=== PATIENT | male | born 1950 | race Caucasian/White ===

== ENCOUNTER 2021-01-23 10:48 | Emergency (ER) | payer MEDICARE, MEDICAID, SELFPAY ==
--- NOTE | ~2021-01-23 | XR_ITS ---
EXAMINATION: XR HIP, LEFT CLINICAL INFORMATION: Left hip pain COMPARISON: None TECHNIQUE: Two views of the left hip. FINDINGS: No fracture or dislocation. The hips are appropriately aligned. Severe degenerative change of the left hip with superior joint space narrowing and [id number] appearance. Subchondral sclerosis with prominent osteophytes noted. Mild degenerative change of the right hip with small osteophytes and subchondral sclerosis. The pelvic rim is intact. Normal bowel gas pattern. XR/XR hip LT w PEL1V IMPRESSION: Severe degenerative changes of the left hip. Mild degenerative change of the right hip.
--- NOTE | ~2021-01-23 | US_ITS ---
EXAMINATION: US VENOUS ULTRASOUND WITH DOPPLER LOWER EXTREMITY, LEFT CLINICAL INFORMATION: Left groin pain. COMPARISON: None TECHNIQUE: Ultrasound of the deep veins is performed from the hip to the calf with compression sonography and color and pulse Doppler assessment. Spectral analysis with color-flow imaging is performed. FINDINGS: There is normal venous compression and respiratory variation and augmented flow. The visualized common femoral vein, superficial femoral vein, profunda femoral vein, popliteal vein, and the trifurcation region shows no evidence of deep venous thrombosis. There is no significant popliteal fossa cyst. If the patient's symptoms persist, followup ultrasound in 5 days 7 days might be of value to exclude proximal propagation from a non-visualized calf vein. US/US venous duplex LE LT IMPRESSION: No DVT demonstrated in the left lower extremity.
[2021-01-23 11:07] VITALS: BP 118/67; PULSE 85; RESP 18; TEMP 36.7; O2SAT 96; BMI 30.7
--- NOTE | 2021-01-23 13:17 | ED.EXTPRO ---
HPI - Extremity Problem General Chief complaint: Extremity Problem Stated complaint: hip pain Time Seen by Provider: 01/23/21 11:40 Source: patient Mode of arrival: ambulatory Limitations: no limitations History of Present Illness MD Complaint: extremity pain Onset (ago): week(s) (1-2 weeks) Pain Consistency: constant Location: left and lower extremity (Groin/hip area) Quality: aching Radiation: none Relieving factors: nothing Exacerbating factors: range of motion and palpation Associated symptoms: denies other symptoms Related Data Previous Rx's Medication Instructions Recorded acetaminophen 500 mg tablet 1,000 mg PO QID PRN #14 tab 01/23/21 (Tylenol Extra Strength) cyclobenzaprine 10 mg tablet 10 mg PO Q8H PRN #14 tab 01/23/21 oxycodone 5 mg tablet 5 mg PO Q6H PRN #14 tab 01/23/21 Allergies Allergy/AdvReac Type Severity Reaction Status Date / Time heparin [HEPARIN] Allergy Unknown UNKNOWN Unverified 12/06/19 14:50 heparin Allergy Unknown foot edema Uncoded 12/05/17 00:00 Heparin Sodium Flush Allergy Unknown swelling Uncoded 09/24/16 00:00 Review of Systems Review of Systems: Constitutional : No Weight loss, No Fever, No Chills, No Night Sweats, No Fatigue, No Malaise ENT/Mouth : No Hearing loss, No Ear Pain, No Nasal Congestion, No Sinus Pain, No Hoarseness, No sore throat, No Rhinorrhea, No Swallowing Difficulty Eyes: No Eye Pain, No Swelling, No Redness, No Foreign Body, No Discharge, No Vision Changes Cardiovascular : No Chest Pain, No SOB, No Dyspnea on Exertion, No Orthopnea, No Edema, No Palpitations Respiratory : No Cough, No Sputum, No Wheezing, No Smoke Exposure, No Dyspnea Gastrointestinal : No Nausea, No Vomiting, No Diarrhea, No Constipation, No abdominal Pain, No Hematochezia, No Melena Genitourinary : no irregular bleeding, No Dysuria, No Urinary Frequency, No Hematuria, No Urinary Incontinence, No Urgency, No Flank Pain, No Urinary Flow Changes, No Hesitancy Musculoskeletal : + left hip/groin joint pain, No Myalgias, No Joint Swelling Skin : No Skin Lesions, No rash Neuro : No Weakness, No Numbness, No Paresthesias, No Loss of Consciousness, No Dizziness, No Headache Psych : No Anxiety/Panic, No Depression, No SI/HI/AH/VH, No Social Issues, Heme/Lymph: No Bruising, No Bleeding,No Lymphadenopathy Endocrine : No Polyuria, No Polydipsia, No Temperature Intolerance Yes all other systems are reviewed and are negative [facility] Past Medical History Attestation statement: The following information was validated with the patient. 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 Blood pressure normal. Heart rate normal. Respiration rate normal. Temperature normal. Oxygen saturation normal. Appearance: Alert. Oriented X3. No acute distress. Head: Normal external exam. Normocephalic. Atraumatic. Eyes: PERRLA. EOMI. Conjunctiva and sclera normal. Eyelids normal. ENT: Pharynx normal. Uvula midline. Moist mucous membranes. Neck: Normal inspection. Neck supple. FROM. No adenopathy. Thyroid Normal. No meningeal signs. No neck mass noted. CVS: Normal heart rate and rhythm. Heart sound normal. Pulses normal throughout. No murmurs/rales/gallops. Respiratory: No respiratory distress. Painless inspiration. Breath sounds normal. No wheezes/rales/rhonchi noted. Chest nontender. No accessory muscle usage noted or decreased air movement noted. Abdomen: Soft and nontender. Bowel sounds normal in all 4 quadrants. No distention noted. No organomegaly noted. No visible injury noted. Back: Full range of motion noted. No rashes/lesion/induration/fluctuance or signs of infection noted. Skin: Skin warm and dry. Normal skin color. Normal skin turgor. No rashes/lesions/lacerations noted. Extremities: Patient mild tenderness palpation to the left groin/pelvic/hip area. He has full range of motion of the left hip/left lower extremity. No signs of infection. No lower extremity edema is noted. No calf tenderness is noted. He has a normal steady gait. Otherwise all other Extremities exhibit normal range of motion and nontender. Neuro: Oriented X 3. No motor deficit. No sensory deficit. Reflexes normal. Normal steady gait. No focal neuro deficits noted. Vascular: + radial pulses/+ 2 distal pedal pulses/+2 dorsalis pedis b/l. Normal cap refill. No cyanosis noted to upper extremity nails and lower extremity toes nails. Course Course Course Narrative: 70-year-old female who has a past medical history of multiple clots in the past currently on Eliquis, hypertension, hyperlipidemia and CHF presenting to the ED with complaints of left groin pain atraumatic for the past 1-2 weeks. He denies any other symptoms or complaints related to this. X-ray obtained and revealed arthritis to the left hip. Negative DVT study to the left lower extremity. Therefore patient most likely groin strain/arthritis flare therefore will DC home with symptomatic treatment instructions return if any new or worsening symptoms to follow up with primary care provider. Patient understands agrees with this plan. MDM - Extremity (Nontraumatic) Medical Records Attestation: I reviewed the patient's medical records. Imaging Data Left hip and pelvis x-ray: Attestation: I personally reviewed and interpreted this imaging study as follows: Radiologist's impression: FINDINGS: No fracture or dislocation. The hips are appropriately aligned. Severe degenerative change of the left hip with superior joint space narrowing and [id number] appearance. Subchondral sclerosis with prominent osteophytes noted. Mild degenerative change of the right hip with small osteophytes and subchondral sclerosis. The pelvic rim is intact. Normal bowel gas pattern. XR/XR hip LT w PEL1V IMPRESSION: Severe degenerative changes of the left hip. Mild degenerative change of the right hip. Venous duplex ultrasound left lower extremity: Attestation: I personally reviewed and interpreted this imaging study as follows: Radiologist's impression: FINDINGS: There is normal venous compression and respiratory variation and augmented flow. The visualized common femoral vein, superficial femoral vein, profunda femoral vein, popliteal vein, and the trifurcation region shows no evidence of deep venous thrombosis. ? There is no significant popliteal fossa cyst. If the patient's symptoms persist, followup ultrasound in 5 days 7 days might be of value to exclude proximal propagation from a non-visualized calf vein. US/US venous duplex LE LT IMPRESSION: No DVT demonstrated in the left lower extremity. Discharge Plan Discharge Clinical Impression: Strain of left groin, Arthritis of left hip Patient Disposition: Home, Self-Care Instructions: Osteoarthritis (ED), Groin Strain (ED) Prescriptions: New cyclobenzaprine 10 mg tablet 10 mg PO Q8H PRN (Reason: Muscle spasm) Qty: 14 RF: 0 acetaminophen [Tylenol Extra Strength] 500 mg tablet 1,000 mg PO QID PRN (Reason: fever or pain) Qty: 14 RF: 0 oxycodone 5 mg tablet 5 mg PO Q6H PRN (Reason: pain) Qty: 14 RF: 0 Referrals: Physician,None [Primary Care Provider] - 2 days (your pcp) Interventions: ED Discharge Assessment Last Done: 01/23/21 13:29 Discharge Date/Time: 01/23/21 13:30 Print Language: Sami
== END 2021-01-23 13:30 | disposition home or self-care (01) ==
PROVIDERS: Emergency Provider Emergency Medicine
DX: S39.011A Strain of muscle, fascia and tendon of abdomen, initial encounter (principal); X58.XXXA Exposure to other specified factors, initial encounter; M16.12 Unilateral primary osteoarthritis, left hip; I11.0 Hypertensive heart disease with heart failure; I50.9 Heart failure, unspecified; E78.5 Hyperlipidemia, unspecified; Y93.9 Activity, unspecified; Y92.9 Unspecified place or not applicable; Y99.9 Unspecified external cause status; Z86.718 Personal history of other venous thrombosis and embolism; Z79.01 Long term (current) use of anticoagulants
CPT/HCPCS: 73502; 93971; 99283; 99284

== ENCOUNTER 2021-02-17 15:44 | Emergency (ER) | payer MEDICARE, MEDICAID, SELFPAY ==
[2021-02-17 16:40] VITALS: BP 154/99; PULSE 97; RESP 19; TEMP 36.4; O2SAT 96; BMI 29.9
--- NOTE | 2021-02-17 19:44 | ED_ITS ---
HPI - General Adult General Chief complaint: Extremity Problem Stated complaint: leg pain Time Seen by Provider: 02/17/21 19:32 Source: patient Mode of arrival: ambulatory Limitations: no limitations History of Present Illness HPI narrative: 70-year-old male presents to ED for pain control of left hip arthritis. Patient was seen here earlier this month for arthritis of hip diagnosed by x-ray and was prescribed with oxycodone and Tylenol with muscle relaxer and he said those were affective. Patient states he ran out of those meds and requesting prescription of oxycodone with cyclobenzaprine and steroids. Related Data Previous Rx's Medication Instructions Recorded acetaminophen 500 mg tablet 1,000 mg PO QID PRN #14 tab 01/23/21 (Tylenol Extra Strength) cyclobenzaprine 10 mg tablet 10 mg PO Q8H PRN #14 tab 01/23/21 oxycodone 5 mg tablet 5 mg PO Q6H PRN #14 tab 01/23/21 acetaminophen 325 mg capsule 325 mg PO QID PRN #28 cap 02/17/21 cyclobenzaprine 10 mg tablet 10 mg PO TID PRN #21 tab 02/17/21 oxycodone 5 mg tablet 5 mg PO TID PRN #9 tab 02/17/21 prednisone 20 mg tablet 40 mg PO DAILY 5 Days #10 tab 02/17/21 Allergies Allergy/AdvReac Type Severity Reaction Status Date / Time heparin [HEPARIN] Allergy Unknown UNKNOWN Verified 02/17/21 16:40 heparin Allergy Unknown foot edema Uncoded 12/05/17 00:00 Heparin Sodium Flush Allergy Unknown swelling Uncoded 09/24/16 00:00 Review of Systems Review of Systems: Yes all other systems are reviewed and are negative Constitutional: Constitutional: Reports as per HPI and Reports no additional constitutional complaints Eyes: Eyes: Reports as per HPI and Reports no additional eye complaints ENT: Reports system reviewed and no additional complaints, except as documented and Reports as per HPI Cardiovascular: Cardiovascular: Reports as per HPI and Reports no additional cardiovascular complaints Respiratory: Respiratory: Reports as per HPI and Reports no additional respiratory complaints Gastrointestinal: Gastrointestinal: Reports as per HPI and Reports no ad ditional gastrointestinal complaints Genitourinary: Genitourinary: Reports no additional male genitourinary complaints and Reports as per HPI Musculoskeletal: Musculoskeletal: Reports no additional musculoskeletal complaints, Reports as per HPI and Reports arthralgias (left hip pain) Integumentary/Breasts: Skin/Breast: Reports system reviewed and no additional complaints, except as docu and Reports as per HPI Neurologic: Reports system reviewed and no additional complaints, except as documented and Reports as per HPI Psychiatric: Psychiatric: Reports no additional psychiatric complaints and Reports as per HPI [facility] Past Medical History Medical History (Updated 02/18/21 @ 00:02 by Tavares Waldrop) CHF (congestive heart failure) High cholesterol 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) Hx of senior living use of blood thinners Social History Social History Advance Directives: No Advance Directives Information Provided: Yes Physical Exam Vital Signs: Vital Signs: Last Vital Signs Temp 97.5 F 02/17/21 16:40 Pulse 97 02/17/21 16:40 Resp 19 02/17/21 16:40 BP 154/99 H 02/17/21 16:40 Pulse Ox 96 02/17/21 16:40 Body Mass Index 29.9 Const: General: cooperative, healthy appearing, comfortable, no acute distress, well developed, alert, awake and Physically active Orientatio n/consciousness: patient oriented x3 HENMT: Head: Yes normal to inspection, Yes No palpable skull fracture present, Yes normocephalic, Yes atraumatic and No abrasion Eyes: General: appearance normal, both eyes and all related structures Neck: Neck: Yes normal visual inspection, Yes full ROM, Yes no lymphadenopathy, Yes no meningeal signs, Yes trachea midline, No supple, No anterior neck swelling and No tender Chest: Chest palpation & inspection: normal inspection of the chest and normal palpation of entire chest wall Resp: Effort & Inspection: normal respiratory effort and able to speak in complete sentences Auscultation: clear to auscultation bilaterally Cardio: Jugular venous distension: no JVD Heart sounds: S1 normal heart sound present and S2 normal heart sound present GI: Inspection: Yes normal to inspection and No abdominal wall ecchymosis Palpation (GI): Soft to palpation, not firm, nontender, no guarding and not rigid : General: No CVA tenderness and Yes no CVA tenderness Back/Spine/Pelvis: Back: no CVA tenderness, No CVA tenderness and No back tenderness Skin: General skin exam: no rashes or lesions noted and elasticity normal Neuro: General: patient oriented x3, gait normal, no meningeal signs and CN's II-XI intact bilaterally Cranial nerves: Yes CN's II-XII intact bilaterally Extrem: General: Yes normal to inspection and Yes full ROM Upper/lower leg/hip images: 1. Positive for tenderness on hip on palpation. Negative for crepitus, ecchymosis, erythema, or fluctuating mass. Femoral pulse intact. Patient's motor/neuro/vascular exam of left lower extremity intact. Negative for swelling of legs or redness to indicate cellulitis or DVT. Course Course Course Narrative: No need for repeat imaging. Patient normal ultrasound on last visit to the ED an x-ray at the time showed severe arthritis. Reevaluation(s) Reevaluation #1: Patient discharged with pain meds Time: 19:56 Medical Decision Making MDM Narrative Medical decision making narrative: Hip arthritis Discharge Plan Discharge Clinical Impression: Arthritis of hip Patient Disposition: Home, Self-Care Instructions: Arthritis (ED) Additional Instructions: Return to the ED immediately for worsening pain, swelling of lower extremity, bluish black discoloration of lower extremity, redness, calf pain, fever, chills , coldness, hotness, paralysis of lower extremity, or any other concerning symptoms. Please follow up with PCP. Prescriptions: New oxycodone 5 mg tablet 5 mg PO TID PRN (Reason: pain) Qty: 9 RF: 0 acetaminophen 325 mg capsule 325 mg PO QID PRN (Reason: pain) Qty: 28 RF: 0 prednisone 20 mg tablet 40 mg PO DAILY 5 Days Qty: 10 RF: 0 cyclobenzaprine 10 mg tablet 10 mg PO TID PRN (Reason: pain) Qty: 21 RF: 0 No Action cyclobenzaprine 10 mg tablet 10 mg PO Q8H PRN (Reason: Muscle spasm) Qty: 14 RF: 0 acetaminophen [Tylenol Extra Strength] 500 mg tablet 1,000 mg PO QID PRN (Reason: fever or pain) Qty: 14 RF: 0 oxycodone 5 mg tablet 5 mg PO Q6H PRN (Reason: pain) Qty: 14 RF: 0 Stand Alone Forms: Work/School Release Interventions: ED Discharge Assessment Last Done: 02/17/21 20:34 Discharge Date/Time: 02/17/21 20:35 Print Language: Estonian
== END 2021-02-17 20:35 | disposition home or self-care (01) ==
PROVIDERS: Emergency Provider Emergency Medicine
DX: M16.7 Other unilateral secondary osteoarthritis of hip (principal); M25.552 Pain in left hip; I11.0 Hypertensive heart disease with heart failure; I50.9 Heart failure, unspecified; E78.5 Hyperlipidemia, unspecified; Z79.01 Long term (current) use of anticoagulants
CPT/HCPCS: 99283

== ENCOUNTER 2021-04-02 08:20 | Emergency (ER) | payer MEDICARE, SELFPAY ==
[2021-04-02 08:25] VITALS: BP 165/73; PULSE 74; RESP 16; O2SAT 99; BMI 29.9
--- NOTE | 2021-04-02 09:59 | ED_ITS ---
HPI - Extremity Injury (Lower) General Chief Complaint: Extremity Injury, Lower Stated Complaint: l leg pain Time Seen by Provider: 04/02/21 09:46 History of Present Illness HPI Narrative: Patient complains of increasingly severe left hip pain he has been here twice before an x-ray did show severe degenerative changes in the hip, the pain is mainly with movement of the leg or putting weight on the leg as well as waking him up from sleep with some frequency There is no fever no chills no rib injury no fall, no numbness weakness or tingling Related Data Previous Rx's Medication Instructions Recorded acetaminophen 500 mg tablet 1,000 mg PO QID PRN #14 tab 01/23/21 (Tylenol Extra Strength) cyclobenzaprine 10 mg tablet 10 mg PO Q8H PRN #14 tab 01/23/21 oxycodone 5 mg tablet 5 mg PO Q6H PRN #14 tab 01/23/21 acetaminophen 325 mg capsule 325 mg PO QID PRN #28 cap 02/17/21 cyclobenzaprine 10 mg tablet 10 mg PO TID PRN #21 tab 02/17/21 oxycodone 5 mg tablet 5 mg PO TID PRN #9 tab 02/17/21 prednisone 20 mg tablet 40 mg PO DAILY 5 Days #10 tab 02/17/21 acetaminophen 500 mg tablet 1,000 mg PO QID PRN #30 tab 04/02/21 oxycodone 5 mg tablet 5 mg PO Q6H PRN #14 tab 04/02/21 Allergies Allergy/AdvReac Type Severity Reaction Status Date / Time heparin [HEPARIN] Allergy Unknown UNKNOWN Verified 02/17/21 16:40 heparin Allergy Unknown foot edema Uncoded 12/05/17 00:00 Heparin Sodium Flush Allergy Unknown swelling Uncoded 09/24/16 00:00 Review of Systems Review of Systems: Positive for left hip pain with movement Negatives are no fever no chills no headache no neck pain no radiating pain no chest pain no shortness of breath no abdominal pain no abdominal hernia or swelling no nausea or vomiting no other joint pains no numbness weakness or tingling no back pains Yes all other systems are reviewed and are negative PMFSH Past Medical History Source: nursing notes reviewed Medical History (Updated 04/02/21 @ 10:03 by ÁNGELA Garcia) CHF (congestive heart failure) High cholesterol 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) 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 Social History Social History Advance Directives: No Advance Directives Information Provided: No Physical Exam Vital Signs: Vital Signs: Last Vital Signs Pulse 74 04/02/21 08:25 Resp 16 04/02/21 08:25 BP 165/73 H 04/02/21 08:25 Pulse Ox 99 04/02/21 08:25 BMI result Body Mass Index 29.9 General appearance is no distress Head is normocephalic atraumatic Neck is supple nontender Respiratory no distress Abdomen soft nontender Genital exam normal no hernia mass was palpated no redness no lymphadenopathy Extremities the left hip was tender and had pain with movement, pain was relieved in holding the hip in a position of comfort, he could bear weight but is using a cane Neuro no focal motor sensory deficits Skin no redness no warmth no wounds Course Course Course Narrative: Patient with worsening hip pain likely from osteoarthritis is referred to orthopedics and prescribed analgesics Discharge Plan Discharge Clinical Impression: Osteoarthritis of left hip Patient Disposition: Home, Self-Care Additional Instructions: X-ray showed severe arthritis in her hip and there are injections and surgical treatments for this but you need to see an orthopedist so make an appointment Return any time if worse Also follow with primary care doctor is blood pressure was elevated Prescriptions: New oxycodone 5 mg tablet 5 mg PO Q6H PRN (Reason: pain) Qty: 14 RF: 0 acetaminophen 500 mg tablet 1,000 mg PO QID PRN (Reason: pain) Qty: 30 RF: 0 No Action cyclobenzaprine 10 mg tablet 10 mg PO Q8H PRN (Reason: Muscle spasm) Qty: 14 RF: 0 acetaminophen [Tylenol Extra Strength] 500 mg tablet 1,000 mg PO QID PRN (Reason: fever or pain) Qty: 14 RF: 0 oxycodone 5 mg tablet 5 mg PO Q6H PRN (Reason: pain) Qty: 14 RF: 0 oxycodone 5 mg tablet 5 mg PO TID PRN (Reason: pain) Qty: 9 RF: 0 acetaminophen 325 mg capsule 325 mg PO QID PRN (Reason: pain) Qty: 28 RF: 0 prednisone 20 mg tablet 40 mg PO DAILY 5 Days Qty: 10 RF: 0 cyclobenzaprine 10 mg tablet 10 mg PO TID PRN (Reason: pain) Qty: 21 RF: 0 Referrals: Saul Niño MD [Physician] - 1 week (Severe left hip arthritis) Interventions: ED Discharge Assessment Last Done: 04/02/21 10:19 Discharge Date/Time: 04/02/21 10:21
--- NOTE | 2021-04-02 10:18 | PC.NURSE ---
PT AWAKE, ALERT AND ORIENTED X 3. SKIN WARM AND DRY. RESP UNLABORED. DENIES N/V. C/O LEFT HIP PAIN. PT AMBULATORY INTO [facility] WITH CANE. GAIT STEADY. PT EVALUATED BY ÁNGELA HURT. PLAN IS FOR DC HOME WITH SCRIPTS SENT TO PHARMACY. PT AGREEABLE TO PLAN.
== END 2021-04-02 10:21 | disposition home or self-care (01) ==
PROVIDERS: Emergency Provider Emergency Medicine
DX: M16.12 Unilateral primary osteoarthritis, left hip (principal); M25.552 Pain in left hip; I10 Essential (primary) hypertension; I48.91 Unspecified atrial fibrillation; E78.00 Pure hypercholesterolemia, unspecified
CPT/HCPCS: 99282; 99283

== ENCOUNTER → 2021-04-27 10:41 | Outpatient (BNVA) | payer OTHER, SELFPAY | PROVIDERS: PCP Nurse Practitioner Acute Care; Visit Provider Orthopaedic Surgery | DX: M16.12 Unilateral primary osteoarthritis, left hip (principal) | CPT/HCPCS: 99202 ==

== ENCOUNTER 2021-06-18 09:54 | Outpatient (REF) | payer OTHER, SELFPAY ==
[2021-06-18 10:46] LABS: MANUAL DIFF FLAG NO
[2021-06-18 11:42] LABS: Basophils Percent Auto 0.2 % (0-2); Eosinophils Absolute Auto 0.1 X10*3/uL (0.0-0.4); Eosinophils Percent Auto 2.2 % (0-4); Hematocrit 35.6 % (42.0-52.0); Hemoglobin 11.8 g/dl (14.0-18.0); Imm Gran Abs Auto 0.01 X10*3/uL (0.00-0.03); Imm Gran Pct Auto 0.2 % (0.0-0.4); Lymphocytes Absolute Auto 1.1 X10*3/uL (1.2-4.9); Lymphocytes Percent Auto 19.2 % (20-40); Mean Corpuscular HGB Conc 33.1 g/dl (31.0-36.0); Mean Corpuscular Hemoglobin 31.5 pg (27.0-33.0); Mean Corpuscular Volume 94.9 fL (80.0-98.0); Mean Platelet Volume 10.7 fL (9.4-12.4); Monocytes Absolute Auto 0.5 X10*3/uL (0.1-1.2); Monocytes Percent Auto 9.7 % (2-11); Neutrophils Absolute Auto 3.8 x10*3/uL (2.0-8.3); Neutrophils Percent Auto 68.5 % (45-73); Platelet Count 211 X10*3/uL (160-400); Red Blood Count 3.75 X10*6/uL (4.60-5.80); Red Cell Distribution Width 13.6 % (11.0-16.0); White Blood Count 5.6 X10*3/uL (4.8-10.8)
[2021-06-18 11:43] LABS: Alanine Aminotransferase 21 U/L (0-40); Albumin Level 4.4 g/dL (3.5-5.0); Alkaline Phosphatase 65 U/L (39-117); Anion Gap 17 (12-20); Aspartate Amino Transferase 27 U/L (5-37); Bilirubin Total 0.7 mg/dL (0.0-1.0); Blood Urea Nitrogen 28 mg/dL (9-16); Calcium 9.7 mg/dL (8.4-10.2); Carbon Dioxide 24 mmol/L (22-29); Chloride 98 mmol/L (96-108); Cholesterol 123 mg/dL; Estimated Glomerular Filt Rate 53; Glucose Fasting 88 mg/dL (60-99); HDL Cholesterol 49 mg/dL; LDL Cholesterol Calculated 65 mg/dl; Potassium 4.3 mmol/L (3.3-5.1); Sodium 135 mmol/L (135-145); Total Protein 7.1 g/dL (6.5-8.0); Triglycerides 49 mg/dL
[2021-06-18 12:07] LABS: Folate 14.8 ng/mL (> or = 4.0); Vitamin B12 629 pg/mL (200-900)
[2021-06-18 12:08] LABS: Prostate Specific Antigen Scr 0.96 ng/mL (<0.05-4.0); TSH reflex Free T4 0.71 uIU/mL (0.32-4.0)
[2021-06-18 12:32] LABS: Estimated Average Glucose 114 mg/dL; Hemoglobin A1c % 5.6 %
[2021-06-18 12:43] LABS: Amphetamine Screen Urine Not Detected (Not Detect); Barbiturates, Urine Not Detected (Not Detect); Benzodiazepines Screen Urine Not Detected (Not Detect); Cannabinoid Screen Urine Not Detected (Not Detect); Cocaine Screen Urine Not Detected (Not Detect); Fentanyl, urine Not Detected (Not Detect); Opiate Screen Urine Not Detected (Not Detect); Phencyclidine Screen Urine Not Detected (Not Detect)
[2021-06-23 07:45] LABS: Noroxycodone, Ur 148; Oxymorphone, Ur 255
[2021-06-23 07:46] LABS: Alphahydroxytriazolam, GCMS Ur NEGATIVE; Alprazolam, GCMS Urine NEGATIVE; Codeine, Ur NEGATIVE; Hydrocodone, Ur NEGATIVE; Hydromorphone, Ur NEGATIVE; Lorazepam GCMS Urine NEGATIVE; Morphine, Ur NEGATIVE; Nordiazepam, GCMS Urine NEGATIVE; Norhydrocodone, Ur NEGATIVE; Oxazepam, GCMS Urine NEGATIVE; Oxycodone, Ur 89
[2021-06-23 07:47] LABS: Alphahydroxymidazolam,GCMS Ur NEGATIVE; Aminoclonazepam, GCMS Urine NEGATIVE; Flurazepam Metabolite,GCMS Ur NEGATIVE; Temazepam, GCMS Urine NEGATIVE
[2021-06-23 14:32] LABS: Vitamin D 25-OH, D2 <4 ng/mL; Vitamin D 25-OH, D3 27 ng/mL; Vitamin D 25-OH, Total 27 ng/mL (30-100)
== END 2021-06-18 09:55 | disposition home or self-care (01) ==
LOC: HO.LAB 09:54
PROVIDERS: PCP Nurse Practitioner Acute Care; Visit Provider Nurse Practitioner Acute Care
DX: F11.90 Opioid use, unspecified, uncomplicated (principal); I50.9 Heart failure, unspecified
CPT/HCPCS: 80053; 80061; 80307; 80346; 80364; 80365; 82306; 82607; 82746; 83036; 84153; 84443; 85025

== ENCOUNTER → 2021-06-24 12:50 | Outpatient (BNVA) | payer OTHER, SELFPAY | PROVIDERS: PCP Nurse Practitioner Acute Care; Visit Provider Orthopaedic Surgery | DX: Z13.89 Encounter for screening for other disorder (principal) ==

== ENCOUNTER 2021-07-27 12:22 | Outpatient (REF) | payer OTHER, SELFPAY ==
[2021-07-27 14:09] LABS: INTERNATIONAL NORM RATIO 1.2 (0.9-1.1); Prothrombin Time 13.9 SEC (9.9-13.0)
== END 2021-07-27 12:23 | disposition home or self-care (01) ==
LOC: HO.LAB 12:22
PROVIDERS: PCP Nurse Practitioner Acute Care; Visit Provider Physician Assistant
DX: Z01.818 Encounter for other preprocedural examination (principal); M16.12 Unilateral primary osteoarthritis, left hip
CPT/HCPCS: 36415; 85610; 99212

== ENCOUNTER 2021-07-31 | Outpatient (REF) | payer OTHER, SELFPAY ==
[2021-07-16 12:18] VITALS: BP 117/68; PULSE 79; RESP 20; O2SAT 95; BMI 29.7
--- NOTE | 2021-07-16 12:33 | HO.ANESPROP2 ---
HPI - Anesthesia Eval Consult details Narrative: Cx'd DOS for unimproved LE edema 70yo M for Left Hip Total Replacement Cardiac cleared (Lasix increased from 40 to 60mg BID 07/15/21) PCP cleared Warfarin for chronic afib [facility] Active Problems Active Problems: All Active Problems (Updated 07/16/21 @ 12:29 by Venita Victoria RN) Hypercholesteremia (Acute) Encounter to establish care (Acute) Alcohol use (Acute) Primary osteoarthritis of left hip (Acute) Erectile dysfunction (Acute) Annual physical exam (Acute) Vitamin D deficiency (Acute) Atrial fibrillation (Acute) Gout (Acute) CAD (coronary artery disease) (Acute) S/P CABG x 3 (Acute) Arthritis of left hip (Acute) Hx of [facility] use of blood thinners (Acute) 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) (Acute) High cholesterol (Acute) CHF (congestive heart failure) (Acute) Past Medical History Medical History (Updated 07/20/21 @ 11:03 by RONNY Hutchison-C) Arthritis of left hip Atrial fibrillation CAD (coronary artery disease) CHF (congestive heart failure) COVID-19 vaccine series completed GI bleed Gout H/O thyroglossal duct cyst High cholesterol History of amputation of toe 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) Hx of [facility] use of blood thinners Lower extremity edema Myocardial infarction Family History Family history of problems with anesthesia: No Surgical History Surgical History (Updated 07/15/21 @ 09:45 by Venita Victoria RN) H/O colonoscopy History of esophagogastroduodenoscopy (EGD) History of evacuation of hematoma History of surgery Hx of cardiac catheterization S/P CABG x 3 History of Problems with Anesthesia: No Social History Social History Housing: House Are you a primary healthcare administration internship to a significant other at home: No Do you presently have visiting nurse or other home services: No Patient Tobacco Use Status: Never used Tobacco e-Cigarette/Vaping Use: Never Used Second Hand Smoke Exposure: No service: No Current occupational status: retired Cognitive needs: Yes Hearing needs: No Vision needs: No Narrative Narrative: No recent illness No CP/SOB. +edema bilateral LE. Activity limited d/t OA Meds Allergies Allergy/AdvReac Type Severity Reaction Status Date / Time heparin [HEPARIN] Allergy Intermediate heparin Verified 07/27/21 12:27 induced thrombosis Home Medications Medication Instructions Recorded Confirmed Last Taken Type furosemide 40 mg tablet 60 mg PO BID 07/16/21 07/20/21 Unknown History Exam Exam Date and Time: July 16, 2021 1233 Height,Weight and Vital Signs: Height 5 ft 11 in Weight 96.5 kg Last Vital Signs Pulse 79 07/16/21 12:18 Resp 20 07/16/21 12:18 BP 117/68 07/16/21 12:18 Pulse Ox 95 07/16/21 12:18 Pertinent Lab Results Pertinent Lab Results: Laboratory Tests 06/18/21 06/18/21 10:45 10:45 WBC 5.6 Hgb 11.8 L Hct 35.6 L Plt Count 211 Sodium 135 Potassium 4.3 Chloride 98 Carbon Dioxide 24 BUN 28 H Creatinine 1.35 Narrative Narrative: EKG 06/2021 afib @ 81 ECHO 07/2021 Normal LV size, thickness and systolic function LVEF 73% Normal RV size and systolic function Atria are normal in size No significant valve abnormalities No significant pericardial effusion C/W 12/2019, WMA no longer seen MIBI 05/2021 (per cardiol note) Normal two day pharm stress myocaridal perfusion scan LVEF was normal No ischemic ST-T wave changes during stress or recovery Occasional PVC noted with stress. Baseline showed afib Airway Mallampati Class: I TM Dist: >3cm Neck ROM: Full Loose/Missing/Broken Teeth: No Heart: RRR Lungs: CTAB Assessment and Plan Assessment Anesthesia Assessment: Anesthesia Plan Discussed and PAT Visit Final Anesthetic Review Family History of Problems with Anesthesia: No History of Problems with Anesthesia: No
[2021-07-16 14:19] LABS: MRSA Nasal PCR NEGATIVE (Negative); SA Nasal PCR NEGATIVE (Negative)
[2021-07-23 11:25] LABS: MANUAL DIFF FLAG NO
[2021-07-23 11:27] LABS: Basophils Percent Auto 0.2 % (0-2); Eosinophils Absolute Auto 0.3 X10*3/uL (0.0-0.4); Eosinophils Percent Auto 5.4 % (0-4); Hematocrit 36.8 % (42.0-52.0); Hemoglobin 12.2 g/dl (14.0-18.0); Imm Gran Abs Auto 0.01 X10*3/uL (0.00-0.03); Imm Gran Pct Auto 0.2 % (0.0-0.4); Lymphocytes Absolute Auto 1.9 X10*3/uL (1.2-4.9); Lymphocytes Percent Auto 30.3 % (20-40); Mean Corpuscular HGB Conc 33.2 g/dl (31.0-36.0); Mean Corpuscular Hemoglobin 31.2 pg (27.0-33.0); Mean Corpuscular Volume 94.1 fL (80.0-98.0); Mean Platelet Volume 10.1 fL (9.4-12.4); Monocytes Absolute Auto 0.9 X10*3/uL (0.1-1.2); Neutrophils Absolute Auto 3.1 x10*3/uL (2.0-8.3); Neutrophils Percent Auto 49.9 % (45-73); Platelet Count 202 X10*3/uL (160-400); Red Blood Count 3.91 X10*6/uL (4.60-5.80); Red Cell Distribution Width 13.7 % (11.0-16.0); White Blood Count 6.1 X10*3/uL (4.8-10.8)
[2021-07-23 11:34] LABS: INTERNATIONAL NORM RATIO 1.1 (0.9-1.1); Prothrombin Time 12.7 SEC (9.9-13.0)
[2021-07-23 11:37] LABS: Partial Thromboplastin Time 35.2 SEC (24.1-38.0)
[2021-07-23 11:48] LABS: Alanine Aminotransferase 26 U/L (0-40); Albumin Level 4.4 g/dL (3.5-5.0); Alkaline Phosphatase 71 U/L (39-117); Anion Gap 15 (12-20); Aspartate Amino Transferase 36 U/L (5-37); Bilirubin Total 0.8 mg/dL (0.0-1.0); Blood Urea Nitrogen 28 mg/dL (9-16); Calcium 9.3 mg/dL (8.4-10.2); Carbon Dioxide 27 mmol/L (22-29); Chloride 99 mmol/L (96-108); Creatinine Clr Calc Pharmacy 58.1; Estimated Glomerular Filt Rate 49; Glucose Fasting 96 mg/dL (60-99); Potassium 4.2 mmol/L (3.3-5.1); Sodium 137 mmol/L (135-145); Total Protein 7.4 g/dL (6.5-8.0)
[2021-07-28] MEDS: oxyCODONE HCl ER 10 MG TAB.ER.12H PO (08:10)
[2021-07-28 08:15] VITALS: BP 115/62; PULSE 76; RESP 20; TEMP 36.1; O2SAT 99
[2021-07-28 08:29] LABS: COVID-19 Test Negative (Negative); IDNOW Serial# 16C4AD1C
[2021-07-28] MEDS: Lactated Ringers 1,000 ML 50 ML IVCONT (08:39)
--- NOTE | 2021-07-28 09:04 | PC.NURSE ---
pt cancelled by anesthesia secondary lower leg edema
[2021-07-28 09:29] LABS: INTERNATIONAL NORM RATIO 1.3 (0.9-1.1); Prothrombin Time 14.6 SEC (9.9-13.0)
--- NOTE | 2021-07-28 11:05 | PHA.MEDREC ---
Pharmacy Consult ? Medication Reconciliation Pharmacy has reviewed the medication reconciliation.
== END 2021-07-31 00:01 ==
LOC: HO.PAT
PROVIDERS: Nurse Practitioner; Physician Assistant; Absent Provider Nurse Practitioner Family; PCP Nurse Practitioner Acute Care; Visit Provider Orthopaedic Surgery
DX: Z01.818 Encounter for other preprocedural examination (principal); M16.12 Unilateral primary osteoarthritis, left hip; I10 Essential (primary) hypertension; E78.00 Pure hypercholesterolemia, unspecified; Z20.822 Contact with and (suspected) exposure to COVID-19
CPT/HCPCS: 36415; 80053; 85025; 85610; 85730; 86850; 86900; 86901; 87635; 87640; 87641; J0131; J0690

== ENCOUNTER 2021-08-03 13:33 | Outpatient (REF) | payer OTHER, SELFPAY ==
[2021-08-03 14:48] LABS: INTERNATIONAL NORM RATIO 1.4 (0.9-1.1)
[2021-08-03 15:21] LABS: B Type Natriuretic Peptide 314 pg/mL (<100)
== END 2021-08-03 13:34 | disposition home or self-care (01) ==
LOC: HO.LAB 13:33
PROVIDERS: Absent Provider Nurse Practitioner Family; Visit Provider Nurse Practitioner Acute Care
DX: I48.19 Other persistent atrial fibrillation (principal); I50.9 Heart failure, unspecified
CPT/HCPCS: 36415; 83880; 85610

== ENCOUNTER 2021-08-06 10:23 | Outpatient (REF) | payer OTHER, SELFPAY ==
[2021-08-06 11:45] LABS: INTERNATIONAL NORM RATIO 1.3 (0.9-1.1); Prothrombin Time 14.6 SEC (9.9-13.0)
== END 2021-08-06 10:24 | disposition home or self-care (01) ==
LOC: HO.LAB 10:23
PROVIDERS: Visit Provider Internal Medicine
DX: I48.19 Other persistent atrial fibrillation (principal)
CPT/HCPCS: 36415; 85610

== ENCOUNTER → 2021-08-10 10:34 | Outpatient (BNVA) | payer OTHER, SELFPAY | PROVIDERS: PCP Internal Medicine; Visit Provider Internal Medicine | DX: I48.19 Other persistent atrial fibrillation (principal); Z79.01 Long term (current) use of anticoagulants; Z51.81 Encounter for therapeutic drug level monitoring | CPT/HCPCS: 85610; 99202 ==

== ENCOUNTER → 2021-08-14 13:55 | Outpatient (BNVA) | payer OTHER, SELFPAY | PROVIDERS: PCP Internal Medicine; Visit Provider Internal Medicine | DX: I48.19 Other persistent atrial fibrillation (principal); Z79.01 Long term (current) use of anticoagulants; Z51.81 Encounter for therapeutic drug level monitoring | CPT/HCPCS: 85610; 99211 ==

== ENCOUNTER → 2021-08-18 10:36 | Outpatient (BNVA) | payer OTHER, SELFPAY | PROVIDERS: PCP Nurse Practitioner Family; Visit Provider Internal Medicine | DX: I48.19 Other persistent atrial fibrillation (principal); Z79.01 Long term (current) use of anticoagulants; Z51.81 Encounter for therapeutic drug level monitoring | CPT/HCPCS: 85610; 99211 ==

== ENCOUNTER → 2021-08-21 08:21 | Outpatient (BNVA) | payer OTHER, SELFPAY | PROVIDERS: PCP Nurse Practitioner Family; Visit Provider Internal Medicine | DX: I48.19 Other persistent atrial fibrillation (principal); Z79.01 Long term (current) use of anticoagulants; Z51.81 Encounter for therapeutic drug level monitoring | CPT/HCPCS: 85610; 99211 ==

== ENCOUNTER → 2021-08-24 08:50 | Outpatient (BNVA) | payer OTHER, SELFPAY | PROVIDERS: PCP Nurse Practitioner Family; Visit Provider Internal Medicine | DX: I48.19 Other persistent atrial fibrillation (principal); Z79.01 Long term (current) use of anticoagulants; Z51.81 Encounter for therapeutic drug level monitoring | CPT/HCPCS: 85610; 99211 ==

== ENCOUNTER → 2021-08-27 08:33 | Outpatient (BNVA) | payer OTHER, SELFPAY | PROVIDERS: PCP Nurse Practitioner Family; Visit Provider Internal Medicine | DX: I48.19 Other persistent atrial fibrillation (principal); Z79.01 Long term (current) use of anticoagulants; Z51.81 Encounter for therapeutic drug level monitoring | CPT/HCPCS: 85610; 99211 ==

== ENCOUNTER → 2021-08-31 09:25 | Outpatient (BNVA) | payer OTHER, SELFPAY | PROVIDERS: PCP Nurse Practitioner Family; Visit Provider Internal Medicine | DX: I48.19 Other persistent atrial fibrillation (principal); Z79.01 Long term (current) use of anticoagulants; Z51.81 Encounter for therapeutic drug level monitoring | CPT/HCPCS: 85610; 99211 ==

== ENCOUNTER → 2021-09-04 08:59 | Outpatient (REF) | payer OTHER, SELFPAY ==
--- NOTE | 2021-09-04 12:49 | ECG_ITS ---
Test Reason : PREOP Blood Pressure : / mmHG Vent. Rate : 090 BPM Atrial Rate : 000 BPM P-R Int : 000 ms QRS Dur : 092 ms QT Int : 358 ms P-R-T Axes : 000 050 026 degrees QTc Int : 437 ms Atrial fibrillation Abnormal ECG When compared with ECG of 01-JUL-2016 07:06, Atrial fibrillation has replaced Sinus rhythm Vent. rate has increased BY 33 BPM Nonspecific T wave abnormality has replaced inverted T waves in Inferior leads Referred By: Megha Henriquez Electronically Signed By:Eric Kitchen
[2021-09-04 13:36] LABS: Hematocrit 34.6 % (42.0-52.0); Hemoglobin 11.5 g/dl (14.0-18.0); Mean Corpuscular HGB Conc 33.2 g/dl (31.0-36.0); Mean Corpuscular Volume 93.3 fL (80.0-98.0); Mean Platelet Volume 10.4 fL (9.4-12.4); Platelet Count 218 X10*3/uL (160-400); Red Blood Count 3.71 X10*6/uL (4.60-5.80); Red Cell Distribution Width 14.4 % (11.0-16.0); White Blood Count 6.6 X10*3/uL (4.8-10.8)
[2021-09-04 14:00] LABS: Anion Gap 14 (12-20); Blood Urea Nitrogen 15 mg/dL (9-16); Calcium 9.2 mg/dL (8.4-10.2); Carbon Dioxide 29 mmol/L (22-29); Chloride 97 mmol/L (96-108); Estimated Glomerular Filt Rate > 60; Glucose Random 102 mg/dL (60-115); Potassium 4.6 mmol/L (3.3-5.1); Sodium 135 mmol/L (135-145)
[2021-09-04 14:06] LABS: B Type Natriuretic Peptide 235 pg/mL (<100)
[2021-09-04 14:21] LABS: TSH reflex Free T4 0.57 uIU/mL (0.32-4.0)
== END ==
LOC: HO.CARD 08:59
PROVIDERS: Absent Provider Nurse Practitioner Family; PCP Nurse Practitioner Family; Visit Provider Internal Medicine
DX: Z01.818 Encounter for other preprocedural examination (principal); I48.19 Other persistent atrial fibrillation; Z51.81 Encounter for therapeutic drug level monitoring; Z79.01 Long term (current) use of anticoagulants
CPT/HCPCS: 36415; 80048; 83880; 84443; 85027; 85610; 93005; 99211

== ENCOUNTER → 2021-09-07 08:22 | Outpatient (BNVA) | payer OTHER, SELFPAY | PROVIDERS: PCP Nurse Practitioner Family; Visit Provider Internal Medicine | DX: I48.19 Other persistent atrial fibrillation (principal); Z79.01 Long term (current) use of anticoagulants; Z51.81 Encounter for therapeutic drug level monitoring | CPT/HCPCS: 85610; 99211 ==

== ENCOUNTER → 2021-09-10 08:38 | Outpatient (BNVA) | payer OTHER, SELFPAY | PROVIDERS: PCP Nurse Practitioner Family; Visit Provider Internal Medicine | DX: I48.19 Other persistent atrial fibrillation (principal); Z79.01 Long term (current) use of anticoagulants; Z51.81 Encounter for therapeutic drug level monitoring | CPT/HCPCS: 85610; 99211; 99212 ==

== ENCOUNTER → 2021-10-01 11:11 | Outpatient (BNVA) | payer OTHER, SELFPAY | PROVIDERS: PCP Nurse Practitioner Family; Visit Provider Internal Medicine | DX: I48.19 Other persistent atrial fibrillation (principal); Z51.81 Encounter for therapeutic drug level monitoring; Z79.01 Long term (current) use of anticoagulants | CPT/HCPCS: 85610; 99211 ==

== ENCOUNTER → 2021-10-06 09:57 | Outpatient (BNVA) | payer OTHER, SELFPAY | PROVIDERS: PCP Nurse Practitioner Family; Visit Provider Internal Medicine | DX: I48.19 Other persistent atrial fibrillation (principal); Z51.81 Encounter for therapeutic drug level monitoring; Z79.01 Long term (current) use of anticoagulants | CPT/HCPCS: 85610; 99211 ==

== ENCOUNTER → 2021-10-13 08:48 | Outpatient (BNVA) | payer OTHER, SELFPAY | PROVIDERS: PCP Nurse Practitioner Family; Visit Provider Internal Medicine | DX: I48.19 Other persistent atrial fibrillation (principal); Z79.01 Long term (current) use of anticoagulants; Z51.81 Encounter for therapeutic drug level monitoring | CPT/HCPCS: 85610; 99211 ==

== ENCOUNTER 2021-10-20 | Outpatient (REF) | payer OTHER, SELFPAY ==
--- NOTE | 2021-09-15 09:39 | HO.ANESPROP2 ---
HPI - Anesthesia Eval Consult details Narrative: Surgery cx'd d/t patient social circumstance. 70yo M for Left Hip Total Replacement Cx'd DOS 07/2021 for unimproved LE edema - improved to ~1-2+ at 09/15/21 PAT, pt remains on Lasix 60mg BID, encouraged low salt, elevation, compression sock compliance, limit ETOH. Cardiac cleared (Lasix increased from 40 to 60mg BID 07/15/21) PCP cleared Warfarin for chronic afib [facility] Active Problems Active Problems: All Active Problems (Updated 08/10/21 @ 11:18 by Ofelia Reich RN) Current use of anticoagulant therapy (Acute) Bilateral edema of lower extremity (Acute) Pre-operative clearance (Acute) Hypercholesteremia (Acute) Encounter to establish care (Acute) Alcohol use (Acute) Primary osteoarthritis of left hip (Acute) Erectile dysfunction (Acute) Annual physical exam (Acute) Vitamin D deficiency (Acute) Atrial fibrillation (Acute) Gout (Acute) CAD (coronary artery disease) (Acute) S/P CABG x 3 (Acute) Arthritis of left hip (Acute) Hx of intermediate use of blood thinners (Acute) 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) (Acute) High cholesterol (Acute) CHF (congestive heart failure) (Acute) Past Medical History Medical History COVID-19 vaccine series completed GI bleed H/O thyroglossal duct cyst History of amputation of toe Lower extremity edema Myocardial infarction Family History Family history of problems with anesthesia: No Surgical History Surgical History H/O colonoscopy History of esophagogastroduodenoscopy (EGD) History of evacuation of hematoma History of surgery Hx of cardiac catheterization History of Problems with Anesthesia: No Social History Social History Housing: Apartment Are you a primary healthcare administration internship to a significant other at home: No Do you presently have visiting nurse or other home services: No Alcohol intake: current Alcohol intake frequency: 3 or more drinks per day Patient Tobacco Use Status: Never used Tobacco e-Cigarette/Vaping Use: Never Used Second Hand Smoke Exposure: No service: No Current occupational status: retired Current occupational exposures/hazards: No Cognitive needs: Yes (Cane) Hearing needs: No Vision needs: No Meds Allergies Allergy/AdvReac Type Severity Reaction Status Date / Time heparin [HEPARIN] Allergy Intermediate heparin Verified 09/10/21 08:38 induced thrombosis Home Medications Medication Instructions Recorded Confirmed Last Taken Type ascorbate calcium (vitamin C) 500 500 mg PO DAILY 08/10/21 09/15/21 Unknown History mg tablet cholecalciferol (vitamin D3) 10 10 mcg PO DAILY 09/15/21 09/15/21 Unknown History mcg (400 unit) capsule (Vitamin D3) Exam Exam Date and Time: September 15, 2021 0939 Height,Weight and Vital Signs: Height 5 ft 11 in Weight 98 kg Pulse Resp BP Pulse Ox O2 Del Method 65 20 119/59 L 95 09/15/21 10:04 09/15/21 10:04 09/15/21 10:04 09/15/21 10:04 09/15/21 10:04 Pertinent Lab Results Pertinent Lab Results: Laboratory Tests 09/04/21 09/04/21 13:08 13:08 WBC 6.6 Hgb 11.5 L Hct 34.6 L Plt Count 218 Sodium 135 Potassium 4.6 Chloride 97 Carbon Dioxide 29 BUN 15 Creatinine 1.07 Narrative Narrative: EKG 08/2021 Vent. Rate : 090 BPM ? ? Atrial Rate : 000 BPM ?? P-R Int : 000 ms? QRS Dur : 092 ms ? ? QT Int : 358 ms ? ? ? P-R-T Axes : 000 050 026 degrees ?? QTc Int : 437 ms ? Atrial fibrillation Abnormal ECG When compared with ECG of 01-JUL-2016 07:06, Atrial fibrillation has replaced Sinus rhythm Vent. rate has increased BY? 33 BPM Nonspecific T wave abnormality has replaced inverted T waves in Inferior leads ECHO 07/2021 Nml LV size, thickness, and systolic function LVEF 73% Nml RV cavity size and systolic function Atria are nml in size No signif valve abnormality No signif pericardial effusion C/W 12/2019, WMA no longer present Airway Mallampati Class: I TM Dist: >3cm Neck ROM: Full Loose/Missing/Broken Teeth: No Heart: RRR Lungs: CTAB Assessment and Plan Assessment Anesthesia Assessment: Anesthesia Plan Discussed and PAT Visit Final Anesthetic Review Family History of Problems with Anesthesia: No History of Problems with Anesthesia: No
[2021-09-15 10:04] VITALS: BP 119/59; PULSE 65; RESP 20; O2SAT 95; BMI 30.1
[2021-10-20 11:58] LABS: MANUAL DIFF FLAG NO
[2021-10-20 12:47] LABS: Basophils Percent Auto 0.2 % (0-2); Eosinophils Absolute Auto 0.2 X10*3/uL (0.0-0.4); Eosinophils Percent Auto 3.4 % (0-4); Hematocrit 33.5 % (42.0-52.0); Hemoglobin 10.9 g/dl (14.0-18.0); Imm Gran Abs Auto 0.01 X10*3/uL (0.00-0.03); Imm Gran Pct Auto 0.2 % (0.0-0.4); Lymphocytes Absolute Auto 1.5 X10*3/uL (1.2-4.9); Lymphocytes Percent Auto 25.8 % (20-40); Mean Corpuscular HGB Conc 32.5 g/dl (31.0-36.0); Mean Corpuscular Hemoglobin 30.4 pg (27.0-33.0); Mean Corpuscular Volume 93.3 fL (80.0-98.0); Mean Platelet Volume 10.4 fL (9.4-12.4); Monocytes Absolute Auto 0.7 X10*3/uL (0.1-1.2); Monocytes Percent Auto 11.9 % (2-11); Neutrophils Absolute Auto 3.5 x10*3/uL (2.0-8.3); Neutrophils Percent Auto 58.5 % (45-73); Platelet Count 197 X10*3/uL (160-400); Red Blood Count 3.59 X10*6/uL (4.60-5.80); Red Cell Distribution Width 14.3 % (11.0-16.0)
[2021-10-20 13:13] LABS: Anion Gap 15 (12-20); Blood Urea Nitrogen 14 mg/dL (9-16); Calcium 8.8 mg/dL (8.4-10.2); Carbon Dioxide 25 mmol/L (22-29); Chloride 101 mmol/L (96-108); Creatinine Clr Calc Pharmacy 93.7; Estimated Glomerular Filt Rate > 60; Glucose Random 94 mg/dL (60-115); Sodium 136 mmol/L (135-145)
--- NOTE | 2021-10-26 11:48 | HO.ANESPROP2 ---
HPI - Anesthesia Eval Consult details Narrative: CX'd DOS 10/27/21 for + COVID 70yo M for Left Hip Total Replacement Cx'd DOS 07/2021 for unimproved LE edema - improved to ~1-2+ at 09/15/21 PAT, pt remains on Lasix 60mg BID, encouraged low salt, elevation, compression sock compliance, limit ETOH. Cardiac cleared (Lasix increased from 40 to 60mg BID 07/15/21) PCP cleared Warfarin for chronic afib [facility] Active Problems Active Problems: All Active Problems (Updated 10/25/21 @ 15:55 by Valentina Bhandari MD) Current use of anticoagulant therapy (Acute) Hypercholesteremia (Acute) Alcohol use (Acute) Primary osteoarthritis of left hip (Acute) Erectile dysfunction (Acute) Vitamin D deficiency (Acute) Atrial fibrillation (Acute) Gout (Acute) CAD (coronary artery disease) (Acute) S/P CABG x 3 (Acute) Arthritis of left hip (Acute) Hx of [facility] use of blood thinners (Acute) 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) (Acute) High cholesterol (Acute) CHF (congestive heart failure) (Acute) Past Medical History Medical History Atrial fibrillation Bilateral edema of lower extremity CAD (coronary artery disease) CHF (congestive heart failure) COVID-19 vaccine series completed Encounter to establish care GI bleed Gout H/O thyroglossal duct cyst High cholesterol History of amputation of toe 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) 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 Lower extremity edema Myocardial infarction Pre-operative clearance Family History Family history of problems with anesthesia: No Surgical History Surgical History H/O colonoscopy History of esophagogastroduodenoscopy (EGD) History of evacuation of hematoma History of surgery Hx of cardiac catheterization S/P CABG x 3 History of Problems with Anesthesia: No Social History Social History Housing: Apartment Are you a primary special needs child caregiver to a significant other at home: No Do you presently have visiting nurse or other home services: No Alcohol intake: current Alcohol intake frequency: 3 or more drinks per day Patient Tobacco Use Status: Never used Tobacco e-Cigarette/Vaping Use: Never Used Second Hand Smoke Exposure: No service: No Current occupational status: retired Current occupational exposures/hazards: No Cognitive needs: Yes (Cane) Hearing needs: No Vision needs: No Meds Allergies Allergy/AdvReac Type Severity Reaction Status Date / Time heparin [HEPARIN] Allergy Intermediate heparin Verified 11/02/21 10:22 induced thrombosis Home Medications Medication Instructions Recorded Confirmed Last Taken Type ascorbate calcium (vitamin C) 500 500 mg PO DAILY 08/10/21 11/02/21 Unknown History mg tablet cholecalciferol (vitamin D3) 10 10 mcg PO DAILY 09/15/21 11/02/21 Unknown History mcg (400 unit) capsule (Vitamin D3) Exam Exam Date and Time: October 26, 2021 1148 Height,Weight and Vital Signs: Height 5 ft 11 in Weight 98 kg Last Vital Signs Pulse 65 09/15/21 10:04 Resp 20 09/15/21 10:04 BP 119/59 L 09/15/21 10:04 Pulse Ox 95 09/15/21 10:04 O2 Del Method 09/15/21 10:04 Pertinent Lab Results Pertinent Lab Results: Laboratory Tests 09/15/21 10/20/21 10/20/21 10:47 11:55 11:57 WBC 6.0 RBC 3.59 L Hgb 10.9 L Hct 33.5 L MCV 93.3 MCH 30.4 MCHC 32.5 RDW 14.3 Plt Count 197 MPV 10.4 Immature Gran % (Auto) 0.2 Neut % (Auto) 58.5 Lymph % (Auto) 25.8 Terrell % (Auto) 11.9 H Eos % (Auto) 3.4 Baso % (Auto) 0.2 Lymph # (Auto) 1.5 Terrell # (Auto) 0.7 Eos # (Auto) 0.2 Baso # (Auto) 0.0 Abs Immat Gran (auto) 0.01 Absolute Neuts (auto) 3.5 Absolute Nucleated RBC 0.000 Nucleated RBC % (auto) 0.0 Sodium Potassium Chloride Carbon Dioxide Anion Gap BUN Creatinine Estim Creat Clear Calc Estimated GFR Random Glucose Calcium Blood Type O Positive O Positive Antibody Screen NEGATIVE NEGATIVE 10/20/21 11:57 WBC RBC Hgb Hct MCV MCH MCHC RDW Plt Count MPV Immature Gran % (Auto) Neut % (Auto) Lymph % (Auto) Terrell % (Auto) Eos % (Auto) Baso % (Auto) Lymph # (Auto) Terrell # (Auto) Eos # (Auto) Baso # (Auto) Abs Immat Gran (auto) Absolute Neuts (auto) Absolute Nucleated RBC Nucleated RBC % (auto) Sodium 136 Potassium 5.0 Chloride 101 Carbon Dioxide 25 Anion Gap 15 BUN 14 Creatinine 0.90 Estim Creat Clear Calc 93.7 Estimated GFR > 60 Random Glucose 94 Calcium 8.8 Blood Type Antibody Screen Narrative Narrative: EKG 08/2021 Vent. Rate : 090 BPM ? ? Atrial Rate : 000 BPM ?? P-R Int : 000 ms? QRS Dur : 092 ms ? ? QT Int : 358 ms ? ? ? P-R-T Axes : 000 050 026 degrees ?? QTc Int : 437 ms ? Atrial fibrillation Abnormal ECG When compared with ECG of 01-JUL-2016 07:06, Atrial fibrillation has replaced Sinus rhythm Vent. rate has increased BY? 33 BPM Nonspecific T wave abnormality has replaced inverted T waves in Inferior leads ECHO 07/2021 Nml LV size, thickness, and systolic function LVEF 73% Nml RV cavity size and systolic function Atria are nml in size No signif valve abnormality No signif pericardial effusion C/W 12/2019, WMA no longer present Airway Mallampati Class: I TM Dist: >3cm Neck ROM: Full Loose/Missing/Broken Teeth: No Heart: RRR Lungs: CTAB Assessment and Plan Assessment Anesthesia Assessment: Anesthesia Plan Discussed and PAT Visit (Seen 07/2021 and 08/2021) Final Anesthetic Review Family History of Problems with Anesthesia: No History of Problems with Anesthesia: No
[2021-10-27 06:40] LABS: Hematocrit 33.3 % (42.0-52.0); Hemoglobin 10.9 g/dl (14.0-18.0)
[2021-10-27] MEDS: oxyCODONE HCl ER 10 MG TAB.ER.12H PO (06:50)
[2021-10-27 06:53] LABS: COVID-19 Test Positive (Negative)
[2021-10-27 07:02] LABS: INTERNATIONAL NORM RATIO 1.2 (0.9-1.1); Prothrombin Time 13.9 SEC (10.0-13.1)
== END 2021-10-27 06:05 | disposition home or self-care (01) ==
LOC: HO.PAT
PROVIDERS: Nurse Practitioner; Physician Assistant; PCP Internal Medicine; Visit Provider Orthopaedic Surgery
DX: Z01.818 Encounter for other preprocedural examination (principal); I11.0 Hypertensive heart disease with heart failure; I50.31 Acute diastolic (congestive) heart failure; I34.0 Nonrheumatic mitral (valve) insufficiency; E78.00 Pure hypercholesterolemia, unspecified; I48.21 Permanent atrial fibrillation; E66.3 Overweight; F10.10 Alcohol abuse, uncomplicated; R60.0 Localized edema; Z95.1 Presence of aortocoronary bypass graft; Z87.19 Personal history of other diseases of the digestive system; Z20.822 Contact with and (suspected) exposure to COVID-19
CPT/HCPCS: 36415; 80048; 85014; 85018; 85025; 85610; 86850; 86900; 86901; 87635; J0131; J0690; J2795

== ENCOUNTER → 2021-10-20 11:10 | Outpatient (BNVA) | payer OTHER, SELFPAY | PROVIDERS: PCP Nurse Practitioner Family; Visit Provider Internal Medicine | DX: I48.19 Other persistent atrial fibrillation (principal); Z79.01 Long term (current) use of anticoagulants; Z51.81 Encounter for therapeutic drug level monitoring | CPT/HCPCS: 85610; 99211 ==

== ENCOUNTER → 2021-10-22 12:58 | Outpatient (BNVA) | payer OTHER, SELFPAY | PROVIDERS: PCP Nurse Practitioner Family; Visit Provider Physician Assistant | DX: Z01.818 Encounter for other preprocedural examination (principal); M16.12 Unilateral primary osteoarthritis, left hip | CPT/HCPCS: 99212 ==

== ENCOUNTER → 2021-11-02 10:13 | Outpatient (BNVA) | payer OTHER, SELFPAY | PROVIDERS: PCP Nurse Practitioner Family; Visit Provider Internal Medicine | DX: I48.19 Other persistent atrial fibrillation (principal); Z79.01 Long term (current) use of anticoagulants; Z51.81 Encounter for therapeutic drug level monitoring | CPT/HCPCS: 85610; 99211 ==

== ENCOUNTER 2021-11-12 10:09 | Outpatient (REF) | payer OTHER, SELFPAY ==
[2021-11-12 10:40] LABS: MANUAL DIFF FLAG NO
[2021-11-12 11:31] LABS: Basophils Percent Auto 0.3 % (0-2); Eosinophils Absolute Auto 0.3 X10*3/uL (0.0-0.4); Eosinophils Percent Auto 3.5 % (0-4); Hematocrit 31.5 % (42.0-52.0); Hemoglobin 10.5 g/dl (14.0-18.0); Imm Gran Abs Auto 0.02 X10*3/uL (0.00-0.03); Imm Gran Pct Auto 0.3 % (0.0-0.4); Lymphocytes Absolute Auto 1.5 X10*3/uL (1.2-4.9); Lymphocytes Percent Auto 21.7 % (20-40); Mean Corpuscular HGB Conc 33.3 g/dl (31.0-36.0); Mean Corpuscular Hemoglobin 30.8 pg (27.0-33.0); Mean Corpuscular Volume 92.4 fL (80.0-98.0); Mean Platelet Volume 9.9 fL (9.4-12.4); Monocytes Absolute Auto 0.8 X10*3/uL (0.1-1.2); Neutrophils Absolute Auto 4.5 x10*3/uL (2.0-8.3); Neutrophils Percent Auto 63.2 % (45-73); Platelet Count 198 X10*3/uL (160-400); Red Blood Count 3.41 X10*6/uL (4.60-5.80); Red Cell Distribution Width 15.3 % (11.0-16.0); White Blood Count 7.1 X10*3/uL (4.8-10.8)
[2021-11-12 12:05] LABS: Anion Gap 14 (12-20); Blood Urea Nitrogen 18 mg/dL (9-16); Calcium 8.8 mg/dL (8.4-10.2); Carbon Dioxide 26 mmol/L (22-29); Chloride 100 mmol/L (96-108); Estimated Glomerular Filt Rate > 60; Glucose Random 89 mg/dL (60-115); Potassium 5.3 mmol/L (3.3-5.1); Sodium 135 mmol/L (135-145)
== END 2021-11-12 10:10 | disposition home or self-care (01) ==
LOC: HO.LAB 10:09
PROVIDERS: Visit Provider Physician Assistant
DX: Z01.812 Encounter for preprocedural laboratory examination (principal)
CPT/HCPCS: 36415; 80048; 85025

== ENCOUNTER 2021-11-17 09:05 | Inpatient (IN) | payer OTHER, SELFPAY ==
[2021-11-16 11:31] LABS: Anion Gap 19 (12-20); Carbon Dioxide 23 mmol/L (22-29); Chloride 94 mmol/L (96-108); Potassium 4.4 mmol/L (3.3-5.1); Sodium 132 mmol/L (135-145)
[2021-11-17] VITALS (18 sets, daily range): BP systolic 109–177; BP diastolic 47–99; PULSE 67–95; RESP 16–20; TEMP 36.5–37.5; O2SAT 95–100; BMI 29.2
--- NOTE | ~2021-11-17 | XR_ITS ---
EXAMINATION: XR PELVIS CLINICAL INFORMATION: Post left hip replacement COMPARISON: Previous x-ray January 2021 TECHNIQUE: AP view of the pelvis. FINDINGS: There is a new left hip replacement in satisfactory position. No fracture or dislocation is seen. There are postoperative changes to the soft tissues. There is arthritis at the right hip joint. XR/XR pelvis 1-2V IMPRESSION: Satisfactory appearance of left hip replacement.
[2021-11-17 08:00] LABS: COVID-19 Test Negative (Negative); IDNOW Serial# 16C4AD1C
[2021-11-17] MEDS: Lactated Ringers 1,000 ML 50 ML IVCONT (08:34)
[2021-11-17 08:38] LABS: Hematocrit 30.1 % (42.0-52.0); Hemoglobin 10.2 g/dl (14.0-18.0)
[2021-11-17 08:42] LABS: INTERNATIONAL NORM RATIO 1.1 (0.9-1.1); Prothrombin Time 12.8 SEC (10.0-13.1)
[2021-11-17] MEDS: oxyCODONE HCl ER 10 MG TAB.ER.12H PO ×2 (09:01→21:14)
--- NOTE | 2021-11-17 09:31 | MHC.SHP ---
Pre-Procedural Eval Section A Date of Service: 11/17/21 The patient is an INPATIENT: No Changes since office visit: Yes Patient answered all questions; No Cold of Flu in the past 2 weeks, No New Medical Problems and No Changes in Medication The History & Physical has been completed within 30 days and I have reviewed it.: Yes Section B Chief Complaint: Unilateral primary osteoarthritis, left hip Allergies: Allergies Allergy/AdvReac Type Severity Reaction Status Date / Time heparin [HEPARIN] Allergy Intermediate heparin Verified 11/17/21 08:36 induced thrombosis Plan I have reviewed the history and physical and performed a pertinent physical examination on my patient. No changes have occurred unless specified.
--- NOTE | 2021-11-17 10:36 | P.CONAN_ITS ---
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 (Acute) 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) (Acute) High cholesterol (Acute) CHF (congestive heart failure) (Acute) Past Medical History Medical History Atrial fibrillation Bilateral edema of lower extremity CAD (coronary artery disease) CHF (congestive heart failure) COVID-19 vaccine series completed Encounter to establish care GI bleed Gout H/O thyroglossal duct cyst High cholesterol History of amputation of toe 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) 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 Lower extremity edema Myocardial infarction Pre-operative clearance Family History Family history of problems with anesthesia: No Surgical History Surgical History H/O colonoscopy History of esophagogastroduodenoscopy (EGD) History of evacuation of hematoma History of surgery Hx of cardiac catheterization S/P CABG x 3 History of Problems with Anesthesia: No Social History Social History Housing: Apartment Are you a primary child care center assistant director to a significant other at home: No Do you presently have visiting nurse or other home services: No Alcohol intake: current Alcohol intake frequency: 3 or more drinks per day Patient Tobacco Use Status: Never used Tobacco e-Cigarette/Vaping Use: Never Used Second Hand Smoke Exposure: No Use of substances other than those prescribed or required for medical reasons: Yes Substance Use Frequency: Occasionally Are you DNR?: No Advance Directives: No Advance Directives Information Provided: No (done previously) service: No Current occupational status: retired Current occupational exposures/hazards: No Cognitive needs: Yes (Cane) Hearing needs: No Vision needs: No Meds Allergies Allergy/AdvReac Type Severity Reaction Status Date / Time heparin [HEPARIN] Allergy Intermediate heparin Verified 11/17/21 08:36 induced thrombosis Active Medications: Current Medications Lactated Ringer's (Lr) 1,000 mls @ 50 mls/hr IVCONT .Q20H DANYELLE Last Admin: 11/17/21 08:34 Dose: 50 mls/hr Home Medications Medication Instructions Recorded Confirmed Last Taken Type ascorbate calcium (vitamin C) 500 500 mg PO DAILY 08/10/21 11/02/21 Unknown History mg tablet cholecalciferol (vitamin D3) 10 10 mcg PO DAILY 09/15/21 11/02/21 Unknown Histo ry mcg (400 unit) capsule (Vitamin D3) Exam Exam Date and Time: November 17, 2021 1036 Height,Weight and Vital Signs: Height 5 ft 11 in Weight 210 lb Last Vital Signs Temp 98.1 F 11/17/21 08:06 Pulse 70 11/17/21 08:06 Resp 18 11/17/21 08:06 BP 155/95 H 11/17/21 08:06 Pulse Ox 97 11/17/21 08:06 O2 Del Method 11/17/21 08:06 Pertinent Lab Results Pertinent Lab Results: Laboratory Tests 11/12/21 11/16/21 11/16/21 10:35 10:09 10:10 Hgb Hct PT INR Sodium 132 L Potassium 4.4 Chloride 94 L Carbon Dioxide 23 Anion Gap 19 COVID-19 (MIGUEL) COVID-19 Clin Com Blood Type O Positive O Positive Antibody Screen NEGATIVE NEGATIVE 11/17/21 11/17/21 11/17/21 07:40 08:23 08:23 Hgb 10.2 L Hct 30.1 L PT 12.8 INR 1.1 Sodium Potassium Chloride Carbon Dioxide Anion Gap COVID-19 (MIGUEL) Negative COVID-19 Clin Com See Note Blood Type Antibody Screen Airway Mallampati Class: II TM Dist: >3cm Neck ROM: Full Adult Head Mouth w/Numbe Teeth: 1. Loose Loose/Missing/Broken Teeth: Yes Other: patient requests that the loose tooth be removed if deemed appropriate while he is under GA Assessment and Plan Assessment Anesthesia Assessment: Anesthesia Plan Discussed Final Anesthetic Review Family History of Problems with Anesthesia: No History of Problems with Anesthesia: No NPO: Yes ASA Class: III Final Preanesthetic Review: No Changes in Pt Med Stat, Meds/Allgs Chart Reviewed, Consent Obtained/Reviewed and Anes Risks/Benef Reviewed Patient Risk: Intermediate Procedure Risk: Intermediate Anesthetic Plan Anesthetic Plan: GA Disposition: Standard PACU
--- NOTE | 2021-11-17 11:39 | P.OP_ITS ---
Operative Note Operative Note Date of Service: 11/17/21 Narrative: Date of Service: 11/17/21 Pre-op diagnosis: Left hip OA Post-op diagnosis: same Procedure: Left TAB Implants: [place] Trident2 58/25,40 acetabular screws and lipped liner [place] Accolade 2 #7 132deg [place] Ceramic 36 +2.5 femoral head Surgeon: Saul Niño MD Anesthesia: GETA and local Was an Ice Resurfacing Machine Operators used for this Procedure?: Yes Ice Resurfacing Machine Operators: Aisha Fabian Estimated blood loss (mL): 250 IV fluids (mL): 1,000 Pathology: other Condition: stable Disposition: PACU Procedure in detail: Patient was brought into the operating room and placed in the right lateral decubitus position. All bony prominences were well padded and the limb was prepped and draped in standard sterile fashion. Time-out was called to identify proper site procedure proper surgeon IV antibiotics and 1 g of transaxemic acid were administered. I began by making a curvilinear incision over the posterolateral aspect of the greater trochanter. Dissection was taken down to the tensor fascia which was incised in line with the incision and a Charnley retractor was placed. Cautery was used to maintain hemostasis. A werewolf device was also used. The hip was internally rotated and the external rotators were identified. The vessels were cauterized and a full-thickness capsular/external rotator layer was developed starting just proximal to the piriformis. This layer was tagged and a dull Hohmann retractor was placed underneath the neck in the hip was dislocated. . A neck cut was made 1 cm proximal to the lesser trochanter and the head and neck were removed and measured as a 54 on the back table. The head was defromed and eburnated. The acetabulum was deficient sup[eriorly. I medialized to the inner table with a #48 and then sequentially reamed up to a size 57 and impacted a 58 at approximately 45 degrees of inclination and 25 degrees of version. This was stable but with the deficient superior dome I elected to place 2 acetabular screws. Standard AO technique was used. I then placed a 20 deg post lipped liner and turned my attention to the femur. I identified the piriformis insertion and used this as a starting point for my amos cutter. The medius tendon was protected with a Hibs retractor. I then used a Charnley awl to identify the canal and a curved curette to remove the lateral bone. I irrigated copiously. I then sequentially broached in the patient's natural version to a size #7 and placed my trial implants. Using a trail head I took the hip through range of motion. I was very satisfied with the stability and length. Therefore I removed all instrumentation and copiously irrigated. I placed my final femoral implant and again took the hip through range of motion and was satisfied with the stability and length using a +2.5 36 head. The fineal femoral head was impacted into place and the head relocated. I then irrigated for 3 minutes with iodine and placed 1 g of local tranaxemic acid. I then performed a capsular closure with 2.0 fiberwire, Estelle's fascia with 0 Vicryl, subcuticular with 2-0 Vicryl and the skin with maurice. Patient was placed into a sterile dressing. Radiographs were obtained at the completion of the case and I was satisfied with the component position. Patient was extubated brought to the recovery room in stable condition.
[2021-11-17] MEDS: Lactated Ringers 1,000 ML 100 ML IVCONT (15:00)
[2021-11-17] MEDS: ceFAZolin Sodium/Dextrose,Iso 2 GM/50 ML PIGGYBACK IV (15:28)
[2021-11-17] MEDS: HYDROmorphone HCl 0.5 MG/0.5 ML SYRINGE IVPUSH (17:15)
[2021-11-17] MEDS: HYDROmorphone HCl 0.5 MG/0.5 ML SYRINGE 0.25 MG IVPUSH (19:29)
[2021-11-17] MEDS: Warfarin Sodium 2 MG TABLET PO (19:35)
--- NOTE | 2021-11-17 19:38 | PHA.MEDREC ---
Pharmacy Consult ? Medication Reconciliation Pharmacy has completed the medication reconciliation. Spoke to patient directly who had most prescriptions at bedside. He stated he takes all medications in the morning and only took metoprolol today before his procedure. He noted that he has been off the warfarin for his procedure but was unclear about when his last dose was. I asked about his dosing schedule and he noted that he usually takes two tablets every day except on either tuesday and tuesday or tuesday and tuesday when he takes 2.5 to 3 tablets to keep 'it' within the 2-3 range.
[2021-11-17] MEDS: oxyCODONE HCl Immed Release 5 MG TABLET 10 MG PO (20:42)
[2021-11-17] MEDS: Acetaminophen 325 MG TABLET 650 MG PO (20:42)
[2021-11-17] MEDS: Docusate Sodium 100 MG CAPSULE PO (21:15)
[2021-11-18] VITALS (9 sets, daily range): BP systolic 129–152; BP diastolic 63–92; PULSE 68–100; RESP 17–18; TEMP 36.3–37.2; O2SAT 94–98; BMI 38.4
[2021-11-18] MEDS: HYDROmorphone HCl 0.5 MG/0.5 ML SYRINGE 0.25 MG IVPUSH ×5 (00:24→22:23)
[2021-11-18] MEDS: Lactated Ringers 1,000 ML 100 ML IVCONT ×2 (00:25→09:43)
[2021-11-18 06:24] LABS: MANUAL DIFF FLAG NO
[2021-11-18 06:33] LABS: INTERNATIONAL NORM RATIO 1.1 (0.9-1.1); Prothrombin Time 12.6 SEC (10.0-13.1)
[2021-11-18 06:38] LABS: Basophils Percent Auto 0.1 % (0-2); Eosinophils Absolute Auto 0.1 X10*3/uL (0.0-0.4); Eosinophils Percent Auto 0.7 % (0-4); Hematocrit 29.7 % (42.0-52.0); Hemoglobin 9.9 g/dl (14.0-18.0); Imm Gran Abs Auto 0.03 X10*3/uL (0.00-0.03); Imm Gran Pct Auto 0.3 % (0.0-0.4); Lymphocytes Absolute Auto 0.8 X10*3/uL (1.2-4.9); Lymphocytes Percent Auto 7.7 % (20-40); Mean Corpuscular HGB Conc 33.3 g/dl (31.0-36.0); Mean Corpuscular Hemoglobin 30.9 pg (27.0-33.0); Mean Corpuscular Volume 92.8 fL (80.0-98.0); Mean Platelet Volume 10.6 fL (9.4-12.4); Monocytes Absolute Auto 1.1 X10*3/uL (0.1-1.2); Monocytes Percent Auto 10.6 % (2-11); Neutrophils Absolute Auto 8.3 x10*3/uL (2.0-8.3); Neutrophils Percent Auto 80.6 % (45-73); Platelet Count 182 X10*3/uL (160-400); Red Cell Distribution Width 15.5 % (11.0-16.0); White Blood Count 10.2 X10*3/uL (4.8-10.8)
[2021-11-18 06:41] LABS: Anion Gap 15 (12-20); Blood Urea Nitrogen 19 mg/dL (9-16); Calcium 8.3 mg/dL (8.4-10.2); Carbon Dioxide 25 mmol/L (22-29); Chloride 98 mmol/L (96-108); Estimated Glomerular Filt Rate > 60; Glucose Fasting 80 mg/dL (60-99); Sodium 134 mmol/L (135-145)
--- NOTE | 2021-11-18 06:57 | HO.POSTANES ---
Post Anesthesia Evaluation Post Anesthesia Evaluation Vital Signs: Vital Signs Temp Pulse Resp BP Pulse Ox O2 Del Method 11/18/21 03:36 97.8 F 79 18 152/75 H 96 Room Air 11/18/21 02:39 98.0 F 94 18 130/66 95 Room Air 11/17/21 23:08 98.3 F 90 18 109/61 95 Room Air 11/17/21 19:21 98.6 F 70 18 158/71 H 97 Room Air Anesthesia: General Mental Status: Awake Pain Control: Satisfactory (complained of pain all night) Nausea/Vomiting: None Hydration: Adequate Anesthesia-Related Issues: No Anes. Related Issues
[2021-11-18] MEDS: oxyCODONE HCl Immed Release 5 MG TABLET 10 MG PO ×3 (07:48→19:30)
[2021-11-18] MEDS: Acetaminophen 325 MG TABLET 650 MG PO ×2 (07:50→17:09)
--- NOTE | 2021-11-18 07:51 | PM.PNORT ---
Subjective Subjective Date of Service: 11/18/21 Interval history: POD1 s/p LTHA. Patient is resting in bed with hip flexed. Pain is difficult to manage. No overnight events. No additional complaints. Physical Exam Vital Signs: Vital Signs: Last Vital Signs Temp 98 F 11/18/21 07:00 Pulse 94 11/18/21 07:00 Resp 18 11/18/21 07:00 BP 131/86 11/18/21 07:00 Pulse Ox 98 11/18/21 07:00 O2 Del Method 11/18/21 07:00 O2 Flow Rate 4 11/17/21 12:08 BMI result Body Mass Index 38.4 Const: General: cooperative, healthy appearing and no acute distress Resp: Effort & Inspection: normal respiratory effort and able to speak in complete sentences Cardio: Rate: regular rate Peripheral pulses: Peripheral pulses 2+ throughout GI: Palpation (GI): Soft to palpation Skin: Lesions: no lesions Rashes: no rashes Extrem: Other: Left hip Aquacel is clean, dry, and intact. Hip is flexed. Educted the patient on precautions. Encouraged straightening the left leg into full extension. Sensation intact. NVI. Procedures Date of Service Date of Service: 11/18/21 Progress Note: A&P Assessment and plan (1) S/P total left hip arthroplasty: Status: Acute Plan Continue pain mgmnt Resume Warfarin for dvt ppx begin PT for LTHA- spent time educating the patient on positioning and hip precautions Dispo planning-Pending PT eval, pain mgmnt Time Spent With Patient Time: Total time spent is greater than 50% in coordination of care (as documented) at patient's floor/unit and/or counseling patient: Quality Stroke Does the patient have a stroke diagnosis?: No VTE Prior VTE?: No VTE Risk Level:: Medical - moderate - high VTE Device Contraindication: N/A - Device Ordered VTE Drug Contraindication: N/A - Med Ordered
[2021-11-18] MEDS: Docusate Sodium 100 MG CAPSULE PO ×2 (08:00→19:30)
[2021-11-18] MEDS: allopurinoL 100 MG TABLET PO (08:00)
[2021-11-18] MEDS: oxyCODONE HCl ER 10 MG TAB.ER.12H PO ×2 (09:51→19:31)
--- NOTE | 2021-11-18 11:10 | MHC.CM.PN ---
IMM ADDRESSED, WHITE COPY TO PATIENT/YELLOW TO CHART PATIENT REPORTS HE LIVES ALONE INDEPENDENT AT HOME AND COMMUNITY HAS CANE, WALKER, AND WHEELCHAIR- USES THEM NEEDED DENIES RECEIVING HOME SERVICES [facility]ARD GUIDRY X2 RONEY PCP FROM [address], UNABLE TO REMEMBER NAME [phone] HCP-EDUCATED, DECLINED AT THIS TIME PATIENT WILL ARRANGE TRANSPORT D/C PLAN: HOME SELF-CARE vs HOME WITH NEW VNA vs STR
--- NOTE | 2021-11-18 13:37 | HO.PM.IMCN ---
History of Present Illness Data of Consult Service Date: 11/18/21 Requesting physician: Saul Niño Primary Care Provider: Emerson Hays MD [facility] Reason for consult: Medical management for coronary artery disease/atrial fibrillation 71-year-old gentleman with past medical history significant for coronary artery disease 3 vessel CABG in 2017, history of atrial fibrillation on Coumadin, history of hypertension, hyperlipidemia admitted to Ortho service for an elective left total hip arthroplasty, at present patient sitting in bed requesting for pain medication for left hip pain he denies chest pain, no palpitations, no shortness of breath is he is compliant with his pain medication, denies headache lightheadedness, dizziness, denies nausea, vomiting, or diarrhea, he is tolerating diet. 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 Lower extremity edema Myocardial infarction Pre-operative clearance Pertinent family history: A strong family history of coronary artery disease in father's side father of coronary artery disease age 54,1 brother at age 33 and 1 sister age 43 of premature coronary artery disease, mother had congestive heart failure Surgical History H/O colonoscopy History of esophagogastroduodenoscopy (EGD) History of evacuation of hematoma History of surgery Hx of cardiac catheterization S/P CABG x 3 Social History Household Members: None Housing: Apartment Are you a primary childbirth and infant care teacher to a significant other at home: No Do you presently have visiting nurse or other home services: No Alcohol intake: current Alcohol intake frequency: 3 or more drinks per day Patient Tobacco Use Status: Never used Tobacco e-Cigarette/Vaping Use: Never Used Second Hand Smoke Exposure: No Use of substances other than those prescribed or required for medical reasons: Yes Substance Use Type: Marijuana Substance Use Frequency: Occasionally Currently Displaying Signs/Symptoms of Drug Intoxication Withdrawal: No Have you been hit, kicked, punched, or otherwise hurt by someone within the past year? If so, by whom?: No Do you feel safe in your current relationship?: No Is there a partner from a previous relationship who is making you feel unsafe now?: No Are you made to feel afraid or neglected: No Are you DNR?: No Advance Directives: No Advance Directives Information Provided: No (done previously) Do you have thoughts of harming others: None Do you have a plan to hurt others: No Plan Recently lost weight without trying: No Nutrition Risks: No Nutritional Risk service: No Current occupational status: retired Current occupational exposures/hazards: No Cognitive needs: Yes (Cane) Hearing needs: No Vision needs: No Meds Allergies Allergy/AdvReac Type Severity Reaction Status Date / Time heparin [HEPARIN] Allergy Intermediate heparin Verified 11/17/21 08:36 induced thrombosis Active Medications: Current Medications Acetaminophen (Acetaminophen 325 Mg Tablet) 650 mg PO Q6H PRN PRN Reason: Pain, Mild (Pain Scale 1-3) Last Admin: 11/18/21 07:50 Dose: 650 mg Allopurinol (Allopurinol 100 Mg Tablet) 100 mg PO DAILY [facility] Last Admin: 11/18/21 08:00 Dose: 100 mg Docusate Sodium (Docusate Sodium 100 Mg Capsule) 100 mg PO BID [facility] Last Admin: 11/18/21 08:00 Dose: 100 mg Hydromorphone HCl (Hydromorphone Hcl 0.5 Mg/0.5 Ml Syringe) 0.25 mg IVPUSH Q4H PRN; Protocol PRN Reason: Pain, Severe (Pain Scale 7-10) Last Admin: 11/18/21 04:31 Dose: 0.25 mg Lactated Ringer's (Lr) 1,000 mls @ 100 mls/hr IVCONT .Q10H [facility] Last Admin: 11/18/21 09:43 Dose: 100 mls/hr Ondansetron HCl (Ondansetron Hcl 4 Mg/2 Ml Vial) 4 mg IVPUSH Q8H PRN PRN Reason: Nausea and Vomiting Oxycodone HCl (Oxycodone Hcl Immed Release 5 Mg Tablet) 10 mg PO Q4H PRN PRN Reason: Pain, Moderate (Pain Scale 4-6 Last Admin: 11/18/21 07:48 Dose: 10 mg Oxycodone HCl (Oxycodone Hcl Er 10 Mg Tab.Er.12h) 10 mg PO BID [facility] Last Admin: 11/18/21 09:51 Dose: 10 mg Sodium Chloride (0.9 % Sodium Chloride Flush 3 Ml Syringe) 3 ml IVFLUSH QSHIFT [facility] Last Admin: 11/18/21 08:03 Dose: Not Given Warfarin Sodium (Warfarin Sodium 4 Mg Tablet) 4 mg PO DAILY@1800 [facility] Home Medications Medication Instructions Recorded Confirmed Last Taken Type ascorbate calcium (vitamin C) 500 500 mg PO DAILY 08/10/21 11/17/21 11/16/21 History mg tablet cholecalciferol (vitamin D3) 10 10 mcg PO DAILY 09/15/21 11/17/21 Unknown History mcg (400 unit) capsule (Vitamin D3) aspirin 325 mg tablet 650 mg PO Q6H PRN Pain 11/17/21 11/17/21 Unknown History gabapentin 600 mg tablet 600 mg PO DAILY PRN pain 11/17/21 11/17/21 Unknown History warfarin 2 mg tablet 2 tab PO SUTUWETHSA 11/17/21 11/17/21 Unknown History warfarin 2 mg tablet 3 tab PO MOFR 11/17/21 11/17/21 Unknown History Physical Exam Vital Signs and Narrative: Vital Signs: Last Vital Signs Temp 98 F 11/18/21 11:56 Pulse 68 11/18/21 11:56 Resp 18 11/18/21 11:56 BP 148/92 H 11/18/21 11:56 Pulse Ox 98 11/18/21 11:56 O2 Del Method 11/18/21 11:56 O2 Flow Rate 4 11/17/21 12:08 BMI result Body Mass Index 38.4 Const: Other: General awake alert, no acute distress. Anicteric sclera Neck is supple no JVD. CVS irregular Respiratory lungs clear to auscultation, no respiratory distress, no wheeze, no rhonchi. Gastrointestinal abdomen soft, nontender, bowel sounds audible, no guarding , no rigidity. Extremities no edema./left hip dressing in place Neuro nonfocal Skin no rash Psych appropriate affect Results Labs CBC and Chem 7: 11/18/21 05:23 11/18/21 05:23 Labs: Laboratory Results - last 24 hr 11/18/21 11/18/21 11/18/21 05:23 05:23 05:23 MCV 92.8 MCH 30.9 MCHC 33.3 RDW 15.5 Plt Count 182 MPV 10.6 Immature Gran % (Auto) 0.3 Neut % (Auto) 80.6 H Lymph % (Auto) 7.7 L [place] % (Auto) 10.6 Eos % (Auto) 0.7 Baso % (Auto) 0.1 Lymph # (Auto) 0.8 L [place] # (Auto) 1.1 Eos # (Auto) 0.1 Baso # (Auto) 0.0 Abs Immat Gran (auto) 0.03 Absolute Neuts (auto) 8.3 Absolute Nucleated RBC 0.000 Nucleated RBC % (auto) 0.0 PT 12.6 INR 1.1 Anion Gap 15 Estim Creat Clear Calc 83.0 Estimated GFR > 60 Fasting Glucose 80 Calcium 8.3 L Assessment and Plan (1) Hypercholesteremia: Status: Acute (2) Atrial fibrillation: Qualifiers: Atrial fibrillation type: persistent (not longstanding) Qualified Code(s): I48.19 - Other persistent atrial fibrillation Status: Acute (3) Gout: Qualifiers: Gout site: foot Gout etiology: due to renal impairment Laterality: left Presence of tophus: without tophus Status: Acute (4) CAD (coronary artery disease): Qualifiers: Coronary Disease-Associated Artery/Lesion type: bypass graft [place] vs. 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: Status: Acute (7) 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): Qualifiers: Hypertension type: primary hypertension Qualified Code(s): I10 - Essential (primary) hypertension Status: Acute Plan 71-year-old gentleman with extensive past medical history significant for atrial fibrillation on Coumadin, coronary artery disease status post CABG x3 at [facility] in 2017 history of hypertension, history of hyperlipidemia, history of congestive heart failure presented to [facility] for an elective left hip arthroplasty status post surgery on 11/17 Status post left total hip arthroplasty Continue current pain management, will DC IV fluid due to history of CHF, hematocrit crit dropped but stable follow CBC Hypertension Will resume home medication follow BP closely History of chronic persistent atrial fibrillation continue Coumadin monitor INR continue beta-jimmy for rate control Hyperlipidemia will resume statin History of gout resume allopurinol History of coronary artery disease patient asymptomatic no chest pain no palpitation continue beta-blockers and statin DVT prophylaxis on Coumadin Dispo plan as per Orthopedic surgery Will follow patient.
--- NOTE | 2021-11-18 14:21 | MHC.CM.PN ---
Addendum entered by Jagruti Garcia 11/18/21 14:29: ADDITIONAL REFERRALS TO [facility] Original Note: REFERRALS TO [facility] FOR POSSIBLE BED OFFER. PATIENT WILL NEED TO COMPLETE A HCP
[2021-11-18] MEDS: 0.9 % Sodium Chloride Flush 3 ML SYRINGE IVFLUSH ×2 (17:11→19:30)
[2021-11-18] MEDS: Furosemide 20 MG TABLET 60 MG PO (17:14)
[2021-11-18] MEDS: Warfarin Sodium 4 MG TABLET PO (17:59)
[2021-11-19] MEDS: HYDROmorphone HCl 0.5 MG/0.5 ML SYRINGE 0.25 MG IVPUSH ×5 (02:53→23:40)
[2021-11-19 03:56] VITALS: BP 158/70; PULSE 88; RESP 17; TEMP 36.7; O2SAT 100
[2021-11-19] MEDS: oxyCODONE HCl Immed Release 5 MG TABLET 10 MG PO ×3 (05:34→21:17)
[2021-11-19] MEDS: Acetaminophen 325 MG TABLET 650 MG PO ×3 (05:34→21:15)
--- NOTE | 2021-11-19 05:57 | PC.NURSE ---
Addendum entered by Silvana Melchor RN 11/19/21 06:24: Dr. De Leon was made aware about pt's c/o left leg spasm. Original Note: Pt seen on bed with left knee positioned as bended and abducted, encouraged pt to put left leg straight but pt c/o leg spasm and tenderness for him to repositioned, prn Oxycodone and PRN Dilaudid were given alternately, pt goes to sleep after, incentive spirometry given and advised on how its used and benefits, pt noted to be very forgetfull too, redirected.
[2021-11-19 07:06] LABS: Anion Gap 16 (12-20); Blood Urea Nitrogen 16 mg/dL (9-16); Calcium 8.1 mg/dL (8.4-10.2); Carbon Dioxide 21 mmol/L (22-29); Chloride 99 mmol/L (96-108); Creatinine Clr Calc Pharmacy 100.8; Estimated Glomerular Filt Rate > 60; Glucose Fasting 112 mg/dL (60-99); Potassium 4.4 mmol/L (3.3-5.1); Sodium 132 mmol/L (135-145)
[2021-11-19 07:36] VITALS: BP 175/83; PULSE 107; RESP 18; TEMP 36.9; O2SAT 96
[2021-11-19] MEDS: Metoprolol Succinate ER 50 MG TAB.ER.24H 150 MG PO (07:44)
[2021-11-19] MEDS: Cholecalciferol (Vitamin D3) 10 MCG TABLET PO (07:44)
[2021-11-19] MEDS: allopurinoL 100 MG TABLET PO (07:44)
[2021-11-19] MEDS: Furosemide 20 MG TABLET 60 MG PO ×2 (07:44→16:44)
[2021-11-19] MEDS: Docusate Sodium 100 MG CAPSULE PO ×2 (07:44→21:17)
[2021-11-19] MEDS: 0.9 % Sodium Chloride Flush 3 ML SYRINGE IVFLUSH ×2 (07:44→23:40)
[2021-11-19 08:25] LABS: Basophils Percent Auto 0.1 % (0-2); Eosinophils Absolute Auto 0.1 X10*3/uL (0.0-0.4); Hematocrit 25.8 % (42.0-52.0); Hemoglobin 8.6 g/dl (14.0-18.0); Imm Gran Abs Auto 0.07 X10*3/uL (0.00-0.03); Imm Gran Pct Auto 0.6 % (0.0-0.4); Lymphocytes Percent Auto 8.6 % (20-40); MANUAL DIFF FLAG SCAN; Mean Corpuscular HGB Conc 33.3 g/dl (31.0-36.0); Mean Corpuscular Hemoglobin 30.9 pg (27.0-33.0); Mean Corpuscular Volume 92.8 fL (80.0-98.0); Mean Platelet Volume 10.2 fL (9.4-12.4); Monocytes Absolute Auto 1.6 X10*3/uL (0.1-1.2); Monocytes Percent Auto 13.8 % (2-11); Neutrophils Absolute Auto 8.8 x10*3/uL (2.0-8.3); Neutrophils Percent Auto 75.9 % (45-73); Platelet Count 155 X10*3/uL (160-400); Red Blood Count 2.78 X10*6/uL (4.60-5.80); Red Cell Distribution Width 15.6 % (11.0-16.0); SCAN SMEAR FLAG 1; White Blood Count 11.6 X10*3/uL (4.8-10.8)
[2021-11-19 08:43] LABS: INTERNATIONAL NORM RATIO 1.2 (0.9-1.1); Prothrombin Time 13.6 SEC (10.0-13.1)
[2021-11-19] MEDS: oxyCODONE HCl ER 10 MG TAB.ER.12H PO ×2 (09:24→21:17)
[2021-11-19 09:32] LABS: SLIDE REVIEW VERIFIED
--- NOTE | 2021-11-19 09:45 | MHC.CM.PN ---
Cm met w/pt who reports his prefferd snf is [facility] and back up plan will be [facility], pt aware [facility] has limited beds and may not be contracted w/pt's managed Medicare plan. HH N following and snf referral sent to [facility]. Ortho unsure if pt will be cleared today, medical also following. CM will cont to follow plan and d/c needs.
[2021-11-19 11:19] VITALS: BP 111/60; PULSE 97; RESP 16; TEMP 36.7; O2SAT 96
--- NOTE | 2021-11-19 12:25 | PM.PNORT ---
Subjective Subjective Date of Service: 11/19/21 Interval history: POD2 s/p LTHA. Patient is resting in the chair comfortably. No overnight events. Pain is managed. No additional complaints. Physical Exam Vital Signs: Vital Signs: Last Vital Signs Temp 98.1 F 11/19/21 11:19 Pulse 97 11/19/21 11:19 Resp 16 11/19/21 11:19 BP 111/60 11/19/21 11:19 Pulse Ox 96 11/19/21 11:19 O2 Del Method 11/19/21 11:19 O2 Flow Rate 4 11/17/21 12:08 BMI result Body Mass Index 38.4 Const: General: cooperative, healthy appearing and no acute distress Resp: Effort & Inspection: normal respiratory effort and able to speak in complete sentences Cardio: Rate: regular rate Peripheral pulses: Peripheral pulses 2+ throughout GI: Palpation (GI): Soft to palpation Skin: Lesions: no lesions Rashes: no rashes Extrem: Other: Left hip Aquacel is C/D/I. Able to dorsiflex and plantarflex. NVI Procedures Date of Service Date of Service: 11/19/21 Progress Note: A&P Assessment and plan (1) S/P total left hip arthroplasty: Status: Acute Assessment and Plan: Continue pain mgmnt Conttinue ASA for dvt ppx Continue PT for LTHA Dispo planning-Pending PT eval, pain mgmnt Time Spent With Patient Time: Total time spent is greater than 50% in coordination of care (as documented) at patient's floor/unit and/or counseling patient: Quality Stroke Does the patient have a stroke diagnosis?: No VTE Prior VTE?: No VTE Risk Level:: Medical - moderate - high VTE Device Contraindication: N/A - Device Ordered VTE Drug Contraindication: N/A - Med Ordered
[2021-11-19 15:56] VITALS: BP 129/67; PULSE 91; RESP 16; TEMP 37.6; O2SAT 97
[2021-11-19] MEDS: Warfarin Sodium 4 MG TABLET PO (18:03)
[2021-11-19 19:37] VITALS: BP 118/66; PULSE 89; RESP 16; TEMP 37.2; O2SAT 96
[2021-11-19 23:40] VITALS: BP 148/76; PULSE 90; RESP 17; TEMP 36.9; O2SAT 97
[2021-11-20] MEDS: oxyCODONE HCl Immed Release 5 MG TABLET 10 MG PO ×2 (01:46→12:26)
[2021-11-20 03:32] VITALS: BP 112/71; PULSE 97; RESP 17; TEMP 36.7; O2SAT 96
[2021-11-20 06:29] LABS: MANUAL DIFF FLAG NO
[2021-11-20 06:34] LABS: Basophils Percent Auto 0.2 % (0-2); Eosinophils Absolute Auto 0.3 X10*3/uL (0.0-0.4); Eosinophils Percent Auto 2.4 % (0-4); Hematocrit 28.2 % (42.0-52.0); Hemoglobin 9.5 g/dl (14.0-18.0); Imm Gran Abs Auto 0.05 X10*3/uL (0.00-0.03); Imm Gran Pct Auto 0.5 % (0.0-0.4); Lymphocytes Absolute Auto 1.4 X10*3/uL (1.2-4.9); Lymphocytes Percent Auto 12.8 % (20-40); Mean Corpuscular HGB Conc 33.7 g/dl (31.0-36.0); Mean Corpuscular Hemoglobin 31.8 pg (27.0-33.0); Mean Corpuscular Volume 94.3 fL (80.0-98.0); Mean Platelet Volume 10.4 fL (9.4-12.4); Monocytes Absolute Auto 1.4 X10*3/uL (0.1-1.2); Neutrophils Absolute Auto 7.9 x10*3/uL (2.0-8.3); Neutrophils Percent Auto 71.1 % (45-73); Platelet Count 187 X10*3/uL (160-400); Red Blood Count 2.99 X10*6/uL (4.60-5.80); Red Cell Distribution Width 15.8 % (11.0-16.0); White Blood Count 11.1 X10*3/uL (4.8-10.8)
[2021-11-20 07:05] VITALS: BP 151/88; PULSE 97; RESP 18; TEMP 36.9; O2SAT 97
[2021-11-20 07:11] LABS: Anion Gap 18 (12-20); Blood Urea Nitrogen 19 mg/dL (9-16); Calcium 8.7 mg/dL (8.4-10.2); Carbon Dioxide 26 mmol/L (22-29); Chloride 96 mmol/L (96-108); Creatinine Clr Calc Pharmacy 91.9; Estimated Glomerular Filt Rate > 60; Glucose Fasting 94 mg/dL (60-99); Potassium 4.4 mmol/L (3.3-5.1); Sodium 136 mmol/L (135-145)
[2021-11-20] MEDS: Metoprolol Succinate ER 50 MG TAB.ER.24H 150 MG PO (08:52)
[2021-11-20] MEDS: HYDROmorphone HCl 0.5 MG/0.5 ML SYRINGE 0.25 MG IVPUSH (08:52)
[2021-11-20] MEDS: oxyCODONE HCl ER 10 MG TAB.ER.12H PO (08:55)
[2021-11-20] MEDS: Furosemide 20 MG TABLET 60 MG PO (08:55)
[2021-11-20] MEDS: Cholecalciferol (Vitamin D3) 10 MCG TABLET PO (08:55)
[2021-11-20] MEDS: Docusate Sodium 100 MG CAPSULE PO (08:56)
[2021-11-20] MEDS: 0.9 % Sodium Chloride Flush 3 ML SYRINGE IVFLUSH (08:56)
[2021-11-20] MEDS: allopurinoL 100 MG TABLET PO (08:56)
--- NOTE | 2021-11-20 09:48 | P.CDIC_ITS ---
CDI Concurrent Query Documentation Clarification: PHYSICIAN'S DOCUMENTATION REQUEST Date of Query: 11/20/21 0949 Patient Name: Cj Barbour Admit Date: 11/17/21 Dear Doctor, A review of the medical record indicates additional documentation may be needed. Please review below and update the documentation accordingly. Clinical Indicators: Other Clinical Notes Supporting Significance of the BMI: Risk Factors/Clinical Indicators/Treatments LABS: Per Provider note on 11/19 BMI 38.4 If possible, please provide an associated diagnosis related to the abnormal BMI, such as: BMI * Obesity * Due to excess calories * Drug induced * Due to other cause * Severe or Morbid Obesity Or: * BMI is not significant * Other (please specify) * Unable to determine Use of terms such as suspected, likely, concern for, or probable (associated with a specific diagnosis that is being evaluated, monitored, or treated as if it exists) are acceptable and can be coded in the inpatient setting, when documented at the time of discharge. Thank you, Gretel Jose MS, RN, CCRN Extension: [phone] Please use your independent medical judgment in providing your response. THIS QUERY IS PART OF THE PERMANENT MEDICAL RECORD
--- NOTE | 2021-11-20 09:48 | MHC.CM.PN ---
PT MEDICALLY CLEARED FOR D/C TO STR AT [facility], [facility]LS TRANSPORT.
[2021-11-20 10:11] VITALS: BP 151/88; PULSE 97; O2SAT 97
[2021-11-20 10:18] LABS: COVID-19 Test Negative (Negative)
--- NOTE | 2021-11-20 10:28 | P.DS_ITS ---
DS: Providers Provider Date of Service: 11/20/21 Date of admission: 11/17/21 09:05 Primary care physician: Emerson Hays MD Consults: 11/17/21 18:32 Consult to Hospitalist Routine Consulting Provider: Hospitalist Reason For Exam: h/o CABG, htn, etoh,CHF DS: Diagnosis Discharge Diagnosis (1) S/P total left hip arthroplasty: Status: Acute DS: Summary Hospital Course Hospital Course: The patient underwent a successful left total hip arthroplasty, was transferred to PACU and then to the floor to recover. During their stay, their vitals were stable, afebrile . Labs were unremarkable, H/H 9.5/28.2. POD 0 he resumed his Coumadin at 4mg tabs, INR goal between 2-3. POD 1 he received PT and OT services twice a day. Prior to discharge, their dressing was change, incision clean dry and intact, new Aquacel dressing applied and the plan was to be discharged to [facility]. Time Spent with Patient Time attestation: Total time spent providing and/or coordinating discharge services: Discharge coordination time: Less than 30 minutes Quality: Safe Use of Opioids Does Pt have an Active Cancer Diagnosis on the Problem List?: No Quality: Stroke Does the patient have a stroke diagnosis?: No Physical Exam Vital Signs: Vital Signs: Last Vital Signs Temp 98.4 F 11/20/21 07:05 Pulse 97 11/20/21 10:11 Resp 18 11/20/21 07:05 BP 151/88 H 11/20/21 10:11 Pulse Ox 97 11/20/21 10:11 O2 Del Method 11/20/21 07:05 O2 Flow Rate 4 11/17/21 12:08 BMI result Body Mass Index 38.4 Const: General: cooperative, healthy appearing and no acute distress Resp: Effort & Inspection: normal respiratory effort and able to speak in complete sentences Cardio: Rate: regular rate Peripheral pulses: Peripheral pulses 2+ throughout GI: Palpation (GI): Soft to palpation Skin: General skin exam: no rashes or lesions noted Extrem: Other: incision clean dry and intact. [place] intact. No erythema or effusion. Calf supple nontender. Neurovascularly intact. DS: Data Data Completed and Pending Completed studies during hospitalization [Text1]: Pending at discharge 11/17/21 11:25 Surgical [PTH] Routine Labs on day of discharge: Laboratory Results - last 24 hr 11/20/21 11/20/21 11/20/21 05:44 05:44 09:48 WBC 11.1 H RBC 2.99 L Hgb 9.5 L Hct 28.2 L MCV 94.3 MCH 31.8 MCHC 33.7 RDW 15.8 Plt Count 187 MPV 10.4 Immature Gran % (Auto) 0.5 H Neut % (Auto) 71.1 Lymph % (Auto) 12.8 L [place] % (Auto) 13.0 H Eos % (Auto) 2.4 Baso % (Auto) 0.2 Lymph # (Auto) 1.4 [place] # (Auto) 1.4 H Eos # (Auto) 0.3 Baso # (Auto) 0.0 Abs Immat Gran (auto) 0.05 H Absolute Neuts (auto) 7.9 Absolute Nucleated RBC 0.000 Nucleated RBC % (auto) 0.0 Sodium 136 Potassium 4.4 Chloride 96 Carbon Dioxide 26 Anion Gap 18 BUN 19 H Creatinine 1.02 Estim Creat Clear Calc 91.9 Estimated GFR > 60 Fasting Glucose 94 Calcium 8.7 D COVID-19 (MIGUEL) Negative COVID-19 Clin Com See Note Discharge Plan Discharge Patient Disposition: Xfer SNF Discharge Diagnosis: s/p LT TAB Referrals: [facility] [Outside] - 1 Day (SHORT TERM REHAB) Jolene Dey PA-C [Physician Fruit And Vegetable Classer] - 2 Weeks (12/03/21 2:15 [facility] Jolene Dey PA-C) Discharge Medications: New oxycodone 5 mg Tablet 5 mg PO Q4H PRN (Reason: Pain, Moderate (Pain Scale 4-6) 7 Days Qty: 42 0RF Rx Instructions: Partial Fill upon patient request. docusate sodium 100 mg Capsule 100 mg PO BID 14 Days Qty: 28 0RF Continued lisinopril 20 mg tablet 20 mg PO DAILY Qty: 90 0RF allopurinol 100 mg tablet 100 mg PO DAILY Qty: 90 0RF furosemide 40 mg tablet 60 mg PO BID Qty: 180 0RF metoprolol succinate 50 mg tablet extended release 24 hr 150 mg PO DAILY Qty: 270 0RF atorvastatin 80 mg tablet 80 mg PO DAILY Qty: 90 0RF cholecalciferol (vitamin D3) [Vitamin D3] 10 mcg (400 unit) Capsule 10 mcg PO DAILY aspirin 325 mg Tablet 650 mg PO Q6H PRN (Reason: Pain) warfarin 2 mg tablet 2 tab PO SUTUWETHSA warfarin 2 mg tablet 3 tab PO MOFR gabapentin 600 mg tablet 600 mg PO DAILY PRN (Reason: pain) acetaminophen [Tylenol Extra Strength] 500 mg tablet 1,000 mg PO QID PRN (Reason: fever or pain) Qty: 28 0RF ascorbate calcium (vitamin C) 500 mg tablet 500 mg PO DAILY Discharge Orders: Discharge Order (Routine); Ordered 11/20/21 Ordered By: Aisha Fabian Diet: Regular diet Activity on Discharge: Use cane or walker Stand Alone Forms: Patient Portal Discharge page Care Plan Goals: Restore function of joint Health Concerns: none Plan of Treatment: Physical Therapy Pain management DVT prophylaxis Assessment: * Physical Therapy for Total hip arthroplasty: wbat, posterior precautions, gait training, ROM, strength * Limit stair climbing * No showering, no tub bath-keep dressing clean, dry and intact * No driving x6 weeks * Continue Coumadin with INR goal between 2-3 * Follow up with [facility] in 2 weeks: * 12/03/21 2:15pm [facility] Jolene Dey PA-C
--- NOTE | 2021-12-03 13:43 | P.CDIR_ITS ---
Documented by User: Gretel Jose RN 12/03/21 13:52 Retrospective Query PHYSICIAN'S DOCUMENTATION REQUEST Date of Query: 12/03/21 2127 Patient Name: Cj Barbour Admit Date: 11/17/21 Dear Doctor, A review of the medical record indicates additional documentation may be needed. Please review below and update the documentation accordingly. Clinical Indicators: Is there a diagnosis that correlates with the findings below: Risk Factors/Clinical Indicators/Treatments BMI: 38.4 Height: 5ft 11in Weight: 124.9kg If possible, please provide an associated diagnosis related to the abnormal BMI, such as: BMI * Obesity * Due to excess calories * Drug induced * Due to other cause * Severe or Morbid Obesity Or: * BMI is not significant * Other?(please specify) * Unable to determine Use of terms such as suspected, likely, concern for, or probable (associated with a specific diagnosis that is being evaluated, monitored, or treated as if it exists) are acceptable and can be coded in the inpatient setting, when documented at the time of discharge. Thank you, Gretel Jose, MS, RN, CCRN Extension: [phone] Please use your independent medical judgment in providing your response. THIS QUERY IS PART OF THE PERMANENT MEDICAL RECORD Documented by User: Saul Niño MD 12/04/21 13:39 Retrospective Query Provider Response: Other (BMI not significant)
== END 2021-11-20 13:22 | disposition skilled nursing facility (03) | DRG 470 ==
LOC: HO.SSSA 09:07 → HO.S3 16:03
PROVIDERS: Anesthesiology; Hospitalist; Physician Assistant; Admitting Provider Orthopaedic Surgery; PCP Student in an Organized Health Care Education/Training Program; Visit Provider Orthopaedic Surgery
PROC: 0SRB03A Replacement of Left Hip Joint with Ceramic Synthetic Substitute, Uncemented, Open Approach (ICD-10-PCS; CPT 27130; principal; 2021-11-17 09:40)
DX: M16.12 Unilateral primary osteoarthritis, left hip (principal); I48.19 Other persistent atrial fibrillation; I50.9 Heart failure, unspecified; I25.10 Atherosclerotic heart disease of native coronary artery without angina pectoris; M10.9 Gout, unspecified; I25.2 Old myocardial infarction; Z95.1 Presence of aortocoronary bypass graft; E78.5 Hyperlipidemia, unspecified; Z20.822 Contact with and (suspected) exposure to COVID-19; Z79.899 Other long term (current) drug therapy
CPT/HCPCS: 27130; 36415; 72170; 80048; 80051; 85014; 85018; 85025; 85610; 86850; 86900; 86901; 87635; 88304; 88311; 97110; 97116; 97162; 97166; 97530; 97535; C1713; C1776; J0131; J0690; J1170; J2370; J2405; J2795; J3010

== ENCOUNTER 2021-12-03 07:07 | Outpatient (RCR) | payer OTHER, SELFPAY | END 2022-02-15 12:45 | disposition home or self-care (01) | LOC: HO.PT 07:07 | PROVIDERS: Visit Provider Physician Assistant | DX: Z96.642 Presence of left artificial hip joint (principal) ==

== ENCOUNTER 2021-12-25 | Outpatient (REF) | payer OTHER, SELFPAY ==
--- NOTE | ~2021-12-25 | XR_ITS ---
EXAMINATION: XR PELVIS CLINICAL INFORMATION: Hip pain. COMPARISON: November 17, 2021 and January 23, 2021 TECHNIQUE: AP view of the pelvis. FINDINGS: There is no evidence of acute fracture or diastases of the pelvis. Patient status post left total hip arthroplasty with prosthetic components in position and no evidence of hardware failure on provided imaging. There is some degenerative spurring seen about the right hip joint without significant joint space narrowing appreciated. No definite fusion or widening of the sacroiliac joints is identified. There is significant degenerative disc disease seen at the L4-L5 and L5-S1 levels. Vascular calcifications present. XR/XR pelvis 1-2V IMPRESSION: Status post left total hip arthroplasty without significant abnormality of hardware appreciated. Significant degenerative disc disease lower lumbar spine.
== END 2021-12-25 00:01 ==
LOC: HO.HOSX
PROVIDERS: Visit Provider Physician Assistant
DX: M25.552 Pain in left hip (principal); Z96.642 Presence of left artificial hip joint
CPT/HCPCS: 72170

== ENCOUNTER → 2022-01-04 10:37 | Outpatient (BNVA) | payer OTHER, SELFPAY | PROVIDERS: PCP Internal Medicine; Visit Provider Internal Medicine | DX: I48.19 Other persistent atrial fibrillation (principal); Z79.01 Long term (current) use of anticoagulants; Z51.81 Encounter for therapeutic drug level monitoring | CPT/HCPCS: 85610; 99212 ==

== ENCOUNTER → 2022-01-07 10:50 | Outpatient (BNVA) | payer OTHER, SELFPAY | PROVIDERS: PCP Nurse Practitioner Family; Visit Provider Internal Medicine | DX: I48.19 Other persistent atrial fibrillation (principal); Z79.01 Long term (current) use of anticoagulants; Z51.81 Encounter for therapeutic drug level monitoring | CPT/HCPCS: 85610; 99211 ==

== ENCOUNTER → 2022-01-12 09:51 | Outpatient (BNVA) | payer OTHER, SELFPAY | PROVIDERS: PCP Nurse Practitioner Family; Visit Provider Internal Medicine | DX: I48.19 Other persistent atrial fibrillation (principal); Z51.81 Encounter for therapeutic drug level monitoring; Z79.01 Long term (current) use of anticoagulants | CPT/HCPCS: 85610; 99212 ==

== ENCOUNTER → 2022-01-18 09:51 | Outpatient (BNVA) | payer OTHER, SELFPAY | PROVIDERS: PCP Nurse Practitioner Family; Visit Provider Internal Medicine | DX: I48.19 Other persistent atrial fibrillation (principal); Z79.01 Long term (current) use of anticoagulants; Z51.81 Encounter for therapeutic drug level monitoring | CPT/HCPCS: 85610; 99211 ==

== ENCOUNTER → 2022-01-25 09:47 | Outpatient (BNVA) | payer OTHER, SELFPAY | PROVIDERS: PCP Nurse Practitioner Family; Visit Provider Internal Medicine | DX: I48.19 Other persistent atrial fibrillation (principal); Z79.01 Long term (current) use of anticoagulants; Z51.81 Encounter for therapeutic drug level monitoring | CPT/HCPCS: 85610 ==

== ENCOUNTER → 2022-01-28 11:05 | Outpatient (BNVA) | payer OTHER, SELFPAY | PROVIDERS: PCP Nurse Practitioner Family; Visit Provider Internal Medicine | DX: I48.19 Other persistent atrial fibrillation (principal); Z79.01 Long term (current) use of anticoagulants; Z51.81 Encounter for therapeutic drug level monitoring | CPT/HCPCS: 85610; 99211 ==

== ENCOUNTER → 2022-02-01 10:35 | Outpatient (BNVA) | payer OTHER, SELFPAY | PROVIDERS: PCP Nurse Practitioner Family; Visit Provider Internal Medicine | DX: I48.19 Other persistent atrial fibrillation (principal); Z51.81 Encounter for therapeutic drug level monitoring; Z79.01 Long term (current) use of anticoagulants | CPT/HCPCS: 85610; 99212 ==

== ENCOUNTER 2022-02-04 15:01 | Outpatient (REF) | payer OTHER, SELFPAY | END 2022-02-04 15:02 | disposition home or self-care (01) | LOC: HO.HOSX 15:01 | PROVIDERS: Visit Provider Physician Assistant | DX: Z13.89 Encounter for screening for other disorder (principal) ==

== ENCOUNTER 2022-02-05 | Outpatient (REF) | payer OTHER, SELFPAY ==
--- NOTE | ~2022-02-05 | XR_ITS ---
EXAMINATION: XR HIP, LEFT CLINICAL INFORMATION: Pain COMPARISON: Previous x-ray December 2021 TECHNIQUE: Two views of the left hip and one view of the pelvis. FINDINGS: There is a left hip replacement in satisfactory position. No fracture or dislocation. Mild arthritis at the right hip joint. Bones of the pelvis are normal. Degenerative changes of the visualized lower lumbar spine. Soft tissues are normal. XR/XR hip LT w PEL1V IMPRESSION: Satisfactory appearance of left hip replacement.
== END 2022-02-05 00:01 ==
LOC: HO.HOSX
PROVIDERS: Visit Provider Physician Assistant
DX: M25.552 Pain in left hip (principal)
CPT/HCPCS: 73502

== ENCOUNTER → 2022-02-09 11:33 | Outpatient (BNVA) | payer OTHER, SELFPAY | PROVIDERS: PCP Nurse Practitioner Family; Visit Provider Internal Medicine | DX: I48.19 Other persistent atrial fibrillation (principal); Z79.01 Long term (current) use of anticoagulants; Z51.81 Encounter for therapeutic drug level monitoring | CPT/HCPCS: 85610; 99211 ==

== ENCOUNTER → 2022-02-16 09:56 | Outpatient (BNVA) | payer OTHER, SELFPAY | PROVIDERS: PCP Nurse Practitioner Family; Visit Provider Internal Medicine | DX: I48.19 Other persistent atrial fibrillation (principal); Z79.01 Long term (current) use of anticoagulants; Z51.81 Encounter for therapeutic drug level monitoring | CPT/HCPCS: 85610; 99211 ==

== ENCOUNTER 2022-02-24 10:00 | Outpatient (RCR) | payer OTHER, SELFPAY ==
--- NOTE | 2021-12-22 17:27 | MHC.PT.EP ---
[facility] [place] Office [place] Office [place] Office [address] Emy Narayan [address] [phone] F: [phone] F: [phone] F: [phone] F: [phone] Physical Therapy Plan of Care Date of Evaluation: Date of Surgery: 11/17/21 Diagnosis: L TAB on 11/17/21 Assessment: pt is a 71 yo male presenting s/p L THR on 11/17. He presents with decreased mobility, impaired strength, gait, ROM, postural awareness. Pt has difficulty with ADLs and functional mobility such as walking, sitting, and sleeping. He is currently out of work, but is looking to return to work by March 2022. He is a good candidate for skilled PT d/t motivation, comorbidities, and prognosis of condition. pt would benefit from skilled PT to institute and tailored stretching and strengthening program, educate in proper gait mechanics and postural awareness, and balance/proprioception activities to foster increased independence and promote return to PLOF. Frequency and Duration: The patient will be seen 1x/week, 6wks Short Term Goals: Pt will be independent in HEP to promote self-management of condition. Pt will improve knee extension ROM to lacking 10* B to decrease crouched gait pattern. Lymphedema Therapist Goals: Pt will improve self-reported outcome measure LEFI by a statistically significant amount to promote return to PLOF Pt will improve hip abduction strength to 5/5 to improve tolerance for standing activities such as showering. 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 Treatment Plan: Modalities to reduce pain, spasms and effusion. Manual therapy to restore motion and function. Therapeutic exercise to improve strength and flexibility. Neuromuscular re-education for posture and balance. Therapeutic activities to return to functional activities of daily living. Electronically signed by: Kelsey Silva PT, DPT Please sign and return to therapist. Thank you for your referral.
--- NOTE | 2022-03-17 12:36 | MHC.PT.DC ---
[facility] [place] Office [place] Office [place] Office [address] Emy Narayan [address] [phone] F: [phone] F: [phone] F: [phone] F: [phone] Physical Therapy Discharge Report Diagnosis: L TAB on 11/17/21 Date of Surgery: 11/17/21 Date of Evaluation: 12/22/21 Date of Discharge: Treatments to Date: 5 Cancellations to Date: 1 No Shows to Date: 4 Discharge Status: Improved Function Independent with HEP Discharge Summary: The patient overall reports an improvement in his hip pain, functional mobility, and lower extremity flexibility after his L TAB on 11/17/21. His compliance has been limited by a high co-pay of $40 given his only income is social security. He has had unreliable transportation as he cannot drive himself which has limited his attendance in physical therapy as well. There was a time where he did not have a cellphone so he was unable to call and let us know if he was unable to make it to his appointments. He also has persistent impairments from an old right knee injury. When he does attend he always arrives optimistic and motivated to participate. He reports he is no longer using the wheelchair as his primary mobility in his home. His wheelchair was a source for recurring falls. He has not had any falls in the past several weeks. He is using just a cane and not a walker. He demonstrates improved postural awareness and is able to keep both legs flat on the ground while standing. His pain has been well managed with his exercise program, gabapentin, and muscle relaxer regimen. He has failed to make any additional appointments and his insurance end date is within the next couple days. He is discharged from this physical therapy plan of care. Electronically signed by: Kelsey Silva PT, DPT Please sign and return to therapist. Thank you for your referral.
== END 2022-03-17 12:36 | disposition home or self-care (01) ==
LOC: HO.PT 10:00
PROVIDERS: PCP Internal Medicine; Visit Provider Orthopaedic Surgery
DX: Z96.642 Presence of left artificial hip joint (principal)
CPT/HCPCS: 97110; 97116; 97163; 97164; 97530

== ENCOUNTER → 2022-03-03 10:13 | Outpatient (BNVA) | payer OTHER, SELFPAY | PROVIDERS: PCP Nurse Practitioner Family; Visit Provider Internal Medicine | DX: I48.19 Other persistent atrial fibrillation (principal); Z79.01 Long term (current) use of anticoagulants; Z51.81 Encounter for therapeutic drug level monitoring | CPT/HCPCS: 85610; 99211 ==

== ENCOUNTER → 2022-03-18 09:21 | Outpatient (BNVA) | payer OTHER, SELFPAY | PROVIDERS: PCP Nurse Practitioner Family; Visit Provider Internal Medicine | DX: I48.19 Other persistent atrial fibrillation (principal); Z79.01 Long term (current) use of anticoagulants; Z51.81 Encounter for therapeutic drug level monitoring | CPT/HCPCS: 85610; 99211 ==

== ENCOUNTER → 2022-03-26 11:17 | Outpatient (BNVA) | payer OTHER, SELFPAY | PROVIDERS: PCP Nurse Practitioner Family; Visit Provider Orthopaedic Surgery | DX: Z47.1 Aftercare following joint replacement surgery (principal); Z96.642 Presence of left artificial hip joint | CPT/HCPCS: 99212 ==

== ENCOUNTER → 2022-04-01 09:26 | Outpatient (BNVA) | payer OTHER, SELFPAY | PROVIDERS: PCP Nurse Practitioner Family; Visit Provider Internal Medicine | DX: I48.19 Other persistent atrial fibrillation (principal); Z79.01 Long term (current) use of anticoagulants; Z51.81 Encounter for therapeutic drug level monitoring | CPT/HCPCS: 85610; 99211 ==

== ENCOUNTER → 2022-04-15 08:53 | Outpatient (BNVA) | payer OTHER, SELFPAY | PROVIDERS: PCP Internal Medicine; Visit Provider Internal Medicine | DX: I48.19 Other persistent atrial fibrillation (principal); Z79.01 Long term (current) use of anticoagulants; Z51.81 Encounter for therapeutic drug level monitoring | CPT/HCPCS: 85610; 99212 ==

== ENCOUNTER → 2022-04-19 09:22 | Outpatient (BNVA) | payer OTHER, SELFPAY | PROVIDERS: PCP Internal Medicine; Visit Provider Internal Medicine | DX: I48.19 Other persistent atrial fibrillation (principal); Z79.01 Long term (current) use of anticoagulants; Z51.81 Encounter for therapeutic drug level monitoring | CPT/HCPCS: 85610; 99211 ==

== ENCOUNTER → 2022-04-26 09:15 | Outpatient (BNVA) | payer OTHER, SELFPAY | PROVIDERS: PCP Internal Medicine; Visit Provider Internal Medicine | DX: I48.19 Other persistent atrial fibrillation (principal); Z79.01 Long term (current) use of anticoagulants; Z51.81 Encounter for therapeutic drug level monitoring | CPT/HCPCS: 85610; 99211 ==

== ENCOUNTER → 2022-05-03 10:07 | Outpatient (BNVA) | payer OTHER, SELFPAY | PROVIDERS: PCP Internal Medicine; Visit Provider Internal Medicine | DX: I48.19 Other persistent atrial fibrillation (principal); Z79.01 Long term (current) use of anticoagulants; Z51.81 Encounter for therapeutic drug level monitoring | CPT/HCPCS: 85610; 99211 ==

== ENCOUNTER → 2022-05-12 10:16 | Outpatient (BNVA) | payer OTHER, SELFPAY | PROVIDERS: PCP Internal Medicine; Visit Provider Internal Medicine | DX: I48.19 Other persistent atrial fibrillation (principal); Z79.01 Long term (current) use of anticoagulants; Z51.81 Encounter for therapeutic drug level monitoring | CPT/HCPCS: 85610; 99211 ==

== ENCOUNTER 2022-06-24 10:26 | Outpatient (REF) | payer OTHER, SELFPAY ==
[2022-06-24 10:50] LABS: MANUAL DIFF FLAG NO
[2022-06-24 11:03] LABS: Basophils Percent Auto 0.3 % (0-2); Eosinophils Absolute Auto 0.1 X10*3/uL (0.0-0.4); Eosinophils Percent Auto 1.7 % (0-4); Hematocrit 38.3 % (42.0-52.0); Hemoglobin 13.2 g/dl (14.0-18.0); Imm Gran Abs Auto 0.03 X10*3/uL (0.00-0.03); Imm Gran Pct Auto 0.4 % (0.0-0.4); Lymphocytes Absolute Auto 1.8 X10*3/uL (1.2-4.9); Lymphocytes Percent Auto 25.6 % (20-40); Mean Corpuscular HGB Conc 34.5 g/dl (31.0-36.0); Mean Corpuscular Hemoglobin 31.4 pg (27.0-33.0); Mean Corpuscular Volume 91.2 fL (80.0-98.0); Mean Platelet Volume 9.6 fL (9.4-12.4); Monocytes Absolute Auto 0.8 X10*3/uL (0.1-1.2); Monocytes Percent Auto 11.4 % (2-11); Neutrophils Absolute Auto 4.4 x10*3/uL (2.0-8.3); Neutrophils Percent Auto 60.6 % (45-73); Platelet Count 235 X10*3/uL (160-400); Red Cell Distribution Width 14.6 % (11.0-16.0); White Blood Count 7.2 X10*3/uL (4.8-10.8)
[2022-06-24 11:07] LABS: INTERNATIONAL NORM RATIO 1.6 (0.9-1.1); Prothrombin Time 18.4 SEC (10.0-13.1)
[2022-06-24 11:39] LABS: Alanine Aminotransferase 14 U/L (0-40); Albumin Level 4.5 g/dL (3.5-5.0); Alkaline Phosphatase 82 U/L (39-117); Anion Gap 16 (12-20); Aspartate Amino Transferase 24 U/L (5-37); Bilirubin Total 0.9 mg/dL (0.0-1.0); Blood Urea Nitrogen 18 mg/dL (9-16); Calcium 8.9 mg/dL (8.4-10.2); Carbon Dioxide 25 mmol/L (22-29); Chloride 99 mmol/L (96-108); Cholesterol 151 mg/dL; Estimated Glomerular Filt Rate > 60; Glucose Random 107 mg/dL (60-115); HDL Cholesterol 56 mg/dL; Iron 80 mcg/dL (45-160); LDL Cholesterol Calculated 84 mg/dl; Percent Iron Saturation 23 % (15-50); Potassium 4.6 mmol/L (3.3-5.1); Sodium 135 mmol/L (135-145); Total Iron Binding Capacity 344 mcg/dL (228-428); Total Protein 7.2 g/dL (6.5-8.0); Triglycerides 58 mg/dL; Unsaturated Iron Binding 264 ug/dL; Uric Acid 6.5 mg/dL (3.4-7.0)
[2022-06-24 12:08] LABS: Ferritin 133 ng/mL (20-250); Folate 13.4 ng/mL (> or = 4.0); Prostate Specific Antigen Scr 0.59 ng/mL (<0.05-4.0); Thyroid Stimulating Hormone 1.58 uIU/mL (0.32-4.0); Vitamin B12 572 pg/mL (200-900)
[2022-06-24 13:37] LABS: Appearance Urine Clear; Color Urine Yellow; Glucose Urine UA Negative (Negative); Leukocyte Esterase Urine Negative (Negative); Nitrite Urine Negative (Negative); PH 7.5 (5.0-9.0); Specific Gravity - Urine <= 1.005 (1.005-1.025); Urine Blood Negative (Negative); Urine Ketones Negative (Negative); Urine Protein Negative (Neg-Trace)
[2022-06-24 13:42] LABS: Bacteria Urine None Seen (None Seen); Hyaline Casts Urine 0-2 /LPF (0-2); RBC Urine 0-2 /HPF (0-2); Squamous Epithelial Cell Urine 0-2 /HPF (0-2); WBC Urine 0-5 /HPF (0-5)
== END 2022-06-24 10:27 | disposition home or self-care (01) ==
LOC: HO.LAB 10:26
PROVIDERS: PCP Internal Medicine; Visit Provider Internal Medicine
DX: D64.9 Anemia, unspecified (principal); E78.00 Pure hypercholesterolemia, unspecified; Z12.5 Encounter for screening for malignant neoplasm of prostate; I48.91 Unspecified atrial fibrillation
CPT/HCPCS: 36415; 80053; 80061; 81001; 82607; 82728; 82746; 83540; 84153; 84443; 84550; 85025; 85610

== ENCOUNTER 2022-08-12 11:13 | Outpatient (REF) | payer OTHER, SELFPAY ==
--- NOTE | ~2022-08-12 | XR_ITS ---
EXAMINATION: XR SHOULDER, LEFT CLINICAL INFORMATION: Pain COMPARISON: None available. TECHNIQUE: AP external rotation, Grashey, scapular Y, and axillary views of the left shoulder. FINDINGS: Bone alignment is normal. No fracture or dislocation. The glenohumeral joint is normal. Mild osteoarthritis at the acromioclavicular joint. Soft tissues are normal. XR/XR shoulder LT min 2V IMPRESSION: Mild osteoarthritis at the acromioclavicular joint.
== END 2022-08-12 11:14 | disposition home or self-care (01) ==
LOC: HO.XRAY 11:13
PROVIDERS: PCP Internal Medicine; Visit Provider Internal Medicine
DX: S43.402A Unspecified sprain of left shoulder joint, initial encounter (principal)
CPT/HCPCS: 73030

== ENCOUNTER → 2022-08-19 08:46 | Outpatient (BNVA) | payer OTHER, SELFPAY | PROVIDERS: PCP Internal Medicine; Visit Provider Physician Assistant | DX: M75.82 Other shoulder lesions, left shoulder (principal); Z96.642 Presence of left artificial hip joint | CPT/HCPCS: 99212 ==

== ENCOUNTER 2022-10-14 10:05 | Outpatient (REF) | payer OTHER, SELFPAY ==
[2022-10-14 11:38] LABS: Prothrombin Time 61.3 SEC (11.1-13.3)
== END 2022-10-14 10:06 | disposition home or self-care (01) ==
LOC: HO.LAB 10:05
PROVIDERS: PCP Internal Medicine; Visit Provider Internal Medicine
DX: I48.19 Other persistent atrial fibrillation (principal)
CPT/HCPCS: 36415; 85610

== ENCOUNTER 2022-11-02 10:23 | Outpatient (REF) | payer OTHER, SELFPAY ==
[2022-11-02 12:12] LABS: Prothrombin Time 143.5 SEC (11.1-13.3)
[2022-11-02 12:53] LABS: INTERNATIONAL NORM RATIO 11.8 (0.9-1.1)
== END 2022-11-02 10:24 | disposition home or self-care (01) ==
LOC: HO.LAB 10:23
PROVIDERS: PCP Internal Medicine; Visit Provider Internal Medicine
DX: I48.19 Other persistent atrial fibrillation (principal)
CPT/HCPCS: 36415; 85610

== ENCOUNTER 2022-11-04 11:30 | Outpatient (REF) | payer OTHER, SELFPAY ==
[2022-11-04 12:24] LABS: INTERNATIONAL NORM RATIO 4.5 (0.9-1.1); Prothrombin Time 54.6 SEC (11.1-13.3)
== END 2022-11-04 11:31 | disposition home or self-care (01) ==
LOC: HO.LAB 11:30
PROVIDERS: PCP Internal Medicine; Visit Provider Internal Medicine
DX: I48.19 Other persistent atrial fibrillation (principal)
CPT/HCPCS: 36415; 85610

== ENCOUNTER 2022-11-15 08:11 | Outpatient (REF) | payer OTHER, SELFPAY ==
--- NOTE | ~2022-11-15 | XR_ITS ---
EXAMINATION: XR PELVIS CLINICAL INFORMATION: Pain in unspecified hip COMPARISON: None available. TECHNIQUE: AP view of the pelvis. FINDINGS: Redemonstration of left hip replacement in satisfactory position, incompletely imaged. Similar mild degenerative changes right hip. Degenerative changes in the imaged lower lumbar spine. Pelvic calcifications are likely vascular. Redemonstration of clips in the proximal medial right thigh. XR/XR pelvis 1-2V IMPRESSION: Redemonstration of left hip replacement in satisfactory position, incompletely imaged, limiting evaluation. Similar mild degenerative changes right hip. Additional imaging with CT scan or MRI should be considered for better visualization as these modalities are much more sensitive for detection of fracture or other underlying pathology.
== END 2022-11-15 08:12 | disposition home or self-care (01) ==
LOC: HO.HOSX 08:11
PROVIDERS: Visit Provider Orthopaedic Surgery
DX: R25.2 Cramp and spasm (principal); Z96.642 Presence of left artificial hip joint
CPT/HCPCS: 72170

== ENCOUNTER 2022-11-15 10:14 | Outpatient (AMB) | payer OTHER, SELFPAY ==
--- NOTE | 2022-11-15 10:23 | A.OFFVIS_ITS ---
Intake Vital Signs 11/15/22 10:24 Height 5 ft 8 in Weight 215 lb BMI 32.7 Intake Visit Reasons: OV - left TAB, 11/17/21 NE Intake Note: Cj is a 71 year old male who presents today for a follow up appointment s/p Left TAB 11/17/21. Patient reports that his hip is feeling great. He mentions that he his feeling pain in the left thigh and groin. He is taking tizanadine as he is having muscle spasms that make walking difficult. Allergies heparin [HEPARIN] Allergy (Intermediate, Verified 11/15/22 10:28) heparin induced thrombosis lisinopril Adverse Reaction (Intermediate, Verified 11/15/22 10:28) Cough HPI OV - left TAB, 11/17/21 NE HPI Details Cj is a 72 year old man who presents ~1 year S/P left TAB. He says in regards to his hip he is feeling great . He complains of muscles spasms in his left thigh and groin, which is making it difficult to walk. He describes these as painful cramps when they occur. He says his thigh cramps have improved in the last few weeks but feel worse in his groin. He says these spasms make it difficult for him to walk without his medication. He says prior to surgery most of his pain was in his left hip . He says this pain is different than what he was experiencing prior to surgery. He is on Tizanidine, which helps him somewhat. He walks using a cane, primarily he says he uses this for standing up and starting to walk. He says he does not need to use the cane to walk once he starts. He says he did some PT and stays active riding his bicycle. [facility] Medical History Atrial fibrillation Bilateral edema of lower extremity CAD (coronary artery disease) CHF (congestive heart failure) COVID-19 vaccine series completed Encounter to establish care GI bleed Gout H/O thyroglossal duct cyst High cholesterol History of amputation of toe 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) Hx of usp use of blood thinners Hypercholesteremia Lower extremity edema Myocardial infarction Pre-operative clearance Surgical History H/O colonoscopy History of esophagogastroduodenoscopy (EGD) History of evacuation of hematoma History of surgery Hx of cardiac catheterization 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 Social History Household Members: None Housing: Apartment Are you a primary infant caregiver to a significant other at home: No Do you presently have visiting nurse or other home services: No Alcohol intake: current Alcohol intake frequency: 3 or more drinks per day Patient Tobacco Use Status: Never used Tobacco e-Cigarette/Vaping Use: Never Used Second Hand Smoke Exposure: No Substance Use Type: Marijuana service: No Current occupational status: retired Current occupational exposures/hazards: No Cognitive needs: Yes (Cane) Hearing needs: No Vision needs: No Review of Systems Const All systems reviewed & are unremarkable except as noted in HPI and below Physical Exam Vital Signs: BMI result Body Mass Index 32.7 Const General: no acute distress, alert and awake Orientation/consciousness: patient oriented x3 HEENT Head: Yes normocephalic and Yes atraumatic Eyes EOM: EOMs intact bilaterally Resp Effort & Inspection: normal respiratory effort and able to speak in complete sentences Cardio Jugular venous distension: no JVD Skin General skin exam: turgor normal Rashes: no rashes Neuro General: patient oriented x3 Extrem Other: Left Hip: No pain with impingement testing Antalgic gait for multiple reasons, including left foot & right knee Psych Appearance: grossly normal Affect: normal affect Attitude: cooperative Results Reviewed Results Reviewed: I personally reviewed relevant radiographs. Left total hip arthroplasty in expected post operative position with no hardware complications or evidence of loosening Assessment & Plan Assessment & Plan (1) S/P total left hip arthroplasty: Code(s): Z96.642 - Presence of left artificial hip joint Plan: This is a 72 year old man S/P left TAB, DOS: 11/17/21. In regards to his hip he is doing well, without any pain, and is happy with the results of his surgery. He has some painful spasms in his groin, which he manages with Tizanidine, and ambulates painlessly with antalgia with an assistive cane. He stays active riding his bicycle. I recommend he remain active as tolerated, and try to focus on normalizing his gait mechanics. He can follow up inf he worsens. (2) Muscle cramping: Code(s): R25.2 - Cramp and spasm Plan: Painful cramping in his groin, managed with Tizanidine. I discussed dietary modifications and recommend he increase his water, fruit, and vegetable intake. Plan Scribed for Saul Niño MD by Aaron Oconnell, chief medical director, on 11/15/22 at 10:50 AM, EST. Orders: Orders XR pelvis 1-2V Today M25.559 - Pain in unspecified hip Coding Level of Care Code Est Pt Level 4 (55081) Diagnoses S/P total left hip arthroplasty Z96.642 Muscle cramping R25.2
[2022-11-15 10:24] VITALS: BMI 32.7
== END 2022-11-15 10:58 | disposition home or self-care (01) ==
PROVIDERS: PCP Internal Medicine; Visit Provider Orthopaedic Surgery
DX: Z47.89 Encounter for other orthopedic aftercare (principal); Z96.642 Presence of left artificial hip joint; R25.2 Cramp and spasm
CPT/HCPCS: 99213

== ENCOUNTER 2023-01-06 14:19 | Emergency (ER) | payer OTHER, SELFPAY ==
--- NOTE | ~2023-01-06 | XR_ITS ---
EXAMINATION: XR CHEST 3:01 PM CLINICAL INFORMATION: Chest pain COMPARISON: 11/28/2017 TECHNIQUE: Frontal view of the chest was obtained. FINDINGS: Poststernotomy changes are again evident. No acute abnormality is noted involving the heart, lungs, mediastinum, bony thorax or soft tissues. XR/XR chest 1V IMPRESSION: No acute disease or interval change.
--- NOTE | 2023-01-06 14:21 | ECG_ITS ---
Test Reason : chest pain Blood Pressure : / mmHG Vent. Rate : 095 BPM Atrial Rate : 000 BPM P-R Int : 000 ms QRS Dur : 084 ms QT Int : 364 ms P-R-T Axes : 000 029 106 degrees QTc Int : 457 ms Atrial fibrillation Abnormal ECG When compared with ECG of 04-SEP-2021 12:56, Nonspecific T wave abnormality now evident in Lateral leads Referred By: Edna Sauer Electronically Signed By:ARSEN ANAYA MD
[2023-01-06 14:40] VITALS: BP 177/85; PULSE 90; RESP 18; TEMP 37.2; O2SAT 96; BMI 29.3
--- NOTE | 2023-01-06 14:40 | ED_ITS ---
HPI - Chest Pain General Chief Complaint: Chest Pain Stated Complaint: weird feeling in chest hx of heart attack Time Seen by Provider: 01/06/23 18:26 Source: patient Mode of arrival: ambulatory History of Present Illness HPI narrative: 72-year-old male presents with an odd feeling in the center of his chest, describes it as fluttering and this is been going on for 5 days. Patient denies any smoking history ever and states he does drink 3 to 4 times a week and denies any associated nausea, dizziness, shortness of breath. He is on anticoagulation. Related Data Home Medications Medication Instructions Recorded Confirmed ascorbate calcium (vitamin C) 500 500 mg PO DAILY 08/10/21 09/22/22 mg tablet cholecalciferol (vitamin D3) 10 10 mcg PO DAILY 09/15/21 09/22/22 mcg (400 unit) capsule (Vitamin D3) Previous Rx's Medication Instructions Recorded acetaminophen 500 mg tablet 1,000 mg (2 x 500 mg) PO QID PRN 04/13/21 (Tylenol Extra Strength) fever or pain #28 tabs clotrimazole 1 % topical cream 1 appl topical BID 4 weeks #45 06/16/22 grams gabapentin 600 mg tablet 600 mg PO DAILY PRN pain #90 tabs 07/23/22 left shoulder sling #1 ea 08/12/22 sildenafil 100 mg tablet 100 mg PO DAILY PRN sexual 08/13/22 activity #7 tabs diclofenac sodium 1 % topical gel 2 g topical QID PRN pain #100 grams 09/02/22 (Arthritis Pain (diclofenac)) allopurinol 100 mg tablet 100 mg PO DAILY #90 tabs 09/15/22 metoprolol succinate 50 mg 150 mg (3 x 50 mg) PO DAILY #270 11/01/22 tablet,extended release 24 hr tabs losartan 50 mg tablet 50 mg PO DAILY #30 tabs 12/06/22 apixaban 5 mg tablet (Eliquis) 5 mg PO BID #60 tabs 12/09/22 meloxicam 15 mg tablet 15 mg PO DAILY #30 tabs 12/15/22 tizanidine 4 mg tablet 8 mg (2 x 4 mg) PO Q8H PRN muscle 12/23/22 spasticity 30 days #180 tabs atorvastatin 80 mg tablet 80 mg PO DAILY #90 tabs 12/27/22 furosemide 40 mg tablet 60 mg (1.5 x 40 mg) PO BID #180 01/06/23 tabs Allergies Allergy/AdvReac Type Severity Reaction Status Date / Time heparin [HEPARIN] Allergy Intermediate heparin Verified 01/06/23 14:43 induced thrombosis lisinopril AdvReac Intermediate Cough Verified 01/06/23 14:43 Review of Systems 2 Review of Systems: Pertinent positives and negatives as stated in HPI [facility] Past Medical History Source: nursing notes reviewed Medical History Bilateral edema of lower extremity Pre-operative clearance Lower extremity edema History of amputation of toe Myocardial infarction GI bleed COVID-19 vaccine series completed H/O thyroglossal duct cyst Encounter to establish care Atrial fibrillation Hypercholesteremia Gout CAD (coronary artery disease) Hx of intermediate use of blood thinners CHF (congestive heart failure) High cholesterol 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) Surgical History S/P total left hip arthroplasty History of esophagogastroduodenoscopy (EGD) Hx of cardiac catheterization History of surgery H/O colonoscopy History of evacuation of hematoma S/P CABG x 3 Social History Social History Household Members: None Housing: Apartment Are you a primary pet caretaker to a significant other at home: No Do you presently have visiting nurse or other home services: No Alcohol intake: current Alcohol intake frequency: a few times a week Patient Tobacco Use Status: Never used Tobacco Smoked in Last 30 Days: No e-Cigarette/Vaping Use: Never Used Second Hand Smoke Exposure: No Use of substances other than those prescribed or required for medical reasons: No Substance Use Type: Marijuana Advance Directives: No Advance Directives Information Provided: No service: No Current occupational status: retired Current occupational exposures/hazards: No Cognitive needs: Yes (Cane) Hearing needs: No Vision needs: No Physical Exam 2 Vital Signs: Vital Signs: Last Vital Signs Temp 97.8 F 01/06/23 18:38 Pulse 66 01/06/23 18:38 Resp 14 01/06/23 18:38 BP 158/76 H 01/06/23 18:38 Pulse Ox 98 01/06/23 18:38 O2 Del Method Room Air 01/06/23 18:38 BMI result Body Mass Index 29.3 VITAL SIGNS: Reviewed. GENERAL: Well developed, well nourished, in no acute distress. HEAD: Normocephalic/atraumatic EYES: PERRLA, EOMI EARS: Ext canals without abnormality NOSE: Nares patent bilateral OROPHARYNX: no oral lesions noted, posterior pharynx clear NECK: Supple, no adenopathy LUNGS: Normal breath sounds. No adventitious sounds or accessory muscle use. SpO2<98> CARDIOVASCULAR: Regular rate and rhythm without noted murmurs, no JVD or lower extremity edema. ABDOMEN: Soft, non-tender, non-distended with bowel sounds. MUSCULOSKELETAL: No tenderness, deformities, or effusions noted on gross inspection. EXTREMITIES: No cyanosis, clubbing or edema. SKIN: Inspection of the skin reveals no rashes NEUROLOGIC: Alert and oriented x 4. Strength and sensation to light touch were grossly intact x 4. Course Course Course Narrative: RME: 72yo M w/PMHx anemia, ETOH abuse, A.fib on Eliquis, CAD s/p triple bypass, CHF, HTN, HLD, c/o intermittent CP, weird feeling x5 days which has become more constant. Sx worse on exertion/after carrying heavy groceries up the stairs. denies SOB, N/V EKG A.fib rate 95 EKG, Labs, CXR, Viral testing ordered Full HPI, ROS and PE to be performed by primary ED provider. Medications Administered Discontinued Medications Generic Name Dose Route Start Last Admin Trade Name Freq PRN Reason Stop Dose Admin Furosemide 40 mg 01/06/23 18:52 01/06/23 19:00 Furosemide 40 Mg Tablet PO 01/06/23 18:53 40 mg ONCE ONE Administration Protocol Medical Decision Making Medical Decision Making [facility] Narrative: 72-year-old male with history and clinical presentation, DDX: CHF, vaccine affect, less likely ACS or pneumonia I reviewed all investigations and hematologic indices are chronically stable without leukocytosis there is a stable left shift and a thrombocytopenia with a normocytic anemia. Patient is on Eliquis for known history of atrial fibrillation. Coagulation studies are elevated with a PT-17, INR-1.4. Chemistry indices demonstrate an [place] without electrolyte abnormalities, there is a bump in total bilirubin but no evidence of derangement of the transaminases or alkaline phosphatase. High sensitivity troponin is 4.6 and BNP is elevated. Viral testing is negative for COVID. Chest x-ray is negative for pulmonary congestion or infiltrate and otherwise my interpretation is in agreement with radiology's impression. EKG demonstrates baseline atrial fibrillation without RVR. On my evaluation will give 40 mg of Lasix and repeat the troponin. If good response to the Lasix and troponin is flat will discharge patient to home with instructions to follow-up with Dr. LU. Repeat troponin although detectable is essentially flat, patient asymptomatic, as well as not being hypoxic or tachypneic and will be discharged home. Differential Diagnosis Differential Diagnoses: The differential diagnosis associated with the presentation includes Please see the discussion above Admission/Observation Consideration of admission/observation: Escalation of care including admission/observation considered Please see the discussion above Lab Data MDM Lab Attestation statement: I reviewed the patient's lab results. Please see the discussion above 01/06/23 14:38 01/06/23 14:38 Labs: Lab Results 01/06/23 01/06/23 Range/Units 14:38 19:07 WBC 8.7 (4.8-10.8) X10*3/uL RBC 3.62 L (4.60-5.80) X10*6/uL Hgb 11.9 L (14.0-18.0) g/dl Hct 34.7 L (42.0-52.0) % MCV 95.9 (80.0-98.0) fL MCH 32.9 (27.0-33.0) pg MCHC 34.3 (31.0-36.0) g/dl RDW 14.7 (11.0-16.0) % Plt Count 158 L D (160-400) X10*3/uL MPV 10.7 (9.4-12.4) fL Immature Gran % (Auto) 0.3 (0.0-0.4) % Neut % (Auto) 76.1 H (45-73) % Lymph % (Auto) 13.8 L (20-40) % [place] % (Auto) 8.8 (2-11) % Eos % (Auto) 0.8 (0-4) % Baso % (Auto) 0.2 (0-2) % Lymph # (Auto) 1.2 (1.2-4.9) X10*3/uL [place] # (Auto) 0.8 (0.1-1.2) X10*3/uL Eos # (Auto) 0.1 (0.0-0.4) X10*3/uL Baso # (Auto) 0.0 (0.0-0.2) X10*3/uL Abs Immat Gran (auto) 0.03 (0.00-0.03) X10*3/uL Absolute Neuts (auto) 6.6 (2.0-8.3) x10*3/uL Absolute Nucleated RBC 0.000 (0.0-0.012) X10*3/uL Nucleated RBC % (auto) 0.0 (0.0-0.2) /100WBC PT 17.0 H D (11.1-13.3) SEC INR 1.4 H D (0.9-1.1) Sodium 134 L (135-145) mmol/L Potassium 5.0 (3.3-5.1) mmol/L Chloride 97 (96-108) mmol/L Carbon Dioxide 28 (22-29) mmol/L Anion Gap 14 (12-20) BUN 28 H (9-16) mg/dL Creatinine 1.44 H (0.5-1.4) mg/dL Estim Creat Clear Calc 56.2 Estimated GFR 48 Random Glucose 132 H (60-115) mg/dL Calcium 9.7 D (8.4-10.2) mg/dL Magnesium 1.9 (1.6-2.6) mg/dL Total Bilirubin 1.2 H (0.0-1.0) mg/dL Direct Bilirubin 0.4 (0.0-0.5) mg/dL AST 34 (5-37) U/L ALT 36 (0-40) U/L Alkaline Phosphatase 70 (39-117) U/L Troponin I High Sens 4.6 6.9 (<3.5-35.0) ng/L B-Natriuretic Peptide 349 H (<100) pg/mL Total Protein 7.5 (6.5-8.0) g/dL Albumin 4.6 (3.5-5.0) g/dL COVID-19 (MIGUEL) Negative (Negative) COVID-19 Clin Com See Note Independent Interpretation I performed an independent interpretation of an: EKG Interpretation: Atrial fibrillation, HR-95, no STEMI, QRS/QTC is within normal limits. Radiology Impression Discussion of test interpretation with radiology: I have reviewed the radiologist's reading. Radiologist Impression: Please see the discussion above External Record Review External record reviewed: Outpatient record, Prior outpatient labs and Prior outpatient radiology Chronic Conditions Patient?s care impacted by: Hypertension and Other Atrial fibrillation on chronic anticoagulation Critical Care Time Critical Care Time Critical Care Time: Yes Total Critical Care Time: 30 Attestation: I personally attest to this time spent taking care of the patient. Discharge Plan Discharge Clinical Impression: Atypical chest pain Patient Disposition: Home, Self-Care Instructions: Chest Pain (ED) Additional Instructions: 1. Resume all home medications as prescribed. 2. Recommend follow-up with your primary care doctor within the next 1-2 days and discuss a referral to Cardiology for a stress test. Return to the ER if you have any worsening symptoms especially if they are accompanied by shortness of breath/dizziness. Prescriptions: No Action gabapentin 600 mg tablet 600 mg PO DAILY PRN (Reason: pain) Qty: 90 0RF (DME) left shoulder sling See Rx Instructions .Route .MEDSUPPLY Qty: 1 0RF Rx Instructions: As directed sildenafil 100 mg tablet 100 mg PO DAILY PRN (Reason: sexual activity) Qty: 7 0RF Rx Instructions: administer 30 minutes to 4 hours before activity allopurinol 100 mg tablet 100 mg PO DAILY Qty: 90 1RF metoprolol succinate 50 mg tablet extended release 24 hr 150 mg PO DAILY Qty: 270 0RF losartan 50 mg tablet 50 mg PO DAILY Qty: 30 3RF Eliquis 5 mg tablet 5 mg PO BID Qty: 60 0RF meloxicam 15 mg tablet 15 mg PO DAILY Qty: 30 0RF tizanidine 4 mg tablet 8 mg PO Q8H PRN (Reason: muscle spasticity) 30 Days Qty: 180 0RF atorvastatin 80 mg tablet 80 mg PO DAILY Qty: 90 0RF furosemide 40 mg tablet 60 mg PO BID Qty: 180 0RF cholecalciferol (vitamin D3) [Vitamin D3] 10 mcg (400 unit) Capsule 10 mcg PO DAILY acetaminophen [Tylenol Extra Strength] 500 mg tablet 1,000 mg PO QID PRN (Reason: fever or pain) Qty: 28 0RF clotrimazole 1 % cream 1 appl topical BID 28 Days Qty: 45 0RF diclofenac sodium [Arthritis Pain (diclofenac)] 1 % gel 2 g topical QID PRN (Reason: pain) Qty: 100 0RF ascorbate calcium (vitamin C) 500 mg tablet 500 mg PO DAILY Referrals: Po,Valentina Rivas MD [Primary Care Provider] -
[2023-01-06 14:46] LABS: MANUAL DIFF FLAG NO
[2023-01-06 14:47] LABS: Basophils Percent Auto 0.2 % (0-2); Eosinophils Absolute Auto 0.1 X10*3/uL (0.0-0.4); Eosinophils Percent Auto 0.8 % (0-4); Hematocrit 34.7 % (42.0-52.0); Hemoglobin 11.9 g/dl (14.0-18.0); Imm Gran Abs Auto 0.03 X10*3/uL (0.00-0.03); Imm Gran Pct Auto 0.3 % (0.0-0.4); Lymphocytes Absolute Auto 1.2 X10*3/uL (1.2-4.9); Lymphocytes Percent Auto 13.8 % (20-40); Mean Corpuscular HGB Conc 34.3 g/dl (31.0-36.0); Mean Corpuscular Hemoglobin 32.9 pg (27.0-33.0); Mean Corpuscular Volume 95.9 fL (80.0-98.0); Mean Platelet Volume 10.7 fL (9.4-12.4); Monocytes Absolute Auto 0.8 X10*3/uL (0.1-1.2); Monocytes Percent Auto 8.8 % (2-11); Neutrophils Absolute Auto 6.6 x10*3/uL (2.0-8.3); Neutrophils Percent Auto 76.1 % (45-73); Platelet Count 158 X10*3/uL (160-400); Red Blood Count 3.62 X10*6/uL (4.60-5.80); Red Cell Distribution Width 14.7 % (11.0-16.0); White Blood Count 8.7 X10*3/uL (4.8-10.8)
[2023-01-06 14:55] LABS: INTERNATIONAL NORM RATIO 1.4 (0.9-1.1)
[2023-01-06 15:01] LABS: IDNOW Serial# BCCEAD1C
[2023-01-06 15:02] LABS: COVID-19 Test Negative (Negative)
[2023-01-06 15:03] LABS: Anion Gap 14 (12-20); IDNOW Serial# 9DB6401D; Influenza A Negative (Negative); Influenza B2 Negative (Negative)
[2023-01-06 15:05] LABS: Alanine Aminotransferase 36 U/L (0-40); Albumin Level 4.6 g/dL (3.5-5.0); Alkaline Phosphatase 70 U/L (39-117); Aspartate Amino Transferase 34 U/L (5-37); Bilirubin Direct 0.4 mg/dL (0.0-0.5); Bilirubin Total 1.2 mg/dL (0.0-1.0); Blood Urea Nitrogen 28 mg/dL (9-16); Calcium 9.7 mg/dL (8.4-10.2); Carbon Dioxide 28 mmol/L (22-29); Chloride 97 mmol/L (96-108); Creatinine Clr Calc Pharmacy 56.2; Estimated Glomerular Filt Rate 48; Glucose Random 132 mg/dL (60-115); Magnesium 1.9 mg/dL (1.6-2.6); Sodium 134 mmol/L (135-145); Total Protein 7.5 g/dL (6.5-8.0)
[2023-01-06 15:07] LABS: Troponin-I High Sensitivity 4.6 ng/L (<3.5-35.0)
[2023-01-06 15:09] LABS: B Type Natriuretic Peptide 349 pg/mL (<100)
[2023-01-06 18:38] VITALS: BP 158/76; PULSE 66; RESP 14; TEMP 36.6; O2SAT 98
--- NOTE | 2023-01-06 18:48 | PC.NURSE ---
vss and up to date. nsr w/ pacemaker spikes displaying on the compliance monitor. pt c/o no pain at this time but more chest discomfort substernally. pt denies discomfort radiation anywhere. crackles noted in left lung sound throughout. doctor bedside assessing/speaking w/ pt discussing plan of care at this time. pt c/o no sob/wob at this time. 1+ pitting edema noted in LE bilaterally. respirations even and unlabored. call bee placed within reach.
[2023-01-06] MEDS: Furosemide 40 MG TABLET PO (19:00)
--- NOTE | 2023-01-06 19:01 | PC.NURSE ---
medication administered per provider order. tech obtaining repeat troponin and sending to lab. call bee placed within reach.
[2023-01-06 19:35] LABS: Troponin-I High Sensitivity 6.9 ng/L (<3.5-35.0)
== END 2023-01-06 20:02 | disposition home or self-care (01) ==
PROVIDERS: Physician Assistant; Emergency Provider Student in an Organized Health Care Education/Training Program; PCP Internal Medicine
DX: R07.89 Other chest pain (principal); R60.0 Localized edema; I11.0 Hypertensive heart disease with heart failure; I50.9 Heart failure, unspecified; I48.91 Unspecified atrial fibrillation; I25.2 Old myocardial infarction; E78.00 Pure hypercholesterolemia, unspecified; D64.9 Anemia, unspecified; F12.90 Cannabis use, unspecified, uncomplicated; Z95.1 Presence of aortocoronary bypass graft; Z79.01 Long term (current) use of anticoagulants; Z79.899 Other long term (current) drug therapy
CPT/HCPCS: 36415; 71045; 80048; 80076; 83735; 83880; 84484; 85025; 85610; 87502; 87635; 93005; 99283; 99285

== ENCOUNTER 2023-01-11 13:43 | Outpatient (AMB) | payer OTHER, SELFPAY ==
--- NOTE | 2023-01-11 14:05 | MHC.PC.OV ---
Vital Signs 01/11/23 14:08 01/11/23 14:13 01/11/23 14:22 Height 5 ft 11 in Weight 211 lb BMI 29.4 BP 90/52 L 80/40 L 92/50 L Blood Pressure Location Lt brachial Rt brachial Rt brachial Position Sitting Sitting Sitting Pulse 94 Pulse Source Pulse Oximeter Pulse Oximetry (%) 97 Oxygen Delivery Method Room Air Intake Visit Reasons: HDF ~ Post hospital discharge FU Intake Note: Patient is here for hospital discharge follow up. Patient was discharged from [facility] on 01/07/23. Director Staffing Required: No Accompanied by: Self / Same As Patient Allergies heparin [HEPARIN] Allergy (Intermediate, Verified 01/11/23 14:15) heparin induced thrombosis lisinopril Adverse Reaction (Intermediate, Verified 01/11/23 14:15) Cough Tobacco use date assessed: 06/16/22 HPI HPI Comments History of Present Illness Details 72-year-old male with history vitamin-D, anemia, CAD, high cholesterol, CHF, atrial fibrillation, hypertension. Patient presents today for emergency room follow-up. Patient presented to [facility] Emergency Room on 01/06/2023 with a weird feeling in his chest x5 days with prior history of myocardial infarction. High sensitivity troponin is 4.6, with elevated BNP, COVID negative, chest x-ray is negative for pulmonary congestion or infiltrate. EKG demonstrates baseline AFib without RVR. Patient was given 40 mg of Lasix and troponin was repeated. Second troponin detectable but flat. Chemistry labs also revealed acute kidney injury BUN 28/creatinine 1.44; Patient was asymptomatic and he was discharged home. Patient presents today hypotensive in office blood pressure 92/50. Patient denies any chest pain, palpitations, shortness of breath and syncope. Patient reports occasionally feels lightheaded at times. Discussed decreasing patient's metoprolol to 100 mg daily due to hypotension. Patient agreeable, patient reports has not been following with a electron beam welder as he has not had a car and his previous electron beam welder his far way. Patient reports that he was advised to follow-up with electron beam welder for stress test as an outpatient, outpatient stress test ordered. Patient reports he is able to walk on a treadmill. Referral entered to [facility] Cardiology, repeat CMP ordered to follow-up on kidney function. [facility] Medical History (Updated 01/11/23 @ 14:23 by RONNY Crocker) SEBASTIÁN (acute kidney injury) Bilateral edema of lower extremity Pre-operative clearance Lower extremity edema History of amputation of toe Myocardial infarction GI bleed COVID-19 vaccine series completed H/O thyroglossal duct cyst Encounter to establish care Atrial fibrillation Hypercholesteremia Gout CAD (coronary artery disease) Hx of senior living use of blood thinners CHF (congestive heart failure) High cholesterol 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) Surgical History S/P total left hip arthroplasty History of esophagogastroduodenoscopy (EGD) Hx of cardiac catheterization History of surgery H/O colonoscopy History of evacuation of hematoma S/P CABG x 3 Social History Household Members: None Housing: Apartment Are you a primary rn care transition to a significant other at home: No Do you presently have visiting nurse or other home services: No Alcohol intake: current Alcohol intake frequency: a few times a week Patient Tobacco Use Status: Never used Tobacco e-Cigarette/Vaping Use: Never Used Second Hand Smoke Exposure: No Substance Use Type: Marijuana service: No Current occupational status: retired Current occupational exposures/hazards: No Cognitive needs: Yes (Cane) Hearing needs: No Vision needs: No Questionnaire Thrive Questionnaire Date Thrive assessed: 06/16/22 BHARTI-7 AMB Questionnaire BHARTI-7 Date BHARTI - 7 assessed: 06/16/22 Source: Developed by Drs. Greg Gutierrez, Cami Jones, Noe Covington and colleagues, with an educational dima from [employer]. Review of Systems Const Denies chills, Denies fatigue, Denies fever(s) and Denies poor appetite Eyes Denies no additional complaints ENT Reports Normal hearing present Card Denies chest pain, Denies syncope, Denies rapid heart rate and Denies dyspnea Resp Denies cough and Denies dyspnea GI Denies change in stool character, Denies constipation, Denies diarrhea, Denies nausea and Denies vomiting Denies dysuria, Denies urinary frequency and Denies urinary urgency Neuro Reports Normal hearing present, Denies confusion and Denies syncope Psych Denies confusion Endo Denies fatigue Physical exam (Primary Care) Vital Signs: Last Vital Signs Pulse 94 01/11/23 14:08 BP 92/50 L 01/11/23 14:22 Pulse Ox 97 01/11/23 14:08 Oxygen Delivery Method Room Air 01/11/23 14:08 BMI result Body Mass Index 29.4 Tobacco/Smoking Status: Tobacco use Status Tobacco use date assessed 06/16/22 01/11/23 14:06 Patient Tobacco Use Status Never used Tobacco 01/11/23 14:06 Tobacco use type 08/19/22 09:23 e-Cigarette/Vaping Use Never Used 01/11/23 14:06 Thrive Assessment: Date of Thrive Assessment Date Thrive assessed 06/16/22 01/11/23 14:06 Const General: No confusion Orientation/consciousness: No confusion HENMT Head: Yes normocephalic and Yes atraumatic Eyes Conjunctivae: conjunctivae normal Chest Chest palpation & inspection: normal inspection of the chest Resp Effort & Inspection: normal respiratory effort Auscultation: clear to auscultation bilaterally, no crackles, no rhonchi and no wheezes Cardio Rate: regular rate Rhythm: regular rhythm Heart sounds: S1 normal heart sound present and S2 normal heart sound present GI Inspection: Yes normal to inspection Neuro General: No confusion Cranial nerves: Yes Normal hearing present Extrem General: No edema Assessment and Plan Assessment & Plan (1) SEBASTIÁN (acute kidney injury): Code(s): N17.9 - Acute kidney failure, unspecified Plan: Repeat CMP ordered to follow-up on kidney function. (2) CHF (congestive heart failure): Code(s): I50.9 - Heart failure, unspecified Qualifiers: Heart failure chronicity: chronic Heart failure type: diastolic Qualified Code(s): I50.32 - Chronic diastolic (congestive) heart failure Plan: Continue on Lasix Referral entered to Cardiology to establish care. (3) Atrial fibrillation: Code(s): I48.91 - Unspecified atrial fibrillation Qualifiers: Atrial fibrillation type: persistent (not longstanding) Qualified Code(s): I48.19 - Other persistent atrial fibrillation Plan: Given patient hypotensive and office today metoprolol decreased to 100 mg daily. Patient verbalized understanding of this and wrote down medication change. Rx sent to patient's pharmacy. Continue on Eliquis 5 mg b.i.d. for anticoagulation (4) 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): Code(s): I10 - Essential (primary) hypertension Qualifiers: Hypertension type: primary hypertension Qualified Code(s): I10 - Essential (primary) hypertension Plan: Continue on losartan 50 mg daily and metoprolol decreased to 100 mg daily. Plan Keep scheduled follow-up with PCP or follow-up sooner if needed. Orders: Orders Comprehensive Met. Panel 01/11/23 N17.9 - Acute kidney failure, unspecified Complete Blood Count Auto Diff 01/11/23 Z13.0 - Encounter for screening for diseases of the blood and blood-forming organs and certain disorders involving the immune mechanism CA stress test 01/11/23 I25.10 - Atherosclerotic heart disease of [place] coronary artery without angina pectoris B Type Natriuretic Peptide 01/11/23 I50.9 - Heart failure, unspecified Referrals Cardiology Referral I10 - Essential (primary) hypertension, I48.91 - Unspecified atrial fibrillation, I50.9 - Heart failure, unspecified Medications: Changed From metoprolol succinate ER 150 mg (3 x 50 mg) PO DAILY 270 tabs 0RF I10 - Essential (primary) hypertension To metoprolol succinate ER 100 mg (2 x 50 mg) PO DAILY 270 tabs 0RF I10 - Essential (primary) hypertension Coding Level of Care Code Est Pt Level 4 (02722) Diagnoses SEBASTIÁN (acute kidney injury) N17.9 Chronic diastolic congestive heart failure I50.32 Heart failure chronicity: chronic Heart failure type: diastolic Persistent atrial fibrillation I48.19 Atrial fibrillation type: persistent (not longstanding) Primary hypertension I10 Hypertension type: primary hypertension
[2023-01-11 14:08] VITALS: BP 90/52; PULSE 94; O2SAT 97; BMI 29.4
[2023-01-11 14:13] VITALS: BP 80/40
[2023-01-11 14:22] VITALS: BP 92/50
== END 2023-01-11 15:36 | disposition home or self-care (01) ==
PROVIDERS: PCP Internal Medicine; Visit Provider Nurse Practitioner Family
DX: N17.9 Acute kidney failure, unspecified (principal); I11.0 Hypertensive heart disease with heart failure; I50.32 Chronic diastolic (congestive) heart failure; I48.19 Other persistent atrial fibrillation
CPT/HCPCS: 99214

== ENCOUNTER 2023-01-11 14:37 | Outpatient (REF) | payer OTHER, SELFPAY ==
[2023-01-11 14:53] LABS: MANUAL DIFF FLAG NO
[2023-01-11 15:28] LABS: Basophils Percent Auto 0.2 % (0-2); Eosinophils Percent Auto 0.6 % (0-4); Hematocrit 31.4 % (42.0-52.0); Hemoglobin 10.6 g/dl (14.0-18.0); Imm Gran Abs Auto 0.02 X10*3/uL (0.00-0.03); Imm Gran Pct Auto 0.3 % (0.0-0.4); Lymphocytes Absolute Auto 0.9 X10*3/uL (1.2-4.9); Lymphocytes Percent Auto 13.2 % (20-40); Mean Corpuscular HGB Conc 33.8 g/dl (31.0-36.0); Mean Corpuscular Hemoglobin 32.3 pg (27.0-33.0); Mean Corpuscular Volume 95.7 fL (80.0-98.0); Mean Platelet Volume 11.1 fL (9.4-12.4); Monocytes Absolute Auto 0.7 X10*3/uL (0.1-1.2); Monocytes Percent Auto 10.3 % (2-11); Neutrophils Absolute Auto 4.9 x10*3/uL (2.0-8.3); Neutrophils Percent Auto 75.4 % (45-73); Platelet Count 160 X10*3/uL (160-400); Red Blood Count 3.28 X10*6/uL (4.60-5.80); Red Cell Distribution Width 14.7 % (11.0-16.0); White Blood Count 6.5 X10*3/uL (4.8-10.8)
[2023-01-11 16:08] LABS: Alanine Aminotransferase 25 U/L (0-40); Albumin Level 4.2 g/dL (3.5-5.0); Alkaline Phosphatase 70 U/L (39-117); Anion Gap 13 (12-20); Aspartate Amino Transferase 28 U/L (5-37); Bilirubin Total 0.7 mg/dL (0.0-1.0); Blood Urea Nitrogen 23 mg/dL (9-16); Calcium 9.2 mg/dL (8.4-10.2); Carbon Dioxide 25 mmol/L (22-29); Chloride 103 mmol/L (96-108); Estimated Glomerular Filt Rate > 60; Glucose Random 134 mg/dL (60-115); Potassium 4.8 mmol/L (3.3-5.1); Sodium 136 mmol/L (135-145); Total Protein 6.6 g/dL (6.5-8.0)
[2023-01-11 16:13] LABS: B Type Natriuretic Peptide 416 pg/mL (<100)
== END 2023-01-11 14:38 | disposition home or self-care (01) ==
LOC: HO.LAB 14:37
PROVIDERS: PCP Internal Medicine; Visit Provider Nurse Practitioner Family
DX: I50.9 Heart failure, unspecified (principal); N17.9 Acute kidney failure, unspecified; Z13.0 Encounter for screening for diseases of the blood and blood-forming organs and certain disorders involving the immune mechanism
CPT/HCPCS: 36415; 80053; 83880; 85025

== ENCOUNTER 2023-01-18 11:46 | Outpatient (AMB) | payer OTHER, SELFPAY ==
[2023-01-18 12:01] VITALS: BP 158/92; PULSE 86; O2SAT 98; BMI 30.4
--- NOTE | 2023-01-18 12:01 | A.OFFPC_ITS ---
Vital Signs 3 01/18/23 12:01 Height 5 ft 9 in Weight 206 lb BMI 30.4 BP 158/92 H Blood Pressure Location Lt brachial Position Sitting Pulse 86 Pulse Source Pulse Oximeter Pulse Oximetry (%) 98 Oxygen Delivery Method Room Air Intake Visit Reasons: Hernia/Acute kidney injury Allergies heparin [HEPARIN] Allergy (Intermediate, Verified 01/18/23 12:02) heparin induced thrombosis lisinopril Adverse Reaction (Intermediate, Verified 01/18/23 12:02) Cough Medication List - Last Reconciled 01/18/23 by Valentina Bhandari MD acetaminophen (Tylenol Extra Strength) 1,000 mg (2 x 500 mg) PO QID PRN allopurinol 100 mg PO DAILY apixaban (Eliquis) 5 mg PO BID ascorbate calcium (vitamin C) 500 mg PO DAILY atorvastatin 80 mg PO DAILY cholecalciferol (vitamin D3) (Vitamin D3) 10 mcg PO DAILY clotrimazole 1% 1 appl topical BID 4 weeks diclofenac sodium 1% (Arthritis Pain (diclofenac)) 2 grams topical QID PRN furosemide 60 mg (1.5 x 40 mg) PO BID gabapentin 600 mg PO DAILY PRN [left shoulder sling As directed] losartan 50 mg PO DAILY meloxicam 15 mg PO DAILY metoprolol succinate ER 150 mg (3 x 50 mg) PO DAILY 90 days sildenafil 100 mg PO DAILY PRN tizanidine 8 mg (2 x 4 mg) PO Q8H PRN 30 days Tobacco use date assessed: 06/16/22 Fall risk assessment: No Falls in past year Last assessed Fall Risk: 01/18/23 Dental Screening Dental Screen Date: 01/18/23 Did you have a dental visit in the last 12 months?: Yes Did you have a dental problem in the last 6 months where you did not have access to dental care?: No Was dental information given to patient?: Patient has dentist HPI Hernia/Acute kidney injury 2 HPI0 Details 72-year-old obese male with a history of congestive heart failure atrial fibrillation hypertension last seen by the nurse practitioner in 01/11/2023. Patient is here for follow-up. History of coronary artery disease hypercholesterolemia. Patient had myocardial infarction noted low blood pressure and blood pressure medication was decreased. Review of the notes was seen by Ortho also in October 2022 for follow-up for a left hip total hip arthroplasty October 2021 did complain of muscle spasms in which an x-ray of the pelvis done. From the blood work noted anemia at 10.24 June 2022 last blood work for cholesterol LDL goal of less 70 patient's numbers 86 BNP elevated .- patient comes in for follow-up also complains of right inguinal pain PFSH Medical History (Updated 01/18/23 @ 12:52 by Valentina Bhandari MD) SEBASTIÁN (acute kidney injury) Bilateral edema of lower extremity Pre-operative clearance Lower extremity edema History of amputation of toe Myocardial infarction GI bleed COVID-19 vaccine series completed H/O thyroglossal duct cyst Encounter to establish care Atrial fibrillation Hypercholesteremia Gout CAD (coronary artery disease) 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 CHF (congestive heart failure) High cholesterol 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) Surgical History S/P total left hip arthroplasty History of esophagogastroduodenoscopy (EGD) Hx of cardiac catheterization History of surgery H/O colonoscopy History of evacuation of hematoma S/P CABG x 3 Social History Household Members: None Housing: Apartment Are you a primary medicare sales executive to a significant other at home: No Do you presently have visiting nurse or other home services: No Alcohol intake: current Alcohol intake frequency: a few times a week Patient Tobacco Use Status: Never used Tobacco e-Cigarette/Vaping Use: Never Used Second Hand Smoke Exposure: No Substance Use Type: Marijuana service: No Current occupational status: retired Current occupational exposures/hazards: No Cognitive needs: Yes (Cane) Hearing needs: No Vision needs: No Questionnaire Thrive Questionnaire Date Thrive assessed: 06/16/22 AUDIT C Alcohol Use Questionnaire (AUDIT-C) 1. How often do you have a drink containing alcohol?: 2-3 times a week 2. How many drinks containing alcohol do you have on a typical day when you are drinking?: 1 or 2 3. How often do you have six or more drinks on one occasion?: Never Total Score: 3 Score Reviewed/Action Taken: Yes BHARTI-7 AMB Questionnaire BHARTI-7 Date BHARTI - 7 assessed: 06/16/22 Source: Developed by Drs. Greg Gutierrez, Cami Jones, Noe Covington and colleagues, with an educational dima from [employer]. Physical exam (Primary Care) Vital Signs: Last Vital Signs Pulse 86 01/18/23 12:01 BP 158/92 H 01/18/23 12:01 Pulse Ox 98 01/18/23 12:01 Oxygen Delivery Method Room Air 01/18/23 12:01 BMI result Body Mass Index 30.4 Tobacco/Smoking Status: Tobacco use Status Tobacco use date assessed 06/16/22 01/18/23 12:15 Patient Tobacco Use Status Never used Tobacco 01/18/23 12:15 Tobacco use type 08/19/22 09:23 e-Cigarette/Vaping Use Never Used 01/18/23 12:15 Thrive Assessment: Date of Thrive Assessment Date Thrive assessed 06/16/22 01/18/23 12:15 Const General: alert; No acute distress Eyes Conjunctivae: conjunctivae normal Resp Auscultation: clear to auscultation bilaterally Cardio Other: Irregular rate and rhythm controlled GI Inspection: Yes normal to inspection Abdomen image: 2 1. Right inguinal mass Other: Noted right inguinal mass 4 x 3 in Extrem General: Yes normal to inspection and No edema Office Procedures Flu Questionnaire Does the patient have a severe egg allergy?: No Does the patient have severe life threatening allergies?: No Does the patient have a fever or illness today?: No Has the patient ever had Guillain-Saffell Syndrome?: No Has the patient ever had any past reaction to a flu shot?: No Immunizations flu vacc [id number] 6mos up(PF) 60 mcg(15 mcgx4)/0.5 mL IM syringe Performing Provider: Valentina Bhandari MD [facility] Administered by: LAXMI Barrientos on 01/18/23 13:04 2 Dose Route Admin Location Dispensed Lot Number Expiration Date NDC House Moving Supervisor 0.5 mL IM Left Deltoid 0.5 mL [id number] 09/18/23 [id number] [employer] 2 VIS Given Date VIS Provided VIS Publication Date 01/18/23 Single Vaccine 20 Eligibility Eligibility Date Funding Source Not VFC Eligible 01/18/23 Private Assessment and Plan Assessment & Plan (1) SEBASTIÁN (acute kidney injury): Code(s): N17.9 - Acute kidney failure, unspecified Plan: Resolved (2) Anemia: Code(s): D64.9 - Anemia, unspecified Plan: Continue to monitor (3) Atrial fibrillation: Code(s): I48.91 - Unspecified atrial fibrillation Qualifiers: Atrial fibrillation type: persistent (not longstanding) Qualified Code(s): I48.19 - Other persistent atrial fibrillation Plan: Continue with anticoagulation with Eliquis (4) 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): Code(s): I10 - Essential (primary) hypertension Qualifiers: Hypertension type: primary hypertension Qualified Code(s): I10 - Essential (primary) hypertension Plan: Continue with blood pressure medication. 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 transplanted heart: [place] heart Associated angina: without angina Qualified Code(s): I25.810 - Atherosclerosis of coronary artery bypass graft(s) without angina pectoris Plan: Control the cholesterol, weight, blood pressure (6) High cholesterol: Code(s): E78.00 - Pure hypercholesterolemia, unspecified Plan: Avoid fried foods, chicken skin, eggs, butter margarine, pastries and meat. Be it pork or beef they have a lot of cholesterol LDL goal of less than 70 and triglyceride of less than 150 patient taking atorvastatin 80 mg once a day (7) CHF (congestive heart failure): Code(s): I50.9 - Heart failure, unspecified Qualifiers: Heart failure type: diastolic Heart failure chronicity: chronic Qualified Code(s): I50.32 - Chronic diastolic (congestive) heart failure Plan: With daily , continue with the diuretic (8) Recurrent inguinal hernia: Code(s): K40.91 - Unilateral inguinal hernia, without obstruction or gangrene, recurrent Plan: referral to the surgeon Orders: Orders 2 Thyroid Stimulating Hormone 2 Months I50.32 - Chronic diastolic (congestive) heart failure Vitamin B12 and Folate 2 Months I50.32 - Chronic diastolic (congestive) heart failure B Type Natriuretic Peptide 2 Months I50.32 - Chronic diastolic (congestive) heart failure Ferritin 2 Months I50.32 - Chronic diastolic (congestive) heart failure IRON PROFILE 2 Months I50.32 - Chronic diastolic (congestive) heart failure Magnesium 2 Months I50.32 - Chronic diastolic (congestive) heart failure CA echo transthoracic complete Today I48.19 - Other persistent atrial fibrillation Complete Blood Count Auto Diff 2 Months I50.32 - Chronic diastolic (congestive) heart failure Comprehensive Met. Panel 2 Months I50.32 - Chronic diastolic (congestive) heart failure Free T4 (Free Thyroxine) 2 Months I50.32 - Chronic diastolic (congestive) heart failure Lipid Panel 2 Months E78.00 - Pure hypercholesterolemia, unspecified, I50.32 - Chronic diastolic (congestive) heart failure Reticulocyte Count 2 Months I50.32 - Chronic diastolic (congestive) heart failure Hemoglobin A1c 2 Months I50.32 - Chronic diastolic (congestive) heart failure Phosphorus 2 Months I50.32 - Chronic diastolic (congestive) heart failure Referrals 2 General Surgery Referral K40.91 - Unilateral inguinal hernia, without obstruction or gangrene, recurrent Medications: Changed 2 From metoprolol succinate ER 100 mg (2 x 50 mg) PO DAILY 270 tabs 0RF I10 - Essential (primary) hypertension To metoprolol succinate ER 150 mg (3 x 50 mg) PO DAILY 90 days 270 tabs 1RF I10 - Essential (primary) hypertension Coding Level of Care Code Est Pt Level 4 (19510) Diagnoses SEBASTIÁN (acute kidney injury) N17.9 Anemia D64.9 Persistent atrial fibrillation I48.19 Atrial fibrillation type: persistent (not longstanding) Primary hypertension I10 Hypertension type: primary hypertension Coronary artery disease involving coronary bypass graft of [place] heart without angina pectoris I25.810 Coronary Disease-Associated Artery/Lesion type: bypass graft [place] vs. transplanted heart: [place] heart Associated angina: without angina High cholesterol E78.00 Chronic diastolic congestive heart failure I50.32 Heart failure type: diastolic Heart failure chronicity: chronic Recurrent inguinal hernia K40.91
== END 2023-01-18 13:09 | disposition home or self-care (01) ==
PROVIDERS: PCP Internal Medicine; Visit Provider Internal Medicine
DX: Z23 Encounter for immunization (principal); N17.9 Acute kidney failure, unspecified; I48.19 Other persistent atrial fibrillation; I11.0 Hypertensive heart disease with heart failure; I50.32 Chronic diastolic (congestive) heart failure
CPT/HCPCS: 90471; 90686; 99214

== ENCOUNTER → 2023-01-25 09:12 | Outpatient (REF) | payer OTHER, SELFPAY ==
--- NOTE | ~2023-01-25 | NM_ITS ---
Myocardial perfusion study Indication: Atherosclerotic cardiovascular disease to evaluate for myocardial ischemia Technique: The patient was brought in for a Lexiscan perfusion study on 01/25/2023. Patient performed low-level exercise and was injected 0.4 mg of Lexiscan intravenously. Within a minute of injection, 35 mCi of sestamibi was given intravenously. Images were obtained using the SPECT gamma camera interlaced with the gating device. Images were obtained in supine position. Resting perfusion study was performed on 02/01/2023. Patient was administered 35 mCi of sestamibi intravenously at rest. Images were then obtained in supine position. Images obtained with and without CT attenuation. Total DLP 87 mGy-cm. Images were processed with the software and compared side to side in short axis, horizontal long axis and vertical long axis views. Findings: The stress perfusion study showed non attenuated images show mildly to moderately reduced uptake in the basal inferior wall of the LV myocardium. Remainder of the LV myocardium is normally perfused. Attenuated corrected images show mildly to moderately reduced uptake in the basal inferior wall of the LV myocardium as well as mildly reduced uptake in the apex of the LV myocardium.. The gated study shows normal LV systolic function with calculated LVEF of 63%. LV cavity is normal in size. The gated study shows reduced wall thickening and contraction of basal inferior segments. Resting study shows no change in perfusion pattern stress perfusion study. Gating at rest reveals basal inferior wall motion abnormality with ejection fraction at 66%. The findings are consistent with fixed basal inferior defect most suggestive of nontransmural infarct. There is no evidence. NM/NM cardiolite stress test Impression: 1. Myocardial perfusion imaging study shows no ischemia with nontransmural basal inferior infarct 2. Gated LVEF is 63% 3. Transient ischemic dilatation not present EKG is nondiagnostic for ischemia
--- NOTE | 2023-01-25 09:16 | CA_ITS ---
Acquisition Time: 2023-01-25 09:23:08 Total Exercise Time: 00:02:00 Test Indications: Chest Pain Medications: Protocol: LEXISCAN Max HR: 104 BPM 69% of Pred: 150 BPM Max BP: 124/058 mmHG Max Work Load: 1.0 METS Pharmacological stess test with Lexiscan injection while sitting without anginal symptoms, with isolated PVCs, with normotensive response to injection, with nondiagnoisitgic EKGs. Aminophylline 75mg IVP given to reverse Lexiscan. Nuclear images pending. Test reviewed with Dr. Marcum. Referred By: Linda Camilo Overread By: Karla Eduardo
[2023-01-25 12:36] LABS: MANUAL DIFF FLAG NO
[2023-01-25 13:41] LABS: Basophils Percent Auto 0.3 % (0-2); Eosinophils Absolute Auto 0.1 X10*3/uL (0.0-0.4); Hematocrit 36.2 % (42.0-52.0); Hemoglobin 12.4 g/dl (14.0-18.0); Imm Gran Abs Auto 0.02 X10*3/uL (0.00-0.03); Imm Gran Pct Auto 0.3 % (0.0-0.4); Lymphocytes Absolute Auto 1.4 X10*3/uL (1.2-4.9); Lymphocytes Percent Auto 18.5 % (20-40); Mean Corpuscular HGB Conc 34.3 g/dl (31.0-36.0); Mean Corpuscular Hemoglobin 33.4 pg (27.0-33.0); Mean Corpuscular Volume 97.6 fL (80.0-98.0); Mean Platelet Volume 11.3 fL (9.4-12.4); Monocytes Absolute Auto 0.7 X10*3/uL (0.1-1.2); Monocytes Percent Auto 9.5 % (2-11); Neutrophils Absolute Auto 5.4 x10*3/uL (2.0-8.3); Neutrophils Percent Auto 70.4 % (45-73); Platelet Count 191 X10*3/uL (160-400); Red Blood Count 3.71 X10*6/uL (4.60-5.80); Red Cell Distribution Width 14.5 % (11.0-16.0); White Blood Count 7.7 X10*3/uL (4.8-10.8)
[2023-01-25 13:55] LABS: Estimated Average Glucose 108 mg/dL; Hemoglobin A1c % 5.4 % (<6.0)
[2023-01-25 13:57] LABS: INTERNATIONAL NORM RATIO 1.2 (0.9-1.1); Prothrombin Time 14.2 SEC (11.1-13.3)
[2023-01-25 14:15] LABS: Alanine Aminotransferase 19 U/L (0-40); Albumin Level 4.7 g/dL (3.5-5.0); Alkaline Phosphatase 61 U/L (39-117); Anion Gap 15 (12-20); Aspartate Amino Transferase 26 U/L (5-37); Bilirubin Total 0.8 mg/dL (0.0-1.0); Blood Urea Nitrogen 38 mg/dL (9-16); Calcium 9.7 mg/dL (8.4-10.2); Carbon Dioxide 28 mmol/L (22-29); Chloride 102 mmol/L (96-108); Estimated Glomerular Filt Rate 40; Glucose Random 89 mg/dL (60-115); Potassium 4.3 mmol/L (3.3-5.1); Sodium 141 mmol/L (135-145); Total Protein 7.7 g/dL (6.5-8.0)
== END ==
LOC: HO.CARD 09:12
PROVIDERS: Surgery; PCP Internal Medicine; Visit Provider Nurse Practitioner Family
DX: I25.810 Atherosclerosis of coronary artery bypass graft(s) without angina pectoris (principal); I48.19 Other persistent atrial fibrillation; I11.0 Hypertensive heart disease with heart failure; I50.9 Heart failure, unspecified; K40.91 Unilateral inguinal hernia, without obstruction or gangrene, recurrent; E78.00 Pure hypercholesterolemia, unspecified; R73.09 Other abnormal glucose; N17.9 Acute kidney failure, unspecified; Z79.01 Long term (current) use of anticoagulants; Z72.89 Other problems related to lifestyle
CPT/HCPCS: 36415; 78452; 80053; 83036; 84134; 85025; 85610; 93017; 99202; A9500; A9503; J0280; J2785

== ENCOUNTER → 2023-01-25 09:16 | Outpatient (BNV) | payer OTHER, SELFPAY | PROVIDERS: PCP Internal Medicine; Visit Provider Nurse Practitioner | DX: I25.810 Atherosclerosis of coronary artery bypass graft(s) without angina pectoris (principal) | CPT/HCPCS: 78452; 93016; 93018 ==

== ENCOUNTER 2023-01-25 11:02 | Outpatient (AMB) | payer OTHER, SELFPAY ==
--- NOTE | 2023-01-25 11:25 | MHC.OFFVIS ---
Intake Vital Signs 01/25/23 11:27 Height 5 ft 9 in Weight 204 lb 12.8 oz BMI 30.2 BP 163/79 H Blood Pressure Location Rt brachial Pulse 85 Pulse Source Pulse Oximeter Pulse Oximetry (%) 96 Oxygen Delivery Method Room Air Intake Visit Reasons: Umbilical hernia Insulation Hoseman Required: No Glove Stitcher: Glove Stitcher offered & declined Allergies heparin [HEPARIN] Allergy (Intermediate, Verified 01/25/23 11:33) heparin induced thrombosis lisinopril Adverse Reaction (Intermediate, Verified 01/25/23 11:33) Cough Medication List - Last Reconciled 01/25/23 by Gerry Naqvi MD, FACS, FASS acetaminophen (Tylenol Extra Strength) 1,000 mg (2 x 500 mg) PO QID PRN allopurinol 100 mg PO DAILY apixaban (Eliquis) 5 mg PO BID ascorbate calcium (vitamin C) 500 mg PO DAILY atorvastatin 80 mg PO DAILY cholecalciferol (vitamin D3) (Vitamin D3) 10 mcg PO DAILY clotrimazole 1% 1 appl topical BID 4 weeks diclofenac sodium 1% (Arthritis Pain (diclofenac)) 2 grams topical QID PRN furosemide 60 mg (1.5 x 40 mg) PO BID gabapentin 600 mg PO DAILY PRN [left shoulder sling As directed] losartan 50 mg PO DAILY metoprolol succinate ER 150 mg (3 x 50 mg) PO DAILY 90 days sildenafil 100 mg PO DAILY PRN tizanidine 8 mg (2 x 4 mg) PO Q8H PRN 30 days HPI HPI Comments History of Present Illness Details The patient is a 72-year-old gentleman seen at the request of his PCP due to a recurrent RIGHT inguinal hernia. The patient noted that the hernia returned about a month ago and is bothersome. He reports that he had a repair done at age 22 and then again around 32. He does not recall being told a mesh was utilized. He denies signs or symptoms of incarceration or obstruction and given its symptomatic nature, he is interested in repair. Patient's past medical history includes atrial fibrillation being managed with Eliquis, heart failure, hypercholesterolemia, impaired glucose, CAD, gout, HTN, lower extremity edema. He is s/p Left THR & walks with a cane. 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 He uses a cane for balance at this point and also notes chronic left thigh pain and spasms since his hip replacement. The patient denies any recent endoscopy to assess for his chronic anemia. He notes he is currently taking meloxicam. 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 CHF (congestive heart failure) High cholesterol 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) Surgical History S/P total left hip arthroplasty History of esophagogastroduodenoscopy (EGD) Hx of cardiac catheterization History of surgery H/O colonoscopy History of evacuation of hematoma S/P CABG x 3 Social History Household Members: None Housing: Apartment Are you a primary acute care assistant to a significant other at home: No Do you presently have visiting nurse or other home services: No Alcohol intake: current Alcohol intake frequency: a few times a week Patient Tobacco Use Status: Never used Tobacco e-Cigarette/Vaping Use: Never Used Second Hand Smoke Exposure: No Substance Use Type: Marijuana service: No Current occupational status: retired Current occupational exposures/hazards: No Cognitive needs: Yes (Cane) Hearing needs: No Vision needs: No Physical Exam Vital Signs: The patient is a frail-appearing, non-toxic gentleman & in good spirits NC/AT, PERRLA, EOMI Mood, affect & judgment all appear appropriate Sclera anicteric conjunctiva pink and moist Oropharynx is clear with no aphthous ulcers, Mallampati class 4, mucous membranes moist Neck is supple with no masses, adenopathy or bruits Heart is regular, normal S1-S2 no rubs or murmurs Lungs are clear and equal anteriorly with no audible wheezing, rubs or dullness to percussion Abdomen is overweight with a REDUCIBLE RIGHT INGUINAL hernias noted, patient is examined standing and no umbilical nor left inguinal hernia are appreciated. No HSM, rebound, rigidity, guarding, masses or bruits are present. Rectal exam is deferred Skin has good turgor and is free of rashes Extremities free of cyanosis, clubbing, edema; hemosiderin deposition consistent with chronic venous stasis disease is noted as the patient is wearing shorts, foot exam is not performed Results Reviewed Results Reviewed: Labs 01/06/23 Hb 10.6, normochromic/normocytic; Plts 160K, wbc 6.5 Protime elevated at 1.4 Glc elevated at 134 BUN 23, Cr 0.99 Repeat labs including HbA1C are ordered. Assessment & Plan Assessment & Plan (1) Recurrent inguinal hernia: Code(s): K40.91 - Unilateral inguinal hernia, without obstruction or gangrene, recurrent (2) Elevated glucose: Code(s): R73.09 - Other abnormal glucose (3) SEBASTIÁN (acute kidney injury): Code(s): N17.9 - Acute kidney failure, unspecified (4) Atrial fibrillation: Code(s): I48.91 - Unspecified atrial fibrillation Qualifiers: Atrial fibrillation type: persistent (not longstanding) Qualified Code(s): I48.19 - Other persistent atrial fibrillation (5) CAD (coronary artery disease): Comment: objective c developer is Dr.Pradnya Rodriguez ([place], [place] [phone]) Code(s): I25.10 - Atherosclerotic heart disease of [place] coronary artery without angina pectoris Qualifiers: Coronary Disease-Associated Artery/Lesion type: bypass graft [place] vs. transplanted heart: [place] heart Associated angina: without angina Qualified Code(s): I25.810 - Atherosclerosis of coronary artery bypass graft(s) without angina pectoris (6) 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): Code(s): I10 - Essential (primary) hypertension Qualifiers: Hypertension type: primary hypertension Qualified Code(s): I10 - Essential (primary) hypertension (7) High cholesterol: Code(s): E78.00 - Pure hypercholesterolemia, unspecified (8) CHF (congestive heart failure): Code(s): I50.9 - Heart failure, unspecified Qualifiers: Heart failure type: diastolic Heart failure chronicity: chronic Qualified Code(s): I50.32 - Chronic diastolic (congestive) heart failure (9) Current use of anticoagulant therapy: Code(s): Z79.01 - senior care (current) use of anticoagulants Plan The patient states that he just had a cardiac stress test prior to his office visit and that he would prefer to have a objective c developer here in [place] since he has moved back to the area from [place]. Will ask PCP to facilitate. The patient is had an elevated glucose recently and I have ordered a hemoglobin A1c. Patient denies any personal or family history of diabetes or GI malignancy. Patient has a recurrent right inguinal hernia with no signs or symptoms of obstruction. Since it is symptomatic, we discussed repair. Given his comorbidities and anticoagulation, I do not recommend a laparoscopic repair. This was explained to the patient and he is free to obtain a 2nd opinion if he would prefer. Given his anticoagulation and comorbidities, I have recommended an open right inguinal hernia repair with mesh in reviewed the inherent risks of bleeding, infection, hernia recurrence, mesh complications that could require another operation as well as his recognized or unrecognized comorbidities that could complicate the procedure. Patient seemed understand. He lives alone and activity restrictions were reviewed. Patient acknowledges that he has local support to help with his postoperative needs. I have recommended discontinuing and stopped the patient's meloxicam since he is anticoagulated, anemia & has had renal issues. Postoperative pain management with Tylenol and oxycodone was discussed as well as a bowel regime given the tendency for constipation. Patient will follow-up with me early next week to review his nonfasting labs from today. Orders: Orders Complete Blood Count Auto Diff Today E78.00 - Pure hypercholesterolemia, unspecified, I10 - Essential (primary) hypertension, I25.10 - Atherosclerotic heart disease of [place] coronary artery without angina pectoris, I50.9 - Heart failure, unspecified, K40.91 - Unilateral inguinal hernia, without obstruction or gangrene, recurrent, N17.9 - Acute kidney failure, unspecified, R73.09 - Other abnormal glucose, Z72.89 - Other problems related to lifestyle, Z79.01 - terminal system operator (current) use of anticoagulants Comprehensive Met. Panel Today E78.00 - Pure hypercholesterolemia, unspecified, I10 - Essential (primary) hypertension, I25.10 - Atherosclerotic heart disease of [place] coronary artery without angina pectoris, I50.9 - Heart failure, unspecified, K40.91 - Unilateral inguinal hernia, without obstruction or gangrene, recurrent, N17.9 - Acute kidney failure, unspecified, R73.09 - Other abnormal glucose, Z72.89 - Other problems related to lifestyle, Z79.01 - terminal system operator (current) use of anticoagulants Hemoglobin A1c Today E78.00 - Pure hypercholesterolemia, unspecified, I10 - Essential (primary) hypertension, I25.10 - Atherosclerotic heart disease of [place] coronary artery without angina pectoris, I50.9 - Heart failure, unspecified, K40.91 - Unilateral inguinal hernia, without obstruction or gangrene, recurrent, N17.9 - Acute kidney failure, unspecified, R73.09 - Other abnormal glucose, Z72.89 - Other problems related to lifestyle, Z79.01 - senior care (current) use of anticoagulants Prealbumin Today E78.00 - Pure hypercholesterolemia, unspecified, I10 - Essential (primary) hypertension, I25.10 - Atherosclerotic heart disease of [place] coronary artery without angina pectoris, I50.9 - Heart failure, unspecified, K40.91 - Unilateral inguinal hernia, without obstruction or gangrene, recurrent, N17.9 - Acute kidney failure, unspecified, R73.09 - Other abnormal glucose, Z72.89 - Other problems related to lifestyle, Z79.01 - senior care (current) use of anticoagulants Prothrombin Time INR Today E78.00 - Pure hypercholesterolemia, unspecified, I10 - Essential (primary) hypertension, I25.10 - Atherosclerotic heart disease of [place] coronary artery without angina pectoris, I50.9 - Heart failure, unspecified, K40.91 - Unilateral inguinal hernia, without obstruction or gangrene, recurrent, N17.9 - Acute kidney failure, unspecified, R73.09 - Other abnormal glucose, Z72.89 - Other problems related to lifestyle, Z79.01 - senior care (current) use of anticoagulants Coding Level of Care Code New Pt Level 4 (93981) Diagnoses Recurrent inguinal hernia K40.91 Elevated glucose R73.09 SEBASTIÁN (acute kidney injury) N17.9 Persistent atrial fibrillation I48.19 Atrial fibrillation type: persistent (not longstanding) Coronary artery disease involving coronary bypass graft of [place] heart without angina pectoris I25.810 Coronary Disease-Associated Artery/Lesion type: bypass graft [place] vs. transplanted heart: [place] heart Associated angina: without angina Primary hypertension I10 Hypertension type: primary hypertension High cholesterol E78.00 Chronic diastolic congestive heart failure I50.32 Heart failure type: diastolic Heart failure chronicity: chronic Current use of anticoagulant therapy Z79.01
[2023-01-25 11:27] VITALS: BP 163/79; PULSE 85; O2SAT 96; BMI 30.2
== END 2023-01-25 12:16 | disposition home or self-care (01) ==
PROVIDERS: PCP Internal Medicine; Visit Provider Surgery
DX: K40.91 Unilateral inguinal hernia, without obstruction or gangrene, recurrent (principal); R73.09 Other abnormal glucose; N17.9 Acute kidney failure, unspecified; I48.19 Other persistent atrial fibrillation; I25.810 Atherosclerosis of coronary artery bypass graft(s) without angina pectoris; I10 Essential (primary) hypertension; E78.00 Pure hypercholesterolemia, unspecified; I50.32 Chronic diastolic (congestive) heart failure; Z79.01 Long term (current) use of anticoagulants
CPT/HCPCS: 99204; 99214

== ENCOUNTER 2023-02-01 10:33 | Outpatient (AMB) | payer OTHER, SELFPAY ==
--- NOTE | 2023-02-01 10:57 | A.OFFVIS_ITS ---
Intake Vital Signs 02/01/23 11:01 Height 5 ft 9.5 in Weight 206 lb 5.643 oz BMI 30.0 BP 153/73 H Blood Pressure Location Rt brachial Position Sitting Pulse 84 Pulse Source Pulse Oximeter Temp 97.1 F Temp Source Tympanic Pulse Oximetry (%) 93 Oxygen Delivery Method Room Air Intake Visit Reasons: Umbilical hernia Aviation Safety Technician Required: No Supervisor Slitting And Shipping: Supervisor Slitting And Shipping offered & declined Allergies heparin [HEPARIN] Allergy (Intermediate, Verified 02/01/23 11:03) heparin induced thrombosis lisinopril Adverse Reaction (Intermediate, Verified 02/01/23 11:03) Cough Medication List - Last Reconciled 02/01/23 by Gerry Naqvi MD, FACS, FASS acetaminophen (Tylenol Extra Strength) 1,000 mg (2 x 500 mg) PO QID PRN allopurinol 100 mg PO DAILY apixaban (Eliquis) 5 mg PO BID ascorbate calcium (vitamin C) 500 mg PO DAILY atorvastatin 80 mg PO DAILY cholecalciferol (vitamin D3) (Vitamin D3) 10 mcg PO DAILY clotrimazole 1% 1 appl topical BID 4 weeks diclofenac sodium 1% (Arthritis Pain (diclofenac)) 2 grams topical QID PRN furosemide 60 mg (1.5 x 40 mg) PO BID gabapentin 600 mg PO DAILY PRN [left shoulder sling As directed] losartan 50 mg PO DAILY metoprolol succinate ER 150 mg (3 x 50 mg) PO DAILY 90 days sildenafil 100 mg PO DAILY PRN tizanidine 8 mg (2 x 4 mg) PO Q8H PRN 30 days HPI HPI Comments History of Present Illness Details The patient is a 72-year-old gentleman seen at the request of his PCP due to a recurrent RIGHT inguinal hernia. The patient noted that the hernia returned about a month ago and is bothersome. He reports that he had a repair done at age 22 and then again around 32. He does not recall being told a mesh was utilized. He denies signs or symptoms of incarceration or obstruction and given its symptomatic nature, he is interested in repair. Patient's past medical history includes atrial fibrillation being managed with Eliquis, heart failure, hypercholesterolemia, impaired glucose, CAD, gout, HTN, lower extremity edema. He is s/p Left THR & walks with a cane. 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 He uses a cane for balance at this point and also notes chronic left thigh pain and spasms since his hip replacement. The patient denies any recent endoscopy to assess for his chronic anemia. He notes he is currently taking meloxicam. 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 CHF (congestive heart failure) High cholesterol 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) Surgical History S/P total left hip arthroplasty History of esophagogastroduodenoscopy (EGD) Hx of cardiac catheterization History of surgery H/O colonoscopy History of evacuation of hematoma S/P CABG x 3 Social History Household Members: None Housing: Apartment Are you a primary aged or disabled care worker to a significant other at home: No Do you presently have visiting nurse or other home services: No Alcohol intake: current Alcohol intake frequency: a few times a week Patient Tobacco Use Status: Never used Tobacco e-Cigarette/Vaping Use: Never Used Second Hand Smoke Exposure: No Substance Use Type: Marijuana service: No Current occupational status: retired Current occupational exposures/hazards: No Cognitive needs: Yes (Cane) Hearing needs: No Vision needs: No Physical Exam Vital Signs: Last Vital Signs Temp 97.1 F 02/01/23 11:01 Pulse 84 02/01/23 11:01 BP 153/73 H 02/01/23 11:01 Pulse Ox 93 02/01/23 11:01 Oxygen Delivery Method Room Air 02/01/23 11:01 BMI result Body Mass Index 30.0 The patient is a frail-appearing, non-toxic gentleman & in good spirits NC/AT, PERRLA, EOMI Mood, affect & judgment all appear appropriate Sclera anicteric conjunctiva pink and moist Oropharynx is clear with no aphthous ulcers, Mallampati class 4, mucous membranes moist Neck is supple with no masses, adenopathy or bruits Abdomen is overweight with a REDUCIBLE RIGHT INGUINAL hernias noted, patient is examined standing and no umbilical nor left inguinal hernia are appreciated. No HSM, rebound, rigidity, guarding, masses or bruits are present. Rectal exam is deferred Skin has good turgor and is free of rashes Extremities free of cyanosis, clubbing, edema; hemosiderin deposition consistent with chronic venous stasis disease is noted as the patient is wearing shorts, foot exam is not performed Results Reviewed Results Reviewed: Labs 01/25/2023 Hemoglobin slightly low at 12.4, white blood cell count 7 point 7, platelet count 191 K BUN elevated at 38, creatinine 1.71 Electrolytes and LFTs are within normal parameters Hemoglobin A1c 5.4 Pre-albumin 29 The patient reports that he has to go back to nuclear Medicine regarding his cardiac test Assessment & Plan Assessment & Plan (1) Recurrent inguinal hernia: Code(s): K40.91 - Unilateral inguinal hernia, without obstruction or gangrene, recurrent (2) 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): Code(s): I10 - Essential (primary) hypertension Qualifiers: Hypertension type: primary hypertension Qualified Code(s): I10 - Essential (primary) hypertension (3) CAD (coronary artery disease): Comment: human resources operations specialist is Dr.Pradnya Rodriguez ([place], [place] [phone]) Code(s): I25.10 - Atherosclerotic heart disease of [place] coronary artery without angina pectoris Qualifiers: Coronary Disease-Associated Artery/Lesion type: bypass graft [place] vs. transplanted heart: [place] heart Associated angina: without angina Qualified Code(s): I25.810 - Atherosclerosis of coronary artery bypass graft(s) without angina pectoris (4) Atrial fibrillation: Code(s): I48.91 - Unspecified atrial fibrillation Qualifiers: Atrial fibrillation type: persistent (not longstanding) Qualified Code(s): I48.19 - Other persistent atrial fibrillation (5) Current use of anticoagulant therapy: Code(s): Z79.01 - terminal worker (current) use of anticoagulants (6) CHF (congestive heart failure): Code(s): I50.9 - Heart failure, unspecified Qualifiers: Heart failure type: diastolic Heart failure chronicity: chronic Qualified Code(s): I50.32 - Chronic diastolic (congestive) heart failure (7) High cholesterol: Code(s): E78.00 - Pure hypercholesterolemia, unspecified (8) Renal insufficiency: Code(s): N28.9 - Disorder of kidney and ureter, unspecified Plan I reviewed options with the patient including that of a 2nd opinion, but he has 2 failed right inguinal hernia operations and I have recommended an open right inguinal hernia repair with mesh. Laparoscopic repair would be inappropriate in my opinion given his need for anticoagulation and pre-existing renal insufficiency. The options including continued observation versus operative repair and 2nd opinion were also discussed. The inherent risks to open right inguinal hernia repair were discussed and include, but are not limited to: Bleeding, infection, hernia recurrence especially if weight gain or postoperative instructions are not followed, nerve entrapment, urinary retention, chronic pain, mesh complications that could require reoperation. The importance of medical clearance from his PCP or human resources operations specialist given his renal insufficiency and cardiac history was discussed and he will need to stop his Eliquis at least 2 days before surgery per current recommendations or based on input from his human resources operations specialist. Internal notice to Dr. Avila, his PCP with sent for medical/cardiac clearance. The patient seemed to understand all of these options, had his questions answered and wanted to proceed. Activity restrictions were also discussed at length in the patient's questions seemed to be answered. 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 Coding Level of Care Code Est Pt Level 4 (47072) Diagnoses Recurrent inguinal hernia K40.91 Primary hypertension I10 Hypertension type: primary hypertension Coronary artery disease involving coronary bypass graft of [place] heart without angina pectoris I25.810 Coronary Disease-Associated Artery/Lesion type: bypass graft [place] vs. transplanted heart: [place] heart Associated angina: without angina Persistent atrial fibrillation I48.19 Atrial fibrillation type: persistent (not longstanding) Current use of anticoagulant therapy Z79.01 Chronic diastolic congestive heart failure I50.32 Heart failure type: diastolic Heart failure chronicity: chronic High cholesterol E78.00 Renal insufficiency N28.9
[2023-02-01 11:01] VITALS: BP 153/73; PULSE 84; TEMP 36.2; O2SAT 93
== END 2023-02-01 11:42 | disposition home or self-care (01) ==
PROVIDERS: PCP Internal Medicine; Visit Provider Surgery
DX: K40.91 Unilateral inguinal hernia, without obstruction or gangrene, recurrent (principal); I10 Essential (primary) hypertension; I25.810 Atherosclerosis of coronary artery bypass graft(s) without angina pectoris; I48.19 Other persistent atrial fibrillation; Z79.01 Long term (current) use of anticoagulants; I50.32 Chronic diastolic (congestive) heart failure; E78.00 Pure hypercholesterolemia, unspecified; N28.9 Disorder of kidney and ureter, unspecified
CPT/HCPCS: 99214

== ENCOUNTER → 2023-02-01 10:33 | Outpatient (BNVA) | payer OTHER, SELFPAY | PROVIDERS: PCP Internal Medicine; Visit Provider Surgery | DX: K40.91 Unilateral inguinal hernia, without obstruction or gangrene, recurrent (principal); E78.00 Pure hypercholesterolemia, unspecified; I11.0 Hypertensive heart disease with heart failure; I50.32 Chronic diastolic (congestive) heart failure; N28.9 Disorder of kidney and ureter, unspecified; I25.810 Atherosclerosis of coronary artery bypass graft(s) without angina pectoris; I48.19 Other persistent atrial fibrillation; Z79.01 Long term (current) use of anticoagulants | CPT/HCPCS: 99212 ==

== ENCOUNTER → 2023-02-16 12:18 | Outpatient (REF) | payer OTHER, SELFPAY ==
--- NOTE | 2023-02-16 12:22 | CA_ITS ---
Transthoracic Echocardiogram Patient (Last, First, Middle): Cj Barbour T Gender: Male Date of : 1950 Age: 72 Procedure Date: 02/16/2023 Procedure Type: Transthoracic Echocardiogram Location: OP Height: 175.26 cm Weight: 92.99 kg BSA: 2.09 m2 Heart Rate: 75 bpm BP: 153 / 73 mmHg Sweater Operator: DELANEY Referring MD: Valentina Bhandari MD Vc++ Developer: Will Marcum MD Symptoms: I48.19 - Other persistent atrial fibrillation Study Quality: Adequate w contrast ECG Rhythm: Atrial Fibrillation Conclusions: - 1. Normal LV ejection fraction of 65-70% 2. Moderately dilated left atrium 3. No significant abnormalities of cardiac valvular Dopplers with calcific aortic valve and mitral annular calcification noted 4. No gross pericardial effusion Findings Procedure Information Contrast agent, definity, is being given per protocol without apparent complications. The quality of the study was technically difficult. The study quality is limited by patients body habitus. Left Ventricle Normal left ventricular size, thickness, and systolic function. The visually estimated ejection fraction is between 65-70%. There is moderate septal asymmetric hypertrophy. Right Ventricle Normal right ventricular cavity size and systolic function. Atria The left atrium is moderately dilated. There is lipomatous hypertrophy of the interatrial septum. Interatrial shunt cannot be excluded. The right atrium was not well visualized. Aortic Valve There is mild calcification of the aortic valve. There is mild thickening of the aortic valve. There is no aortic valve stenosis. There is no aortic valve regurgitation. Mitral Valve There is mild anterior and posterior mitral leaflet thickening. There is mild mitral annular calcification. There is trace mitral valve regurgitation. There is no mitral valve stenosis. Pulmonic Valve The pulmonic valve was not well visualized. Tricuspid Valve Likely normal tricuspid valve structure and function. Tricuspid regurgitation envelope is inadequate for calculation of right ventricular systolic pressure. Normal right atrial pressure. Great Vessels All visible segments of the aorta are normal in size. The pulmonary artery was not well visualized. There is no dilatation of the ascending aorta. Venous The inferior vena cava is normal in size and collapses greater than 50% with inspiration. Pericardium/Pleural There is no evidence of pericardial effusion. Prior Study Comparison No significant change compared to prior study dated: 01/18/2017. Measurements 2D Linear Measurements IVSd: 1.02 0.6-0.9/0.6-1.0 cm LVIDd: 4.19 3.9-5.3/4.2-5.9 cm LVIDd Index: 2.00 2.4-3.2/2.2-3.1 cm/m2 LVIDs: 2.59 2.0-3.6 cm LVPWd: 0.80 0.7-1.1 cm LA Diam: 5.10 2.7-3.8/3.0-4.0 cm LAIDs Index: 2.44 1.5-2.3 cm/m2 LV Mass: 149.60 67-162/88-224 g LV Mass Index: 71.58 43-95/49-115 g/m2 LVOT Diam: 2.40 3.0+(-)1.3 cm 2D Systolic Function EF 4C: 72.70 >55% EF 2C: 61.10 >55% EF BiP: 67.70 >55% Mitral Valve MV Pk E: 1.26 MV Decel Time: 134.00 Aortic Valve AoV Pk Josesito: 1.36 AoV Pk Grad: 7.00 KISHAN: 3.82 LVOT LVOT Pk Josesito: 1.15 LVOT Mn Josesito: 0.76 LVOT VTI: 0.24 LVOT Pk Grad: 5.00 LVOT Mn Grad: 3.00 LVOT Diam: 2.40 LVOT Area: 4.52 Diastolic Function MV Pk E: 1.26 Tricuspid Valve RA Press: 3.00 Great Vessels Aorta Sinus of Valsalva: 3.70 2.0-3.5 cm Ao Asc: 3.40 2.1-3.4 cm Pulmonary Valve PV Pk Josesito: 0.84 Peak PV Grad: 3.00 Updated in Other Vendor System with Status of Final Will Marcum MD electronically signed on 02/16/2023 5:01:53 PM with status of Final
== END ==
LOC: HO.CARD 12:18
PROVIDERS: PCP Internal Medicine; Visit Provider Internal Medicine
DX: I48.19 Other persistent atrial fibrillation (principal)
CPT/HCPCS: 93306; Q9957

== ENCOUNTER → 2023-02-16 12:22 | Outpatient (BNV) | payer OTHER, SELFPAY | PROVIDERS: PCP Internal Medicine; Visit Provider Internal Medicine Cardiovascular Disease | DX: I48.19 Other persistent atrial fibrillation (principal) | CPT/HCPCS: 93306 ==

== ENCOUNTER 2023-03-01 11:06 | Outpatient (AMB) | payer OTHER, SELFPAY ==
--- NOTE | 2023-03-01 11:21 | A.OFFVIS_ITS ---
Intake Intake Visit Reasons: Inguinal hernia, discuss surgery Intake Note: Patient referred for 2nd opinion on Rt inguinal hernia surgery. Patient noticed hernia returning 1m ago. Reports repair at age 22 and then again around 32. Board Setter Required: No Accompanied by: Self / Same As Patient Allergies heparin [HEPARIN] Allergy (Intermediate, Verified 03/01/23 11:22) heparin induced thrombosis lisinopril Adverse Reaction (Intermediate, Verified 03/01/23 11:22) Cough HPI HPI Comments History of Present Illness Details Patient presents with a several week history of symptomatic right inguinal hernia. He had this repaired in his youth. It has progressively increased in size and become more symptomatic. He was seen by Dr. Doshi OR presents here further evaluation. He is tolerating a diet. Having regular bowel habits. He is quite active and golfs. Chart was reviewed patient evaluated. Patient is currently on Eliquis for atrial fibrillation. He has been followed by our director of strategic sourcing@ [facility] [place]. [facility] Medical History SEBASTIÁN (acute kidney injury) Bilateral edema of lower extremity Pre-operative clearance Lower extremity edema History of amputation of toe Myocardial infarction GI bleed COVID-19 vaccine series completed H/O thyroglossal duct cyst Encounter to establish care Atrial fibrillation Hypercholesteremia Gout CAD (coronary artery disease) Hx of fdc use of blood thinners CHF (congestive heart failure) High cholesterol 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) Surgical History S/P total left hip arthroplasty History of esophagogastroduodenoscopy (EGD) Hx of cardiac catheterization History of surgery H/O colonoscopy History of evacuation of hematoma S/P CABG x 3 Social History Household Members: None Housing: Apartment Are you a primary out of school hours care worker to a significant other at home: No Do you presently have visiting nurse or other home services: No Alcohol intake: current Alcohol intake frequency: a few times a week Comment: intermittent spasm Patient Tobacco Use Status: Never used Tobacco e-Cigarette/Vaping Use: Never Used Second Hand Smoke Exposure: No Substance Use Type: Marijuana service: No Current occupational status: retired Current occupational exposures/hazards: No Cognitive needs: Yes (Cane) Hearing needs: No Vision needs: No Physical Exam Chest Other: Chest breath sounds bilaterally, HS 1 and 2, consistent with AFib GI Other: Patient was examined both supine and standing with Valsalva. Abdomen soft. Left groin negative. Genitalia within normal limits. Very large right inguinal hernia. Old inguinal hernia scar Assessment & Plan Assessment & Plan (1) Recurrent inguinal hernia: Code(s): K40.91 - Unilateral inguinal hernia, without obstruction or gangrene, recurrent Plan Risks, benefits, alternatives of open recur right inguinal hernia With mesh were reviewed the patient and included but not limited to bleeding infection, recurrence, numbness, pain, scarring and the patient wished to proceed. He is current on EliD-Wave Systemsis. Will have evaluated by his director of strategic sourcing regarding this as well as cardiac clearance. Once this has occurred, arrangements made for surgical date. All questions were answered. Coding Level of Care Code New Pt Level 5 (54367) Diagnoses Recurrent inguinal hernia K40.91
== END 2023-03-01 11:36 | disposition home or self-care (01) ==
PROVIDERS: PCP Internal Medicine; Visit Provider Surgery
DX: K40.91 Unilateral inguinal hernia, without obstruction or gangrene, recurrent (principal)
CPT/HCPCS: 99214

== ENCOUNTER → 2023-03-01 11:06 | Outpatient (BNVA) | payer OTHER, SELFPAY | PROVIDERS: PCP Internal Medicine; Visit Provider Surgery | DX: I10 Essential (primary) hypertension (principal); I25.810 Atherosclerosis of coronary artery bypass graft(s) without angina pectoris; N17.9 Acute kidney failure, unspecified; D64.9 Anemia, unspecified; K40.91 Unilateral inguinal hernia, without obstruction or gangrene, recurrent | CPT/HCPCS: 99202; 99212 ==

== ENCOUNTER 2023-03-01 11:54 | Outpatient (AMB) | payer OTHER, SELFPAY ==
[2023-03-01 12:04] VITALS: BP 115/68; PULSE 80; O2SAT 96; BMI 30.5
--- NOTE | 2023-03-01 12:04 | HO.NEPHOV_ITS ---
HPI HPI Comments History of Present Illness Details 72-year-old man with history of hyperten do atrial fibrillation and coronary disease has been referred for SEBASTIÁN. His baseline serum creatinine has been around 0.9 mg/dL back in June 2022. There was an episode of SEBASTIÁN with the creatinine bumping up to 1.4 for in November. In December creatinine decreased to less than 1.0. The most recent serum creatinine is 1.7 and hence this referral. He is on Lasix 60 mg twice a day along with losartan 50 mg a day. Please been on this dose for quite some time. He has no lightheadedness. No edema. No urinary symptoms. He does not take any NSAIDs and there has been no recent change in his medications. He has history of coronary disease and underwent CABG about 5 years ago. He also has atrial fibrillation. There is a history of significant alcohol intake in the past. 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 CHF (congestive heart failure) High cholesterol 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) Surgical History S/P total left hip arthroplasty History of esophagogastroduodenoscopy (EGD) Hx of cardiac catheterization History of surgery H/O colonoscopy History of evacuation of hematoma S/P CABG x 3 Social History Household Members: None Housing: Apartment Are you a primary child care team lead to a significant other at home: No Do you presently have visiting nurse or other home services: No Alcohol intake: current Alcohol intake frequency: a few times a week Comment: intermittent spasm Patient Tobacco Use Status: Never used Tobacco e-Cigarette/Vaping Use: Never Used Second Hand Smoke Exposure: No Substance Use Type: Marijuana service: No Current occupational status: retired Current occupational exposures/hazards: No Cognitive needs: Yes (Cane) Hearing needs: No Vision needs: No Vital Signs 03/01/23 12:04 Height 5 ft 9 in Weight 206 lb 4 oz BMI 30.5 BP 115/68 Blood Pressure Location Rt brachial Position Sitting Pulse 80 Pulse Source Pulse Oximeter Pulse Oximetry (%) 96 Oxygen Delivery Method Room Air Physical Exam Vital Signs: Last Vital Signs Pulse 80 03/01/23 12:04 BP 115/68 03/01/23 12:04 Pulse Ox 96 03/01/23 12:04 Oxygen Delivery Method Room Air 03/01/23 12:04 BMI result Body Mass Index 30.5 Const General: comfortable Nutritional Appearance: well nourished Orientation/consciousness: patient oriented x3 HEENT Head: No normal to inspection Mouth: moist mucous membranes Neck Neck: Yes supple and Yes no JVD Resp Auscultation: clear to auscultation bilaterally, no rales and rub present Cardio Jugular venous distension: no JVD Palpation: no palpable S3 and no palpable S4 Heart sounds: no rubs GI Palpation (GI): Soft to palpation and nontender Percussion: No Fluid wave present General: Yes no CVA tenderness Back/Spine/Pelvis Back: no CVA tenderness Skin General skin exam: no rashes or lesions noted Neuro General: patient oriented x3 Extrem General: Yes no pedal edema and No clubbing Assessment & Plan Assessment & Plan (1) SEBASTIÁN (acute kidney injury): Code(s): N17.9 - Acute kidney failure, unspecified (2) Anemia: Code(s): D64.9 - Anemia, unspecified (3) 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): Code(s): I10 - Essential (primary) hypertension Qualifiers: Hypertension type: primary hypertension Qualified Code(s): I10 - Essential (primary) hypertension (4) CAD (coronary artery disease): Comment: portfolio administrator is Dr.Pradnya Rodriguez ([place], [place] [phone]) Code(s): I25.10 - Atherosclerotic heart disease of [place] coronary artery without angina pectoris Qualifiers: Coronary Disease-Associated Artery/Lesion type: bypass graft [place] vs. transplanted heart: [place] heart Associated angina: without angina Qualified Code(s): I25.810 - Atherosclerosis of coronary artery bypass graft(s) without angina pectoris Plan 72-year-old man with acute kidney injury in a setting of longstanding hypertension. Differential diagnosis would include hypoperfusion from high dose of diuretics and continued use of ARB. Obstructive uropathy should be ruled out. Recent urinalysis was not suggestive of glomerulonephritis or interstitial disease. Nevertheless this needs to be ruled out. I will obtain renal ultrasonogram to assess echogenicity and rule out hydronephrosis. For now I will lower the Lasix. I have asked him to take Lasix 40 mg in the morning and 20 mg in the evening. Continue to monitor weight at home and his weight starts to increase we will increase the Lasix. Repeat renal panel in a week after lowering the Lasix to see the improvement in the renal function. Baseline urine studies have been ordered History of known congestive heart failure He appears well compensated Recent echocardiogram was unremarkable with EF of about 45-55%. No valvular abnormalities were noted. Hypertension Blood pressure seems well controlled no orthostatic changes. He should continue with the current dose of losartan and stay on low-sodium diet. Orders: Orders Blood Urea Nitrogen Today N17.9 - Acute kidney failure, unspecified Creatinine Today N17.9 - Acute kidney failure, unspecified Creatinine Urine Today N17.9 - Acute kidney failure, unspecified Total Protein Urine Random Today N17.9 - Acute kidney failure, unspecified UA and rflx microscopic Today N17.9 - Acute kidney failure, unspecified Electrolytes Today N17.9 - Acute kidney failure, unspecified Calcium Today N17.9 - Acute kidney failure, unspecified US renal BI Today N17.9 - Acute kidney failure, unspecified Coding Level of Care Code New Pt Level 4 (20867) Diagnoses SEBASTIÁN (acute kidney injury) N17.9 Anemia D64.9 Primary hypertension I10 Hypertension type: primary hypertension Coronary artery disease involving coronary bypass graft of [place] heart without angina pectoris I25.810 Coronary Disease-Associated Artery/Lesion type: bypass graft [place] vs. transplanted heart: [place] heart Associated angina: without angina Results Reviewed Nephrology Results: Hgb 12.4 g/dl (14.0-18.0) L 01/25/23 WBC 7.7 X10*3/uL (4.8-10.8) 01/25/23 Plt Count 191 X10*3/uL (160-400) 01/25/23 Sodium 141 mmol/L (135-145) 01/25/23 Potassium 4.3 mmol/L (3.3-5.1) 01/25/23 Chloride 102 mmol/L (96-108) 01/25/23 Carbon Dioxide 28 mmol/L (22-29) 01/25/23 BUN 38 mg/dL (9-16) H 01/25/23 Creatinine 1.71 mg/dL (0.5-1.4) H 01/25/23 Calcium 9.7 mg/dL (8.4-10.2) 01/25/23
== END 2023-03-01 12:37 | disposition home or self-care (01) ==
PROVIDERS: PCP Internal Medicine; Visit Provider Internal Medicine Hypertension Specialist
DX: N17.9 Acute kidney failure, unspecified (principal); D64.9 Anemia, unspecified; I10 Essential (primary) hypertension; I25.810 Atherosclerosis of coronary artery bypass graft(s) without angina pectoris
CPT/HCPCS: 99204; 99214

== ENCOUNTER 2023-03-09 09:13 | Outpatient (REF) | payer OTHER, SELFPAY ==
[2023-03-09 09:34] LABS: MANUAL DIFF FLAG NO
[2023-03-09 09:49] LABS: Basophils Percent Auto 0.1 % (0-2); Eosinophils Absolute Auto 0.2 X10*3/uL (0.0-0.4); Eosinophils Percent Auto 2.7 % (0-4); Hematocrit 36.7 % (42.0-52.0); Hemoglobin 12.2 g/dl (14.0-18.0); Imm Gran Abs Auto 0.01 X10*3/uL (0.00-0.03); Imm Gran Pct Auto 0.1 % (0.0-0.4); Immature Retic Fraction 10.6 % (2.3-13.4); Lymphocytes Absolute Auto 2.1 X10*3/uL (1.2-4.9); Lymphocytes Percent Auto 30.5 % (20-40); Mean Corpuscular HGB Conc 33.2 g/dl (31.0-36.0); Mean Corpuscular Volume 99.2 fL (80.0-98.0); Mean Platelet Volume 10.8 fL (9.4-12.4); Monocytes Absolute Auto 0.8 X10*3/uL (0.1-1.2); Monocytes Percent Auto 12.3 % (2-11); Neutrophils Absolute Auto 3.7 x10*3/uL (2.0-8.3); Neutrophils Percent Auto 54.3 % (45-73); Platelet Count 170 X10*3/uL (160-400); Red Cell Distribution Width 13.5 % (11.0-16.0); Retic HGB Equivalent 37.2 pg (30.0-35.0); Reticulocyte Percent 1.3 % (0.5-1.8); Reticulocytes Absolute 0.049 X10*6/uL (0.026-0.095); White Blood Count 6.7 X10*3/uL (4.8-10.8)
[2023-03-09 09:56] LABS: Estimated Average Glucose 114 mg/dL; Hemoglobin A1c % 5.6 % (<6.0)
[2023-03-09 10:00] LABS: INTERNATIONAL NORM RATIO 1.1 (0.9-1.1); Prothrombin Time 13.7 SEC (11.1-13.3)
[2023-03-09 10:10] LABS: B Type Natriuretic Peptide 165 pg/mL (<100)
[2023-03-09 10:50] LABS: Alanine Aminotransferase 19 U/L (0-40); Albumin Level 4.5 g/dL (3.5-5.0); Alkaline Phosphatase 88 U/L (39-117); Anion Gap 14 (12-20); Aspartate Amino Transferase 24 U/L (5-37); Bilirubin Total 0.4 mg/dL (0.0-1.0); Blood Urea Nitrogen 28 mg/dL (9-16); Calcium 9.6 mg/dL (8.4-10.2); Carbon Dioxide 25 mmol/L (22-29); Chloride 105 mmol/L (96-108); Cholesterol 142 mg/dL (<200); Estimated Glomerular Filt Rate 57; Glucose Random 107 mg/dL (60-115); HDL Cholesterol 54 mg/dL (>40); Iron 77 mcg/dL (45-160); LDL Cholesterol Calculated 76 mg/dL (<100); Magnesium 2.2 mg/dL (1.6-2.6); Percent Iron Saturation 22 % (15-50); Sodium 139 mmol/L (135-145); Total Iron Binding Capacity 347 mcg/dL (228-428); Total Protein 7.5 g/dL (6.5-8.0); Triglycerides 61 mg/dL (<150); Unsaturated Iron Binding 270 ug/dL
[2023-03-09 10:58] LABS: Vitamin B12 575 pg/mL (200-900)
[2023-03-09 11:06] LABS: Ferritin 148 ng/mL (20-250); Free T4 (Free Thyroxine) 0.95 ng/dL (0.71-1.85); Thyroid Stimulating Hormone 1.48 uIU/mL (0.32-4.0)
== END 2023-03-09 09:14 | disposition home or self-care (01) ==
LOC: HO.LAB 09:13
PROVIDERS: PCP Internal Medicine; Visit Provider Internal Medicine Hypertension Specialist
DX: I50.32 Chronic diastolic (congestive) heart failure (principal); I25.810 Atherosclerosis of coronary artery bypass graft(s) without angina pectoris; I48.19 Other persistent atrial fibrillation; E78.00 Pure hypercholesterolemia, unspecified
CPT/HCPCS: 36415; 80053; 80061; 82607; 82728; 82746; 83036; 83540; 83735; 83880; 84100; 84439; 84443; 85025; 85045; 85610

== ENCOUNTER 2023-03-16 12:12 | Outpatient (AMB) | payer OTHER, SELFPAY ==
[2023-03-16 12:33] VITALS: BP 160/76; PULSE 73; BMI 31.1
--- NOTE | 2023-03-16 12:33 | A.OFFVIS_ITS ---
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 HF/ Clear surg w. dr Soto Intake Note: NPV Curriculum Coordinator Required: No Accompanied by: Self / Same As Patient Allergies heparin [HEPARIN] Allergy (Intermediate, Verified 03/16/23 12:36) heparin induced thrombosis lisinopril Adverse Reaction (Intermediate, Verified 03/16/23 12:36) Cough Medication List - Last Reconciled 03/16/23 by Kt Chávez MD acetaminophen (Tylenol Extra Strength) 1,000 mg (2 x 500 mg) PO QID PRN allopurinol 100 mg PO DAILY apixaban (Eliquis) 5 mg PO BID ascorbate calcium (vitamin C) 500 mg PO DAILY atorvastatin 80 mg PO DAILY cholecalciferol (vitamin D3) (Vitamin D3) 10 mcg PO DAILY diclofenac sodium 1% (Arthritis Pain (diclofenac)) 2 grams topical QID PRN furosemide 60 mg (1.5 x 40 mg) PO BID gabapentin 600 mg PO DAILY PRN [left shoulder sling As directed] losartan 50 mg PO DAILY metoprolol succinate ER 150 mg (3 x 50 mg) PO DAILY 90 days sildenafil 100 mg PO DAILY PRN tizanidine 8 mg (2 x 4 mg) PO Q8H PRN 30 days HPI HPI Comments History of Present Illness Details Cj consultation regarding coronary disease and other cardiac issues. We had seen him many years ago but not recently. He underwent coronary artery bypass surgery around 2017. Other issues include chronic diastolic heart failure and chronic atrial fibrillation. From a cardiac standpoint, he states he is actually doing quite well. No recent issues. He needs to go for hernia surgery and hence this visit. He states that he is actually very compliant with all his medications. Sometimes he does indulge from a dietary standpoint and puts on weight but otherwise generally okay. He does still drink but not as much as in the past. He states he has cut back significantly. [facility] Medical History (Updated 03/16/23 @ 13:03 by Kt Chávez MD) Chronic heart failure with preserved ejection fraction SEBASTIÁN (acute kidney injury) Bilateral edema of lower extremity Pre-operative clearance Lower extremity edema History of amputation of toe Myocardial infarction GI bleed COVID-19 vaccine series completed H/O thyroglossal duct cyst Encounter to establish care Atrial fibrillation Hypercholesteremia Gout CAD (coronary artery disease) Hx of detention use of blood thinners CHF (congestive heart failure) High cholesterol 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) Surgical History S/P total left hip arthroplasty History of esophagogastroduodenoscopy (EGD) Hx of cardiac catheterization History of surgery H/O colonoscopy History of evacuation of hematoma S/P CABG x 3 Social History Household Members: None Housing: Apartment Are you a primary post acute care registered nurse to a significant other at home: No Do you presently have visiting nurse or other home services: No Alcohol intake: current Alcohol intake frequency: a few times a week Comment: intermittent spasm Patient Tobacco Use Status: Never used Tobacco e-Cigarette/Vaping Use: Never Used Second Hand Smoke Exposure: No Substance Use Type: Marijuana service: No Current occupational status: retired Current occupational exposures/hazards: No Cognitive needs: Yes (Cane) Hearing needs: No Vision needs: No Review of Systems Const Denies chills, Denies daytime sleepiness, Denies fatigue, Denies fever(s), Denies frequent falls, Denies night sweats, Denies snoring, Denies weakness, Denies weight gain and Denies weight loss Eyes Denies loss of vision ENT Denies dizziness and Denies hearing loss Card Denies chest pain, Denies chest pain with activity, Denies syncope, Denies rapid heart rate, Denies edema, Denies claudication, Denies leg edema, Denies lightheadedness, Denies palpitations, Denies dyspnea, Denies dyspnea on exertion and Denies orthopnea Resp Denies cough, Denies excessive phlegm production, Denies dyspnea, Denies dyspnea on exertion, Denies snoring and Denies wheezing GI Denies abdominal pain, Denies hematochezia, Denies change in bowel habits, Denies change in stool character, Denies heartburn, Denies nausea and Denies vomiting Denies hematuria, Denies dysuria and Denies urinary frequency Musc Denies arthralgias, Denies muscle weakness, Denies numbness and Denies tingling Skin/Breast Denies nail changes and Denies rash Neuro Denies Abnormal speech present, Denies dizziness, Denies syncope, Denies frequent falls, Denies loss of vision, Denies memory loss, Denies numbness, Denies tingling and Denies weakness Psych Denies depression and Denies memory loss Endo Denies fatigue and Denies palpitations Aller/Immun Denies wheezing Physical Exam Vital Signs: Last Vital Signs Pulse 73 03/16/23 12:33 BP 160/76 H 03/16/23 12:33 BMI result Body Mass Index 31.1 Const General: comfortable and no acute distress Orientation/consciousness: patient oriented x3 HEENT Other: Unremarkable Head: Yes normal to inspection Neck Neck: Yes normal visual inspection Chest Chest palpation & inspection: normal inspection of the chest Resp Auscultation: clear to auscultation bilaterally Cardio Palpation: normal PMI Heart sounds: S1 normal heart sound present, S2 normal heart sound present, no gallops, no murmurs and no rubs GI Palpation (GI): Soft to palpation Back/Spine/Pelvis Other: unremarkable Skin General skin exam: no rashes or lesions noted Neuro General: patient oriented x3 Speech: No Abnormal speech present Extrem General: Yes normal to inspection Psych Mental Status: mental status grossly normal Assessment & Plan Assessment & Plan (1) Preoperative cardiovascular examination: Code(s): Z01.810 - Encounter for preprocedural cardiovascular examination Plan: Intermediate cardiac risk for hernia surgery. May proceed. May hold Eliquis for 2 days before surgery. (2) Atherosclerotic cardiovascular disease: Code(s): I25.10 - Atherosclerotic heart disease of [place] coronary artery without angina pectoris Plan: History of coronary artery bypass surgery in 2016. No anginal concerns. Per prior inspection machine tender, perfusion imaging in 2021 was unremarkable. He had another study recently which shows nontransmural infarct in the basal inferior wall but otherwise unremarkable. Echocardiogram with LVEF of 65-70%. Overall, seems stable in this regard. Continue beta-blockers and statins. (3) Permanent atrial fibrillation: Code(s): I48.21 - Permanent atrial fibrillation Plan: Recent EKG shows atrial fibrillation at a rate of 95/Min. Per prior cardiology notes, listed to be in permanent atrial fibrillation. Continue beta- blockers/Eliquis. Per prior cardiology notes, there is mention of GI bleeding in 2018. EGD then had shown duodenal bulb ulcer. Was apparently taken off aspirin at that time. (4) Chronic heart failure with preserved ejection fraction: Code(s): I50.32 - Chronic diastolic (congestive) heart failure Plan: No significant volume overload on exam. On diuretics. (5) 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): Code(s): I10 - Essential (primary) hypertension Qualifiers: Hypertension type: primary hypertension Qualified Code(s): I10 - Essential (primary) hypertension Plan: Per patient, blood pressure has been up and down. He states he did have a lot of high salt diet for the holidays and that might be the reason. His weight is also gone up a bit. Advised dietary changes and follow home blood pressures. May need med changes in the future. (6) Alcohol use: Code(s): Z72.89 - Other problems related to lifestyle Plan: States that he has cut back significantly. Coding Level of Care Code New Pt Level 4 (26729) Diagnoses Preoperative cardiovascular examination Z01.810 Atherosclerotic cardiovascular disease I25.10 Permanent atrial fibrillation I48.21 Chronic heart failure with preserved ejection fraction I50.32 Primary hypertension I10 Hypertension type: primary hypertension Alcohol use Z72.89
== END 2023-03-16 13:29 | disposition home or self-care (01) ==
PROVIDERS: PCP Internal Medicine; Visit Provider Internal Medicine
DX: Z01.810 Encounter for preprocedural cardiovascular examination (principal); I25.10 Atherosclerotic heart disease of native coronary artery without angina pectoris; I48.21 Permanent atrial fibrillation; I50.32 Chronic diastolic (congestive) heart failure; I10 Essential (primary) hypertension; Z72.89 Other problems related to lifestyle
CPT/HCPCS: 99204; 99214

== ENCOUNTER → 2023-03-16 12:12 | Outpatient (BNVA) | payer OTHER, SELFPAY | PROVIDERS: PCP Internal Medicine; Visit Provider Internal Medicine | DX: Z01.810 Encounter for preprocedural cardiovascular examination (principal); I25.10 Atherosclerotic heart disease of native coronary artery without angina pectoris; I48.21 Permanent atrial fibrillation; I11.0 Hypertensive heart disease with heart failure; I50.32 Chronic diastolic (congestive) heart failure; Z72.89 Other problems related to lifestyle | CPT/HCPCS: 99202 ==

== ENCOUNTER 2023-03-30 13:42 | Outpatient (AMB) | payer OTHER, SELFPAY ==
--- NOTE | 2023-03-30 14:03 | A.OFFPC_ITS ---
Vital Signs 03/30/23 14:05 Height 5 ft 9.5 in Weight 217 lb BMI 31.6 BP 140/76 H Blood Pressure Location Lt brachial Position Sitting Pulse 74 Pulse Source Pulse Oximeter Pulse Oximetry (%) 98 Oxygen Delivery Method Room Air Intake Visit Reasons: Hernia Surgery Clearance Allergies heparin [HEPARIN] Allergy (Intermediate, Verified 03/30/23 14:05) heparin induced thrombosis lisinopril Adverse Reaction (Intermediate, Verified 03/30/23 14:05) Cough Medication List - Last Reconciled 03/30/23 by Valentina Bhandari MD acetaminophen (Tylenol Extra Strength) 1,000 mg (2 x 500 mg) PO QID PRN allopurinol 100 mg PO DAILY apixaban (Eliquis) 5 mg PO BID ascorbate calcium (vitamin C) 500 mg PO DAILY atorvastatin 80 mg PO DAILY cholecalciferol (vitamin D3) (Vitamin D3) 10 mcg PO DAILY diclofenac sodium 1% (Arthritis Pain (diclofenac)) 2 grams topical QID PRN furosemide 60 mg (1.5 x 40 mg) PO BID gabapentin 600 mg PO DAILY PRN [left shoulder sling As directed] losartan 50 mg PO DAILY metoprolol succinate ER 150 mg (3 x 50 mg) PO DAILY 90 days sildenafil 100 mg PO DAILY PRN tizanidine 8 mg (2 x 4 mg) PO Q8H PRN 30 days Tobacco use date assessed: 03/30/23 Fall risk assessment: No Falls in past year Last assessed Fall Risk: 03/30/23 Dental Screening Dental Screen Date: 03/30/23 Did you have a dental visit in the last 12 months?: No Did you have a dental problem in the last 6 months where you did not have access to dental care?: No Was dental information given to patient?: No HPI Hernia Surgery Clearance HPI Details 72-year-old obese male with a history of coronary artery disease george estive heart failure hypertension atrial fibrillation coming in for preoperative evaluation patient has recurrent inguinal hernia. Review of the notes was recently seen by Cardiology March 16 coronary artery bypass surgery 2016 intermediate cardiac risk for hernia surgery advised to hold Eliquis 2 days before procedure. Patient also follows up with Nephrology for the chronic kidney disease advised Lasix 40 mg in the morning and 20 in the evening. 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 CHF (congestive heart failure) High cholesterol 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) Surgical History S/P total left hip arthroplasty History of esophagogastroduodenoscopy (EGD) Hx of cardiac catheterization History of surgery H/O colonoscopy History of evacuation of hematoma S/P CABG x 3 Social History (Updated 03/30/23 @ 15:01 by Valentina Bhandari MD) Household Members: None Housing: Apartment Are you a primary medicare insurance specialist to a significant other at home: No Do you presently have visiting nurse or other home services: No Alcohol intake: current Alcohol intake frequency: a few times a week Comment: intermittent spasm 3 days a week 3 drinks at one time Patient Tobacco Use Status: Never used Tobacco e-Cigarette/Vaping Use: Never Used Second Hand Smoke Exposure: No Substance Use Type: Marijuana service: No Current occupational status: retired Current occupational exposures/hazards: No Cognitive needs: Yes (Cane) Hearing needs: No Vision needs: No Questionnaire PHQ-9 Over the last 2 weeks, how often have you been bothered by any of the following problems? 1. Little interest or pleasure in doing things: not at all 2. Feeling down, depressed, or hopeless: not at all 3. Trouble falling or staying asleep, or sleeping too much: not at all 4. Feeling tired or having little energy: not at all 5. Poor appetite or overeating: not at all 6. Feeling bad about yourself - or that you are a failure or have let yourself or your family down: not at all 7. Trouble concentrating on things, such as reading the newspaper or watching television: not at all 8. Moving or speaking so slowly that other people could have noticed. Or the opposite - being so fidgety or restless that you have been moving around a lot more than usual: not at all 9. Thoughts that you would be better off or of hurting yourself in some way: not at all Total score: 0 Depression Screening Interpretation: Negative Depression Screening Done: Yes Source: Developed by Drs. Greg Gutierrez, Cami Jones, Noe Covington and colleagues, with an educational dima from [email or web address]. Thrive Questionnaire Date Thrive assessed: 03/30/23 I am a: Patient What is your living situation today?: I have a steady place to live Within the past 12 months, did the food you bought not last and you didn't have the money to get more?: Never true Within the past 12 months, did you worry whether your food would run out before you got money to buy more?: Never true Do you have trouble paying for medicines?: No Do you have trouble getting transportation to medical appointments?: No Do you have trouble paying your heating and electricity bill?: No Do you have trouble taking care of your child, family member or friend?: No Do you have trouble with day-to-day activities such as bathing, preparing meals, shopping, managing finances, etc.?: No Are you currently unemployed and looking for a job?: No Are you interested in more education?: No Currently or been in a relationship where the following occur: no concerns reported AUDIT C Alcohol Use Questionnaire (AUDIT-C) 1. How often do you have a drink containing alcohol?: 2-3 times a week 2. How many drinks containing alcohol do you have on a typical day when you are drinking?: 1 or 2 3. How often do you have six or more drinks on one occasion?: Never Total Score: 3 Score Reviewed/Action Taken: Yes BHARTI-7 AMB Questionnaire BHARTI-7 Date BHARTI - 7 assessed: 03/30/23 Feeling nervous, anxious, or on edge: 0 = Not at all Not being able to stop or control worryin = Not at all Worrying too much about different things: 0 = Not at all Trouble relaxin = Not at all Being so restless that it is hard to sit still: 0 = Not at all Becoming easily annoyed or irritable: 0 = Not at all Feeling afraid as if something awful might happen: 0 = Not at all Total BHARTI-7 score (0-4 normal; 5-9 mild; 10-14 moderate; 15-21 severe): 0 Source: Developed by Drs. Greg Gutierrez, Cami Jones, Noe Covington and colleagues, with an educational dima from [email or web address]. Review of Systems Const Denies poor appetite and Denies weakness Eyes Denies no additional complaints ENT Reports Normal hearing present, Denies dizziness, Denies nasal congestion, Denies tinnitus and Denies sore throat Card Denies chest pain, Denies syncope, Denies rapid heart rate and Denies dyspnea Resp Denies cough and Denies dyspnea GI Denies change in stool character, Reports constipation, Denies diarrhea, Denies nausea and Denies vomiting Denies dysuria and Denies urinary frequency Neuro Reports Normal hearing present, Denies confusion, Denies dizziness, Denies syncope and Denies weakness Psych Denies confusion Physical exam (Primary Care) Vital Signs: Last Vital Signs Pulse 74 03/30/23 14:05 BP 140/76 H 03/30/23 14:05 Pulse Ox 98 03/30/23 14:05 Oxygen Delivery Method Room Air 03/30/23 14:05 BMI result Body Mass Index 31.6 Tobacco/Smoking Status: Tobacco use Status Tobacco use date assessed 03/30/23 03/30/23 14:07 Patient Tobacco Use Status Never used Tobacco 03/30/23 14:04 Tobacco use type 08/19/22 09:23 e-Cigarette/Vaping Use Never Used 03/30/23 14:04 PHQ-9: PHQ-9 Score PHQ-9: Total score 0 03/30/23 14:12 Depression Screening Interpretation: Negative Thrive Assessment: Date of Thrive Assessment Date Thrive assessed 03/30/23 03/30/23 14:07 Currently or been in a relationship where the following occur: no concerns reported Const General: No confusion Orientation/consciousness: No confusion Eyes Conjunctivae: conjunctivae normal Resp Auscultation: clear to auscultation bilaterally Cardio Other: Irregular rate and rhythm GI Inspection: Yes normal to inspection Neuro General: No confusion Cranial nerves: Yes Normal hearing present Extrem General: Yes normal to inspection and No edema Assessment and Plan Assessment & Plan (1) Preop exam for internal medicine: Code(s): Z01.818 - Encounter for other preprocedural examination Plan: Discussion about stopping the Eliquis 2 days before the procedure. Advised to continue with blood pressure medications Patient has met with Cardiology recently and blood work was recently done. No further workup needed at that is this time and may proceed with the contemplated procedure. Thank you very much for letting me participate the care of this patient. (2) Permanent atrial fibrillation: Code(s): I48.21 - Permanent atrial fibrillation Plan: Continue presently with anticoagulation and 2 days prior to surgery to hold the anticoagulant. (3) Atherosclerotic cardiovascular disease: Code(s): I25.10 - Atherosclerotic heart disease of [place] coronary artery without angina pectoris Plan: Control the cholesterol, weight, blood pressure on anticoagulation (4) Renal insufficiency: Code(s): N28.9 - Disorder of kidney and ureter, unspecified Plan: Keep well hydrated avoid NSAIDs (5) Recurrent inguinal hernia: Code(s): K40.91 - Unilateral inguinal hernia, without obstruction or gangrene, recurrent (6) 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): Code(s): I10 - Essential (primary) hypertension Qualifiers: Hypertension type: primary hypertension Qualified Code(s): I10 - Essential (primary) hypertension Plan: Continue with blood pressure medication. Decrease salt intake and exercise continue with losartan 50 mg once a day and metoprolol 150 mg once a day (7) CHF (congestive heart failure): Code(s): I50.9 - Heart failure, unspecified Qualifiers: Heart failure type: diastolic Heart failure chronicity: chronic Qualified Code(s): I50.32 - Chronic diastolic (congestive) heart failure Plan: Continue with the diuretic and Nephrology has spaced it out (8) High cholesterol: Code(s): E78.00 - Pure hypercholesterolemia, unspecified Plan: Avoid fried foods, chicken skin, eggs, butter margarine, pastries and meat. Be it pork or beef they have a lot of cholesterol LDL goal of less than 70 and triglyceride of less than 150. Coding Level of Care Code Est Pt Level 4 (73625) Diagnoses Preop exam for internal medicine Z01.818 Permanent atrial fibrillation I48.21 Atherosclerotic cardiovascular disease I25.10 Renal insufficiency N28.9 Recurrent inguinal hernia K40.91 Primary hypertension I10 Hypertension type: primary hypertension Chronic diastolic congestive heart failure I50.32 Heart failure type: diastolic Heart failure chronicity: chronic High cholesterol E78.00 Additional Codes PHQ-9 - 78313 - PHQ-9 Billing: ([id number])
[2023-03-30 14:05] VITALS: BP 140/76; PULSE 74; O2SAT 98; BMI 31.6
== END 2023-03-30 16:21 | disposition home or self-care (01) ==
PROVIDERS: PCP Internal Medicine; Visit Provider Internal Medicine
DX: Z01.818 Encounter for other preprocedural examination (principal); K40.91 Unilateral inguinal hernia, without obstruction or gangrene, recurrent; I11.0 Hypertensive heart disease with heart failure; I50.32 Chronic diastolic (congestive) heart failure; I25.10 Atherosclerotic heart disease of native coronary artery without angina pectoris
CPT/HCPCS: 99214

== ENCOUNTER 2023-04-14 06:35 | Day surgery (SDC) | payer OTHER, SELFPAY ==
[2023-04-07 12:14] VITALS: BMI 31.1
[2023-04-07 12:20] VITALS: BP 159/79; PULSE 79; RESP 20; O2SAT 96
--- NOTE | 2023-04-07 12:30 | HO.ANESPROP2 ---
Documented by User: Dian Hull NP 04/07/23 13:05 HPI - Anesthesia Eval Consult details Narrative: 72yo M for Right Hernia Repair Inguinal Medically cleared Cardiac cleared. Follows [facility] cardiology for CAD/[place] s/p CABG 2016, CHF, Afib Eliquis for afib. OK to hold s/p TAB 2021 GA-ETT 7.5 - loose tooth pulled under GA per pt request d/t risk of aspiration from pressing ET. No other issues No recent illness No CP/SOB with grocery shopping PMF Active Problems Active Problems: All Active Problems (Updated 04/07/23 @ 12:10 by Venita Victoria RN) Preop exam for internal medicine (Acute) Permanent atrial fibrillation (Acute) Atherosclerotic cardiovascular disease (Acute) Preoperative cardiovascular examination (Acute) Renal insufficiency (Acute) Elevated glucose (Acute) Recurrent inguinal hernia (Acute) SEBASTIÁN (acute kidney injury) (Acute) Muscle cramping (Acute) Left groin pain (Acute) Tendonitis of left rotator cuff (Acute) Impacted cerumen of both ears (Acute) Tinea pedis (Acute) Vision changes (Acute) Anemia (Acute) Tubular adenoma of colon (Acute) Current use of anticoagulant therapy (Acute) Vitamin D deficiency (Acute) Erectile dysfunction (Acute) Primary osteoarthritis of left hip (Acute) Alcohol use (Acute) Arthritis of left hip (Acute) Chronic heart failure with preserved ejection fraction (Acute) Atrial fibrillation (Acute) 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) (Acute) CAD (coronary artery disease) (Acute) High cholesterol (Acute) CHF (congestive heart failure) (Acute) Past Medical History Medical History Back pain SEBASTIÁN (acute kidney injury) Chronic heart failure with preserved ejection fraction Lower extremity edema History of amputation of toe Myocardial infarction GI bleed H/O thyroglossal duct cyst Atrial fibrillation Hypercholesteremia Gout CAD (coronary artery disease) 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 CHF (congestive heart failure) High cholesterol 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) Family History Family history of problems with anesthesia: No Surgical History Surgical History Hx of hernia repair S/P total left hip arthroplasty History of esophagogastroduodenoscopy (EGD) Hx of cardiac catheterization History of surgery H/O colonoscopy History of evacuation of hematoma S/P CABG x 3 History of Problems with Anesthesia: No Social History Social History Household Members: None Housing: Apartment Are you a primary morning caregiver to a significant other at home: No Do you presently have visiting nurse or other home services: No Alcohol intake: current Alcohol intake frequency: a few times a week Comment: uses occasionally when back is bothersome Patient Tobacco Use Status: Never used Tobacco e-Cigarette/Vaping Use: Never Used Second Hand Smoke Exposure: No Use of substances other than those prescribed or required for medical reasons: Yes Substance Use Type: Marijuana Substance Use Type Other:: smokes marijuana Substance Use Frequency: Daily Have you been hit, kicked, punched, or otherwise hurt by someone within the past year? If so, by whom?: No Are you DNR?: No Advance Directives: No Advance Directives Information Provided: Yes Advance Directives on File: No Recently lost weight without trying: No Eating poorly because of decreased appetite: No Nutrition Risks: No Nutritional Risk Poor oral hygiene: No (missing teeth) service: No Current occupational status: retired Current occupational exposures/hazards: No Cognitive needs: Yes (Cane) Hearing needs: No Vision needs: No Meds Allergies Allergy/AdvReac Type Severity Reaction Status Date / Time heparin [HEPARIN] Allergy Intermediate heparin Verified 04/14/23 06:48 induced thrombosis lisinopril AdvReac Intermediate Cough Verified 04/14/23 06:48 Home Medications Medication Instructions Recorded Confirmed Last Taken Type ascorbate calcium (vitamin C) 500 500 mg PO QAM 08/10/21 04/07/23 11/16/21 History mg tablet cholecalciferol (vitamin D3) 10 10 mcg PO QAM 09/15/21 04/07/23 Unknown History mcg (400 unit) capsule (Vitamin D3) furosemide 20 mg tablet 20 mg PO QPM 04/06/23 04/06/23 Unknown History furosemide 40 mg tablet 40 mg PO QAM 04/06/23 04/06/23 Unknown History allopurinol 100 mg tablet 100 mg PO QAM 04/07/23 04/07/23 Unknown History losartan 50 mg tablet 50 mg PO QAM 04/07/23 04/07/23 Unknown History metoprolol succinate 50 mg 150 mg PO QAM 04/07/23 04/07/2304/14/24 History tablet,extended release 24 hr Exam Height,Weight and Vital Signs: Height 5 ft 9.5 in Weight 97.069 kg Last Vital Signs Pulse 79 04/07/23 12:20 Resp 20 04/07/23 12:20 BP 159/79 H 04/07/23 12:20 Pulse Ox 96 04/07/23 12:20 O2 Del Method Room Air 04/07/23 12:20 Pertinent Lab Results Pertinent Lab Results: Laboratory Tests 03/09/23 09:32 WBC 6.7 Hgb 12.2 L Hct 36.7 L Plt Count 170 Sodium 139 Potassium 5.0 Chloride 105 Carbon Dioxide 25 BUN 28 H Creatinine 1.26 Narrative Narrative: ECHO 01/2023 Conclusions: - 1. Normal LV ejection fraction of 65-70% 2. Moderately dilated left atrium 3. No significant abnormalities of cardiac valvular Dopplers with calcific aortic valve and mitral annular calcification noted 4. No gross pericardial effusion NM cardiolite stress test 01/2023 Impression: 1. Myocardial perfusion imaging study shows no ischemia with nontransmural basal inferior infarct 2. Gated LVEF is 63% 3. Transient ischemic dilatation not present EKG is nondiagnostic for ischemia EKG 12/2022 Vent. Rate : 095 BPM Atrial Rate : 000 BPM P-R Int : 000 ms QRS Dur : 084 ms QT Int : 364 ms P-R-T Axes : 000 029 106 degrees QTc Int : 457 ms Atrial fibrillation Abnormal ECG When compared with ECG of 04-SEP-2021 12:56, Nonspecific T wave abnormality now evident in Lateral leads Airway Mallampati Class: I TM Dist: >3cm Neck ROM: Full Loose/Missing/Broken Teeth: Yes (Missing molars) Heart: RRR Lungs: CTAB Assessment and Plan Assessment Anesthesia Assessment: Anesthesia Plan Discussed and PAT Visit Final Anesthetic Review Family History of Problems with Anesthesia: No History of Problems with Anesthesia: No Documented by User: Leslie Witt MD 04/14/23 09:21 [facility] Past Medical History Medical History Back pain SEBASTIÁN (acute kidney injury) Chronic heart failure with preserved ejection fraction Lower extremity edema History of amputation of toe Myocardial infarction GI bleed H/O thyroglossal duct cyst Atrial fibrillation Hypercholesteremia Gout CAD (coronary artery disease) 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 CHF (congestive heart failure) High cholesterol 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) Surgical History Surgical History Hx of hernia repair S/P total left hip arthroplasty History of esophagogastroduodenoscopy (EGD) Hx of cardiac catheterization History of surgery H/O colonoscopy History of evacuation of hematoma S/P CABG x 3 Social History Social History Household Members: None Housing: Apartment Are you a primary morning caregiver to a significant other at home: No Do you presently have visiting nurse or other home services: No Alcohol intake: current Alcohol intake frequency: a few times a week Comment: uses occasionally when back is bothersome Patient Tobacco Use Status: Never used Tobacco e-Cigarette/Vaping Use: Never Used Second Hand Smoke Exposure: No Use of substances other than those prescribed or required for medical reasons: Yes Substance Use Type: Marijuana Substance Use Type Other:: smokes marijuana Substance Use Frequency: Daily Have you been hit, kicked, punched, or otherwise hurt by someone within the past year? If so, by whom?: No Are you DNR?: No Advance Directives: No Advance Directives Information Provided: Yes Advance Directives on File: No Recently lost weight without trying: No Eating poorly because of decreased appetite: No Nutrition Risks: No Nutritional Risk Poor oral hygiene: No (missing teeth) service: No Current occupational status: retired Current occupational exposures/hazards: No Cognitive needs: Yes (Cane) Hearing needs: No Vision needs: No Meds Allergies Allergy/AdvReac Type Severity Reaction Status Date / Time heparin [HEPARIN] Allergy Intermediate heparin Verified 04/14/23 06:48 induced thrombosis lisinopril AdvReac Intermediate Cough Verified 04/14/23 06:48 Home Medications Medication Instructions Recorded Confirmed Last Taken Type ascorbate calcium (vitamin C) 500 500 mg PO QAM 08/10/21 04/07/23 11/16/21 History mg tablet cholecalciferol (vitamin D3) 10 10 mcg PO QAM 09/15/21 04/07/23 Unknown History mcg (400 unit) capsule (Vitamin D3) furosemide 20 mg tablet 20 mg PO QPM 04/06/23 04/06/23 Unknown History furosemide 40 mg tablet 40 mg PO QAM 04/06/23 04/06/23 Unknown History allopurinol 100 mg tablet 100 mg PO QAM 04/07/23 04/07/23 Unknown History losartan 50 mg tablet 50 mg PO QAM 04/07/23 04/07/23 Unknown History metoprolol succinate 50 mg 150 mg PO QAM 04/07/23 04/07/23 04/14/23 History tablet,extended release 24 hr Exam Airway Mallampati Class: III Heart: irreg irregular rhythm Documented by User: Malgorzata Solorzano MD 04/14/23 08:27 [facility] Past Medical History Medical History Back pain SEBASTIÁN (acute kidney injury) Chronic heart failure with preserved ejection fraction Lower extremity edema History of amputation of toe Myocardial infarction GI bleed H/O thyroglossal duct cyst Atrial fibrillation Hypercholesteremia Gout CAD (coronary artery disease) 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 CHF (congestive heart failure) High cholesterol 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) Surgical History Surgical History Hx of hernia repair S/P total left hip arthroplasty History of esophagogastroduodenoscopy (EGD) Hx of cardiac catheterization History of surgery H/O colonoscopy History of evacuation of hematoma S/P CABG x 3 Social History Social History Household Members: None Housing: Apartment Are you a primary morning caregiver to a significant other at home: No Do you presently have visiting nurse or other home services: No Alcohol intake: current Alcohol intake frequency: a few times a week Comment: uses occasionally when back is bothersome Patient Tobacco Use Status: Never used Tobacco e-Cigarette/Vaping Use: Never Used Second Hand Smoke Exposure: No Use of substances other than those prescribed or required for medical reasons: Yes Substance Use Type: Marijuana Substance Use Type Other:: smokes marijuana Substance Use Frequency: Daily Have you been hit, kicked, punched, or otherwise hurt by someone within the past year? If so, by whom?: No Are you DNR?: No Advance Directives: No Advance Directives Information Provided: Yes Advance Directives on File: No Recently lost weight without trying: No Eating poorly because of decreased appetite: No Nutrition Risks: No Nutritional Risk Poor oral hygiene: No (missing teeth) service: No Current occupational status: retired Current occupational exposures/hazards: No Cognitive needs: Yes (Cane) Hearing needs: No Vision needs: No Meds Allergies Allergy/AdvReac Type Severity Reaction Status Date / Time heparin [HEPARIN] Allergy Intermediate heparin Verified 04/14/23 06:48 induced thrombosis lisinopril AdvReac Intermediate Cough Verified 04/14/23 06:48 Home Medications Medication Instructions Recorded Confirmed Last Taken Type ascorbate calcium (vitamin C) 500 500 mg PO QAM 08/10/21 04/07/23 11/16/21 History mg tablet cholecalciferol (vitamin D3) 10 10 mcg PO QAM 09/15/21 04/07/23 Unknown History mcg (400 unit) capsule (Vitamin D3) furosemide 20 mg tablet 20 mg PO QPM 04/06/23 04/06/23 Unknown History furosemide 40 mg tablet 40 mg PO QAM 04/06/23 04/06/23 Unknown History allopurinol 100 mg tablet 100 mg PO QAM 04/07/23 04/07/23 Unknown History losartan 50 mg tablet 50 mg PO QAM 04/07/23 04/07/23 Unknown History metoprolol succinate 50 mg 150 mg PO QAM 04/07/23 04/07/23 04/14/23 History tablet,extended release 24 hr Exam Airway Mallampati Class: II Assessment and Plan Assessment Anesthesia Assessment: Chart Reviewed Final Anesthetic Review ASA Class: III Final Preanesthetic Review: No Changes in Pt Med Stat, Meds/Allgs Chart Reviewed, Consent Obtained/Reviewed and Anes Risks/Benef Reviewed Patient Risk: Intermediate Procedure Risk: Low Anesthetic Plan Anesthetic Plan: GA Disposition: Standard PACU
--- NOTE | 2023-04-13 13:33 | MHC.SHP ---
Pre-Procedural Eval Section A Date of Service: 04/13/23 The patient is an INPATIENT: No Changes since office visit: No Cold of Flu in the past 2 weeks, No New Medical Problems, No Changes in Medication and No Patient answered all questions The History & Physical has been completed within 30 days and I have reviewed it.: Yes Section B Chief Complaint: Unilateral inguinal hernia, without obstruction or Allergies: Allergies Allergy/AdvReac Type Severity Reaction Status Date / Time heparin [HEPARIN] Allergy Intermediate heparin Verified 03/30/23 14:05 induced thrombosis lisinopril AdvReac Intermediate Cough Verified 03/30/23 14:05 Plan I have reviewed the history and physical and performed a pertinent physical examination on my patient. No changes have occurred unless specified. Time Spent With Patient Time: Total time managing care of this patient today ____ minutes.
[2023-04-14] VITALS (12 sets, daily range): BP systolic 161–192; BP diastolic 82–100; PULSE 65–95; RESP 12–18; TEMP 36.1–36.7; O2SAT 96–100; BMI 31.3
[2023-04-14] MEDS: Lactated Ringers 1,000 ML 50 ML IVCONT (06:59)
--- NOTE | 2023-04-14 08:31 | PC.NURSE ---
Dr. Witt updated regarding patient blood pressures. no interventions at this time. okay to proceed.
--- NOTE | 2023-04-14 09:50 | W.PM.OPN ---
Operative Note Operative Note Date of Service: 04/14/23 Narrative: Preoperative diagnosis: [] Recurrent right inguinal hernia Postop diagnosis: [] Same Procedure [] open repair recurrent right inguinal hernia with Bard mesh Surgeon: [] Charles Superintendent Renting Managing: [] Nehemias Type of Anesthesia: [] General Indication for surgery: [] Marked cicatrization scarring from previous hernia repair. Very large indirect right inguinal hernia. No direct hernia demonstrated. Findings: [] Patient is brought to the operating room, placed on operative table in supine position, after adequate level of general anesthesia was induced, the patient's abdomen was prepped and draped in usual sterile fashion. Using an incision from the prior scar from the patient's previous right inguinal hernia surgery, this carried down through skin, subcutaneous tissue, and Estelle's fascia. Marked citric position and scarring was encountered down to the external oblique fascia which was opened in its fibers directions. Spermatic cord was identified and circumferentially dissected out and retracted from the field. What was thought to be the ilioinguinal nerve was identified and preserved throughout the procedure. No direct hernia was demonstrated. A very large indirect hernia sac was from the spermatic cord and reduced. A Bard plug was placed in the indirect defect and this was sutured inferiorly to the inguinal ligament, and superiorly to the transversalis fascia using interrupted 0 Ethibond suture. Mesh covered the inguinal floor as well. Large lipoma of the cord was amputated using Bovie and single 2-0 Vicryl tie. Internal ring admitted 1 fingertip at completion. Wound was irrigated, secured hemostasis, and closed in the following manner; external oblique fascia was reapproximated using running 2-0 Vicryl suture. Estelle's fascia was closed using interrupted 3-0 Vicryl sutures. Interrupted inverted deep dermal 3-0 Vicryl sutures followed by running subcuticular 4-0 Vicryl suture were placed. Steri-Strips and sterile dressings were applied. Patient underwent ilioinguinal block at the beginning the procedure and the incision was infiltrated at completion with 1% lidocaine/0.5% Marcaine. Sponge, needle, and instrument counts were reported to be correct. Patient tolerated the procedure well and emerged from anesthesia stable condition. EBL minimal. Right ipsilateral testicle was intrascrotal at completion.
[2023-04-14] MEDS: oxyCODONE HCl Immed Release 5 MG TABLET PO (10:34)
[2023-04-14] MEDS: fentaNYL citrate/PF 100 MCG/2 ML VIAL 25 MCG IVPUSH (10:35)
== END 2023-04-14 14:13 | disposition home or self-care (01) ==
PROVIDERS: PCP Internal Medicine; Visit Provider Surgery
PROC: (CPT 49520; principal; 2023-04-14 08:20)
DX: K40.91 Unilateral inguinal hernia, without obstruction or gangrene, recurrent (principal); D17.6 Benign lipomatous neoplasm of spermatic cord; I48.91 Unspecified atrial fibrillation; I11.0 Hypertensive heart disease with heart failure; I50.9 Heart failure, unspecified; I25.2 Old myocardial infarction; I25.10 Atherosclerotic heart disease of native coronary artery without angina pectoris; Z95.1 Presence of aortocoronary bypass graft; E78.00 Pure hypercholesterolemia, unspecified; N17.9 Acute kidney failure, unspecified; R60.0 Localized edema; Z88.8 Allergy status to other drugs, medicaments and biological substances; Z79.01 Long term (current) use of anticoagulants; Z89.429 Acquired absence of other toe(s), unspecified side; Z98.890 Other specified postprocedural states; F12.90 Cannabis use, unspecified, uncomplicated
CPT/HCPCS: 49520; 88304; C1781; J0330; J0690; J1100; J2250; J2405; J2704; J2795; J3010

== ENCOUNTER → 2023-04-14 06:35 | Outpatient (BNV) | payer OTHER, SELFPAY | PROVIDERS: PCP Internal Medicine; Visit Provider Surgery | DX: K40.91 Unilateral inguinal hernia, without obstruction or gangrene, recurrent (principal) | CPT/HCPCS: 49505 ==

== ENCOUNTER 2023-05-04 09:43 | Outpatient (AMB) | payer OTHER, SELFPAY ==
[2023-05-04 10:07] VITALS: BP 138/82; PULSE 73
--- NOTE | 2023-05-04 10:07 | MHC.OFFVIS ---
Intake Vital Signs 05/04/23 10:07 Weight 213 lb 13.574 oz BP 138/82 Blood Pressure Location Rt brachial Position Sitting Pulse 73 Intake Visit Reasons: s/p RIH repair with mesh Intake Note: Patient here s/p RIH repair with mesh on 04-14-23. Reports incisions healing well. Reports incisions healing well. Denies bleeding, tenderness. 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 Patient has minimal incisional discomfort. He has tolerating a diet. He is having regular bowel habits. He is ambulating without issues. [facility] Medical History Recurrent right inguinal hernia (04/14/23) Back pain SEBASTIÁN (acute kidney injury) Chronic heart failure with preserved ejection fraction Lower extremity edema Myocardial infarction GI bleed H/O thyroglossal duct cyst Atrial fibrillation Hypercholesteremia Gout CAD (coronary artery disease) Hx of half-way use of blood thinners CHF (congestive heart failure) High cholesterol 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) Surgical History Hx of hernia repair S/P total left hip arthroplasty History of esophagogastroduodenoscopy (EGD) Hx of cardiac catheterization History of amputation of toe History of surgery H/O colonoscopy History of evacuation of hematoma S/P CABG x 3 Social History Household Members: None Housing: Apartment Are you a primary before and after school daycare worker to a significant other at home: No Do you presently have visiting nurse or other home services: No Alcohol intake: current Alcohol intake frequency: a few times a week Comment: counts correct Patient Tobacco Use Status: Never used Tobacco e-Cigarette/Vaping Use: Never Used Second Hand Smoke Exposure: No Substance Use Type: Marijuana service: No Current occupational status: retired Current occupational exposures/hazards: No Cognitive needs: Yes (Cane) Hearing needs: No Vision needs: No Physical Exam Vital Signs: Last Vital Signs Pulse 73 05/04/23 10:07 GI Other: Abdomen soft. Wound clean dry and intact healing uneventfully Assessment & Plan Assessment & Plan (1) Status post inguinal hernia repair: Code(s): Z98.890 - Other specified postprocedural states; Z87.19 - Personal history of other diseases of the digestive system Plan Patient has been given local wound instructions, and will follow-up p.r.n.. All questions answered. Coding Level of Care Code Global (22357) Diagnoses Status post inguinal hernia repair Z98.890; Z87.19
== END 2023-05-04 10:10 | disposition home or self-care (01) ==
PROVIDERS: PCP Internal Medicine; Visit Provider Surgery
DX: Z98.890 Other specified postprocedural states (principal); Z87.19 Personal history of other diseases of the digestive system
CPT/HCPCS: 99024

== ENCOUNTER → 2023-05-04 09:43 | Outpatient (BNVA) | payer OTHER, SELFPAY | PROVIDERS: PCP Internal Medicine; Visit Provider Surgery | DX: Z87.19 Personal history of other diseases of the digestive system (principal); Z98.890 Other specified postprocedural states | CPT/HCPCS: 99212 ==

== ENCOUNTER 2023-07-13 10:35 | Outpatient (AMB) | payer MEDICARE, SELFPAY ==
--- NOTE | 2023-07-13 10:39 | MHC.OFFVIS ---
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: No Allergies heparin [HEPARIN] Allergy (Intermediate, Verified 05/04/23 10:09) heparin induced thrombosis lisinopril Adverse Reaction (Intermediate, Verified 05/04/23 10:09) Cough Medication List - Last Reconciled 07/13/23 by Kt Chávez MD acetaminophen (Tylenol Extra Strength) 1,000 mg (2 x 500 mg) PO QID PRN allopurinol 100 mg PO QAM apixaban (Eliquis) 5 mg PO BID ascorbate calcium (vitamin C) 500 mg PO QAM atorvastatin 80 mg PO QAM cholecalciferol (vitamin D3) (Vitamin D3) 10 mcg PO QAM diclofenac sodium 1% (Arthritis Pain (diclofenac)) 2 grams topical QID PRN furosemide 40 mg PO QAM furosemide 20 mg PO QPM gabapentin 600 mg PO DAILY PRN [left shoulder sling As directed] losartan 50 mg PO QAM 90 days metoprolol succinate ER 150 mg (3 x 50 mg) PO QAM sildenafil 100 mg PO DAILY PRN tizanidine 8 mg (2 x 4 mg) PO Q8H PRN 30 days HPI Comments Details: Cj returns for follow-up regarding coronary disease and other issues. To recall, he underwent coronary artery bypass surgery around 2017. Other issues include chronic diastolic heart failure and chronic atrial fibrillation. Overall, he states he is doing good. No complaints like angina or shortness of breath or in fact anything cardiac sounding. Recently, he states he had an episode of double vision which was very brief. He tried to do some meditation extra and then it resolved completely. Not clear if it is like a TIA or something else. He states he is going to an eye doctor as well. He does still drink but not as much as in the past. He states he has cut back significantly. 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 CHF (congestive heart failure) High cholesterol 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) Surgical History Hx of hernia repair S/P total left hip arthroplasty History of esophagogastroduodenoscopy (EGD) Hx of cardiac catheterization History of amputation of toe History of surgery H/O colonoscopy History of evacuation of hematoma S/P CABG x 3 Social History Household Members: None Housing: Apartment Are you a primary long term care social worker to a significant other at home: No Do you presently have visiting nurse or other home services: No Alcohol intake: current Alcohol intake frequency: a few times a week Comment: counts correct Patient Tobacco Use Status: Never used Tobacco e-Cigarette/Vaping Use: Never Used Second Hand Smoke Exposure: No Substance Use Type: Marijuana service: No Current occupational status: retired Current occupational exposures/hazards: No Cognitive needs: Yes (Cane) Hearing needs: No Vision needs: No Review of Systems Const Denies chills, Denies fatigue, Denies fever(s), Denies frequent falls, Denies weakness, Denies weight gain and Denies weight loss ENT Denies dizziness Card Denies chest pain, Denies leg edema, Denies lightheadedness, Denies palpitations, Denies dyspnea, Denies dyspnea on exertion, Denies orthopnea and Denies other (loss of consciousness) Resp Denies cough, Denies dyspnea and Denies dyspnea on exertion GI Denies hematochezia and Denies change in stool character Musc Denies abnormal gait, Denies muscle weakness, Denies numbness, Denies radiating pain into limb and Denies tingling Neuro Denies abnormal gait, Denies dizziness, Denies frequent falls, Denies numbness, Denies tingling and Denies weakness Endo Denies fatigue and Denies palpitations Physical Exam Vital Signs: Last Vital Signs Pulse 84 07/13/23 10:40 BP 120/76 07/13/23 10:40 BMI result Body Mass Index 30.5 Const General: comfortable and no acute distress Orientation/consciousness: patient oriented x3 HEENT Other: Unremarkable Head: Yes normal to inspection Neck Neck: Yes normal visual inspection Chest Chest palpation & inspection: normal inspection of the chest Resp Auscultation: clear to auscultation bilaterally Cardio Palpation: normal PMI Heart sounds: S1 normal heart sound present, S2 normal heart sound present, no gallops, no murmurs and no rubs GI Palpation (GI): Soft to palpation Back/Spine/Pelvis Other: unremarkable Skin General skin exam: no rashes or lesions noted Neuro General: patient oriented x3 Extrem General: Yes normal to inspection Psych Mental Status: mental status grossly normal Assessment & Plan Assessment & Plan (1) Atherosclerotic cardiovascular disease: Code(s): I25.10 - Atherosclerotic heart disease of morongo coronary artery without angina pectoris Category: Medical Plan: History of coronary artery bypass surgery in 2017. No anginal concerns. Per prior mammography technologist, perfusion imaging in 2021 was unremarkable. He had another study recently which shows nontransmural infarct in the basal inferior wall but otherwise unremarkable. Echocardiogram with LVEF of 65-70%. May remain on beta-blockers and statins. (2) Permanent atrial fibrillation: Code(s): I48.21 - Permanent atrial fibrillation Category: Medical Plan: Recent EKG shows atrial fibrillation at a rate of 95/Min. Per prior cardiology notes, listed to be in permanent atrial fibrillation. Continue beta-blockers/Eliquis. Per prior cardiology notes, there is mention of GI bleeding in 2018. EGD then had shown duodenal bulb ulcer. Was apparently taken off aspirin at that time. (3) Chronic heart failure with preserved ejection fraction: Code(s): I50.32 - Chronic diastolic (congestive) heart failure Category: Medical Plan: No significant volume overload on exam. On diuretics. (4) 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): Code(s): I10 - Essential (primary) hypertension Category: Medical Qualifiers: Hypertension type: primary hypertension Qualified Code(s): I10 - Essential (primary) hypertension Plan: Stable. No changes. (5) Alcohol use: Code(s): Z72.89 - Other problems related to lifestyle Category: Social Hx Plan: States that he has cut back significantly. (6) Double vision: Code(s): H53.2 - Diplopia Category: Medical Plan: Unclear etiology. He has an ophthalmology appointment coming up. We will check carotid Dopplers. Orders: Orders US carotid duplex BI Today H53.2 - Diplopia, I65.23 - Occlusion and stenosis of bilateral carotid arteries Coding Level of Care Code Est Pt Level 4 (09951) Diagnoses Atherosclerotic cardiovascular disease I25.10 Permanent atrial fibrillation I48.21 Chronic heart failure with preserved ejection fraction I50.32 Primary hypertension I10 Hypertension type: primary hypertension Alcohol use Z72.89 Double vision H53.2
[2023-07-13 10:40] VITALS: BP 120/76; PULSE 84; BMI 30.5
== END 2023-07-13 11:08 | disposition home or self-care (01) ==
PROVIDERS: PCP Internal Medicine; Visit Provider Internal Medicine
DX: I25.10 Atherosclerotic heart disease of native coronary artery without angina pectoris (principal); I48.21 Permanent atrial fibrillation; I50.32 Chronic diastolic (congestive) heart failure; I10 Essential (primary) hypertension; Z72.89 Other problems related to lifestyle; H53.2 Diplopia
CPT/HCPCS: 99214

== ENCOUNTER → 2023-07-13 10:35 | Outpatient (BNVA) | payer MEDICARE, SELFPAY | PROVIDERS: PCP Internal Medicine; Visit Provider Internal Medicine | DX: I25.10 Atherosclerotic heart disease of native coronary artery without angina pectoris (principal); I48.21 Permanent atrial fibrillation; I11.0 Hypertensive heart disease with heart failure; I50.32 Chronic diastolic (congestive) heart failure; H53.2 Diplopia; Z72.89 Other problems related to lifestyle | CPT/HCPCS: 99212 ==

== ENCOUNTER 2023-07-19 12:17 | Outpatient (REF) | payer MEDICARE, SELFPAY ==
--- NOTE | ~2023-07-19 | CT_ITS ---
EXAMINATION: CT HEAD WITHOUT CONTRAST CLINICAL INFORMATION: Stroke COMPARISON: None available. TECHNIQUE: Contiguous axial imaging was performed from the skull base to vertex without intravenous administration of contrast. This CT examination was performed using dose optimization techniques as appropriate, variously including the following: *Automated exposure control *Adjustment of mA and/or kV according to patient size (this includes techniques or standardized protocols for targeted exams where dose is matched to indication/reason for exam; i.e. extremities or head) *Use of iterative reconstruction technique DLP: 1051 mGy-cm FINDINGS: There is no acute intracranial hemorrhage. There is no evidence of acute/subacute cerebral or cerebellar infarction. There is mild microvascular ischemic change. There is no midline shift or mass effect. There is no extra-axial fluid collection. The ventricles are normal in size. The orbits are normal in appearance. The calvarium is intact. Mastoid air cells are well aerated. The visualized paranasal sinuses are clear. CT/CT head/brain wo IV con IMPRESSION: No acute intracranial abnormality. Mild microvascular ischemic change. If there is continued clinical concern for acute ischemia/infarction MRI brain is recommended.
--- NOTE | ~2023-07-19 | US_ITS ---
EXAMINATION: US EXTRACRANIAL CAROTID DUPLEX, BILATERAL CLINICAL INFORMATION: Occlusion and stenosis bilateral common carotid arteries. COMPARISON: None available. TECHNIQUE: Real-time ultrasound and Doppler techniques (integrating B-mode 2-D vascular images, Doppler spectral analysis and color-flow Doppler imaging) were utilized to interrogate the extracranial carotid arteries, the vertebral arteries and proximal subclavian arteries bilaterally. The degree of stenosis is determined by criteria similar to NASCET. FINDINGS: Right Side: 1. There is severe atherosclerotic plaque seen in the bifurcation/proximal ICA region. 2. The common carotid artery PSV proximally is 117 cm/s and distally 123 cm/s. 3. The proximal internal carotid artery velocities are 159 cm/s systolic and 45 cm/s diastolic. 4. The proximal external carotid artery PSV is 157 cm/s. 5. The vertebral artery shows antegrade flow. 6. The subclavian artery waveforms are normal. Left Side: 1. There is moderate atherosclerotic plaque seen in the bifurcation/proximal ICA region. 2. The common carotid artery PSV proximally is 147 cm/s and distally 122 cm/s. 3. The proximal internal carotid artery velocities are 90 cm/s systolic and 20 cm/s diastolic. 4. The proximal external carotid artery PSV is 126 cm/s. 5. The vertebral artery shows anterior flow. 6. The subclavian artery waveforms are normal. US/US carotid duplex BI IMPRESSION: 1. RIGHT: Moderate, hemodynamically significant stenosis of the proximal right internal carotid artery corresponding to a 50-79% stenosis by velocity criteria. 2. LEFT: Minimal, non-hemodynamically significant stenosis of the proximal left internal carotid artery corresponding to a 0-49% stenosis by velocity criteria. Incidental note made of an irregular cardiac rhythm on spectral Doppler waveforms. Correlate clinically.
== END 2023-07-19 12:18 | disposition home or self-care (01) ==
LOC: HO.CT 12:17
PROVIDERS: PCP Internal Medicine; Visit Provider Internal Medicine
DX: I63.9 Cerebral infarction, unspecified (principal)
CPT/HCPCS: 70450; 93880

== ENCOUNTER 2023-07-28 13:44 | Outpatient (REF) | payer MEDICARE, SELFPAY ==
--- NOTE | ~2023-07-28 | CT_ITS ---
EXAMINATION: CT angio neck CLINICAL INFORMATION: Occlusion and stenosis of carotid artery. COMPARISON: Carotid ultrasound 07/19/2023. TECHNIQUE: Warehouse Logistics Coordinator images were obtained. A CT angiogram of the neck was performed in the arterial phase after the intravenous administration of 70 mL Omnipaque 350. 3D images were processed on an independent workstation under concurrent supervision. Arterial stenoses are measured in accordance with NASCET criteria or similar method if applicable. This CT examination was performed using dose optimization techniques as appropriate, including one or more of the following: Automated exposure control, iterative reconstruction, and adjustment of technique factors (mA and/or kVp) according to patient size (this includes techniques or standardized protocols for targeted exams where dose is matched to indication/reason for exam). Fleischner Society criteria for the followup of incidental pulmonary nodules was implemented if appropriate. Total exam dose-length product 631 mGy-cm FINDINGS: CT angiogram neck: Scattered atheromatous calcification involves the aortic arch apex. Origins of the major aortic branches are patent. Scattered calcification involves the common carotid arteries which are otherwise patent. Heavily calcified predominantly lipid-laden atheromatous plaque of the right carotid bifurcation causes 60% stenosis at the origin of the right upper carotid artery. There is also partially calcified plaque at the left carotid bifurcation. No stenosis at the origin of left internal carotid artery. The left vertebral artery is occluded and there is reconstitution of contrast filling the left intradural vertebral artery presumably related to retrograde flow via the basilar. Atheromatous calcification causes at least mild stenosis at the origin of the dominant right vertebral artery which is otherwise patent. Other: Soft tissues of the neck are unremarkable. No pathologically enlarged cervical lymph nodes. No mediastinal or axillary adenopathy is visualized within the [id number] of this examination. Lung apices are clear. No acute osseous finding. Specifically no worrisome lytic or blastic osseous lesion. CT/CT angio neck IMPRESSION: Heavily calcified predominantly lipid-laden atheromatous plaque at the right carotid bifurcation that causes 60% stenosis at the origin of the right internal carotid artery. There is also partially calcified plaque at the left carotid bifurcation. No stenosis at the origin of left internal carotid artery. The left vertebral artery is occluded and there is reconstitution of contrast filling the intradural left vertebral artery presumably related to retrograde flow via the basilar. Atheromatous calcification causes at least mild stenosis at the origin of the dominant right vertebral artery which is otherwise patent.
[2023-07-28] MEDS: iohexoL 350 MG/ML 100 ML INFUS..BTL 70 ML IV (14:50)
[2023-07-29 13:03] LABS: Creatinine POC 0.7 mg/dL (0.5-1.4); GFR POC > 60
== END 2023-07-28 13:45 | disposition home or self-care (01) ==
LOC: HO.CT 13:44
PROVIDERS: PCP Internal Medicine; Visit Provider Internal Medicine
DX: I25.10 Atherosclerotic heart disease of native coronary artery without angina pectoris (principal); I65.29 Occlusion and stenosis of unspecified carotid artery
CPT/HCPCS: 70498; 82565; Q9967

== ENCOUNTER 2023-08-25 13:11 | Outpatient (AMB) | payer OTHER, SELFPAY ==
[2023-08-25 13:14] VITALS: BMI 31.0
--- NOTE | 2023-08-25 13:14 | A.OFFVIS_ITS ---
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 Pt states that he had blurred vision which is how he ended up at cardio. 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 This all began as workup by Cardiology as he reported an episode of double vision. There was a question of TIA. He had undergone carotid duplex and it noted a higher degree of right carotid stenosis. Subsequently underwent CT angiogram. Now presents for vascular evaluation. Upon discussion with him he had this 1 episode of double vision approximately 3 weeks prior. Subsequent to that he has no further episodes. He is a nonsmoker nondiabetic. He does admit to occasional marijuana use. Upon discussion with him about his drinking habits he states that he drinks about 3 to 4 times a week and only 3-4 beers. I suspect that it is significantly more than he lets on. As a matter fact upon leaving the office he noted with the staff that he was going to the bar to get a drink after his visit. He is being maintained on Eliquis and high-dose statin. 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 CHF (congestive heart failure) High cholesterol 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) Surgical History Hx of hernia repair S/P total left hip arthroplasty History of esophagogastroduodenoscopy (EGD) Hx of cardiac catheterization History of amputation of toe History of surgery H/O colonoscopy History of evacuation of hematoma S/P CABG x 3 Social History Household Members: None Housing: Apartment Are you a primary director of healthcare systems to a significant other at home: No Do you presently have visiting nurse or other home services: No Alcohol intake: current Alcohol intake frequency: a few times a week Comment: counts correct Patient Tobacco Use Status: Never used Tobacco e-Cigarette/Vaping Use: Never Used Second Hand Smoke Exposure: No Substance Use Type: Marijuana service: No Current occupational status: retired Current occupational exposures/hazards: No Cognitive needs: Yes (Cane) Hearing needs: No Vision needs: No Review of Systems Const All systems reviewed & are unremarkable except as noted in HPI and below Reports no additional complaints ENT Reports Normal hearing present Card Denies chest pain, Denies chest pain at rest, Denies chest pain with activity and Denies pedal edema Resp Denies cough GI Denies abdominal pain Musc Denies abnormal gait, Denies muscle cramps and Denies radiating pain into limb Skin/Breast Denies skin ulcer and Denies wounds Neuro Reports Normal hearing present and Denies abnormal gait Psych Reports no additional complaints Physical Exam Vital Signs: BMI result Body Mass Index 31.0 Const General: cooperative, healthy appearing and comfortable Orientation/consciousness: oriented to person, oriented to place and oriented to time HEENT Head: Yes normal to inspection Neck Neck: Yes normal visual inspection Carotids: no bruits Chest Chest palpation & inspection: normal inspection of the chest Resp Effort & Inspection: normal respiratory effort and able to speak in complete sentences Auscultation: clear to auscultation bilaterally, no crackles, no rales, no rhonchi and no wheezes Cardio Rate: regular rate Rhythm: regular rhythm Heart sounds: S1 normal heart sound present and S2 normal heart sound present Bruits: no carotid bruits Peripheral pulses: Peripheral pulses 2+ throughout GI Inspection: Yes normal to inspection Skin Wounds: no wounds Hair: normal Neuro General: oriented to person, oriented to place and oriented to time Cranial nerves: Yes CN's II-XII intact bilaterally and Yes Normal hearing present Cognition (Neuro): normal cognition Motor exam (neuro): 5/5 motor strength present throughout Extrem Other: venous exam: No significant superficial varicosities or spider telangiectasias, minimal edema General: No clubbing, No cyanosis and No edema Psych Appearance: grossly normal Mental Status: mental status grossly normal Speech and movement: Normal speech and movement present Results Reviewed Results Reviewed: CT angiogram dated 07/28/2023 demonstrates right-sided 60% stenosis. Written report and images were reviewed. Assessment & Plan Assessment & Plan (1) Bilateral carotid artery stenosis: Code(s): I65.23 - Occlusion and stenosis of bilateral carotid arteries Category: Medical Plan: In short patient has carotid artery stenosis. I do not believe that this was an episode related to the blurry vision or a TIA. We did discuss routine risk factor modification. We have reviewed signs and symptoms of a stroke. We also discussed risk factor modification inclusive a healthy diet low in cholesterol. The patient will follow up with us with surveillance ultrasound of the carotids 1 year. Should there be any changes or signs or symptoms of a stroke we will be happy to see them back sooner. Thank you for allowing us to participate in this patient's care. If there are any questions or concerns please do not hesitate to contact us. Orders: Orders US carotid duplex BI 1 Year I65.23 - Occlusion and stenosis of bilateral carotid arteries Coding Level of Care Code New Pt Level 4 (87183) Diagnoses Bilateral carotid artery stenosis I65.23
== END 2023-08-25 14:02 | disposition home or self-care (01) ==
PROVIDERS: PCP Internal Medicine; Visit Provider Surgery Vascular Surgery
DX: I65.23 Occlusion and stenosis of bilateral carotid arteries (principal)
CPT/HCPCS: 99204

== ENCOUNTER → 2023-08-25 13:11 | Outpatient (BNVA) | payer MEDICARE, SELFPAY | PROVIDERS: PCP Internal Medicine; Visit Provider Surgery Vascular Surgery ==

== ENCOUNTER 2023-12-09 01:20 | Emergency (ER) | payer MEDICARE, SELFPAY ==
[2023-12-09 01:25] VITALS: BP 123/65; BP 132/90; PULSE 65; PULSE 70; RESP 18; TEMP 36.5; O2SAT 97; O2SAT 99; BMI 27.1
[2023-12-09 01:28] VITALS: BP 123/65; PULSE 65; RESP 18; TEMP 36.5; O2SAT 97
--- NOTE | 2023-12-09 01:53 | ED.ALCOHOL ---
HPI - Alcohol General Chief Complaint: ETOH/Substance Use Stated Complaint: ETOH, DETOX REQUEST Time Seen by Provider: 12/09/23 01:43 Source: patient Mode of arrival: ambulatory Limitations: no limitations History of Present Illness ED Provider: queenei LA[place] narrative: Patient has been drinking all day today since 14:00 upset with his girlfriend does not want any detox no fall no other complaints Related Data Home Medications ?Medication ?Instructions ?Recorded ?Confirmed ascorbate calcium (vitamin C) 500 500 mg PO QAM 08/10/21 07/13/23 mg tablet cholecalciferol (vitamin D3) 10 10 mcg PO QAM 09/15/21 07/13/23 mcg (400 unit) capsule (Vitamin D3) furosemide 20 mg tablet 20 mg PO QPM 04/06/23 07/13/23 Previous Rx's ?Medication ?Instructions ?Recorded acetaminophen 500 mg tablet 1,000 mg (2 x 500 mg) PO QID PRN 04/13/21 (Tylenol Extra Strength) fever or pain #28 tabs left shoulder sling #1 ea 08/12/22 diclofenac sodium 1 % topical gel 2 g topical QID PRN pain #100 grams 09/02/22 (Arthritis Pain (diclofenac)) gabapentin 600 mg tablet 600 mg PO DAILY PRN pain #90 tabs 08/04/23 furosemide 40 mg tablet 40 mg PO QAM #90 tabs 09/09/23 atorvastatin 80 mg tablet 80 mg PO QAM #90 tabs 10/07/23 metoprolol succinate 50 mg 150 mg (3 x 50 mg) PO QAM #90 tabs 10/12/23 tablet,extended release 24 hr allopurinol 100 mg tablet 100 mg PO QAM #90 tabs 10/17/23 sildenafil 100 mg tablet 100 mg PO DAILY PRN sexual 10/23/23 activity #7 tabs apixaban 5 mg tablet (Eliquis) 5 mg PO BID #60 tabs 11/29/23 losartan 50 mg tablet 50 mg PO QAM 90 days #90 tabs 11/29/23 tizanidine 4 mg tablet 8 mg (2 x 4 mg) PO Q8H PRN muscle 12/05/23 spasticity 30 days #180 tabs Allergies Allergy/AdvReac Type Severity Reaction Status Date / Time heparin [HEPARIN] Allergy Intermediate heparin Verified 12/09/23 01:30 induced thrombosis lisinopril AdvReac Intermediate Cough Verified 12/09/23 01:30 Review of Systems Review of Systems: Yes all other systems are reviewed and are negative [facility] Past Medical History Medical History Recurrent right inguinal hernia (04/14/23) Back pain SEBASTIÁN (acute kidney injury) Chronic heart failure with preserved ejection fraction Lower extremity edema Myocardial infarction GI bleed H/O thyroglossal duct cyst Atrial fibrillation Hypercholesteremia Gout CAD (coronary artery disease) 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 CHF (congestive heart failure) High cholesterol 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) Surgical History Hx of hernia repair S/P total left hip arthroplasty History of esophagogastroduodenoscopy (EGD) Hx of cardiac catheterization History of amputation of toe History of surgery H/O colonoscopy History of evacuation of hematoma S/P CABG x 3 Social History Social History Household Members: None Housing: Apartment Are you a primary customer care coordinator to a significant other at home: No Do you presently have visiting nurse or other home services: No Alcohol intake: current Alcohol intake frequency: 3 or more drinks per day Alcohol type: beer Comment: counts correct Patient Tobacco Use Status: Never used Tobacco e-Cigarette/Vaping Use: Never Used Second Hand Smoke Exposure: No Substance Use Type: Marijuana Advance Directives: No Advance Directives Information Provided: Yes Do you have a plan to hurt others: No Plan service: No Current occupational status: retired Current occupational exposures/hazards: No Cognitive needs: Yes (Cane) Hearing needs: No Vision needs: No Physical Exam ED Vital Signs: Vital Signs - 24 hr 12/09/23 01:25 12/09/23 01:28 12/09/23 04:45 Temperature 97.7 F 97.7 F 97.7 F Pulse Rate 65 65 63 Respiratory Rate 18 18 15 Blood Pressure 123/65 123/65 104/50 L Pulse Oximetry 97 97 95 Oxygen Delivery Method Room Air Room Air Room Air 12/09/23 06:20 12/09/23 07:08 Temperature 97.8 F 97.8 F Pulse Rate 66 66 Respiratory Rate 16 16 Blood Pressure 110/62 110/62 Pulse Oximetry 98 98 Oxygen Delivery Method Room Air Room Air BMI result Body Mass Index 27.1 Appearance: Alert. Oriented X3. No acute distress. etoh+ Eyes: PERRLA, No Nystagmus ENT: Pharynx normal. Oral Mucosa moist Neck: Normal inspection. Neck supple. CVS: Normal heart rate and rhythm. Pulses normal. Respiratory: No respiratory distress. Equal air entry bilateral, no wheezing/rales/rhonchi Abdomen: Soft and nontender. Bowel sounds are present, no mass palpable, no CVA tenderness Skin: Skin warm and dry. Normal skin color. Normal skin turgor. Extremities: No lower extremity edema. No calf tenderness Neuro: Oriented X 3. No motor deficit. No sensory deficit.No cerebellar signs , cranial nerves II-XII intact Medical Decision Making Medical Decision Making MDM Narrative: Patient is awake alert ambulatory in steady gait does not want to go to detox will discharge patient home Discharge Plan Discharge Clinical Impression: Alcohol abuse Patient Disposition: Home, Self-Care Instructions: Abuse of Alcohol (ED) Additional Instructions: Stop drinking and follow with detox if needed Prescriptions: No Action (DME) left shoulder sling See Rx Instructions .Route .MEDSUPPLY Qty: 1 0RF Rx Instructions: As directed gabapentin 600 mg tablet 600 mg PO DAILY PRN (Reason: pain) Qty: 90 3RF furosemide 40 mg tablet 40 mg PO QAM Qty: 90 0RF Rx Instructions: 1 tablet in the morning 1/2 tablet in the evening atorvastatin 80 mg tablet 80 mg PO QAM Qty: 90 1RF metoprolol succinate 50 mg tablet extended release 24 hr 150 mg PO QAM Qty: 90 0RF allopurinol 100 mg tablet 100 mg PO QAM Qty: 90 0RF sildenafil 100 mg tablet 100 mg PO DAILY PRN (Reason: sexual activity) Qty: 7 0RF Rx Instructions: administer 30 minutes to 4 hours before activity losartan 50 mg tablet 50 mg PO QAM 90 Days Qty: 90 0RF Eliquis 5 mg tablet 5 mg PO BID Qty: 60 5RF tizanidine 4 mg tablet 8 mg PO Q8H PRN (Reason: muscle spasticity) 30 Days Qty: 180 0RF cholecalciferol (vitamin D3) [Vitamin D3] 10 mcg (400 unit) Capsule 10 mcg PO QAM furosemide 20 mg Tablet 20 mg PO QPM acetaminophen [Tylenol Extra Strength] 500 mg tablet 1,000 mg PO QID PRN (Reason: fever or pain) Qty: 28 0RF diclofenac sodium [Arthritis Pain (diclofenac)] 1 % gel 2 g topical QID PRN (Reason: pain) Qty: 100 0RF ascorbate calcium (vitamin C) 500 mg tablet 500 mg PO QAM Interventions: ED Discharge Assessment Last Done: 12/09/23 07:08 Print Language: Setswana
--- NOTE | 2023-12-09 03:06 | PC.NURSE ---
Pt in bed, easily arrousable, cooperative alert and oriented X4. Pt changed over into hospital attire, belongings in decon. Pt BIB EMS for etoh use, pt unable to get into friends house. PD sent to ED. assessed pt, pt has no sober ride til 7am. Metabolize to freedom.
--- NOTE | 2023-12-09 03:07 | MHC.EDTECH ---
at this time the pt was changed over into a hospital gown and pants w/ security and RN present. All belongings were documented and given to security and placed in DECON. Pt was compliant and calm during traveler changer
[2023-12-09 04:45] VITALS: BP 104/50; PULSE 63; RESP 15; TEMP 36.5; O2SAT 95
[2023-12-09 06:20] VITALS: BP 110/62; PULSE 66; RESP 16; TEMP 36.6; O2SAT 98
--- NOTE | 2023-12-09 06:33 | PC.NURSE ---
Assumed care of pt at 0615. PT appears to be sleeping, respirations even unlabored. Plan for pt to metabolized to freedom.
[2023-12-09 07:08] VITALS: BP 110/62; PULSE 66; RESP 16; TEMP 36.6; O2SAT 98
== END 2023-12-09 07:40 | disposition home or self-care (01) ==
PROVIDERS: Emergency Provider Internal Medicine; PCP Internal Medicine
DX: F10.10 Alcohol abuse, uncomplicated (principal); Z79.899 Other long term (current) drug therapy
CPT/HCPCS: 99284

== ENCOUNTER 2023-12-15 09:27 | Outpatient (AMB) | payer MEDICARE, SELFPAY ==
[2023-12-15 09:29] VITALS: BP 118/72; PULSE 56; O2SAT 98; BMI 28.1
--- NOTE | 2023-12-15 09:29 | A.OFFPC_ITS ---
Vital Signs 12/15/23 09:29 Height 6 ft Weight 207 lb BMI 28.1 BP 118/72 Blood Pressure Location Lt brachial Position Sitting Pulse 56 Pulse Source Pulse Oximeter Pulse Oximetry (%) 98 Oxygen Delivery Method Room Air Intake Visit Reasons: feels something on LT side of neck Intake Note: patient would like to discuss blotches on forehead, neck Butter Melter Required: No Accompanied by: Self / Same As Patient Allergies heparin [HEPARIN] Allergy (Intermediate, Verified 12/15/23 09:34) heparin induced thrombosis lisinopril Adverse Reaction (Intermediate, Verified 12/15/23 09:34) Cough Medication List - Last Reconciled 12/15/23 by Valentina Bhandari MD acetaminophen (Tylenol Extra Strength) 1,000 mg (2 x 500 mg) PO QID PRN allopurinol 100 mg PO QAM apixaban (Eliquis) 5 mg PO BID ascorbate calcium (vitamin C) 500 mg PO QAM atorvastatin 80 mg PO QAM cholecalciferol (vitamin D3) (Vitamin D3) 10 mcg PO QAM diclofenac sodium 1% (Arthritis Pain (diclofenac)) 2 grams topical QID PRN furosemide 20 mg PO QPM furosemide 40 mg PO QAM gabapentin 600 mg PO DAILY PRN [left shoulder sling As directed] losartan 50 mg PO QAM 90 days metoprolol succinate ER 150 mg (3 x 50 mg) PO QAM sildenafil 100 mg PO DAILY PRN tizanidine 8 mg (2 x 4 mg) PO Q8H PRN 30 days Tobacco use date assessed: 03/30/23 Fall risk assessment: No Falls in past year Last assessed Fall Risk: 12/15/23 Dental Screening Dental Screen Date: 03/30/23 HPI feels something on LT side of neck HPI Details 73-year-old overweight male with atrial fibrillation coronary artery disease renal insufficiency hypertension history of congestive heart failure hypercholesterolemia last seen in March for preoperative evaluation. Review of the notes ER visit in December 08 4 alcohol intoxication. Patient did see the vascular surgeon in August 24 for carotid stenosis bilateral advised to repeat test in 1 year. Neck CTA August 01Heavily calcified predominantly lipid-laden atheromatous plaque at the right carotid bifurcation that causes 60% stenosis at the origin of the right internal carotid artery. There is also partially calcified plaque at the left carotid bifurcation. No stenosis at the origin of left internal carotid artery. The left vertebral artery is occluded and there is reconstitution of contrast filling the intradural left vertebral artery presumably related to retrograde flow via the basilar. Atheromatous calcification causes at least mild stenosis at the origin of the dominant right vertebral artery which is otherwise patent. Patient did see Cardiology also in June. Patient did undergo inguinal hernia repair in March 2023 PAtient states drank a few only. [facility], [facility] Medical History Recurrent right inguinal hernia (04/14/23) Back pain SEBASTIÁN (acute kidney injury) Chronic heart failure with preserved ejection fraction Lower extremity edema Myocardial infarction GI bleed H/O thyroglossal duct cyst Atrial fibrillation Hypercholesteremia Gout CAD (coronary artery disease) Hx of penitentiary use of blood thinners CHF (congestive heart failure) High cholesterol 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) Surgical History Hx of hernia repair S/P total left hip arthroplasty History of esophagogastroduodenoscopy (EGD) Hx of cardiac catheterization History of amputation of toe History of surgery H/O colonoscopy History of evacuation of hematoma S/P CABG x 3 Social History Household Members: None Housing: Apartment Are you a primary critical care rn to a significant other at home: No Do you presently have visiting nurse or other home services: No Alcohol intake: current Alcohol intake frequency: 3 or more drinks per day Alcohol type: beer Comment: counts correct Patient Tobacco Use Status: Never used Tobacco e-Cigarette/Vaping Use: Never Used Second Hand Smoke Exposure: No Substance Use Type: Marijuana service: No Current occupational status: retired Current occupational exposures/hazards: No Cognitive needs: Yes (Cane) Hearing needs: No Vision needs: No Questionnaire Thrive Questionnaire Date Thrive assessed: 03/30/23 Are you currently unemployed and looking for a job?: No BHARTI-7 AMB Questionnaire BHARTI-7 Date BHARTI - 7 assessed: 03/30/23 Source: Developed by Drs. Greg Gutierrez, Cami Jones, Noe Covington and colleagues, with an educational dima from [employer]. Physical exam (Primary Care) Vital Signs: Last Vital Signs Pulse 56 12/15/23 09:29 BP 118/72 12/15/23 09:29 Pulse Ox 98 12/15/23 09:29 Oxygen Delivery Method Room Air 12/15/23 09:29 Care Plan Goal for BP management: Scalp has multiple hyperpigmented lesions 1 cm diffuse BMI result Body Mass Index 28.1 Tobacco/Smoking Status: Tobacco use Status Tobacco use date assessed 03/30/23 12/15/23 09:32 Patient Tobacco Use Status Never used Tobacco 12/15/23 09:32 Tobacco use type 12/12/23 13:34 e-Cigarette/Vaping Use Never Used 12/15/23 09:32 Thrive Assessment: Date of Thrive Assessment Date Thrive assessed 03/30/23 12/15/23 09:32 Const General: alert; No acute distress Eyes Conjunctivae: conjunctivae normal Resp Auscultation: clear to auscultation bilaterally Cardio Rate: regular rate Rhythm: regular rhythm GI Inspection: Yes normal to inspection Extrem General: Yes normal to inspection and No edema Immunizations tetanus-diphtheria toxoids-Td 2 Lf unit-2 Lf unit/0.5 mL IM suspension Performing Provider: Valentina Bhandari MD [facility] [place] [facility] Administered by: SONALI Ernandez on 12/15/23 10:22 Dose Route Admin Location Dispensed Lot Number Expiration Date [facility] Power Tong Operator 0.5 mL IM Left Deltoid 0.5 mL [id number] 04/30/24 [address]-3 [employer] VIS Given Date VIS Provided VIS Publication Date 12/15/23 Single Vaccine 20 Eligibility Eligibility Date Funding Source Not [facility] Eligible 12/15/23 State funds Assessment and Plan Assessment & Plan (1) Bilateral carotid artery stenosis: Code(s): I65.23 - Occlusion and stenosis of bilateral carotid arteries Plan: Control the cholesterol, weight, blood pressure. Patient is being followed up by vascular and discussed that when the carotid stenosis goes up to 70% that carotid endarterectomy will be done. Patient has been having TIAs (2) Status post inguinal hernia repair: Comment: March 2023 Code(s): Z98.890 - Other specified postprocedural states; Z87.19 - Personal history of other diseases of the digestive system Plan: Patient follows up with surgeon. Doing good (3) Permanent atrial fibrillation: Code(s): I48.21 - Permanent atrial fibrillation Plan: Continue with anticoagulation with Eliquis and will continue to monitor renal function (4) Atherosclerotic cardiovascular disease: Code(s): I25.10 - Atherosclerotic heart disease of [place] coronary artery without angina pectoris Plan: Control the cholesterol, weight, blood pressure continue with anticoagulation and blood work requested (5) Anemia: Code(s): D64.9 - Anemia, unspecified Plan: Continue to monitor (6) Alcohol use: Code(s): Z72.89 - Other problems related to lifestyle Plan: Discussion about abstaining from alcohol patient. (7) Chronic heart failure with preserved ejection fraction: Code(s): I50.32 - Chronic diastolic (congestive) heart failure Plan: Weigh daily and continue with furosemide 20 mg in the evening and 40 mg in the morning blood work requested (8) 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): Code(s): I10 - Essential (primary) hypertension Qualifiers: Hypertension type: primary hypertension Qualified Code(s): I10 - Essential (primary) hypertension Plan: Continue with blood pressure medication. Decrease salt intake and exercise losartan 50 mg once a day metoprolol is 150 mg once a day (9) High cholesterol: Code(s): E78.00 - Pure hypercholesterolemia, unspecified Plan: Avoid fried foods, chicken skin, eggs, butter margarine, pastries and meat. Be it pork or beef they have a lot of cholesterol LDL goal of less than 70 on atorvastatin 80 mg once a day blood work requested (10) Scalp lesion: Code(s): L98.9 - Disorder of the skin and subcutaneous tissue, unspecified Orders: Orders Complete Blood Count Auto Diff Today I10 - Essential (primary) hypertension Free T4 (Free Thyroxine) Today I10 - Essential (primary) hypertension Reticulocyte Count Today I10 - Essential (primary) hypertension Lipid Panel Today E78.00 - Pure hypercholesterolemia, unspecified, I10 - Essential (primary) hypertension Thyroid Stimulating Hormone Today I10 - Essential (primary) hypertension Prostate Specific Antigen Scr Today I10 - Essential (primary) hypertension B Type Natriuretic Peptide Today I50.32 - Chronic diastolic (congestive) heart failure Magnesium Today I50.32 - Chronic diastolic (congestive) heart failure Td State Immunization Today Z23 - Encounter for immunization Comprehensive Met. Panel Today I10 - Essential (primary) hypertension Ferritin Today I10 - Essential (primary) hypertension IRON PROFILE Today I10 - Essential (primary) hypertension Vitamin B12 and Folate Today I10 - Essential (primary) hypertension Uric Acid Today I50.32 - Chronic diastolic (congestive) heart failure Referrals Dermatology Referral L98.9 - Disorder of the skin and subcutaneous tissue, unspecified Medications: New tetanus-diphtheria toxoids-Td 0.5 mL IM ONCE 0.5 mL 0RF Z23 - Encounter for immunization Coding Level of Care Code Est Pt Level 4 (18053) Complex EM visit Add On G2211 Diagnoses Bilateral carotid artery stenosis I65.23 Status post inguinal hernia repair Z98.890; Z87.19 Permanent atrial fibrillation I48.21 Atherosclerotic cardiovascular disease I25.10 Anemia D64.9 Alcohol use Z72.89 Chronic heart failure with preserved ejection fraction I50.32 Primary hypertension I10 Hypertension type: primary hypertension High cholesterol E78.00 Scalp lesion L98.9
== END 2023-12-15 10:43 | disposition home or self-care (01) ==
PROVIDERS: PCP Internal Medicine; Visit Provider Internal Medicine
DX: I48.21 Permanent atrial fibrillation (principal); I11.0 Hypertensive heart disease with heart failure; I50.32 Chronic diastolic (congestive) heart failure; I65.23 Occlusion and stenosis of bilateral carotid arteries; Z98.890 Other specified postprocedural states; Z87.19 Personal history of other diseases of the digestive system; D64.9 Anemia, unspecified; I25.10 Atherosclerotic heart disease of native coronary artery without angina pectoris; Z72.89 Other problems related to lifestyle; Z23 Encounter for immunization; E78.00 Pure hypercholesterolemia, unspecified; L98.9 Disorder of the skin and subcutaneous tissue, unspecified

== ENCOUNTER → 2023-12-15 09:27 | Outpatient (BNVA) | payer MEDICARE, SELFPAY | PROVIDERS: PCP Internal Medicine; Visit Provider Internal Medicine | DX: Z23 Encounter for immunization (principal); I65.23 Occlusion and stenosis of bilateral carotid arteries; I48.21 Permanent atrial fibrillation; I25.10 Atherosclerotic heart disease of native coronary artery without angina pectoris; D64.9 Anemia, unspecified; I11.0 Hypertensive heart disease with heart failure; I50.32 Chronic diastolic (congestive) heart failure; E78.00 Pure hypercholesterolemia, unspecified; L98.9 Disorder of the skin and subcutaneous tissue, unspecified; Z72.89 Other problems related to lifestyle; Z98.890 Other specified postprocedural states; Z87.19 Personal history of other diseases of the digestive system | CPT/HCPCS: 90471; 90714; 99212 ==

== ENCOUNTER 2023-12-23 10:42 | Outpatient (REF) | payer MEDICARE, SELFPAY ==
[2023-12-23 11:11] LABS: MANUAL DIFF FLAG NO
[2023-12-23 12:01] LABS: Basophils Percent Auto 0.3 % (0-2); Eosinophils Absolute Auto 0.1 X10*3/uL (0.0-0.4); Eosinophils Percent Auto 1.4 % (0-4); Hematocrit 36.8 % (42.0-52.0); Hemoglobin 12.8 g/dl (14.0-18.0); Imm Gran Abs Auto 0.02 X10*3/uL (0.00-0.03); Imm Gran Pct Auto 0.3 % (0.0-0.4); Immature Retic Fraction 4.8 % (2.3-13.4); Lymphocytes Absolute Auto 1.5 X10*3/uL (1.2-4.9); Lymphocytes Percent Auto 22.4 % (20-40); Mean Corpuscular HGB Conc 34.8 g/dl (31.0-36.0); Mean Corpuscular Hemoglobin 31.8 pg (27.0-33.0); Mean Corpuscular Volume 91.5 fL (80.0-98.0); Mean Platelet Volume 10.8 fL (9.4-12.4); Monocytes Absolute Auto 0.8 X10*3/uL (0.1-1.2); Monocytes Percent Auto 12.7 % (2-11); Neutrophils Absolute Auto 4.2 x10*3/uL (2.0-8.3); Neutrophils Percent Auto 62.9 % (45-73); Platelet Count 175 X10*3/uL (160-400); Red Blood Count 4.02 X10*6/uL (4.60-5.80); Red Cell Distribution Width 12.8 % (11.0-16.0); Retic HGB Equivalent 36.7 pg (30.0-35.0); Reticulocyte Percent 0.8 % (0.5-1.8); White Blood Count 6.6 X10*3/uL (4.8-10.8)
[2023-12-23 12:32] LABS: B Type Natriuretic Peptide 318 pg/mL (<100)
[2023-12-23 13:10] LABS: Ferritin 139 ng/mL (20-250); Free T4 (Free Thyroxine) 0.98 ng/dL (0.71-1.85)
[2023-12-23 13:13] LABS: Folate 8.6 ng/mL (> or = 4.0); Prostate Specific Antigen Scr 0.53 ng/mL (<0.05-4.0); Vitamin B12 586 pg/mL (200-900)
[2023-12-23 13:19] LABS: Anion Gap 11 (12-20)
[2023-12-23 13:24] LABS: Alanine Aminotransferase 19 U/L (0-40); Albumin Level 4.3 g/dL (3.5-5.0); Alkaline Phosphatase 84 U/L (39-117); Aspartate Amino Transferase 26 U/L (5-37); Bilirubin Total 0.7 mg/dL (0.0-1.0); Blood Urea Nitrogen 13 mg/dL (9-16); Calcium 9.1 mg/dL (8.4-10.2); Carbon Dioxide 28 mmol/L (22-29); Chloride 98 mmol/L (96-108); Cholesterol 99 mg/dL (<200); Estimated Glomerular Filt Rate > 60; Glucose Random 111 mg/dL (60-115); HDL Cholesterol 48 mg/dL (>40); Iron 97 mcg/dL (45-160); LDL Cholesterol Calculated 42 mg/dL (<100); Magnesium 1.8 mg/dL (1.6-2.6); Percent Iron Saturation 31 % (15-50); Potassium 4.9 mmol/L (3.3-5.1); Sodium 132 mmol/L (135-145); Total Iron Binding Capacity 308 mcg/dL (228-428); Total Protein 6.8 g/dL (6.5-8.0); Triglycerides 48 mg/dL (<150); Unsaturated Iron Binding 211 ug/dL; Uric Acid 4.2 mg/dL (3.4-7.0)
== END 2023-12-23 10:43 | disposition home or self-care (01) ==
LOC: HO.LAB 10:42
PROVIDERS: PCP Internal Medicine; Visit Provider Internal Medicine
DX: I10 Essential (primary) hypertension (principal); E78.00 Pure hypercholesterolemia, unspecified; I50.32 Chronic diastolic (congestive) heart failure; Z12.5 Encounter for screening for malignant neoplasm of prostate
CPT/HCPCS: 36415; 80053; 80061; 82607; 82728; 82746; 83540; 83735; 83880; 84153; 84439; 84443; 84550; 85025; 85045

== ENCOUNTER 2024-01-07 02:29 | Emergency (ER) | payer MEDICARE, MEDICAID, SELFPAY ==
--- NOTE | ~2024-01-07 | CT_ITS ---
EXAMINATION: CT HEAD WITHOUT CONTRAST CT CERVICAL SPINE WITHOUT CONTRAST CLINICAL INFORMATION: Fall. Trauma. Pain. COMPARISON: None available. TECHNIQUE: Contiguous axial imaging was performed through the head and cervical spine without intravenous administration of contrast. Sagittal and coronal reformatted images also obtained. This CT examination was performed using dose optimization techniques as appropriate, variously including the following: *Automated exposure control *Adjustment of mA and/or kV according to patient size (this includes techniques or standardized protocols for targeted exams where dose is matched to indication/reason for exam; i.e. extremities or head) *Use of iterative reconstruction technique DLP: 2204 mGy-cm FINDINGS: There is cerebral volume loss with prominence of the lateral and the third ventricles. The cortical sulci are widened appropriately. The fourth ventricle and basal cisterns are normally outlined. There is mild bilateral periventricular and central white matter diminished attenuation. There is no acute territorial defects, hemorrhage or midline shift. The extra-axial spaces are unremarkable. Calvarium/scalp: Intact. Maxillofacial sinuses and mastoids: Clear as visualized. Cervical spine: The alignment is within normal limits. There is diffuse mild to moderate cervical disc degenerative change with loss of disc space, endplate change and posterior osteophytes associated with diffuse mild facet osteoarthritic hypertrophic changes with multilevel spinal canal narrowing which appears to be mild to moderate at C5-6 and mild at the remaining levels associated and multilevel mild to moderate neuroforaminal narrowing. No fracture is seen. Soft tissues are unremarkable. CT/CT cervical spine wo IV con IMPRESSION: 1. No acute intracranial process or discrete cervical spine fracture or malalignment. 2. Mild cerebral volume loss and mild chronic microangiopathy. 3. Diffuse mild to moderate cervical spondylosis and multilevel mild to moderate neuroforaminal narrowing and spinal canal narrowing as described above. Electronically signed by: Vern Ivory MD 01/07/2024 04:40 AM EDT
[2024-01-07 02:34] VITALS: BP 146/100; PULSE 57; O2SAT 97
[2024-01-07 02:36] VITALS: BP 147/76; PULSE 52; RESP 18; TEMP 36.4; O2SAT 98; BMI 31.1
--- NOTE | 2024-01-07 05:44 | ED.FALL ---
HPI - Fall General Chief Complaint: Fall Stated Complaint: Wit Fall by PD +hs +lac +collar +thinner ETOH Time Seen by Provider: 01/07/24 03:20 Source: patient and EMS Mode of arrival: EMS Limitations: no limitations History of Present Illness ED Provider: Dr. Drake HPI Narrative: Patient is a 73yo male with history of HTN, high cholesterol, afib on blood thinners who presents intoxicated after falling and hitting his head, withnessed, no LOC. Patient presents in a ccollar. Related Data Home Medications ?Medication ?Instructions ?Recorded ?Confirmed ascorbate calcium (vitamin C) 500 500 mg PO QAM 08/10/21 12/15/23 mg tablet cholecalciferol (vitamin D3) 10 10 mcg PO QAM 09/15/21 12/15/23 mcg (400 unit) capsule (Vitamin D3) furosemide 20 mg tablet 20 mg PO QPM 04/06/23 12/15/23 Previous Rx's ?Medication ?Instructions ?Recorded acetaminophen 500 mg tablet 1,000 mg (2 x 500 mg) PO QID PRN 04/13/21 (Tylenol Extra Strength) fever or pain #28 tabs left shoulder sling #1 ea 08/12/22 diclofenac sodium 1 % topical gel 2 g topical QID PRN pain #100 grams 09/02/22 (Arthritis Pain (diclofenac)) gabapentin 600 mg tablet 600 mg PO DAILY PRN pain #90 tabs 08/04/23 furosemide 40 mg tablet 40 mg PO QAM #90 tabs 09/09/23 sildenafil 100 mg tablet 100 mg PO DAILY PRN sexual 10/23/23 activity #7 tabs allopurinol 100 mg tablet 100 mg PO QAM #90 tabs 01/06/24 apixaban 5 mg tablet (Eliquis) 5 mg PO BID #60 tabs 01/06/24 atorvastatin 80 mg tablet 80 mg PO QAM #90 tabs 01/06/24 losartan 50 mg tablet 50 mg PO QAM 90 days #90 tabs 01/06/24 metoprolol succinate 50 mg 150 mg (3 x 50 mg) PO QAM #90 tabs 01/06/24 tablet,extended release 24 hr tizanidine 4 mg tablet 8 mg (2 x 4 mg) PO Q8H PRN muscle 01/06/24 spasticity 30 days #180 tabs Allergies Allergy/AdvReac Type Severity Reaction Status Date / Time heparin [HEPARIN] Allergy Intermediate heparin Verified 01/07/24 02:44 induced thrombosis lisinopril AdvReac Intermediate Cough Verified 01/07/24 02:44 Review of Systems Review of Systems: Yes all other systems are reviewed and are negative Neurologic: Denies Sensory deficit (Neuro) [facility] Past Medical History Medical History Recurrent right inguinal hernia (04/14/23) Back pain [place] (acute kidney injury) Chronic heart failure with preserved ejection fraction Lower extremity edema Myocardial infarction GI bleed H/O thyroglossal duct cyst Atrial fibrillation Hypercholesteremia Gout CAD (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 artery disease) 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 CHF (congestive heart failure) High cholesterol 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) Surgical History Hx of hernia repair S/P total left hip arthroplasty History of esophagogastroduodenoscopy (EGD) Hx of cardiac catheterization History of amputation of toe History of surgery H/O colonoscopy History of evacuation of hematoma S/P CABG x 3 Social History Social History Household Members: None Housing: Apartment Are you a primary wild animal caretaker to a significant other at home: No Do you presently have visiting nurse or other home services: No Alcohol intake: current Alcohol intake frequency: 3 or more drinks per day Alcohol type: beer Comment: counts correct Patient Tobacco Use Status: Never used Tobacco Smoked in Last 30 Days: No e-Cigarette/Vaping Use: Never Used Second Hand Smoke Exposure: No Use of substances other than those prescribed or required for medical reasons: Yes Substance Use Type: Marijuana Substance Use Frequency: Chronic Longstanding Do you have a plan to hurt others: No Plan service: No Current occupational status: retired Current occupational exposures/hazards: No Cognitive needs: Yes (Cane) Hearing needs: No Vision needs: No Physical Exam Vital Signs: Vital Signs: Last Vital Signs Temp 97 F 01/07/24 05:51 Pulse 59 01/07/24 05:51 Resp 16 01/07/24 05:51 BP 146/64 H 01/07/24 05:51 Pulse Ox 96 01/07/24 05:51 O2 Del Method Room Air 01/07/24 05:51 BMI result Body Mass Index 31.1 Const: Other: Male looking older than stated age intoxicated, larger contusion and abrasion over left eye Nutritional Appearance: average body habitus Orientation/consciousness: oriented to person Limitations: no limitations HEENT: Head: Yes normal to inspection Ears: external ears normal General nose exam: Normal external nose present Mouth: Normal oral and palatal mucosa present and oropharynx normal Throat: Yes posterior oropharynx normal Eyes: General: appearance normal, both eyes and all related structures Neck: Other: supple Neck: Yes normal visual inspection Chest: Chest palpation & inspection: normal inspection of the chest Resp: Auscultation: clear to auscultation bilaterally Cardio: Jugular venous distension: no JVD Rate: regular rate Rhythm: regular rhythm Heart sounds: S1 normal heart sound present and S2 normal heart sound present GI: Inspection: Yes normal to inspection Palpation (GI): Soft to palpation, nontender and No hepatosplenomegaly present Auscultation: normal bowel sounds : General: Yes no CVA tenderness Back/Spine/Pelvis: Back: no CVA tenderness Skin: Other: abrasion/contusion over left eye. Neuro: General: oriented to person Cranial nerves: Yes CN's II-XII intact bilaterally Motor exam (neuro): 5/5 motor strength present throughout Sensory Exam: No Sensory deficit (Neuro) Extrem: General: Yes normal to inspection Psych: Appearance: grossly normal Course Reevaluation(s) Reevaluation #1: head CT and cspine negative will dc home when he marta up Time: 05:51 Medical Decision Making Differential Diagnosis Differential Diagnoses: The differential diagnosis associated with the presentation includes (cerebral bleed, cervical fracture, head contusion, alcohol intoxication) Admission/Observation Consideration of admission/observation: Escalation of care including admission/observation considered (upon arrival patient considered for admission) Independent Interpretation I performed an independent interpretation of an: CT Scan (Brain: atrophy cspine: djd) Radiology Impression Discussion of test interpretation with radiology: I have reviewed the radiologist's reading. Independent Historian Clinical information obtained from an independent historian. History obtained from or confirmed by: EMS Chronic Conditions Patient?s care impacted by: Diabetes, Hypertension and Other (alcoholism) Social Determinants Patient?s care significantly limited by Social Determinants of Health including: Low income and Alcoholism and drug addiction in family Discharge Plan Discharge Clinical Impression: Acute head trauma, Alcohol intoxication Patient Disposition: Home, Self-Care Instructions: Head Injury (ED), Alcohol Intoxication (ED) Prescriptions: No Action (DME) left shoulder sling See Rx Instructions .Route .MEDSUPPLY Qty: 1 0RF Rx Instructions: As directed gabapentin 600 mg tablet 600 mg PO DAILY PRN (Reason: pain) Qty: 90 3RF furosemide 40 mg tablet 40 mg PO QAM Qty: 90 0RF Rx Instructions: 1 tablet in the morning 1/2 tablet in the evening sildenafil 100 mg tablet 100 mg PO DAILY PRN (Reason: sexual activity) Qty: 7 0RF Rx Instructions: administer 30 minutes to 4 hours before activity allopurinol 100 mg tablet 100 mg PO QAM Qty: 90 0RF atorvastatin 80 mg tablet 80 mg PO QAM Qty: 90 1RF metoprolol succinate 50 mg tablet extended release 24 hr 150 mg PO QAM Qty: 90 0RF Eliquis 5 mg tablet 5 mg PO BID Qty: 60 5RF losartan 50 mg tablet 50 mg PO QAM 90 Days Qty: 90 0RF tizanidine 4 mg tablet 8 mg PO Q8H PRN (Reason: muscle spasticity) 30 Days Qty: 180 0RF cholecalciferol (vitamin D3) [Vitamin D3] 10 mcg (400 unit) Capsule 10 mcg PO QAM furosemide 20 mg Tablet 20 mg PO QPM acetaminophen [Tylenol Extra Strength] 500 mg tablet 1,000 mg PO QID PRN (Reason: fever or pain) Qty: 28 0RF diclofenac sodium [Arthritis Pain (diclofenac)] 1 % gel 2 g topical QID PRN (Reason: pain) Qty: 100 0RF ascorbate calcium (vitamin C) 500 mg tablet 500 mg PO QAM Referrals: Physician,Unknown J [Physician] - 5 days Print Language: Kyrgyz
[2024-01-07 05:51] VITALS: BP 146/64; PULSE 59; RESP 16; TEMP 36.1; O2SAT 96
[2024-01-07 10:27] VITALS: BP 156/74; PULSE 71; RESP 18; TEMP 36.4; O2SAT 97
[2024-01-07 11:02] VITALS: BP 156/74; PULSE 71; RESP 18; TEMP 36.4; O2SAT 97
== END 2024-01-07 11:02 | disposition home or self-care (01) ==
PROVIDERS: Emergency Provider Emergency Medicine
DX: S09.90XA Unspecified injury of head, initial encounter (principal); W18.30XA Fall on same level, unspecified, initial encounter; F10.920 Alcohol use, unspecified with intoxication, uncomplicated; Y90.9 Presence of alcohol in blood, level not specified; I11.0 Hypertensive heart disease with heart failure; I50.9 Heart failure, unspecified; E78.00 Pure hypercholesterolemia, unspecified; I48.91 Unspecified atrial fibrillation; I25.2 Old myocardial infarction; Z79.01 Long term (current) use of anticoagulants; Z79.899 Other long term (current) drug therapy; Y93.9 Activity, unspecified; Y92.511 Restaurant or cafe as the place of occurrence of the external cause; Y99.9 Unspecified external cause status
CPT/HCPCS: 70450; 72125; 99284

== ENCOUNTER 2024-01-11 10:14 | Outpatient (AMB) | payer OTHER, MEDICAID, SELFPAY ==
[2024-01-11 10:19] VITALS: BP 192/90; PULSE 61; BMI 29.5
--- NOTE | 2024-01-11 10:19 | MHC.OFFVIS ---
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: No Accompanied by: Self / Same As Patient Allergies heparin [HEPARIN] Allergy (Intermediate, Verified 01/07/24 02:44) heparin induced thrombosis lisinopril Adverse Reaction (Intermediate, Verified 01/07/24 02:44) Cough Medication List - Last Reconciled 01/11/24 by Kt Chávez MD acetaminophen (Tylenol Extra Strength) 1,000 mg (2 x 500 mg) PO QID PRN allopurinol 100 mg PO QAM apixaban (Eliquis) 5 mg PO BID ascorbate calcium (vitamin C) 500 mg PO QAM atorvastatin 80 mg PO QAM cholecalciferol (vitamin D3) (Vitamin D3) 10 mcg PO QAM furosemide 20 mg PO QPM furosemide 40 mg PO QAM gabapentin 600 mg PO DAILY PRN [left shoulder sling As directed] losartan 50 mg PO QAM 90 days metoprolol succinate ER 150 mg (3 x 50 mg) PO QAM sildenafil 100 mg PO DAILY PRN tizanidine 8 mg (2 x 4 mg) PO Q8H PRN 30 days HPI Comments Details: Cj returns for follow-up regarding coronary disease and other issues. To recall, he underwent coronary artery bypass surgery around 2017. Other issues include chronic diastolic heart failure and chronic atrial fibrillation. Overall, he states he feels fine for the most part. Continues to drink, probably excessively. He states he took even a fall from slipping after alcohol excess. Does not appear that he had any major injuries. 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 CHF (congestive heart failure) High cholesterol 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) Surgical History Hx of hernia repair S/P total left hip arthroplasty History of esophagogastroduodenoscopy (EGD) Hx of cardiac catheterization History of amputation of toe History of surgery H/O colonoscopy History of evacuation of hematoma S/P CABG x 3 Family History (Updated 01/11/24 @ 10:26 by Lola Dillon CMA) Father Heart disease Mother Emphysema of lung Social History Household Members: None Housing: Apartment Are you a primary child care provider to a significant other at home: No Do you presently have visiting nurse or other home services: No Alcohol intake: current Alcohol intake frequency: 3 or more drinks per day Alcohol type: beer Comment: counts correct Patient Tobacco Use Status: Never used Tobacco e-Cigarette/Vaping Use: Never Used Second Hand Smoke Exposure: No Substance Use Type: Marijuana service: No Current occupational status: retired Current occupational exposures/hazards: No Cognitive needs: Yes (Cane) Hearing needs: No Vision needs: No Review of Systems Const Denies chills, Denies fatigue, Denies fever(s), Denies weight gain and Denies weight loss ENT Denies dizziness Card Denies chest pain, Denies leg edema, Denies lightheadedness, Denies palpitations, Denies dyspnea on exertion, Denies orthopnea and Denies other Resp Denies cough and Denies dyspnea on exertion GI Denies hematochezia and Denies change in stool character Musc Denies abnormal gait, Denies muscle weakness, Denies numbness, Denies radiating pain into limb and Denies tingling Neuro Denies abnormal gait, Denies dizziness, Denies numbness and Denies tingling Endo Denies fatigue and Denies palpitations Physical Exam Vital Signs: Last Vital Signs Pulse 61 01/11/24 10:19 BP 192/90 H 01/11/24 10:19 BMI result Body Mass Index 29.5 Const General: comfortable and no acute distress Orientation/consciousness: patient oriented x3 HEENT Other: Unremarkable Head: Yes normal to inspection Neck Neck: Yes normal visual inspection Chest Chest palpation & inspection: normal inspection of the chest Resp Auscultation: clear to auscultation bilaterally Cardio Palpation: normal PMI Heart sounds: S1 normal heart sound present, S2 normal heart sound present, no gallops, no murmurs and no rubs GI Palpation (GI): Soft to palpation Back/Spine/Pelvis Other: unremarkable Skin General skin exam: no rashes or lesions noted Neuro General: patient oriented x3 Extrem General: Yes normal to inspection Psych Mental Status: mental status grossly normal Office Procedures EKG Details: EKG with atrial fibrillation at a rate of 61/Min; PVC versus aberrant conduction. [id number], Complete Assessment & Plan Assessment & Plan (1) Atherosclerotic cardiovascular disease: Code(s): I25.10 - Atherosclerotic heart disease of [place] coronary artery without angina pectoris Category: Medical Plan: CABG 2016. Per prior ground instructor basic, perfusion imaging in 2021 was unremarkable. Repeat 01/2023 which shows nontransmural infarct in the basal inferior wall but otherwise unremarkable. Echocardiogram with LVEF of 65-70%. Clinically, no angina. May remain on beta-blockers and statins. (2) Permanent atrial fibrillation: Code(s): I48.21 - Permanent atrial fibrillation Category: Medical Plan: Per prior cardiology notes, listed to be in permanent atrial fibrillation. Continue beta-blockers/Eliquis. Per prior cardiology notes, there is mention of GI bleeding in 2018. EGD then had shown duodenal bulb ulcer. Was apparently taken off aspirin at that time. (3) Chronic heart failure with preserved ejection fraction: Code(s): I50.32 - Chronic diastolic (congestive) heart failure Category: Medical Plan: Stable. On diuretics. (4) 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): Code(s): I10 - Essential (primary) hypertension Category: Medical Qualifiers: Hypertension type: primary hypertension Qualified Code(s): I10 - Essential (primary) hypertension Plan: Seems high today. Checked twice. Start amlodipine 5 mg daily. He will check home blood pressures and contact us. We will bring him back for nurse blood pressure check. (5) Alcohol use: Code(s): Z72.89 - Other problems related to lifestyle Category: Social Hx Plan: Continues to drink regularly. Strongly advised him to cut back and possibly stop. Dangers of alcohol excess and concurrent anticoagulation discussed, including risk of falls, intracranial bleed, . Medications: New amlodipine 5 mg PO DAILY 90 tabs 3RF Coding Level of Care Code Est Pt Level 4 (53733) Diagnoses Atherosclerotic cardiovascular disease I25.10 Permanent atrial fibrillation I48.21 Chronic heart failure with preserved ejection fraction I50.32 Primary hypertension I10 Hypertension type: primary hypertension Alcohol use Z72.89 CPT Codes EKG - CPT: 67719-[id number], Complete ([id number])
== END 2024-01-11 11:02 | disposition home or self-care (01) ==
PROVIDERS: PCP Internal Medicine; Visit Provider Internal Medicine
DX: I25.10 Atherosclerotic heart disease of native coronary artery without angina pectoris (principal); I48.21 Permanent atrial fibrillation; I50.32 Chronic diastolic (congestive) heart failure; I10 Essential (primary) hypertension; Z72.89 Other problems related to lifestyle
CPT/HCPCS: 93010; 99214

== ENCOUNTER → 2024-01-11 10:14 | Outpatient (BNVA) | payer MEDICARE, SELFPAY | PROVIDERS: PCP Internal Medicine; Visit Provider Internal Medicine | DX: I11.0 Hypertensive heart disease with heart failure (principal); I50.32 Chronic diastolic (congestive) heart failure; I48.21 Permanent atrial fibrillation; I25.10 Atherosclerotic heart disease of native coronary artery without angina pectoris; Z72.89 Other problems related to lifestyle | CPT/HCPCS: 93005 ==

== ENCOUNTER 2024-06-13 10:17 | Outpatient (AMB) | payer MEDICARE, MEDICAID, SELFPAY ==
--- NOTE | 2024-06-13 10:42 | A.OFFPC_ITS ---
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 Required: No Accompanied by: Self / Same As Patient Allergies heparin [HEPARIN] Allergy (Intermediate, Verified 06/13/24 10:43) heparin induced thrombosis amlodipine Adverse Reaction (Intermediate, Unverified 06/13/24 11:58) leg swelling lisinopril Adverse Reaction (Intermediate, Verified 06/13/24 10:43) Cough Medication List - Last Reconciled 06/13/24 by Valentina Bhandari MD acetaminophen (Tylenol Extra Strength) 1,000 mg (2 x 500 mg) PO QID PRN allopurinol 100 mg PO QAM amlodipine 5 mg PO DAILY apixaban (Eliquis) 5 mg PO BID ascorbate calcium (vitamin C) 500 mg PO QAM atorvastatin 80 mg PO QAM cholecalciferol (vitamin D3) (Vitamin D3) 10 mcg PO QAM furosemide 20 mg PO QPM furosemide 40 mg PO QAM gabapentin 600 mg PO DAILY PRN [left shoulder sling As directed] losartan 50 mg PO QAM 90 days metoprolol succinate ER 150 mg (3 x 50 mg) PO QAM sildenafil 100 mg PO DAILY PRN tizanidine 8 mg (2 x 4 mg) PO Q8H PRN 30 days Tobacco use date assessed: 06/13/24 Fall risk assessment: No Falls in past year Last assessed Fall Risk: 06/13/24 Dental Screening Dental Screen Date: 06/13/24 Did you have a dental visit in the last 12 months?: No Did you have a dental problem in the last 6 months where you did not have access to dental care?: No Was dental information given to patient?: Yes PFSH Medical History Recurrent right inguinal hernia (04/14/23) Back pain SEBASTIÁN (acute kidney injury) Chronic heart failure with preserved ejection fraction Lower extremity edema Myocardial infarction GI bleed H/O thyroglossal duct cyst Atrial fibrillation Hypercholesteremia Gout CAD (coronary artery disease) Hx of care home use of blood thinners CHF (congestive heart failure) High cholesterol 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) Surgical History Hx of hernia repair S/P total left hip arthroplasty History of esophagogastroduodenoscopy (EGD) Hx of cardiac catheterization History of amputation of toe History of surgery H/O colonoscopy History of evacuation of hematoma S/P CABG x 3 Family History Father Heart disease Mother Emphysema of lung Social History Household Members: None Housing: Apartment Are you a primary transitions rn care coordinator to a significant other at home: No Do you presently have visiting nurse or other home services: No Alcohol intake: current Alcohol intake frequency: 3 or more drinks per day [place] type: beer Comment: counts correct Patient Tobacco Use Status: Never used Tobacco e-Cigarette/Vaping Use: Never Used Second Hand Smoke Exposure: No Substance Use Type: Marijuana service: No Current occupational status: retired Current occupational exposures/hazards: No Cognitive needs: Yes (Cane) Hearing needs: No Vision needs: No Questionnaire PHQ-9 Over the last 2 weeks, how often have you been bothered by any of the following problems? 1. Little interest or pleasure in doing things: not at all 2. Feeling down, depressed, or hopeless: not at all 3. Trouble falling or staying asleep, or sleeping too much: not at all 4. Feeling tired or having little energy: not at all 5. Poor appetite or overeating: not at all 6. Feeling bad about yourself - or that you are a failure or have let yourself or your family down: not at all 7. Trouble concentrating on things, such as reading the newspaper or watching television: not at all 8. Moving or speaking so slowly that other people could have noticed. Or the opposite - being so fidgety or restless that you have been moving around a lot more than usual: not at all 9. Thoughts that you would be better off or of hurting yourself in some way: not at all Total score: 0 Depression Screening Interpretation: Negative Depression Screening Done: Yes 18747 - PHQ-9 Billing: Yes Source: Developed by Drs. Greg Gutierrez, Noe Wright and colleagues, with an educational dima from [employer]. Thrive Questionnaire Date Thrive assessed: 06/13/24 I am a: Patient What is your living situation today?: I have a steady place to live Within the past 12 months, did the food you bought not last and you didn't have the money to get more?: Never true Within the past 12 months, did you worry whether your food would run out before you got money to buy more?: Never true Do you have trouble paying for medicines?: No Do you have trouble getting transportation to medical appointments?: No Do you have trouble paying your heating and electricity bill?: No Do you have trouble taking care of your child, family member or friend?: No Do you have trouble with day-to-day activities such as bathing, preparing meals, shopping, managing finances, etc.?: No Are you currently unemployed and looking for a job?: No Are you interested in more education?: No THRIVE Score: 0 AUDIT C Alcohol Use Questionnaire (AUDIT-C) 1. How often do you have a drink containing alcohol?: 2-3 times a week 2. How many drinks containing alcohol do you have on a typical day when you are drinking?: 3 or 4 3. How often do you have six or more drinks on one occasion?: Never Total Score: 4 Score Reviewed/Action Taken: Yes BHARTI-7 AMB Questionnaire BHARTI-7 Date BHARTI - 7 assessed: 06/13/24 Feeling nervous, anxious, or on edge: 0 = Not at all Not being able to stop or control worryin = Not at all Worrying too much about different things: 0 = Not at all Trouble relaxin = Not at all Being so restless that it is hard to sit still: 0 = Not at all Becoming easily annoyed or irritable: 0 = Not at all Feeling afraid as if something awful might happen: 0 = Not at all Total BHARTI-7 score (0-4 normal; 5-9 mild; 10-14 moderate; 15-21 severe): 0 Source: Developed by Drs. Greg Gutierrez, Noe Wright and colleagues, with an educational dima from [employer]. BHARTI-7 Assessment Billing BHARTI-7 Assessment Tool: BHARTI-7 Assessment 38248 Physical exam (Primary Care) Vital Signs: Last Vital Signs Temp 98.4 F 06/13/24 10:43 Pulse 58 06/13/24 10:43 BP 130/72 06/13/24 10:43 Pulse Ox 99 06/13/24 10:43 Oxygen Delivery Method Room Air 06/13/24 10:43 BMI result Body Mass Index 32.1 Tobacco/Smoking Status: Tobacco use Status Tobacco use date assessed 06/13/24 06/13/24 10:44 Patient Tobacco Use Status Never used Tobacco 06/13/24 10:44 Tobacco use type 12/12/23 13:34 e-Cigarette/Vaping Use Never Used 06/13/24 10:44 PHQ-9: PHQ-9 Score PHQ-9: Total score 0 06/13/24 11:48 Depression Screening Interpretation: Negative Thrive Assessment: Date of Thrive Assessment Date Thrive assessed 06/13/24 06/13/24 10:44 Const General: alert; No acute distress Eyes Conjunctivae: conjunctivae normal Resp Auscultation: clear to auscultation bilaterally Cardio Rate: regular rate Rhythm: regular rhythm GI Inspection: Yes normal to inspection Extrem General: Yes normal to inspection and No edema Coding Level of Care Code Est Pt Level 4 (84526) Complex EM visit Add On G2211 Diagnoses Atherosclerotic cardiovascular disease I25.10 Permanent atrial fibrillation I48.21 Chronic heart failure with preserved ejection fraction I50.32 Primary hypertension I10 Hypertension type: primary hypertension High cholesterol E78.00 Tubular adenoma of colon D12.6 Colon cancer screening Z12.11 Additional Codes BHARTI-7 Assessment Billing - BHATRI-7 Assessment Tool: BHARTI-7 Assessment 55772 ([id number]) PHQ-9 - 23507 - PHQ-9 Billing: Yes ([id number]) Assessment & Plan Assessment & Plan (1) Atherosclerotic cardiovascular disease: Code(s): I25.10 - Atherosclerotic heart disease of [place] coronary artery without angina pectoris Category: Medical Plan: Control the cholesterol, weight, blood pressure, diabetes patient on anticoagulation with Eliquis (2) Permanent atrial fibrillation: Code(s): I48.21 - Permanent atrial fibrillation Category: Medical Plan: Continue with anticoagulation and beta jimmy 150 mg of metoprolol once a day (3) Chronic heart failure with preserved ejection fraction: Code(s): I50.32 - Chronic diastolic (congestive) heart failure Category: Medical Plan: On beta jimmy and diuretic furosemide 40 mg once a day (4) 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): Code(s): I10 - Essential (primary) hypertension Category: Medical Qualifiers: Hypertension type: primary hypertension Qualified Code(s): I10 - Essential (primary) hypertension Plan: Continue with blood pressure medication. Decrease salt intake and exercise losartan 50 mg once a day metoprolol 150 mg once a day amlodipine 5 mg once a day (5) High cholesterol: Code(s): E78.00 - Pure hypercholesterolemia, unspecified Category: Medical Plan: Avoid fried foods, chicken skin, eggs, butter margarine, pastries and meat. Be it pork or beef they have a lot of cholesterol LDL goal of less than 70 and triglyceride of less than 150 on atorvastatin 80 (6) Tubular adenoma of colon: Comment: Dr. Arroyo July 2012 Code(s): D12.6 - Benign neoplasm of colon, unspecified Category: Medical Plan: Patient is reminded about colonoscopy (7) Colon cancer screening: Code(s): Z12.11 - Encounter for screening for malignant neoplasm of colon Category: Medical Plan History of Present Illness The patient is a 73-year-old male presenting with a follow-up visit for congestive heart failure management and weight gain. The patient reported a 19- pound weight gain attributed to late-night eating and consumption of high-sodium foods. He experiences worsening edema since starting amlodipine, alongside newly experienced shortness of breath. The patient has pre-existing conditions including coronary artery disease, congestive heart failure, hypercholest erolemia, hypertension, atrial fibrillation, carotid artery stenosis, and a history of alcohol abuse. His blood work showed chronic anemia, hyponatremia, and a mildly elevated blood sugar level. A fall resulted in a CT scan revealing cervical spondylosis. The patient plans to address his high-sodium diet and is considering another colonoscopy. His blood pressure remains stable at 132/78 mmHg. Health Maintenance - Blood pressure management with amlodipine initially, now considering dosage adjustment to Losartan - Recommendation for colonoscopy, as last conducted in 2012 - Patient informed of dietary adjustments to reduce sodium intake, specifically advising against high-sodium foods like ham and cold cuts - Attention to weight management through dietary change and monitoring - Discussion of increasing physical activity levels within tolerance to aid weight control and cardiovascular health - Encouragement to communicate medication compliance and management to ensure optimized treatment Social History - The patient has a history of alcohol abuse. - Current diet includes high-sodium foods such as ham and cold cuts, contributing to weight gain. - Reports reduced physical activity except for cycling, attempted to address shortness of breath during physical exertion like walking. - Discussion on lifestyle adjustments focusing on reducing sodium intake and incorporating more fresh foods. - Expressed openness to dietary changes, including increased consumption of fruits, vegetables, and lean protein. Review of Systems - Cardiovascular: Reports shortness of breath with exertion. - Musculoskeletal: Reports edema, particularly worsening following the initiation of amlodipine. - Gastrointestinal: Denies recent GI bleeding. - Neurological: Reports no new neurological deficits following fall and CT evaluation. - Respiratory: Denies chest pain, reports recent onset of shortness of breath. Physical Exam - Cardiovascular- Blood pressure 132/78 mm Hg - Extremities- Notable edema in feet, though less pronounced compared to recent exacerbations Results - Labs: Anemia with Hemoglobin 12.8 and Hematocrit 36.8, Hyponatremia at 132 mmol/L, BNP 318 pg/mL, Blood sugar mildly elevated - Imaging: CT of the cervical spine revealing diffuse moderate cervical spondylosis and multi-level mild to moderate neuroforaminal narrowing Plan To manage the patient's congestive heart failure symptoms and weight gain, I will discontinue amlodipine and increase the Losartan dose to improve blood pressure control without adding to his edema. The patient's diet will be adjusted to reduce sodium intake, focusing on fresh, healthy options instead of high-sodium foods like ham. Blood work should be repeated to monitor electrolytes and renal function. The patient will continue using compression stockings and elevating his extremities for edema control. Monitoring will be crucial to assess the effectiveness of the interventions and make further adjustments if necessary. Patient was informed and verbally consented to the use of an ambient scribe for clinic note documentation during this visit. Discussion Notes I discussed with the patient the necessity of addressing both congestive heart failure symptoms and weight gain, emphasizing the role of sodium intake in exacerbating his condition and the importance of medication adjustments to alleviate the resultant edema. I explained the rationale for stopping amlodipine, advising the patient to convey this to his manufacturing quality engineer as necessary due to the swelling side effect. I elaborated on dietary changes, recommending a transition to lower-sodium food options and stated this would assist in weight management and improve cardiovascular health. Risks and benefits of modifying antihypertensive medication were shared, along with adjusting Losartan dosage for more stable blood pressure control. I instructed the patient to prop his legs and use support stockings, ensuring these measures support edema management. I verified his understanding of the need for continued blood work follow-ups, particularly renal function, and the significance of colonoscopy scheduling, recognizing the last procedure was over ten years ago, to continue surveillance for colorectal disorders. Patient Instructions - Discontinue amlodipine and start Losartan 100 mg daily as per guidance. - Avoid foods high in sodium such as ham, cold cuts, and processed items. - Increase the intake of fruits, vegetables, lean proteins like chicken and fish. - Monitor daily weight and blood pressure if possible. - Elevate legs when sitting and use compression stockings to help manage edema. - Schedule a repeat colonoscopy as last performed in 2012. - Keep follow-up appointments for blood pressure check and medication review. - Call the clinic if experiencing increased shortness of breath or other worsening symptoms. - Follow fasting instructions for upcoming lab work to monitor electrolytes and renal function. Orders: Orders B Type Natriuretic Peptide Today I48.21 - Permanent atrial fibrillation Free T4 (Free Thyroxine) Today I48.21 - Permanent atrial fibrillation Thyroid Stimulating Hormone Today I48.21 - Permanent atrial fibrillation Vitamin B12 and Folate Today I48.21 - Permanent atrial fibrillation Complete Blood Count Auto Diff Today I48.21 - Permanent atrial fibrillation Comprehensive Met. Panel Today I48.21 - Permanent atrial fibrillation Lipid Panel Today E78.00 - Pure hypercholesterolemia, unspecified, I48.21 - Permanent atrial fibrillation Hemoglobin A1c Today I48.21 - Permanent atrial fibrillation Magnesium Today I48.21 - Permanent atrial fibrillation Referrals Gastroenterology Referral Z12.11 - Encounter for screening for malignant neoplasm of colon Medications: Changed From losartan 50 mg PO QAM 90 days 90 tabs 3RF Z12.11 - Encounter for screening for malignant neoplasm of colon To losartan 100 mg PO QAM 90 tabs 3RF 90 days Z12.11 - Encounter for screening for malignant neoplasm of colon Discontinued amlodipine Discontinued Reason: Doctor's Order 5 mg PO DAILY 90 tabs 3RF
[2024-06-13 10:43] VITALS: BP 130/72; PULSE 58; TEMP 36.9; O2SAT 99; BMI 32.1
--- OUTSIDE RECORDS SUMMARY | 2024-06-13 11:58 | XMS_ITS | Encounter Summary ---
Author Organization [facility] Address [address] [place] [address] Care Team Providers Care Peer Financial Counselor Name Role Phone EitherYing Primary Care Provider [phone] Encounter Details Date Type Department Care Team (Late st Contact Info) Description 06/01/2020 EpicOnHand Encounter [facility] Internal Medicine [place] [address] [address] Magdi Dos Santos, [address] [address] Social History Tobacco Use Types Packs/Day Years Used Date Smoking Tobacco: Never Smokeless Tobacco: Never Alcohol Use Standard Drinks/Week Comments Yes 0 (1 standard drink = 0.6 oz pur e alcohol) AUDIT-C Answer Date Recorded Frequency of Alcohol Consumption 2-3 times a wee k 06/09/2018 Average Number of Drinks Not on file 019 Frequency of Binge Drinking Not on file 05/20 PHQ-2 Answer Date Recorded PHQ-2 Total Score 0 04/16/2020 Sex and Gender Information Value Date Recorded Sex Assigned at Not on file Legal Sex Male 8:57 AM EDT Gender Identity Not on file Sexual Orientation Not on file documented as of this encounter Plan of Treatment Not on file documented as of this encounter Visit Diagnoses Not on filedocumented in this encounter Additional Health Concerns Assessment Noted Time PHQ-9 Depression Total Score: 0 04/16/19 21 12:59 PM EST documented as of this encounter Care Teams Peer Financial Counselor Relationship Specialty Start Date End Date Either, [address] [address] PCP - General 07/23/21 documented as of this encounter
--- OUTSIDE RECORDS SUMMARY | 2024-06-13 11:58 | XMS_ITS | Encounter Summary ---
Author Organization [facility] Address [address] [place] [address] Care Team Providers Care Roof Slater Name Role Phone EitherYing Primary Care Provider [phone] Encounter Details Date Type Department Care Team (Late st Contact Info) Description 03/31/2020 Scanned Document [facility] Internal Medicine [place] [address] [address] Samia Baugh MD [address] [address] Social History Tobacco Use Types [...] file 05/20 PHQ-2 Answer Date Recorded PHQ-2 Score 0 08/30/2018 Sex and Gender Information Value Date Recorded Sex Assigned at Not on file Legal Sex Male 8:57 AM EDT Gender Identity Not on file Sexual Orientation Not on file COVID-19 Exposure Response Date Recorded In the last month, have you been in contact with someone who was confirmed or suspected to have Coronavirus / COVID-19? No / Unsure 03/17/2020 2:02 PM EST documented as of this encounter Plan of Treatment Not on file documented as of this encounter Visit Diagnoses Not on filedocumented in this encounter Additional Health Concerns Assessment Noted Time PHQ-9 Depression Total Score: 0 12/19/19 19 10:41 AM EDT documented as of this encounter Care Teams Roof Slater Relationship Specialty Start Date End Date Either, [address] [address] PCP - General 07/23/21 documented as of this encounter
--- OUTSIDE RECORDS SUMMARY | 2024-06-13 11:58 | XMS_ITS | Clinical Summary ---
Author Organization [facility] Address [address] [place] [address] Care Team Providers Care Box Toe Stitcher Name Role Phone Unavailable Primary Care Provider Unavailabl e Source Comments PLEASE NOTE, if this patient is a minor, it may be UNLAWFUL to discuss sensitive information that is contained in these records (such as FAMILY PLANNING, MENTAL HEALTH or SUBSTANCE ABUSE) with the minor patient's parent or other person without the patient's specific authorization.[facility] Social History Tobacco Use Types Packs/Day Years Used Date Smoking Tobacco: Never Assessed Social Connections Answer Date Recorded Social Connections and Isolation 0 09/23/2020 Financial Resource Strain Answer Date R ecorded Financial Resource Strain 0 2020 Stress Answer Date Recorded Stress 0 09/23/2020 Physical Activity Answer Date Recorded Physical Activity 0 09/23/2020 Food Insecurity Answer Date Recorded Food 0 09/23/2020 Transportation Needs Answer Date Record ed Transportation 0 09/23/2020 Housing Stability Answer Date Recorded Housing 0 09/23/2020 Safety and Environment Answer Date Lyle rded Safety 0 09/23/2020 Utilities Answer Date Recorded Utilities 0 09/23/2020 Employment Answer Date Recorded Employment 0 09/23/2020 Sex and Gender Information Value Date Recorded Sex Assigned at Not on file Legal Sex Male 12:04 PM PDT Gender Identity Not on file Sexual Orientation Not on file Plan of Treatment Not on file
--- OUTSIDE RECORDS SUMMARY | 2024-06-13 11:58 | XMS_ITS | Clinical Summary ---
Author Organization [facility] Address [address] [place] [address] Care Team Providers Care Physician Assistant Certified Name Role Phone Samia Baugh MD Primary Care Provider [phone] Social History Tobacco Use Types Packs/Day Years Used Date Smoking Tobacco: Never Assessed Sex and Gender Information Value Date Recorded Sex Assigned at Not on file Gender Identity Not on file Sexual Orientation Not on file Plan of Treatment Health Maintenance Due Date Last Done Comments Hepatitis C Virus Screening 1950 DTaP/Tdap/Td Vaccines (1 - Tdap) 11/07/1971 Pneumococcal Vaccines 50+ (1 of 1 - PCV) 2002 Zoster (Shingles) Vaccine (1 of 2) 2002 Influenza Vaccine 10/20/2023 COVID-19 Vaccine ( - 2023-2 5 season) 2023 RSV Vaccine 60 years and old er and Patients (1 - 1-dose 75+ series) 11/07/2027 Colonoscopy 10/02/2028 10/02/2018 Hepatitis B Vaccines Aged Out No long er eligible based on patient's age to complete this topic Care Teams Physician Assistant Certified Relationship Specialty Start Date End Date Amauri, Samia, MD PCP - General Internal Medicine 08/30/18
--- OUTSIDE RECORDS SUMMARY | 2024-06-13 11:58 | XMS_ITS | Encounter Summary ---
Author Organization [facility] Address [address] [place] [address] Care Team Providers Care Do All Operator Name Role Phone EitherYing Primary Care Provider [phone] Encounter Details Date Type Department Care Team (Late st Contact Info) Description 03/28/2020 Scanned Document [place] [address] External, Provider Social History Tobacco Use Types Packs/Day Years [...] on file documented as of this encounter Procedures Procedure Name Priority Date/Time Associated Diagnosis Comments XRAY RESULT SCAN Routine 03/27/2020 documented in this encounter Results * Xray Result Scan (03/27/2020) us Provider External IMG SCAN REPORTS Final Result documented in this encounter Visit Diagnoses Not on filedocumented in this encounter Additional Health Concerns Assessment Noted Time PHQ-9 Depression Total Score: 0 12/19/19 19 10:41 AM EDT documented as of this encounter Care Teams Do All Operator Relationship Specialty Start Date End Date Either, [address] [address] PCP - General 07/23/21 documented as of this encounter
--- OUTSIDE RECORDS SUMMARY | 2024-06-13 11:58 | XMS_ITS | Encounter Summary ---
Author Organization [facility] Address [address] [place] [address] Care Team Providers Care Search Marketing Analyst Name Role Phone EitherYing Primary Care Provider Encounter Details Date Type Department Care Team (Late st Contact Info) Description 03/31/2020 Scanned Document [facility] Internal Medicine [place] [address] [address] Samia Baugh MD [address] [address] Social History Tobacco Use Types [...] documented as of this encounter Care Teams Search Marketing Analyst Relationship Specialty Start Date End Date Either, [address] [address] PCP - General 07/23/21 documented as of this encounter
--- OUTSIDE RECORDS SUMMARY | 2024-06-13 11:58 | XMS_ITS | Encounter Summary ---
Author Organization [facility] Address [address] [place] [address] Care Team Providers Care V Belt Inspector Name Role Phone Samia Baugh MD Primary Care Provider [phone] Encounter Details Date Type Department Care Team (Late st Contact Info) Description 10/02/2018 Scanned Document [facility] [address] [place] [address] Froylan Loyola MD Social History Tobacco Use Types Packs/Day Years Used Date Smoking Tobacco: Never Assessed Sex and Gender Information Value Date Recorded Sex Assigned at Not on file Gender Identity Not on file Sexual Orientation Not on file documented as of this encounter Plan of Treatment Not on file documented as of this encounter Visit Diagnoses Not on filedocumented in this encounter Care Teams V Belt Inspector Relationship Specialty Start Date End Date Samia Baugh MD PCP - General Internal Medicine 08/30/18 documented as of this encounter
--- OUTSIDE RECORDS SUMMARY | 2024-06-13 11:58 | XMS_ITS | Encounter Summary ---
Author Organization [facility] Address [address] [place] [address] Care Team Providers Care Rod Machine Operator Name Role Phone EitherYing Primary Care Provider [phone] Encounter Details Date Type Department Care Team (Late st Contact Info) Description 07/14/2020 Scanned Document [facility] Internal [facility] [place] [address] [address] Samia Baugh MD [address] [phone] Social History Tobacco Use Types [...] documented as of this encounter Care Teams Rod Machine Operator Relationship Specialty Start Date End Date Either, Ying [address] [place] [address] PCP - General 07/23/21 documented as of this encounter
--- OUTSIDE RECORDS SUMMARY | 2024-06-13 11:59 | XMS_ITS | Encounter Summary ---
Author Organization [facility] Address [address] [place] [address] Care Team Providers Care Pig Farmer Name Role Phone EitherYing Primary Care Provider [phone] Encounter Details Date Type Department Care Team (Late st Contact Info) Description 08/18/2021 Scanned Document [facility] [place] [address] Meghann Rodriguez MD [address] [place] [phone] Social History Tobacco Use Types Packs/Day Years [...] documented as of this encounter Care Teams Pig Farmer Relationship Specialty Start Date End Date Either, [address] [address] PCP - General 07/23/21 documented as of this encounter
--- OUTSIDE RECORDS SUMMARY | 2024-06-13 11:59 | XMS_ITS | Encounter Summary ---
Author Organization [facility] Address [address] [place] [address] Care Team Providers Care Checking Department Supervisor Name Role Phone EitherYing Primary Care Provider [phone] Encounter Details Date Type Department Care Team (Late st Contact Info) Description 07/13/2018 Scanned Document [facility] Internal Medicine [address] [address] External, Provider Social History Tobacco Use Types Packs/Day Years Used Date Smoking Tobacco: Never Smokeless Tobacco: Never Alcohol Use Standard Drinks/Week Comments Yes 0 (1 standard drink = 0.6 oz pur e alcohol) AUDIT-C Answer Date Recorded Frequency of Alcohol Consumption 2-3 times a wee k 06/09/2018 Average Number of Drinks Not on file 019 Frequency of Binge Drinking Not on file 05/20 Sex and Gender Information Value Date Recorded [...] Noted Time PHQ-9 Depression Total Score: 0 06/02/19 19 4:49 PM EDT documented as of this encounter Care Teams Checking Department Supervisor Relationship Specialty Start Date End Date EitherYing [address] [place] [address] PCP - General 07/23/21 documented as of this encounter
--- OUTSIDE RECORDS SUMMARY | 2024-06-13 11:59 | XMS_ITS | Encounter Summary ---
Author Organization [facility] Address [address] [place] [address] Care Team Providers Care Dishwashing Machine Repairer Name Role Phone EitherYing Primary Care Provider [phone] Encounter Details Date Type Department Care Team (Late st Contact Info) Description 10/02/2018 Documentation [place] [address] Meghann Rodriguez MD [address] [place] [phone] Social History Tobacco Use Types Packs/Day Years [...] on file documented as of this encounter Progress Notes * Joshua Higuera - 10/02/2018 9:37 AM EDT PPV out of office until 10/09 documented in this encounter Plan of Treatment Not on file documented as of this encounter Visit Diagnoses Not on filedocumented in this encounter Additional Health Concerns Assessment Noted Time PHQ-9 Depression Total Score: 0 06/02/19 19 4:49 PM EDT documented as of this encounter Care Teams Dishwashing Machine Repairer Relationship Specialty Start Date End Date Either, Ying [address] [place] [address] PCP - General 07/23/21 documented as of this encounter
--- OUTSIDE RECORDS SUMMARY | 2024-06-13 11:59 | XMS_ITS | Encounter Summary ---
Author Organization [facility] Address [address] [place] [address] Care Team Providers Care Registered Safety Engineer Name Role Phone EitherYing Primary Care Provider [phone] Encounter Details Date Type Department Care Team (Late st Contact Info) Description 08/13/2021 Scanned [place] [address] Meghann Rodriguez MD [address] [place] [phone] Social History Tobacco Use Types Packs/Day Years [...] documented as of this encounter Care Teams Registered Safety Engineer Relationship Specialty Start Date End Date Either, [address] [address] PCP - General 07/23/21 documented as of this encounter
--- OUTSIDE RECORDS SUMMARY | 2024-06-13 11:59 | XMS_ITS | Encounter Summary ---
Author Organization [facility] Address [address] [place] [address] Care Team Providers Care Federal Judge Name Role Phone EitherYing Primary Care Provider [phone] Encounter Details Date Type Department Care Team (Late st Contact Info) Description 08/18/2021 Scanned [place] [address] Meghann Rodriguez MD [address] [place] [phone] Social History Tobacco Use Types Packs/Day Years [...] documented as of this encounter Care Teams Federal Judge Relationship Specialty Start Date End Date Either, [address] [address] PCP - General 07/23/21 documented as of this encounter
--- OUTSIDE RECORDS SUMMARY | 2024-06-13 11:59 | XMS_ITS | Encounter Summary ---
Author Organization [facility] Address [address] [place] [address] Care Team Providers Care Mash Preparatory Operator Name Role Phone EitherYing Primary Care Provider [phone] Encounter Details Date Type Department Care Team (Late st Contact Info) Description 10/02/2018 Scanned Document [facility] Internal Medicine [address] [address] Froylan Loyola MD [address] [place] [phone] Social History Tobacco Use Types Packs/Day Years [...] Procedure Name Priority Date/Time Associated Diagnosis Comments HM COLONOSCOPY Routine 10/02/2018 documented in this encounter Results * HM COLONOSCOPY (10/02/2018) Froylan Loyola MD HEALTH MAINTENANCE Final R esult documented in this encounter Visit Diagnoses Not on filedocumented in this encounter Additional Health Concerns Assessment Noted Time PHQ-9 Depression Total Score: 0 06/02/19 19 4:49 PM EDT documented as of this encounter Care Teams Mash Preparatory Operator Relationship Specialty Start Date End Date Either, [address] [address] PCP - General 07/23/21 documented as of this encounter
--- OUTSIDE RECORDS SUMMARY | 2024-06-13 11:59 | XMS_ITS | Encounter Summary ---
Author Organization [facility] Address [address] [place] [address] Care Team Providers Care Skid Road Worker Name Role Phone EitherYing Primary Care Provider [phone] Encounter Details Date Type Department Care Team (Late st Contact Info) Description 07/18/2018 Scanned Document [facility] Card[facility] [address] [address] External, Provider Social History Tobacco Use Types [...] documented as of this encounter Care Teams Skid Road Worker Relationship Specialty Start Date End Date EitherYing [address] [place] [address] PCP - General 07/23/21 documented as of this encounter
--- OUTSIDE RECORDS SUMMARY | 2024-06-13 11:59 | XMS_ITS | Patient Health Record ---
Author Organization [facility] Address [address] [place] [address] Care Team Providers Care Outsewer Name Role Phone Martinez AWAN, Megha Primary Care Provider Unavail able Cameron Arroyo Jr Unavailable Valentina Bhandari MD Unavailable Unavailable Allergies Allergen (clinical drug ingredient) Drug/Non Drug Allergy documented on EMR Reaction Allergy Type Onset Date Status heparin Heparin Unknown Drug Allergy Active Reason For Referral No Information Medications Medication SIG (Take, Route, Frequency, Duration) Notes Start Date End Date Status Lovastatin Active hydroCHLOROthiazide Active Nadolol Active MiraLax (colon prep) 17 GM/SCOOP mixed with Gatorade or Crystal Light Orally begin at 5:00 p.m. the day before the procedure for 1 day 09/29/2022 Active Lisinopril 10 MG 1 tablet Orally Once a day for 30 day(s) Active Colyte with Flavor Packs 240 GM As directed Orally Over the specified time. for 1 day(s) 07/13/2012 03/21/2024 Active Metoprolol Succinate ER 200 MG 1 tablet Orally Once a day for 30 day(s) Active Allopurinol 100 MG Oral for 90 Active Furosemide 40 MG Oral for 60 A ctive Atorvastatin Calcium 80 MG 1 tablet Oral ly Once a day for 30 day(s) Active Nadolol Active hydroCHLOROthiazide Active Cyclobenzaprine HCl 10 MG Oral for 20 Active Warfarin Sodium 2 MG Oral for 90 Active Lovastatin Active Immunizations Vaccine Route Administration Date Status Comme nts Influenza Unknown 01/05/2022 Administered Social History Alcohol Screen Question Answer Notes Did you have a drink contain ing alcohol in the past year? Yes How often did you have a dri nk containing alcohol in the past year? 4 or more times a week (4 points) How many drinks did you have on a typical day when you were drinking in the past year? 3 or 4 drinks (1 point) How often did you have 6 or more drinks on one occasion in the past year? Never (0 point) Points 5 Interpretation Positive Problems Problem Type SNOMED Code ICD Code Onset Dates Problem Status W/U Status Risk Notes Problem 083136888 Colon cancer screening (Z12.11) Active confirmed Problem 899151155 shelter (current) use of anticoagulants (Z79.01) Active confirmed Problem 548315676 Personal history of colonic polyps (Z86.010) Active confirmed Problem [id number] shelter curr ent use of diuretic (Z79.899) Active confirmed Plan Of Treatment Future Test Test Name Order Date COLONOSCOPY 07/13/2012 COLONOSCOPY 09/29/2022 Insurance Providers Payer Name Payer Address Payer Phone Subscriber Number Group Number Insured Name Patient Relationship to Insured Coverage Start Date Coverage End Date [facility] [address] [address] [place] [address] [id number] BORA GOINS Self - patient is the insured Medical (General) History Medical History History ICD Code Hypertension Hypercholesterolemia Coronary disease/history of [place] Congestive heart failure Atrial fibrillation Osteoarthritis Colonoscopy 07/31, tubular adenoma, five- year followup Surgical History Surgery Date(Month/Year) Knee surgery Finger surgery Hernia repair x2 removal thyroglossal duct cyst CABG x3 2017 Left hip TAB 11/09 Toe amputation
--- OUTSIDE RECORDS SUMMARY | 2024-06-13 11:59 | XMS_ITS | Clinical Summary ---
Author Organization [facility] [address] [facility] Address [address] [place] [address] Care Team Providers Care Road Oiling Truck Driver Name Role Phone EitherYing Primary Care Provider [phone] Allergies Active Allergy Reactions Criticality Noted Date Comments Aspirin 02/08/2019 He is not on aspirin due to history of GI bleed, and since he is also on Eliquis. 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 Active gabapentin (NEURONTIN) 600 MG tablet TAKE 1 TABLET BY MOUTH DAILY 90 tablet 9 Active metoprolol succinate XL (TOPROL-XL) 50 mg 24 hr tablet Take 3 tablets (150 mg total) by mouth daily. Take with or immediately following a meal. 270 tablet 3 1 Active lisinopriL (PRINIVIL,ZESTR IL) 20 mg tablet Take 1 tablet (20 mg total) by mouth daily. 90 tablet 3 1 Active atorvastatin (LIPITOR) 80 mg tablet Take 1 tablet (80 mg total) by mouth daily. 90 tablet 3 1 Active allopurinoL (ZYLOPRIM) 100 mg tablet Take 1 tablet (100 mg total) by mouth daily. 90 tablet 1 1 Active oxyCODONE (ROXICODONE) 5 mg Immediate Release tablet TAKE 1 TABLET BY MOUTH TWICE DAILY NEEDED FOR PAIN. MAKE PRESCRIPTION LAST LONGER THAN 2 WEEKS IF YOU CAN. THANKS 2 Active sildenafiL (VIAGRA) 100 mg tablet 2 Active warfarin (COUMADIN) 2 mg tablet Take 2 mg by mouth 2 (two) times daily (0800, 1800). 2 Active meloxicam (MOBIC) 15 mg tablet Take 15 mg by mouth once. 2 Active furosemide (LASIX) 40 mg tablet Take 1.5 tablets (60 mg total) by mouth 2 (two) times daily. 180 tablet 2 2 Active Active Problems Problem Noted Date Diagnosed Date Congestive heart failure (HC Code) (HC CODE) Hyperlipidemia 06/06/2020 Polyneuropathy 04/16/2020 Other male erectile dysfunction 05/05/2018 Atrial fibrillation, unspecified type (HC Code) (HC CODE) 01/02/2018 Atrial fibrillation (HC Code) (HC CODE) 12/30/19 18 Coronary artery disease involving tazlina coronar y artery 12/29/2017 Essential hypertension 12/29/2017 S/P CABG x 3 12/29/2017 History of alcohol abuse 12/29/2017 Resolved Problems Problem Noted Date Diagnosed Date Resolved Date Elevated troponin 12/29/2017 03/03/2018 Anemia due to blood loss 12/27/2017 Gastrointestinal hemorrhage, unspecified gastrointestinal hemorrhage type 12/27/2017 018 Immunizations Name Administration Dates Next Due Influenza, high dose, quad, 0.7 mL, preservative free 04/16/2020 Influenza, high-dose, split virus, trivalent,(65Yr+),injectable, preservative free 03/03/2018 Pneumococcal conjugate PCV 13 03/03/2018 Family History Medical History Relation Name Comments Heart disease Father No Known Problems Mother Relation Name Status Comments Father Mother Social History Tobacco Use Types Packs/Day Years Used Date Smoking Tobacco: Never Smokeless Tobacco: Never Alcohol Use Standard Drinks/Week Comments Yes 0 (1 standard drink = 0.6 oz pur e alcohol) AUDIT-C Answer Date Recorded Frequency of Alcohol Consumption 2-3 times a henrie izzy 06/09/2018 Average Number of Drinks Not on file 019 Frequency of Binge Drinking Not on file 05/20 PHQ-2 Answer Date Recorded PHQ-2 Total Score 0 04/16/2020 Sex and Gender Information Value Date Recorded Sex Assigned at Not on file Legal Sex Male 8:57 AM EDT Gender Identity Not on file Sexual Orientation Not on file Last Filed Vital Signs Vital Sign Reading Time Taken Comments Blood Pressure 142/82 07/15/2021 3:22 PM EDT Pulse 90 07/15/2021 3:22 PM EDT Temperature 36.6 ??C (97.8 ??F) 04/16/2020 12:[address] Respiratory Rate 18 04/16/2020 12:58 PM EST Oxygen Saturation 96% 07/15/2021 3:22 PM EDT Inhaled Oxygen Concentration - - Weight 95.3 kg (210 lb) 07/15/2021 3:22 PM EDT Height 180.3 cm (5' 11 ) 07/15/2021 3:22 PM EDT Body Mass Index 29.29 07/15/2021 3:22 PM EDT Plan of Treatment Health Maintenance Due Date Last Done Comments Tetanus adult (Td q 10,TDAP once) 1972 Shingles vaccine (Shingrix) (1 of 2 - Shingrix (RZV) 2 Dose Standard Series) 2002 RSV Immunization (1 - Risk 60-74 years 1-dose series) 2012 Pneumococcal Vaccine (50+ years) (2 of 2 - PPSV23 or PCV20) 04/28/2018 03/03/2018 Diabetes screening 12/31/2022 01/01/2020, 1 04/27/2017, 12/30/2017, Additional history exists Lipid disorder screening 03/03/2023 03/03/2018 Influenza vaccine 10/20/2023 04/16/2020, 03/03/2018 Covid-19 vaccine series ( season) 2023 06/02/2020, 05/12/2020 Colon cancer screening, Colonoscopy 10/02/2028 10/02/2018 HIV screening Completed 03/03/2018 Hepatitis C screening Completed 03/03/2018 Aortic Aneurysm screening Completed 06/16/2018 Meningococcal Vaccine Aged Out No susanne jennifer eligible based on patient's age to complete this topic Procedures Procedure Name Priority Date/Time Associated Diagnosis Comments COMPREHENSIVE METABOLIC PANEL Routine 01/01/2020 5:25 PM EDT Coronary artery disease involving tazlina coronary artery of tazlina heart without angina pectoris Pure hypercholesterolemia HM COLONOSCOPY Routine 10/02/2018 US ABDOMINAL AORTA LIMITED Routine 06/16/2018 9:13 AM EDT Screening for AAA (abdominal aortic aneurysm) HIV-1/HIV-2 ANTIBODY/ANTIGEN SCREEN W/REFLEX (BH GH LMW YH) Routine 03/03/2018 11:23 AM EST Screening for HIV (human immunodeficiency virus) LIPID PANEL Routine 03/03/2018 11:23 AM EST Other hyperlipidemia HEPATITIS C AB WITH REFLEX TO HCV PCR Routine 03/03/2018 11:23 AM EST Need for hepatitis C screening test from Last 3 Months or Most Recently Relevant to Health Maintenance Results * (ABNORMAL) Comprehensive metabolic panel (01/01/2020 5:25 PM EDT) Sodium 133(L) 136 - 145 mmol/L 01/01/2020 9:[address] [facility] Comment:Test repeated and re sults verified. Potassium 4.7 3.5 - 5.1 mmol/L 01/01/2020 9:[address] [facility] Chloride 100 98 - 107 mmol/L 01/01/2020 9:[address] [facility] Comment:Test repeated and re sults verified. CO2 28 21 - 32 mmol/L 01/01/2020 9:[address] [facility] Comment:Test repeated and re sults verified. Anion Gap 5 5 - 15 mmol/L 01/01/2020 9:[address] [facility] Glucose 85 65 - 110 mg/dL 01/01/2020 9:[address] [facility] Comment: Non-fasting: ??65-110 mg/dL Fasting (minimum 6 hrs): ??65-99 mg/dL BUN 19(H) 7 - 18 mg/dL 01/01/2020 9:[address] [facility] Creatinine 1.09 0.70 - 1.30 mg/dL 01/01/2020 9:05 PM [facility] eGFR (-IRAQI) >60 >60 mL/min/1. 73m2 01/01/2020 9:05 PM [facility] eGFR (NON -Paraguayan) >60 >60 mL/min/1. 73m2 01/01/2020 9:05 PM [facility] Comment: (NOTE) ? These are estimated GFR values resulting from ? utilization of a calculation incorporating ? the best data available for input, but all ? assumptions may not be correct in every ? case. ??In addition, there are several ? situations (elderly over 70 years, , ? serious co morbidities, extremes ? of body size or nutritional status) which ? could contribute to a misleading result. ? Therefore, clinical correlation is advised ? to prevent arriving at an erroneous ? conclusion based solely on the calculation ? utilized. Calcium 9.3 8.5 - 10.1 mg/dL 01/01/2020 9:05 [facility] Total Protein 7.9 6.4 - 8.2 g/dL 01/01/2020 9:05 PM [facility] Albumin 4.2 3.4 - 5.0 g/dL 01/01/2020 9:05 PM [facility] Globulin 3.7 2.5 - 5.0 g/dL 01/01/2020 9:05 PM [facility] Total Bilirubin 0.5 <1.0 mg/dL 01/01/2020 9:05 PM [facility] Comment:Use of this assay is not recommended for patients undergoing treatment with Eltrombopag due to the potential for falsely elevated results. Alkaline Phosphatase 79 45 - 117 U/L 01/01/2020 9:05 PM [facility] Alanine Aminotransferase (ALT) 35 16 - 61 U/L 01/01/2020 9:[address] [facility] Aspartate Aminotransferase (AST) 27 15 - 37 U/L 01/01/2020 9:[address] [facility] Blood Venipuncture / Unknown 01/01/2020 5:25 PM EDT 01/01/2020 8:01 PM EDT Meghann Rodriguez MD LAB BLOOD ORDERABLES Final R esult [facility] [address] [place] [address] * COLONOSCOPY (10/02/2018) Froylan Loyola MD HEALTH MAINTENANCE Final R esult * US Abdominal Aorta Limited ([facility]) (06/16/2018 9:13 AM EDT) [facility] IP [phone] [facility] MAC ADDRESS 40:b0:34:1 a:89:d5 YPENDING SALE TO [facility] READING ZIP [id number] [place] [address] IMAGING Anatomical Region Laterality Modality Abdomen Ultrasound 06/16/2018 9:37 AM EDT Narrative 06/16/2018 9:37 [place] [address] US ABDOMINAL AORTA LIMITED ([facility]) BORA BARBOUR ? Sex: M ??: [id number] ?? Service Date: 2018-06-16 08:30:54 US ABDOMINAL AORTA LIMITED ([facility]) CLINICAL INDICATION: ?? SCREEN. ??HISTORY OF HEAVY SECOND HAND SMOKE AND FAMILY HX TECHNIQUE: ?? Ultrasound of the aorta performed utilizing barnett scale, color spectral Doppler technique. COMPARISON: ?? None FINDINGS:: Aorta dimensions are as follows (transverse versus AP): Proximal aorta: ??1.7 cm x 1.7 cm. Mid aorta: 1.6 cm x 1.6 cm. Distal aorta: ??1.5 cm x 1.6 cm. Right common iliac artery: ??1.3 cm x 1.3 cm. Left common iliac artery: ??1.1 cm x 1.0 cm Distal aortic peak systolic velocity measures 97 cm per second. No significant plaque is identified within the aorta. IMPRESSION: No aneurysm of the aortobi-iliac system. Aorta dimensions as reported. No significant plaque. Location: [place], [place] Signed By: Stone Clark MD, 09:37:09 Procedure Note Stone Clark MD - 06/16/[address] [address] US ABDOMINAL AORTA LIMITED ([facility]) BORA BARBOUR Sex: M : [id number] Service Date: 2018-06-16 08:30:54 US ABDOMINAL AORTA LIMITED ([facility]) CLINICAL INDICATION: SCREEN. HISTORY OF HEAVY SECOND HAND SMOKE AND FAMILY HX TECHNIQUE: Ultrasound of the aorta performed utilizing barnett scale, color spectral Doppler technique. COMPARISON: None FINDINGS:: Aorta dimensions are as follows (transverse versus AP): Proximal aorta: 1.7 cm x 1.7 cm. Mid aorta: 1.6 cm x 1.6 cm. Distal aorta: 1.5 cm x 1.6 cm. Right common iliac artery: 1.3 cm x 1.3 cm. Left common iliac artery: 1.1 cm x 1.0 cm Distal aortic peak systolic velocity measures 97 cm per second. No significant plaque is identified within the aorta. IMPRESSION: No aneurysm of the aortobi-iliac system. Aorta dimensions as reported. No significant plaque. Location: [place], [place] Signed By: Stone Clark MD, 09:37:09 Samia Baugh MD [facility] ORDERABLES Final Resul t * HIV-1/HIV-2 antibody/antigen screen w/reflex ([facility]) (03/03/2018 11:23 AM EST) HIV 1 and 2 Antibody/Antige n Screen Negative Negative 03/03/2018 4:10 PM [facility] Comment: If clinical concern for HIV infection remains, then re-screen at an appropriate interval. ??Patients may be non-reactive if p24 antigen or HIV antibodies have not yet developed. Blood specimen (specimen) Venipuncture / Unknown 03/03/2018 11:23 AM EST 03/03/2018 11:25 AM EST us Samia Baugh MD LAB BLOOD ORDERABLES Final Re sult Performing Organization Address [facility]/ZIP Co de Phone Number [facility] [address] [place] [address] * Hepatitis C Ab with reflex to HCV PCR (03/03/2018 11:23 AM EST) Pathologist [facility] Hepatitis C Antibody Negative Negative 03/03/2018 4:10 PM [facility] Blood specimen (specimen) Venipuncture / Unknown 03/03/2018 11:23 AM EST 03/03/2018 11:25 AM EST us Samia Baugh MD LAB BLOOD ORDERABLES Final Re sult Performing Organization Address [facility] Co de Phone Number [facility] [address] [place] [address] * Lipid panel (03/03/2018 11:23 AM EST) Pathologist [facility] Cholesterol 137 <200 mg/dL 03/03/2018 11:53 AM [facility] Comment: Cholesterol Reference Range: ? Desirable: ?? <200 mg/dL ? Borderline: ??200-240 mg/dL ? High Risk: ?? >240 mg/dL HDL 50 40-<60 mg/dL 03/03/2018 11:53 AM [facility] Comment: HDL Reference Range: Low: <40 High: > or = 60 Triglycerides 61 <150 mg/dL 03/03/2018 11:53 AM [facility] Comment: Triglyceride Reference Range: ?Normal: ? <150 mg/dL ?Borderline High: ??150-199 mg/dL ?High: ? 200-499 mg/dL ?Very High: ?>or= 500 mg/dL LDL Calculated 75 mg/dL 03/03/2018 11:53 AM EST [facility] Comment: LDL Reference Range: Optimal: ? <100 mg/dL Near/Above Optimal: ??100-129 mg/dL Borderline High: ? 130-159 mg/dL High: ?160-189 mg/dL Very High: ? >or= 190 mg/dL Blood specimen (specimen) Venipuncture / Unknown 03/03/2018 11:23 AM EST 03/03/2018 11:25 AM EST us Samia Baugh MD LAB BLOOD ORDERABLES Final Re sult [address] [phone] from Last 3 Months or Most Recently Relevant to Health Maintenance Insurance [employer] [facility] [facility] [facility] M[employer] Advance Directives * Full ACLS (Latest Code Status on File) Date Activated Date Inactivated Comments 12/27/2017 2:02 PM 12/30/2017 3:[address] Oiling Truck Driver Relationship Specialty Start Date End Date Either, [address] [address] PCP - General 07/23/21
--- OUTSIDE RECORDS SUMMARY | 2024-06-13 11:59 | XMS_ITS | Encounter Summary ---
Author Organization [facility] Address [address] [place] [address] Care Team Providers Care Senior Laboratory Technician Name Role Phone EitherYing Primary Care Provider [phone] Encounter Details Date Type Department Care Team (Late st Contact Info) Description 10/12/2019 Scanned Document [facility] [place] [address] [address] Samia Bauhg MD [address] [address] Social History Tobacco Use Types [...] documented as of this encounter Care Teams Senior Laboratory Technician Relationship Specialty Start Date End Date Either, [address] [address] PCP - General 07/23/21 documented as of this encounter
== END 2024-06-13 12:18 | disposition home or self-care (01) ==
LOC: HO.HMCH 10:18
PROVIDERS: PCP Internal Medicine; Visit Provider Internal Medicine
DX: I25.10 Atherosclerotic heart disease of native coronary artery without angina pectoris (principal); I48.21 Permanent atrial fibrillation; I50.32 Chronic diastolic (congestive) heart failure; I10 Essential (primary) hypertension; E78.00 Pure hypercholesterolemia, unspecified; D12.6 Benign neoplasm of colon, unspecified; Z12.11 Encounter for screening for malignant neoplasm of colon

== ENCOUNTER → 2024-06-13 10:17 | Outpatient (BNVA) | payer MEDICARE, MEDICAID, SELFPAY | PROVIDERS: PCP Internal Medicine; Visit Provider Internal Medicine | DX: I25.10 Atherosclerotic heart disease of native coronary artery without angina pectoris (principal); I48.21 Permanent atrial fibrillation; I11.0 Hypertensive heart disease with heart failure; I50.32 Chronic diastolic (congestive) heart failure; E78.00 Pure hypercholesterolemia, unspecified; D12.6 Benign neoplasm of colon, unspecified | CPT/HCPCS: 96127; 99212 ==

== ENCOUNTER 2024-09-20 13:27 | Outpatient (REF) | payer MEDICARE, MEDICAID, SELFPAY ==
--- NOTE | ~2024-09-20 | US_ITS ---
EXAMINATION: BILATERAL CAROTID ULTRASOUND WITH DOPPLER HISTORY: I65.23 - Occlusion and stenosis of bilateral carotid arteries COMPARISON: Comparison is made with the prior examination dated 07/19/2023. TECHNIQUE: Real time and Color and Spectral doppler ultrasonography of the carotid and vertebral arteries was performed in multiple planes. FINDINGS: There is a large amount of plaque in both internal carotid arteries. VERTEBRAL FLOW DIRECTION: Antegrade bilaterally. PEAK SYSTOLIC VELOCITIES (in cm/sec): RIGHT: CCA: Prox: 152 Dist: 160 ICA: Prox: 171 Mid: 180 Dist: 127 ICA/CCA Ratio: 1.11 ECA: 146 Peak ICA end diastolic velocity (EDV): 45 LEFT: CCA: Prox: 178 Dist: 119 ICA: Prox: 105 Mid: 130 Dist: 109 ICA/CCA Ratio: 0.73 ECA: 127 Peak ICA end diastolic velocity (EDV): 37.3 US/US carotid duplex BI IMPRESSION: Findings consistent with 50-79% stenosis of the right internal carotid artery and 0-49% stenosis of the left internal carotid artery. Electronically signed by: Greg Alcantar MD 09/20/2024 03:06 PM EDT
--- OUTSIDE RECORDS SUMMARY | 2024-09-20 13:35 | XMS_ITS | Clinical Summary ---
Author Organization [facility] Address [address] [place] [address] Care Team Providers Care Crane Crew Supervisor Name Role Phone Unavailable Primary Care Provider [...]
--- OUTSIDE RECORDS SUMMARY | 2024-09-20 13:35 | XMS_ITS | Encounter Summary ---
Author Organization [facility] Address [address] [place] [address] Care Team Providers Care Dry Cleaning Machine Operator Helper Name Role Phone Samia Baugh MD Primary Care Provider [phone] Encounter Details Date Type Department Care Team (Late st Contact Info) Description 10/02/2018 Scanned Document [facility] [address] [place] [address] Froylan Loyola MD Social History Tobacco Use Types Packs/Day Years Used Date Smoking Tobacco: Never Assessed Sex and Gender Information Value Date Recorded Sex Assigned at Not on file Legal Sex Male 11:01 AM EDT Gender Identity Not on file Sexual Orientation Not on file documented as of this encounter Plan of Treatment Not on file documented as of this encounter Visit Diagnoses Not on filedocumented in this encounter Care Teams Dry Cleaning Machine Operator Helper Relationship Specialty Start Date End Date Samia Baugh MD PCP - General Internal Medicine 08/30/18 documented as of this encounter
--- OUTSIDE RECORDS SUMMARY | 2024-09-20 13:35 | XMS_ITS | Encounter Summary ---
Author Organization [facility] Address [address] [place] [address] Care Team Providers Care Personal Lines Insurance Agent Name Role Phone Either, Ying Primary Care Provider [phone] Encounter Details Date Type Department Care Team (Late st Contact Info) Description 03/31/2020 Scanned Document [facility] Internal Medicine [address] [address] Samia Baugh MD [address] [place] [address] Social History Tobacco Use Types Packs/Day [...] documented as of this encounter Care Teams Personal Lines Insurance Agent Relationship Specialty Start Date End Date Either, [address] [address] PCP - General 07/23/21 documented as of this encounter
--- OUTSIDE RECORDS SUMMARY | 2024-09-20 13:36 | XMS_ITS | Patient Health Record ---
Author Organization [facility] Address [address] [place] [address] Care Team Providers Care Special Education Superintendent Name Role Phone Valentina Bhandari MD Primary Care Provider Cameron Topete Jr Unavailable Allergies Allergen (clinical drug ingredient) Drug/Non [...] Problem Status W/U Status Risk Notes Problem 382662209 Colon cancer screening (Z12.11) Active confirmed Problem 609181486 jail (current) use of anticoagulants (Z79.01) Active confirmed Problem 089477841 Personal history of colonic polyps (Z86.010) Active confirmed Problem [id number] medical terminologist curr ent use of diuretic (Z79.899) Active confirmed Encounters Encounter Location Date Provider Diagnosis [facility] [address] [facility] [address] [place] [address] 09/10/2024 Cameron Arroyo Jr Plan Of Treatment Future Test Test Name Order Date COLONOSCOPY 07/13/2012 COLONOSCOPY 09/29/2022 Next Appt Details Provider Name:Cameron zhang Jr, 12/20/2024 02:55:00 PM, [address] [place] [address], [address], [place], [address], Insurance Providers Payer Name Payer Address Payer Phone Subscriber Number Group Number Insured Name Patient Relationship to Insured Coverage Start Date Coverage End Date [employer] Medicare Advantage Plan [address] [address] [place] [address] [id number] BORA GOINS Self - patient is the insured MEDICAID OF [facility] [address] [place] [address] [phone] [id number] BORA GOINS Self - patient is the insured Medical (General) History Medical History History ICD Code Hypertension Hypercholesterolemia Coronary disease/history of HI Congestive heart failure Atrial fibrillation Osteoarthritis Colonoscopy 07/31, tubular adenoma, five- year followup Surgical History Surgery Date(Month/Year) Knee surgery Finger surgery Hernia repair x2 removal thyroglossal duct cyst CABG x3 2017 Left hip TAB 11/09 Toe amputation
== END 2024-09-20 13:28 | disposition home or self-care (01) ==
LOC: HO.US 13:27
PROVIDERS: PCP Internal Medicine; Visit Provider Surgery Vascular Surgery
DX: I65.23 Occlusion and stenosis of bilateral carotid arteries (principal)
CPT/HCPCS: 93880

== ENCOUNTER → 2024-09-20 13:49 | Outpatient (BNV) | payer MEDICARE, MEDICAID, SELFPAY | PROVIDERS: PCP Internal Medicine; Visit Provider Radiology Diagnostic Radiology | DX: I65.23 Occlusion and stenosis of bilateral carotid arteries (principal) | CPT/HCPCS: 93880 ==

== ENCOUNTER 2024-10-09 10:11 | Outpatient (AMB) | payer MEDICARE, MEDICAID, SELFPAY ==
--- NOTE | 2024-10-09 10:13 | A.OFFVIS_ITS ---
Intake Visit Reasons: 1y follow up s/p Carotid US 09/20/24 Intake Note: Patient presents for carotid US follow up performed on 09/20/24. No complaints. Accompanied by: Self / Same As Patient Allergies heparin (HEPARIN) Allergy (Intermediate, Verified 10/09/24 10:14) heparin induced thrombosis amlodipine Adverse Reaction (Intermediate, Verified 10/09/24 10:14) leg swelling lisinopril Adverse Reaction (Intermediate, Verified 10/09/24 10:14) Cough HPI HPI 1y follow up s/p Carotid US 09/20/24: Details: Very pleasant 73-year-old gentleman presents for annual surveillance follow-up regarding his carotids. This all began as a workup from Cardiology due to an episode of double vision in TIA. He subsequently underwent CT angiogram about a year ago. At that time he was found to have a proximally 60% stenosis on the right side. Other than that he has been doing fairly well. He will bikes several miles daily and remains quite active. He does admit to occasional marijuana use and occasionally drinks a beer. He is being maintained on Eliquis and high-dose statin. He currently cuts aspirin in half. [facility]LY [facility] Medical History Recurrent right inguinal hernia (04/14/23) Back pain [place] (acute kidney injury) Chronic heart failure with preserved ejection fraction Lower extremity edema Myocardial infarction GI bleed H/O thyroglossal duct cyst Atrial fibrillation Hypercholesteremia Gout CAD (coronary artery disease) Hx of detention use of blood thinners CHF (congestive heart failure) High cholesterol 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) Surgical History Hx of hernia repair S/P total left hip arthroplasty History of esophagogastroduodenoscopy (EGD) Hx of cardiac catheterization History of amputation of toe History of surgery H/O colonoscopy History of evacuation of hematoma S/P CABG x 3 Family History Father Heart disease Mother Emphysema of lung Social History Household Members: None Housing: Apartment Are you a primary long term acute care registered nurse to a significant other at home: No Do you presently have visiting nurse or other home services: No Alcohol intake: current Alcohol intake frequency: 3 or more drinks per day Alcohol type: beer Comment: counts correct Patient Tobacco Use Status: Never used Tobacco e-Cigarette/Vaping Use: Never Used Second Hand Smoke Exposure: No Substance Use Type: Marijuana service: No Current occupational status: retired Current occupational exposures/hazards: No Cognitive needs: Yes (Cane) Hearing needs: No Vision needs: No Review of Systems Const All systems reviewed & are unremarkable except as noted in HPI and below Reports no additional complaints ENT Reports Normal hearing present Card Denies chest pain, Denies chest pain at rest, Denies chest pain with activity and Denies pedal edema Resp Denies cough GI Denies abdominal pain Musc Denies abnormal gait, Denies muscle cramps and Denies radiating pain into limb Skin/Breast Denies skin ulcer and Denies wounds Neuro Reports Normal hearing present and Denies abnormal gait Psych Reports no additional complaints Physical Exam Const General: cooperative, healthy appearing and comfortable Orientation/consciousness: oriented to person, oriented to place and oriented to time HEENT Head: Yes normal to inspection Neck Neck: Yes normal visual inspection Carotids: no bruits Chest Chest palpation & inspection: normal inspection of the chest Resp Effort & Inspection: normal respiratory effort and able to speak in complete sentences Auscultation: clear to auscultation bilaterally, no crackles, no rales, no rhonchi and no wheezes Cardio Rate: regular rate Rhythm: regular rhythm Heart sounds: S1 normal heart sound present and S2 normal heart sound present Bruits: no carotid bruits Peripheral pulses: Peripheral pulses 2+ throughout GI Inspection: Yes normal to inspection Skin Wounds: no wounds Hair: normal Neuro General: oriented to person, oriented to place and oriented to time Cranial nerves: Yes CN's II-XII intact bilaterally and Yes Normal hearing present Cognition (Neuro): normal cognition Motor exam (neuro): 5/5 motor strength present throughout Extrem Other: venous exam: No significant superficial varicosities or spider telangiectasias, minimal edema General: No clubbing, No cyanosis and No edema Psych Appearance: grossly normal Mental Status: mental status grossly normal Speech and movement: Normal speech and movement present Results Reviewed Results Reviewed: Carotid ultrasound dated 09/20/2024 demonstrates 50-79% stenosis on the right with a peak systolic of 180. Left-sided 0-49% stenosis. Written report and images were reviewed. Assessment & Plan Assessment & Plan (1) Bilateral carotid artery stenosis: Code(s): I65.23 - Occlusion and stenosis of bilateral carotid arteries Category: Medical Plan: In short patient has asymptomatic carotid disease. We have reviewed signs and symptoms of a stroke. We also discussed risk factor modification inclusive a healthy diet low in cholesterol. I also discussed with him changing over to an 81 mg aspirin as opposed to cutting an aspirin and a half. The patient will follow up with us with surveillance ultrasound of the carotids 1 year. Should there be any changes or signs or symptoms of a stroke we will be happy to see them back sooner. Thank you for allowing us to participate in this patient's care. If there are any questions or concerns please do not hesitate to contact us. Orders: Orders US carotid duplex BI 1 Year I65.23 - Occlusion and stenosis of bilateral carotid arteries Coding Level of Care Code Est Pt Level 4 (85736) Diagnoses Bilateral carotid artery stenosis I65.23
--- OUTSIDE RECORDS SUMMARY | 2024-10-09 11:14 | XMS_ITS | Clinical Summary ---
Author Organization [facility] Address [address] [place] [address] Care Team Providers Care Cushion Stuffer Name Role Phone Samia Baugh MD Primary Care Provider [phone] Allergies Active Allergy Reactions Criticality Noted Date Comments Heparin Other (See Comments) 12/25/2019 Toe amputation Medications apixaban (ELIQUIS) 5 mg tablet Take 5 mg by mouth 2 (two) times a day. Active metoprolol tartrate (LOPRESSOR) 50 MG tablet Take 50 mg by mouth 2 (two) times a day. Active lisinopriL (PRINIVIL) 20 MG tablet Take 20 mg by mouth once daily. Active atorvastatin (LIPITOR) 20 MG tablet Take 20 mg by mouth at bedtime. Active sildenafiL (VIAGRA) 100 MG tablet Take 100 mg by mouth once daily. Active Active Problems No known active problems Social History Tobacco Use Types Packs/Day Years Used Date Smoking Tobacco: Never Smokeless Tobacco: Never Alcohol Use Standard Drinks/Week Comments Yes 0 (1 standard drink = 0.6 oz pur e alcohol) AUDIT-C Answer Date Recorded Q1: How often do you have a drink containing alc ohol? Monthly or less 12/25/2019 Average Number of Drinks Not on file 020 Frequency of Binge Drinking Not on file 08/2019 Sex and Gender Information Value Date Recorded Sex Assigned at Not on file Legal Sex Male 9:03 AM EDT Gender Identity Not on file Sexual Orientation Not on file Last Filed Vital Signs Vital Sign Reading Time Taken Comments Blood Pressure 144/76 12/28/2019 8:44 AM EDT Pulse 70 12/28/2019 8:44 AM EDT Temperature 36.3 C (97.3 F) 12/28/2019 8:44 AM EDT Respiratory Rate 12 12/28/2019 8:44 AM EDT Oxygen Saturation 98% 12/28/2019 8:44 AM EDT Inhaled Oxygen Concentration - - Weight - - Height - - Body Mass Index - - Plan of Treatment Not on file Insurance Care Teams Cushion Stuffer Relationship Specialty Start Date End Date Samia Baugh MD PCP - General Internal Medicine 12/25/19
--- OUTSIDE RECORDS SUMMARY | 2024-10-09 11:14 | XMS_ITS | Encounter Summary ---
Author Organization [facility] Address [address] [place] [id number] Care Team Providers Care Telescope Repairer Name Role Phone Samia Baugh MD Primary Care Provider [phone] Encounter Details Date Type Department Care Team (Late st Contact Info) Description 10/02/2018 Scanned Document [facility] [address] [place] [address] Froylan Loyola MD Social History Tobacco Use [...] on filedocumented in this encounter Care Teams Telescope Repairer Relationship Specialty Start Date End Date Samia Baugh MD PCP - General Internal Medicine 08/30/18 documented as of this encounter
--- OUTSIDE RECORDS SUMMARY | 2024-10-09 11:14 | XMS_ITS | Patient Health Record ---
Author Organization [facility] Address [address] [place] [address] Care Team Providers Care Api Developer Name Role Phone Valentina Bhandari MD Primary [...] Problem Status W/U Status Risk Notes Problem [id number] Colon cancer screening (Z12.11) Active confirmed Problem [id number] [facility] (current) use of anticoagulants (Z79.01) Active confirmed Problem [id number] Personal history of colonic polyps (Z86.010) Active confirmed Problem [id number] [facility] curr ent use of diuretic (Z79.899) Active confirmed Encounters Encounter Location Date Provider Diagnosis [facility] [address] [place] [address] 09/10/2024 Cameron Arroyo Jr Plan Of Treatment Future Test Test Name Order Date COLONOSCOPY 07/13/2012 COLONOSCOPY 09/29/2022 Next Appt Details Provider Name:Cameron zhang Jr, 12/20/2024 02:55:00 PM, [address] [place] [address], [address], [place], [address], Insurance Providers Payer Name Payer Address Payer Phone Subscriber Number Group Number Insured Name Patient Relationship to Insured Coverage Start Date Coverage End Date [employer] Medicare Advantage Plan [address] [address] [place] [address] [id number] BORA GOINS Self - patient is the insured MEDICAID OF [facility] [address] [place] [address] [id number] BORA GOINS Self - patient is the insured Medical (General) History Medical History History ICD Code Hypertension Hypercholesterolemia Coronary disease/history of MD Congestive heart failure Atrial fibrillation Osteoarthritis Colonoscopy 07/31, tubular adenoma, five- year followup Surgical History Surgery Date(Month/Year) Knee surgery Finger surgery Hernia repair x2 removal thyroglossal duct cyst CABG x3 2017 Left hip TAB 11/09 Toe amputation
--- OUTSIDE RECORDS SUMMARY | 2024-10-09 11:14 | XMS_ITS | Clinical Summary ---
Author Organization [facility] Address [address] [place] [address] Care Team Providers Care Hold Worker Name Role Phone Unavailable Primary Care Provider [...]
--- OUTSIDE RECORDS SUMMARY | 2024-10-09 11:14 | XMS_ITS | Encounter Summary ---
Author Organization [facility] Address [address] [place] [address] Care Team Providers Care Physician Practice Coordinator Name Role Phone Either, Ying Primary Care Provider [phone] Encounter Details Date Type Department Care Team (Late st Contact Info) Description 03/31/2020 Scanned Document [facility] Internal Medicine [address] [address] Samia Baugh MD [address] [place] [phone] Social History Tobacco Use Types Packs/Day [...] documented as of this encounter Care Teams Physician Practice Coordinator Relationship Specialty Start Date End Date Either, [address] [address] PCP - General 07/23/21 documented as of this encounter
== END 2024-10-09 10:34 | disposition home or self-care (01) ==
LOC: HO.HVS 10:11
PROVIDERS: PCP Internal Medicine; Visit Provider Surgery Vascular Surgery
DX: I65.23 Occlusion and stenosis of bilateral carotid arteries (principal)
CPT/HCPCS: 99214

== ENCOUNTER → 2024-10-09 10:11 | Outpatient (BNVA) | payer MEDICARE, MEDICAID, SELFPAY | PROVIDERS: PCP Internal Medicine; Visit Provider Surgery Vascular Surgery | DX: I65.23 Occlusion and stenosis of bilateral carotid arteries (principal); Z86.73 Personal history of transient ischemic attack (TIA), and cerebral infarction without residual deficits; Z79.01 Long term (current) use of anticoagulants; Z79.82 Long term (current) use of aspirin; Z79.899 Other long term (current) drug therapy | CPT/HCPCS: 99212 ==

== ENCOUNTER 2024-12-03 15:18 | Outpatient (AMB) | payer MEDICARE, MEDICAID, SELFPAY ==
--- OUTSIDE RECORDS SUMMARY | 2024-09-10 09:35 | XMS_ITS ---
Author Organization [facility] Address [address] [place] [address] Care Team Providers Care Line Out Man Name Role Phone Valentina Bhandari MD Primary Care Provider Cameron Topete Jr REASON FOR VISIT colon screening Encounters Encounter Location Date Provider Diagnosis [facility] [address] [place] [address] 09/10/2024 Cameron Arroyo Jr Plan Of Treatment Next Appt Details Provider Name:Cameron zhang Jr, 12/20/2024 02:55:00 PM, [address] [facility], [address], [place], [address], Progress Notes * VICTORINO GOINSOB:1950 (74 yo M)Acc No.[id number]:09/10/2024 Progress Notes Patient: BORA KIDD Provider: Pat Arroyo MD :1950 A ge:73 Y S ex:Male Date:09/10/2024 Address:[address] [place] [address] Pcp:Valentina Bhandari MD Subjective: * Chief Complaints: [...] 0 09/10/2024 Generated for Ab orta/Kendra/Leniitting on: 0 12/03/2024 08:44 PM EDT
[2024-12-03 15:33] VITALS: BP 138/78; PULSE 76; O2SAT 97; BMI 32.5
--- NOTE | 2024-12-03 15:33 | MHC.PC.OV ---
Vital Signs 12/03/24 15:33 Height 5 ft 8 in Weight 214 lb BMI 32.5 BP 138/78 Blood Pressure Location Lt brachial Position Sitting Pulse 76 Pulse Source Pulse Oximeter Pulse Oximetry (%) 97 Oxygen Delivery Method Room Air Intake Visit Reasons: 6 month f/u Allergies heparin (HEPARIN) Allergy (Intermediate, Verified 12/03/24 15:33) heparin induced thrombosis amlodipine Adverse Reaction (Intermediate, Verified 12/03/24 15:33) leg swelling lisinopril Adverse Reaction (Intermediate, Verified 12/03/24 15:33) Cough Medication List - Last Reconciled 12/03/24 by Valentina Bhandari MD acetaminophen (Tylenol Extra Strength) 1,000 mg (2 x 500 mg) PO QID PRN allopurinol 100 mg PO QAM apixaban (Eliquis) 5 mg PO BID ascorbate calcium (vitamin C) 500 mg PO QAM aspirin 81 mg PO DAILY atorvastatin 80 mg PO QAM cholecalciferol (vitamin D3) (Vitamin D3) 10 mcg PO QAM furosemide 20 mg PO QPM furosemide 40 mg PO QAM gabapentin 600 mg PO DAILY PRN [left shoulder sling As directed] losartan 100 mg PO QAM 90 days metoprolol succinate ER 150 mg (3 x 50 mg) PO QAM sildenafil 100 mg PO DAILY PRN tizanidine 8 mg (2 x 4 mg) PO Q8H PRN 30 days Tobacco use date assessed: 06/13/24 Fall risk assessment: No Falls in past year Last assessed Fall Risk: 12/03/24 Dental Screening Dental Screen Date: 06/13/24 [facility] Medical History (Updated 12/03/24 @ 15:46 by Valentina Bhandari MD) Preoperative cardiovascular examination Carotid artery narrowing Permanent atrial fibrillation Recurrent right inguinal hernia (04/14/23) Back pain SE[place]STI[place]N (acute kidney injury) Chronic heart failure with preserved ejection fraction Lower extremity edema Myocardial infarction GI bleed H/O thyroglossal duct cyst Atrial fibrillation Hypercholesteremia Gout CAD (coronary artery disease) Hx of retirement use of blood thinners CHF (congestive heart failure) High cholesterol 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) Surgical History Hx of hernia repair S/P total left hip arthroplasty History of esophagogastroduodenoscopy (EGD) Hx of cardiac catheterization History of amputation of toe History of surgery H/O colonoscopy History of evacuation of hematoma S/P CABG x 3 Family History Father Heart disease Mother Emphysema of lung Social History Household Members: None Housing: Apartment Are you a primary med care manager to a significant other at home: No Do you presently have visiting nurse or other home services: No Alcohol intake: current Alcohol intake frequency: 3 or more drinks per day Alcohol type: beer Comment: counts correct Patient Tobacco Use Status: Never used Tobacco Tobacco use type: Cigarette e-Cigarette/Vaping Use: Never Used Second Hand Smoke Exposure: No Substance Use Type: Marijuana service: No Current occupational status: retired Current occupational exposures/hazards: No Cognitive needs: Yes (Cane) Hearing needs: No Vision needs: No Questionnaire PHQ-9 Over the last 2 weeks, how often have you been bothered by any of the following problems? 1. Little interest or pleasure in doing things: not at all 2. Feeling down, depressed, or hopeless: not at all 3. Trouble falling or staying asleep, or sleeping too much: not at all 4. Feeling tired or having little energy: not at all 5. Poor appetite or overeating: not at all 6. Feeling bad about yourself - or that you are a failure or have let yourself or your family down: not at all 7. Trouble concentrating on things, such as reading the newspaper or watching television: not at all 8. Moving or speaking so slowly that other people could have noticed. Or the opposite - being so fidgety or restless that you have been moving around a lot more than usual: not at all 9. Thoughts that you would be better off or of hurting yourself in some way: not at all Total score: 0 Depression Screening Interpretation: Negative Depression Screening Done: Yes Source: Developed by Drs. Greg Gutierrez, Cami Jones, Noe Covington and colleagues, with an educational dima from [employer]. Thrive Questionnaire Date Thrive assessed: 06/13/24 I am a: Patient What is your living situation today?: I have a steady place to live Within the past 12 months, did the food you bought not last and you didn't have the money to get more?: Never true Within the past 12 months, did you worry whether your food would run out before you got money to buy more?: Never true Do you have trouble paying for medicines?: No Do you have trouble getting transportation to medical appointments?: Yes Do you have trouble paying your heating and electricity bill?: No Do you have trouble taking care of your child, family member or friend?: No Do you have trouble with day-to-day activities such as bathing, preparing meals, shopping, managing finances, etc.?: No Are you currently unemployed and looking for a job?: No Are you interested in more education?: No Please select the resources that you would like help with: Food and Transportation Currently or been in a relationship where the following occur: No concerns reported THRIVE Score: 1 AUDIT C Alcohol Use Questionnaire (AUDIT-C) 1. How often do you have a drink containing alcohol?: 2-4 times a month 2. How many drinks containing alcohol do you have on a typical day when you are drinking?: 3 or 4 3. How often do you have six or more drinks on one occasion?: Never Total Score: 3 BHARTI-7 AMB Questionnaire BHARTI-7 Date BHARTI - 7 assessed: 06/13/24 Feeling nervous, anxious, or on edge: 0 = Not at all Not being able to stop or control worryin = Not at all Worrying too much about different things: 0 = Not at all Trouble relaxin = Not at all Being so restless that it is hard to sit still: 0 = Not at all Becoming easily annoyed or irritable: 0 = Not at all Feeling afraid as if something awful might happen: 0 = Not at all Total BHARTI-7 score (0-4 normal; 5-9 mild; 10-14 moderate; 15-21 severe): 0 Source: Developed by Drs. Greg Gutierrez, Cami Jones, Noe Covington and colleagues, with an educational dima from [employer]. Physical exam (Primary Care) Vital Signs: Last Vital Signs Pulse 76 12/03/24 15:33 BP 138/78 12/03/24 15:33 Pulse Ox 97 12/03/24 15:33 Oxygen Delivery Method Room Air 12/03/24 15:33 BMI result Body Mass Index 32.5 Tobacco/Smoking Status: Tobacco use Status Tobacco use date assessed 06/13/24 12/03/24 15:33 Patient Tobacco Use Status Never used Tobacco 12/03/24 15:33 Tobacco use type Cigarette 12/03/24 15:38 e-Cigarette/Vaping Use Never Used 12/03/24 15:33 PHQ-9: PHQ-9 Score PHQ-9: Total score 0 12/03/24 15:44 Depression Screening Interpretation: Negative Thrive Assessment: Date of Thrive Assessment Date Thrive assessed 06/13/24 12/03/24 15:33 Currently or been in a relationship where the following occur: No concerns reported Const General: alert; No acute distress Eyes Conjunctivae: conjunctivae normal Resp Auscultation: clear to auscultation bilaterally Cardio Rate: regular rate Rhythm: regular rhythm GI Inspection: Yes normal to inspection Extrem General: Yes normal to inspection and No edema Coding Level of Care Code Est Pt Level 4 (65952) Complex EM visit Add On G2211 Diagnoses Primary hypertension I10 Hypertension type: primary hypertension Coronary artery disease involving coronary bypass graft of [place] heart without angina pectoris I25.810 Associated angina: without angina Coronary Disease-Associated Artery/Lesion type: bypass graft [place] vs. transplanted heart: [place] heart Persistent atrial fibrillation I48.19 Atrial fibrillation type: persistent (not longstanding) Chronic heart failure with preserved ejection fraction I50.32 Bilateral carotid artery stenosis I65.23 High cholesterol E78.00 Elevated glucose R73.09 Tubular adenoma of colon D12.6 Anemia D64.9 Assessment & Plan Assessment & Plan (1) 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): Code(s): I10 - Essential (primary) hypertension Category: Medical Qualifiers: Hypertension type: primary hypertension Qualified Code(s): I10 - Essential (primary) hypertension Plan: Continue with blood pressure medication. Decrease salt intake and exercise patient is on losartan 100 mg once a day metoprolol 150 mg once a day (2) CAD (coronary artery disease): Comment: follows w/[facility]-prior curer acid drum was Dr.Pradnya Rodriguez ([place], [place] [phone]) Code(s): I25.10 - Atherosclerotic heart disease of [place] coronary artery without angina pectoris Category: Medical Qualifiers: Associated angina: without angina Coronary Disease-Associated Artery/Lesion type: bypass graft [place] vs. transplanted heart: [place] heart Qualified Code(s): I25.810 - Atherosclerosis of coronary artery bypass graft(s) without angina pectoris Plan: Control the cholesterol, weight, blood pressure, patient is presently on Eliquis apixaban 5 mg twice a day (3) Atrial fibrillation: Comment: January 2023 echocardiogram-normal LV ejection fraction of 65-70% 2. Moderately dilated left atrium 3. No significant abnormalities of cardiac valvular Dopplers with calcific aortic valve and mitral annular calcification noted 4. No gross pericardial effusion Code(s): I48.91 - Unspecified atrial fibrillation Category: Medical Qualifiers: Atrial fibrillation type: persistent (not longstanding) Qualified Code(s): I48.19 - Other persistent atrial fibrillation Plan: Continue with anticoagulation. Patient will need blood work (4) Chronic heart failure with preserved ejection fraction: Code(s): I50.32 - Chronic diastolic (congestive) heart failure Category: Medical Plan: On furosemide patient needs to get blood work done (5) Bilateral carotid artery stenosis: Code(s): I65.23 - Occlusion and stenosis of bilateral carotid arteries Category: Medical Plan: Patient has seen vascular and will continue surveillance (6) High cholesterol: Code(s): E78.00 - Pure hypercholesterolemia, unspecified Category: Medical Plan: Avoid fried foods, chicken skin, eggs, butter margarine, pastries and meat. Be it pork or beef they have a lot of cholesterol LDL goal of less than 70 and triglyceride of less than 150 (7) Elevated glucose: Code(s): R73.09 - Other abnormal glucose Category: Medical Plan: Patient needs blood work (8) Tubular adenoma of colon: Comment: Dr. Arroyo July 2012 Code(s): D12.6 - Benign neoplasm of colon, unspecified Category: Medical Plan: Reminded about colonoscopy (9) Anemia: Code(s): D64.9 - Anemia, unspecified Category: Medical Plan: Continue to monitor. Plan History of Present Illness The patient is a 74-year-old male presenting for a follow-up visit. The patient has a history of congestive heart failure with preserved ejection fraction, coronary artery disease, hypercholesterolemia, hypertension, and atrial fibrillation. He has been on medications including losartan, metoprolol, and apixaban, and has been advised to take aspirin 81 mg daily. The patient was seen by a vascular specialist for carotid artery stenosis and is currently asymptomatic. Surveillance of the carotids will continue, and the patient is advised to take aspirin 81 mg daily. The patient has a history of tubular adenoma of the colon, with the last colonoscopy performed in 2012. He has been reminded of the need for a follow-up colonoscopy. The patient has experienced a 10-pound weight loss since May, attributed to lifestyle changes including reduced alcohol intake and increased physical activity, such as biking. He reports riding his bike three to four miles daily and has been drinking less alcohol, which he attributes to his weight loss. The patient has a history of anemia and hyponatremia, with the last blood work showing hemoglobin at 12.8 g/dL and sodium levels indicating hyponatremia. His renal function and liver function were normal, and LDL cholesterol was at 42 mg/dL. The patient has a history of minor strokes and reports experiencing occasional headaches when stressed, which he is managing by controlling his temper. Health Maintenance - Colonoscopy reminder for colon cancer screening - Vaccinations discussed: flu, COVID, shingles - Lifestyle modifications: Reduced alcohol intake, increased physical activity Social History - Exercise: Patient rides a bike three to four miles daily. - Alcohol use: Reduced intake, previously consumed more alcohol. - Living situation: Lives with girlfriend who is supportive of his health management. Review of Systems - Cardiovascular: Denies chest pain, reports history of atrial fibrillation. - Neurological: Reports occasional headaches when stressed, denies other neurological symptoms. Physical Exam Results - Labs: Hemoglobin 12.8 g/dL, sodium levels indicating hyponatremia, LDL cholesterol 42 mg/dL. - Imaging: Echocardiogram in 2022 with ejection fraction of 65-70%. Plan Patient was informed and verbally consented to the use of an ambient scribe for clinic note documentation during this visit. 1. Congestive Heart Failure The patient has a history of congestive heart failure with preserved ejection fraction. Current management includes medications such as losartan and metoprolol. 2. Coronary Artery Disease The patient is advised to take aspirin 81 mg daily for coronary artery disease management. 3. Atrial Fibrillation The patient is on apixaban for anticoagulation due to atrial fibrillation. 4. Carotid Artery Stenosis The patient is asymptomatic for carotid artery stenosis and will continue with surveillance. 5. Anemia The patient has a history of anemia with a hemoglobin level of 12.8 g/dL. 6. Hyponatremia The patient has a history of hyponatremia with normal renal function. 7. Tubular Adenoma Of The Colon The patient has a history of tubular adenoma of the colon and is due for a follow-up colonoscopy. 8. Preventative Care Preventative care measures include vaccinations for flu, COVID, and shingles, and lifestyle modifications such as reduced alcohol intake and increased physical activity. Discussion Notes During the visit, we discussed the management of the patient's cardiovascular conditions, including the continuation of aspirin and apixaban for coronary artery disease and atrial fibrillation, respectively. We also reviewed the importance of surveillance for carotid artery stenosis and the need for regular blood work to monitor anemia and hyponatremia. Preventative care measures, including vaccinations and lifestyle modifications, were emphasized to support overall health. Patient Instructions - Continue taking aspirin 81 mg daily as advised. - Maintain current medications including losartan, metoprolol, and apixaban. - Schedule and complete follow-up colonoscopy. - Get flu, COVID, and shingles vaccinations as discussed. - Continue lifestyle modifications: reduce alcohol intake and maintain physical activity. - Monitor for any new symptoms and report them promptly. Orders: Orders CA echo transthoracic complete Today I50.32 - Chronic diastolic (congestive) heart failure Medications: New amlodipine 5 mg PO DAILY 90 tabs 3RF I50.32 - Chronic diastolic (congestive) heart failure aspirin 81 mg PO DAILY 90 tabs 0RF I50.32 - Chronic diastolic (congestive) heart failure
--- OUTSIDE RECORDS SUMMARY | 2024-12-03 20:44 | XMS_ITS | Encounter Summary ---
Author Organization [facility] Address [address] [place] [address] Care Team Providers Care Program And Research Coordinator Name Role Phone EitherYing Primary Care Provider [phone] Encounter Details Date Type Department Care Team (Late st Contact Info) Description 08/18/2021 Scanned Document [facility] [address] [place] [address] Meghann Rodriguez MD [address] [place] [address] [address] [place] [address] Social History Tobacco Use Types Packs/Day Years [...] documented as of this encounter Care Teams Program And Research Coordinator Relationship Specialty Start Date End Date Ying Darden [address] [place] [address] [phone] PCP - General 07/23/21 documented as of this encounter
--- OUTSIDE RECORDS SUMMARY | 2024-12-03 20:44 | XMS_ITS | Clinical Summary ---
Author Organization [facility] [address] [facility] Address [address] [place] [address] Care Team Providers Care Rn Residential Name Role Phone Either, Ying Primary Care Provider [phone] Allergies Active Allergy Reactions Criticality Noted Date [...] Diagnosed Date Congestive heart failure (HC Code) 06/06/2020 Hyperlipidemia 06/06/2020 Polyneuropathy 04/16/2020 Other male erectile dysfunction 05/05/2018 Atrial fibrillation, unspecified type (HC Code) 01/02/2018 Atrial fibrillation (HC Code) 12/29/2017 Coronary artery disease involving solomon coronar y artery 12/29/2017 Essential hypertension 12/29/2017 S/P CABG x 3 12/29/2017 History of alcohol abuse 12/29/2017 Resolved Problems Problem Noted Date Diagnosed Date Resolved Date Elevated troponin 12/29/2017 03/03/2018 Anemia due to blood loss 12/27/2017 Gastrointestinal hemorrhage, unspecified gastrointestinal hemorrhage type 12/27/2017 018 Immunizations Immunization Administration Dates Next Due Influenza, high dose, [...] 90 07/15/2021 3:22 PM EDT Temperature 36.6 C (97.8 F) 04/16/2020 12:58 PM EST Respiratory Rate 18 04/16/2020 12:58 PM EST [...] Shingrix (RZV) 2 Dose Standard Series) 2002 Pneumococcal Vaccine (50+ years) (2 of 2 - PPSV23) 03/03/2019 03/03/2018 Diabetes screening 12/31/2022 01/01/2020, 1 04/27/2017, 12/30/2017, Additional history exists Lipid disorder screening 03/03/2023 03/03/2018 Covid-19 vaccine series ( season) 2024 06/02/2020, 05/12/2020 Influenza vaccine 11/19/2024 04/16/2020, 03/03/2018 RSV Immunization (1 - 1-dose 75+ series) 11/07/2027 Colon cancer screening, Colonoscopy 10/02/2028 10/02/2018 HIV screening Completed 03/03/2018 Hepatitis C screening Completed 03/03/2018 Aortic Aneurysm screening Completed 06/16/2018 Meningococcal B Vaccine Aged Out No l onger eligible based on patient's age to complete this topic Meningococcal Vaccine Aged Out No susanen jennifer eligible based on patient's age to complete this topic Procedures Procedure Name Priority Date/Time Associated Diagnosis Comments COMPREHENSIVE METABOLIC PANEL Routine 01/01/2020 5:25 PM EDT Coronary artery disease involving solomon coronary artery of solomon heart without angina pectoris Pure hypercholesterolemia COLONOSCOPY Routine 10/02/2018 ABDOMINAL AORTA LIMITED Routine 06/16/2018 9:13 AM [...] 9:[address] [facility] Comment:Test repeated and re sults verified. Potassium 4.7 3.5 - 5.1 mmol/L 01/01/2020 9:[address] [facility] Chloride 100 98 - 107 mmol/L 01/01/2020 9:[address] [facility] Comment:Test repeated and re sults verified. CO2 28 21 - 32 mmol/L 01/01/2020 9:[address] [facility] Comment:Test repeated and re sults verified. Anion Gap 5 5 - 15 mmol/L 01/01/2020 9:[address] [facility] Glucose 85 65 - 110 mg/dL 01/01/2020 9:[address] [facility] Comment: Non-fastin-110 mg/dL Fasting (minimum 6 hrs): 65-99 mg/dL BUN 19(H) 7 - 18 mg/dL 01/01/2020 9:[address] [facility] Creatinine 1.09 0.70 - 1.30 mg/dL 01/01/2020 9:[address] [facility] eGFR (-SPANISH) >60 >60 mL/min/1. 73m2 01/01/2020 9:[address] [facility] eGFR (NON -Mongolian) >60 >60 mL/min/1. 73m2 01/01/2020 9:[address] [facility] Comment: (NOTE) These are estimated GFR values resulting from utilization of a calculation incorporating the best data available for input, but all assumptions may not be correct in every case. In addition, there are several situations (elderly over 70 years, , serious co morbidities, extremes of body size or nutritional status) which could contribute to a misleading result. Therefore, clinical correlation is advised to prevent arriving at an erroneous conclusion based solely on the calculation utilized. Calcium 9.3 8.5 - 10.1 mg/dL 01/01/2020 9:[address] [facility] Total Protein 7.9 6.4 - 8.2 g/dL 01/01/2020 9:[address] [facility] Albumin 4.2 3.4 - 5.0 g/dL 01/01/2020 9:[address] [facility] Globulin 3.7 2.5 - 5.0 g/dL 01/01/2020 9:[address] [facility] Total Bilirubin 0.5 <1.0 mg/dL 01/01/2020 9:[address] [facility] Comment:Use of this assay is not recommended for patients undergoing treatment with Eltrombopag due to the potential for falsely elevated results. Alkaline Phosphatase 79 45 - 117 U/L 01/01/2020 9:[address] [facility] Alanine Aminotransferase (ALT) 35 16 - 61 U/L 01/01/2020 9:[address] [facility] Aspartate Aminotransferase (AST) 27 15 - 37 U/L 01/01/2020 9:[address] [facility] Blood Venipuncture / Unknown 01/01/2020 5:25 PM EDT 01/01/2020 8:01 PM EDT Meghann Rodriguez MD LAB BLOOD ORDERABLES Final R esult [facility] [address] [place] [address] * HM COLONOSCOPY (10/02/2018) Froylan Loyola MD HEALTH MAINTENANCE Final R esult * US Abdominal Aorta Limited ([facility]) (06/16/2018 9:13 AM EDT) [facility] READ[facility] IP [phone] [facility] MAC ADDRESS 40:b0:34:1 a:89:d5 [facility] [place] ZIP [phone] [facility] Anatomical Region Laterality Modality Abdomen Ultrasound 06/16/2018 9:37 AM EDT Narrative 06/16/2018 9:37 AM EDT [place] [phone] US ABDOMINAL AORTA LIMITED ([facility]) BORA GOINS Sex: M : [id number] Service Date: 2018-06-16 08:30:54 US ABDOMINAL AORTA LIMITED ([facility]) CLINICAL INDICATION: SCREEN. HISTORY OF HEAVY SECOND [...] dimensions as reported. No significant plaque. Location: [place], [place] Signed By: Stone Clark MD, 09:37:09 Procedure Note Stone Clark MD - 06/16/[address] [address] US ABDOMINAL AORTA LIMITED ([facility]) BORA BRISEIDA Sex: M : [id number] Service Date: 2018-06-16 08:30:54 US ABDOMINAL AORTA LIMITED ( [facility] ) CLINICAL INDICATION: SCREEN. HISTORY OF HEAVY SECOND [...] dimensions as reported. No significant plaque. Location: [place], [place] Signed By: Stone Clark MD, 09:37:09 Samia Baugh MD G US ORDERABLES Final Resul t * HIV-1/HIV-2 antibody/antigen screen w/reflex ([facility]) (03/03/2018 11:23 AM EST) HIV 1 and 2 Antibody/Antige n Screen Negative Negative 03/03/2018 4:[address] [facility] Comment: If clinical concern for HIV infection remains, then re-screen at an appropriate interval. Patients may be non-reactive if p24 antigen or HIV antibodies have not yet developed. Blood specimen (specimen) Venipuncture / Unknown 03/03/2018 11:23 AM EST 03/03/2018 11:25 AM EST Samia Baugh MD LAB BLOOD ORDERABLES Final Re sult [facility] [address] [place] [address] * Hepatitis C Ab with reflex to HCV PCR (03/03/2018 11:23 AM EST) Hepatitis C Antibody Negative Negative 03/03/2018 4:10 PM [facility] Blood specimen (specimen) Venipuncture / Unknown 03/03/2018 11:23 AM EST 03/03/2018 11:25 AM EST Samia Baugh MD LAB BLOOD ORDERABLES Final Re sult Performing Organization Address City/[facility]/ZIP Co de Phone Number [facility] [address] [place] [address] * Lipid panel (03/03/2018 11:23 AM EST) Cholesterol 137 <200 mg/dL 03/03/2018 11:53 AM [facility] Comment: Cholesterol Reference Range: Desirable: <200 mg/dL Borderline: 200-240 mg/dL High Risk: >240 mg/dL HDL 50 40-<60 mg/dL 03/03/2018 11:53 AM [facility] Comment: HDL Reference Range: Low: <40 High: > or = 60 Triglycerides 61 <150 mg/dL 03/03/2018 11:53 AM [facility] Comment: Triglyceride Reference Range: Normal: <150 mg/dL Borderline High: 150-199 mg/dL High: 200-499 mg/dL Very High: >or= 500 mg/dL LDL Calculated 75 mg/dL 03/03/2018 11:53 AM [facility] Comment: LDL Reference Range: Optimal: <100 mg/dL Near/Above Optimal: 100-129 mg/dL Borderline High: 130-159 mg/dL High: 160-189 mg/dL Very High: >or= 190 mg/dL Blood specimen (specimen) Venipuncture / Unknown 03/03/2018 11:23 AM EST 03/03/2018 11:25 AM EST Samia Baugh MD LAB BLOOD ORDERABLES Final Re sult [facility] [address] [place] [address], [facility] [phone] from Last 3 Months or Most Recently Relevant to Health Maintenance Insurance [employer] [facility] MGD [employer] [facility] [address] [place], [place] [address] Advance Directives * Full ACLS (Latest Code Status on File) Date Activated Date Inactivated Comments 12/27/2017 2:02 PM 12/30/2017 3:53 PM Care Teams Rn Residential Relationship Specialty Start Date End Date Either, [address] [address] PCP - General 07/23/21
--- OUTSIDE RECORDS SUMMARY | 2024-12-03 20:44 | XMS_ITS | Encounter Summary ---
Author Organization [facility] Address [address] [place] [address] Care Team Providers Care Process Control Manager Name Role Phone Samia Baugh MD Primary Care Provider [phone] Encounter Details Date Type Department Care Team (Late st Contact Info) Description 10/02/2018 Scanned Document [facility] [address] [place] [address] Froylan Loyola MD Social History Tobacco Use [...] on filedocumented in this encounter Care Teams Process Control Manager Relationship Specialty Start Date End Date Samia Baugh MD PCP - General Internal Medicine 08/30/18 documented as of this encounter
--- OUTSIDE RECORDS SUMMARY | 2024-12-03 20:44 | XMS_ITS | Encounter Summary ---
Author Organization [facility] Address [address] [place] [address] Care Team Providers Care Blueprint Blocker Name Role Phone EitherYing Primary Care Provider [phone] Encounter Details Date Type Department Care Team (Late st Contact Info) Description 08/13/2021 Scanned Document [facility] [address] [place] [address] Meghann Rodriguez MD [address] [place] [address] [address] [place] [address] Social History Tobacco Use Types Packs/Day Years [...] documented as of this encounter Care Teams Blueprint Blocker Relationship Specialty Start Date End Date Ying Darden [address] [place] [id number] PCP - General 07/23/21 documented as of this encounter
--- OUTSIDE RECORDS SUMMARY | 2024-12-03 20:44 | XMS_ITS | Encounter Summary ---
Author Organization [facility] Address [address] [place] [address] Care Team Providers Care Director Of Market Intelligence Name Role Phone EitherYing Primary Care Provider [phone] Encounter Details Date Type Department Care Team (Late st Contact Info) Description 08/18/2021 Scanned Document [facility] [address] [place] [address] Meghann Rodriguez MD [address] [place] [address] [address] [place] [address] Social History Tobacco Use Types Packs/Day Years [...] documented as of this encounter Care Teams Director Of Market Intelligence Relationship Specialty Start Date End Date Ying Darden [address] [place] [id number] PCP - General 07/23/21 documented as of this encounter
--- OUTSIDE RECORDS SUMMARY | 2024-12-03 20:44 | XMS_ITS | Encounter Summary ---
Author Organization [facility] Address [address] [place] [address] Care Team Providers Care Twisting Frame Operator Name Role Phone Either, Ying Primary Care Provider [phone] Encounter Details Date Type Department Care Team ([facility] st Contact Info) Description 03/28/2020 Scanned Document [facility] [place] [address] External, Provider Social History Tobacco Use Types [...] documented as of this encounter Care Teams Twisting Frame Operator Relationship Specialty Start Date End Date Either, [address] [address] PCP - General 07/23/21 documented as of this encounter
--- OUTSIDE RECORDS SUMMARY | 2024-12-03 20:44 | XMS_ITS | Clinical Summary ---
Author Organization [facility] Address [address] [place] [address] Care Team Providers Care Manager Studio Name Role Phone Unavailable Primary Care Provider [...]
--- OUTSIDE RECORDS SUMMARY | 2024-12-03 20:44 | XMS_ITS | Clinical Summary ---
Author Organization [facility] Address [address] [place] [address] Care Team Providers Care College Associate Name Role Phone Samia Baugh MD Primary Care Provider [phone] Allergies Active Allergy Reactions Criticality Noted Date [...] Treatment Not on file Insurance Care Teams College Associate Relationship Specialty Start Date End Date Samia Baugh MD PCP - General Internal Medicine 12/25/19
--- OUTSIDE RECORDS SUMMARY | 2024-12-03 20:44 | XMS_ITS | Encounter Summary ---
Author Organization [facility] Address [address] [place] [address] Care Team Providers Care Lay Out Inspector Name Role Phone EitherYing Primary Care Provider [phone] Encounter Details Date Type Department Care Team (Late st Contact Info) Description 07/18/2018 Scanned Document [facility] [address] [address] External, Provider Social History Tobacco Use Types [...] documented as of this encounter Care Teams Lay Out Inspector Relationship Specialty Start Date End Date EitherYing [address] [place] [address] PCP - General 07/23/21 documented as of this encounter
--- OUTSIDE RECORDS SUMMARY | 2024-12-03 20:44 | XMS_ITS | Encounter Summary ---
Author Organization [facility] Address [address] [place] [address] Care Team Providers Care Cut Out Worker Name Role Phone Either, Ying Primary Care Provider [phone] Encounter Details Date Type Department Care Team (Late st Contact Info) Description 10/02/2018 Documentation [facility] [address] [place] [address] Meghann Rodriguez MD [address] [place] [address] [address] [place] [phone] Social History Tobacco Use Types Packs/Day Years [...] documented as of this encounter Care Teams Cut Out Worker Relationship Specialty Start Date End Date Either, [address] [address] PCP - General 07/23/21 documented as of this encounter
--- OUTSIDE RECORDS SUMMARY | 2024-12-03 20:44 | XMS_ITS | Encounter Summary ---
Author Organization [facility] Address [address] [place] [address] Care Team Providers Care Change Coordinator Name Role Phone EitherYing Primary Care Provider [phone] Encounter Details Date Type Department Care Team (Late st Contact Info) Description 06/01/2020 EpicOnHand Encounter [facility] [address] [address] Magdi Dos Santos, [address] [place] [address] Social History Tobacco Use Types Packs/Day Years Used Date Smoking Tobacco: Never Smokeless Tobacco: Never Alcohol Use Standard Drinks/Week Comments Yes 0 (1 standard drink = 0.6 oz pur e alcohol) AUDIT-C Answer Date Recorded Frequency of Alcohol Consumption 2-3 times a dominick k 06/09/2018 Average Number of Drinks Not [...] documented as of this encounter Care Teams Change Coordinator Relationship Specialty Start Date End Date Ying Darden [address] [place] [address] PCP - General 07/23/21 documented as of this encounter
--- OUTSIDE RECORDS SUMMARY | 2024-12-03 20:44 | XMS_ITS | Encounter Summary ---
Author Organization [facility] Address [address] [place] [address] Care Team Providers Care Refrigerator Glazier Name Role Phone Either, Ying Primary Care Provider [phone] Encounter Details Date Type Department Care Team (Late st Contact Info) Description 03/31/2020 Scanned Document [facility] [address] [address] Samia Baugh MD [address] [place] [address] Social History Tobacco Use Types Packs/Day [...] documented as of this encounter Care Teams Refrigerator Glazier Relationship Specialty Start Date End Date Either, [address] [address] PCP - General 07/23/21 documented as of this encounter
--- OUTSIDE RECORDS SUMMARY | 2024-12-03 20:44 | XMS_ITS | Encounter Summary ---
Author Organization [facility] Address [address] [place] [address] Care Team Providers Care Manager Group Name Role Phone Ying Darden Primary Care Provider [phone] Encounter Details Date Type Department Care Team ([facility] st Contact Info) Description 10/02/2018 Scanned Document [facility] [address] [address] Froyaln Loyola MD [address] [place] [address] Social History Tobacco Use Types Packs/Day [...] documented as of this encounter Care Teams Manager Group Relationship Specialty Start Date End Date Either, [address] [address] PCP - General 07/23/21 documented as of this encounter
--- OUTSIDE RECORDS SUMMARY | 2024-12-03 20:44 | XMS_ITS | Patient Health Record ---
Author Organization [facility] Address [address] [place] [address] Care Team Providers Care Backrest Assembler Name Role Phone Valentina Bhandari MD Primary Care Provider Cameron Topete Jr Unavailable [phone] Allergies Allergen (clinical drug ingredient) Drug/Non Drug [...] Problem Status W/U Status Risk Notes Problem 356495388 Colon cancer screening (Z12.11) Active confirmed Problem 011014202 joint terminal attack controller (current) use of anticoagulants (Z79.01) Active confirmed Problem 335722943 Personal history of colonic polyps (Z86.010) Active confirmed Problem [id number] snf curr ent use of diuretic (Z79.899) Active confirmed Encounters Encounter Location Date Provider Diagnosis [facility] [address] [facility] [address] [place] [address] 09/10/2024 aCmeron Arroyo Jr Plan Of Treatment Future Test Test Name Order Date COLONOSCOPY 07/13/2012 COLONOSCOPY 09/29/2022 Next Appt Details Provider Name:Cameron zhang Jr, 12/20/2024 02:55:00 PM, [address] [place] [address], [address], [place], [address], Insurance Providers Payer Name Payer Address Payer Phone Subscriber Number Group Number Insured Name Patient Relationship to Insured Coverage Start Date Coverage End Date [employer] Medicare Advantage Plan [address] [address] [place] [address] [id number] BORA GOINS Self - patient is the insured MEDICAID OF [facility] [address] [place] [address] [phone] [id number] BORA GOINS Self - patient is the insured Medical (General) History Medical History History ICD Code Hypertension Hypercholesterolemia Coronary disease/history of [place] Congestive heart failure Atrial fibrillation Osteoarthritis Colonoscopy 07/31, tubular adenoma, five- year followup Surgical History Surgery Date(Month/Year) Knee surgery Finger surgery Hernia repair x2 removal thyroglossal duct cyst CABG x3 2017 Left hip TAB 11/09 Toe amputation
--- OUTSIDE RECORDS SUMMARY | 2024-12-03 20:44 | XMS_ITS | Encounter Summary ---
Author Organization [facility] Address [address] [place] [address] Care Team Providers Care Sales Representative Aircraft Name Role Phone Either, Ying Primary Care Provider [phone] Encounter Details Date Type Department Care Team (Late st Contact Info) Description 03/31/2020 Scanned Document [facility] [address] [address] Samai Baugh MD [address] [place] [address] Social History Tobacco Use Types Packs/Day [...] documented as of this encounter Care Teams Sales Representative Aircraft Relationship Specialty Start Date End Date Either, [address] [address] PCP - General 07/23/21 documented as of this encounter
--- OUTSIDE RECORDS SUMMARY | 2024-12-03 20:44 | XMS_ITS | Encounter Summary ---
Author Organization [facility] Address [address] [place] [address] Care Team Providers Care Motion Picture Narrator Name Role Phone Either, Ying Primary Care Provider [phone] Encounter Details Date Type Department Care Team (Late st Contact Info) Description 10/12/2019 Scanned Document [facility] [address] [address] Samia Baugh MD [address] [place] [address] Social History Tobacco Use Types Packs/Day [...] documented as of this encounter Care Teams Motion Picture Narrator Relationship Specialty Start Date End Date EitherYing [address] [place] [address] PCP - General 07/23/21 documented as of this encounter
--- OUTSIDE RECORDS SUMMARY | 2024-12-03 20:44 | XMS_ITS | Encounter Summary ---
Author Organization [facility] Address [address] [place] [address] Care Team Providers Care Pharmacy Informatics Manager Name Role Phone EitherYing Primary Care Provider [phone] Encounter Details Date Type Department Care Team (Late st Contact Info) Description 07/13/2018 Scanned Document [facility] Medicine [address] [address] External, Provider Social History Tobacco Use Types [...] documented as of this encounter Care Teams Pharmacy Informatics Manager Relationship Specialty Start Date End Date EitherYing [address] [place] [address] PCP - General 07/23/21 documented as of this encounter
--- OUTSIDE RECORDS SUMMARY | 2024-12-03 20:44 | XMS_ITS | Encounter Summary ---
Author Organization [facility] Address [address] [place] [address] Care Team Providers Care Material Yard Clerk Name Role Phone Either, Ying Primary Care Provider [phone] Encounter Details Date Type Department Care Team (Late st Contact Info) Description 07/14/2020 Scanned Document [facility] [address] [address] Samia Baugh MD [address] [place] [phone] Social History Tobacco Use Types Packs/Day [...] documented as of this encounter Care Teams Material Yard Clerk Relationship Specialty Start Date End Date EitherYing [address] [place] [address] PCP - General 07/23/21 documented as of this encounter
--- OUTSIDE RECORDS SUMMARY | 2024-12-03 20:44 | XMS_ITS | Clinical Summary ---
Author Organization [facility] Address [address] [place] [address] Care Team Providers Care Child Care Coordinator Name Role Phone Samia Baugh MD Primary Care Provider [phone] Social History Tobacco Use Types Packs/Day Years Used Date Smoking Tobacco: Never Assessed Sex and Gender Information Value Date Recorded Sex Assigned at Not on file Legal Sex Male 11:01 AM EDT Gender Identity Not on file Sexual Orientation Not on file Plan of Treatment Health Maintenance Due Date Last Done Comments Advance Care Planning 1950 Hepatitis C Virus Screening 1950 DTaP/Tdap/Td Vaccines (1 - Tdap) 11/07/1971 Pneumococcal Vaccines 50+ (1 of 1 - PCV) 2002 Zoster (Shingles) Vaccine (1 of 2) 2002 Influenza Vaccine 10/19/2024 COVID-19 Vaccine (1 - 2023-2 5 season) 2024 RSV Vaccine 60 years and old er and Patients (1 - 1-dose 75+ series) 11/07/2027 Colonoscopy 10/02/2028 10/02/2018 Hepatitis B Vaccines Aged Out No long er eligible based on patient's age to complete this topic Insurance [facility] MEDICARE Care Teams Child Care Coordinator Relationship Specialty Start Date End Date Samia Baugh MD PCP - General Internal Medicine 08/30/18
== END 2024-12-03 16:27 | disposition home or self-care (01) ==
LOC: HO.HMCH 15:19
PROVIDERS: PCP Internal Medicine; Visit Provider Internal Medicine
DX: I10 Essential (primary) hypertension (principal); I25.810 Atherosclerosis of coronary artery bypass graft(s) without angina pectoris; I48.19 Other persistent atrial fibrillation; I50.32 Chronic diastolic (congestive) heart failure; I65.23 Occlusion and stenosis of bilateral carotid arteries; E78.00 Pure hypercholesterolemia, unspecified; R73.09 Other abnormal glucose; D12.6 Benign neoplasm of colon, unspecified; D64.9 Anemia, unspecified

== ENCOUNTER → 2024-12-03 15:18 | Outpatient (BNVA) | payer MEDICARE, OTHER, SELFPAY | PROVIDERS: PCP Internal Medicine; Visit Provider Internal Medicine | DX: I10 Essential (primary) hypertension (principal); I25.810 Atherosclerosis of coronary artery bypass graft(s) without angina pectoris; I48.19 Other persistent atrial fibrillation; I50.32 Chronic diastolic (congestive) heart failure; I65.23 Occlusion and stenosis of bilateral carotid arteries; E78.00 Pure hypercholesterolemia, unspecified; R73.09 Other abnormal glucose; D12.6 Benign neoplasm of colon, unspecified; D64.9 Anemia, unspecified | CPT/HCPCS: 99212 ==

== ENCOUNTER 2025-01-01 11:50 | Day surgery (SDC) | payer MEDICARE, OTHER, SELFPAY ==
--- OUTSIDE RECORDS SUMMARY | 2024-09-10 09:35 | XMS_ITS ---
Author Organization [facility] Address [address] [facility] [address] [place] [address] Care Team Providers Care Electric Stop Installer Name Role Phone Valentina Bhandari MD Primary Care Provider Robert Arroyo Jr, Cameron Unavailable REASON FOR VISIT colon screening Encounters Encounter Location Date Provider Diagnosis [facility] [address] [address] 09/10/2024 Cameron Arroyo Jr Plan Of Treatment Next Appt Details Provider Name:Cameron zhang Jr, 01/01/2025 01:50:00 PM, [address] [place] [address] , [place], [place], [phone], Progress Notes * VICTORINO GOINSOB:1950 (74 yo M)Acc No.[id number]:09/10/2024 Progress Notes Patient: BORA KIDD Provider: Pat Arroyo MD :1950 A ge:73 Y S ex:Male Date:09/10/2024 Address:[address] [place] [address] Pcp:Valentina Bhandari MD Subjective: * Chief Complaints: [...] Arroyo MD Date: 0 09/10/2024 Generated for Ab orta/Kendra/Leniitting on: 1 04:30 PM EDT
--- OUTSIDE RECORDS SUMMARY | 2024-12-20 16:30 | XMS_ITS | Clinical Summary ---
Author Organization [facility] Address [address] [place] [address] Care Team Providers Care Press Clippings Cutter And Paster Name Role Phone Unavailable Primary Care Provider [...]
--- OUTSIDE RECORDS SUMMARY | 2024-12-20 16:30 | XMS_ITS | Clinical Summary ---
Author Organization [facility] Address [address] [place] [address] Care Team Providers Care Office Admin Name Role Phone Samia Baugh MD Primary Care Provider [phone] Allergies Active Allergy Reactions Criticality Noted Date [...] Treatment Not on file Insurance Care Teams Office Admin Relationship Specialty Start Date End Date Samia Baugh MD PCP - General Internal Medicine 12/25/19
--- OUTSIDE RECORDS SUMMARY | 2024-12-20 16:30 | XMS_ITS | Patient Health Record ---
Author Organization [facility] Address [address] [place] [address] Care Team Providers Care Veterinary Poultry Inspector Name Role Phone Po Valentina RESENDIZ Primary Care Provider Cameron Topete Jr Unavailable [phone] Allergies Allergen (clinical drug ingredient) Drug/Non Drug Allergy documented on EMR Reaction Allergy Type Onset Date Status heparin Heparin Unknown Drug Allergy Active Reason For Referral No Information Medications Medication SIG (Take, Route, Frequency, Duration) Notes Start Date End Date Status hydroCHLOROthiazide Not-Taking Nadolol Not-Taking Atorvastatin Calcium 80 MG 1 tablet Oral ly Once a day for 30 day(s) Active Metoprolol Succinate ER 200 MG 1 tablet Orally Once a day for 30 day(s) Active Lisinopril 10 MG 1 tablet Orally Once a day for 30 day(s) Not-Taking Eliquis 5 MG as directed Orally 12/20/2024 Active Colyte with Flavor Packs 240 GM As directed Orally Over the specified time. for 1 day(s) 07/13/2012 Not-Taking MiraLax (colon prep) 17 GM/SCOOP mixed with Gatorade or Crystal Light Orally begin at 5:00 p.m. the day before the procedure for 1 day 09/29/2022 Not-Taking Lovastatin Active Furosemide 40 MG Oral for 60 A ctive hydroCHLOROthiazide Active Allopurinol 100 MG Oral for 90 Active Nadolol Active Warfarin Sodium 2 MG Oral for 90 Not-Taking Losartan Potassium 10 MG/ML as directed Orally Active Cyclobenzaprine HCl 10 MG Oral for 20 Active Lovastatin Not-Takin g Immunizations Vaccine Route Administration Date Status Comme nts Influenza Unknown 01/05/2022 Administered Influenza Unknown 12/21/2023 Administered Social History Alcohol Screen Question Answer [...] Never (0 point) Points 5 Interpretation Positive AUDIT-C (Standard) Question Answer Notes Did you have a drink contain ing alcohol in the past year? Yes How often did you have a dri nk containing alcohol in the past year? 2 to 3 times a week (3 points) How many drinks did you have on a typical day when you were drinking in the past year? 3 or 4 drinks (1 point) How often did you have six o r more drinks on one occasion in the past year? 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 ent use of diuretic (Z79.899) Active confirmed Vital Signs Temperature 97.8 degrees Fahrenheit 12/20/2024 Blood pressure diastolic 01 mm Hg 12/20/2024 Height 70.50 in 12/20/2024 Blood pressure systolic 001 mm Hg 12/20/2024 Weight 215.2 lbs 12/20/2024 BMI 30.44 kg/m2 12/20/2024 Encounters Encounter Location Date Provider Diagnosis [facility] [address] [place] [phone] 12/20/2024 Cameron Arroyo Jr Personal history of colonic polyps Z86.010 ; termite technician (current) use of anticoagulants Z79.01 ; Colon cancer screening Z12.11 and correction current use of diuretic Z79.899 [facility] [address] [place] [phone] 09/10/2024 Cameron Arroyo Jr Assessments Encounter Date Diagnosis (ICD Code) Assessment Notes Treatment Notes Treatment Clinical Notes Section Notes 12/20/2024 termite technician (current) use of anticoagulants (ICD-10 - Z79.01) 12/20/2024 Personal history of colonic polyps (ICD-10 - Z86.010) 12/20/2024 Colon cancer screening (ICD-10 - Z12.11) 12/20/2024 termite technician current use of diuretic (ICD-10 - Z79.899) Plan Of Treatment Future Test Test Name Order Date COLONOSCOPY 07/13/2012 COLONOSCOPY 09/29/2022 COLONOSCOPY 12/20/2024 Next Appt Details Provider Name:Cameron Tejal Munreo zhang Jr, 01/01/2025 01:50:00 PM, [address] [place] [address] , [place], [place], [phone], Insurance Providers Payer Name Payer Address Payer Phone Subscriber Number Group Number Insured Name Patient Relationship to Insured Coverage Start Date Coverage End Date A[employer] Medicare Advantage Plan 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
--- OUTSIDE RECORDS SUMMARY | 2024-12-20 16:30 | XMS_ITS | Clinical Summary ---
Author Organization [facility] Address [address] [place] [address] Care Team Providers Care Portable Canteen Operator Name Role Phone Samia Baugh MD Primary Care Provider [phone] Social History Tobacco Use Types Packs/Day Years [...] patient's age to complete this topic Insurance [facility] MEDICARE Care Teams Portable Canteen Operator Relationship Specialty Start Date End Date Samia Baugh MD PCP - General Internal Medicine 08/30/18
--- OUTSIDE RECORDS SUMMARY | 2024-12-20 16:30 | XMS_ITS | Encounter Summary ---
Author Organization [facility] Address [address] [place] [address] Care Team Providers Care Aoc Plans Intelligence Officer Name Role Phone Samia Baugh MD Primary Care Provider [phone] Encounter Details Date Type Department Care Team (Late st Contact Info) Description 10/02/2018 Scanned Document [facility] [address] [place] [address] Froylan Loyola MD Social History Tobacco Use [...] on filedocumented in this encounter Care Teams Aoc Plans Intelligence Officer Relationship Specialty Start Date End Date Samia Baugh MD PCP - General Internal Medicine 08/30/18 documented as of this encounter
[2024-12-27 15:03] VITALS: BMI 30.4
[2025-01-01 12:48] VITALS: BMI 32.6
[2025-01-01 12:50] VITALS: BP 166/68; PULSE 72; RESP 16; TEMP 36.7; O2SAT 96
--- NOTE | 2025-01-01 12:54 | HO.ANESPROP2 ---
Documented by User: Dian Hull NP 12/28/24 08:47 HPI - Anesthesia Eval Consult details Narrative: 74yo M for Colonoscopy [place] for CAD/PR s/p CABG 2017, CHF, Afib. Last office visit 12/2023 - started amlodipine Eliquis for afib. Daily ETOH (probably excessive per cardiology eval) PMFSH Active Problems Active Problems: All Active Problems Colon cancer screening (Acute) Scalp lesion (Acute) Bilateral carotid artery stenosis (Acute) Double vision (Acute) Status post inguinal hernia repair (Acute) Preop exam for internal medicine (Acute) Atherosclerotic cardiovascular disease (Acute) Renal insufficiency (Acute) Elevated glucose (Acute) Recurrent inguinal hernia (Acute) SEBASTIÁN (acute kidney injury) (Acute) Muscle cramping (Acute) Left groin pain (Acute) Tendonitis of left rotator cuff (Acute) Impacted cerumen of both ears (Acute) Tinea pedis (Acute) Vision changes (Acute) Anemia (Acute) Tubular adenoma of colon (Acute) Current use of anticoagulant therapy (Acute) Vitamin D deficiency (Acute) Erectile dysfunction (Acute) Primary osteoarthritis of left hip (Acute) Alcohol use (Acute) Arthritis of left hip (Acute) Chronic heart failure with preserved ejection fraction (Acute) Atrial fibrillation (Acute) 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) (Acute) CAD (coronary artery disease) (Acute) High cholesterol (Acute) CHF (congestive heart failure) (Acute) Past Medical History Medical History (Updated 01/01/25 @ 12:45 by Linda Mills RN) Stroke Preoperative cardiovascular examination Carotid artery narrowing Permanent atrial fibrillation Back pain SEBASTIÁN (acute kidney injury) Chronic heart failure with preserved ejection fraction Lower extremity edema Myocardial infarction GI bleed H/O thyroglossal duct cyst Atrial fibrillation Hypercholesteremia Gout CAD (coronary artery disease) Hx of mcc use of blood thinners CHF (congestive heart failure) High cholesterol 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) Family History Family History Father Heart disease Mother Emphysema of lung Family history of problems with anesthesia: No Surgical History Surgical History (Updated 12/27/24 @ 14:57 by Venita Victoria RN) Hx of right inguinal hernia repair Hx of hernia repair S/P total left hip arthroplasty History of esophagogastroduodenoscopy (EGD) Hx of cardiac catheterization History of amputation of toe History of surgery H/O colonoscopy History of evacuation of hematoma S/P CABG x 3 History of Problems with Anesthesia: No Social History Social History Household Members: None Housing: Apartment Are you a primary career development engineer to a significant other at home: No Do you presently have visiting nurse or other home services: No Alcohol intake: current Alcohol intake frequency: 3 or more drinks per day Alcohol type: beer Comment: counts correct Patient Tobacco Use Status: Never used Tobacco Tobacco use type: Cigarette e-Cigarette/Vaping Use: Never Used Second Hand Smoke Exposure: No Use of substances other than those prescribed or required for medical reasons: Yes Substance Use Type: Marijuana Are you DNR?: No Advance Directives: No Advance Directives Information Provided: Yes Poor oral hygiene: No service: No Current occupational status: retired Current occupational exposures/hazards: No Cognitive needs: Yes (Cane) Hearing needs: No Vision needs: No Meds Allergies Allergy/AdvReac Type Severity Reaction Status Date / Time heparin (HEPARIN) Allergy Intermediate heparin Verified 12/03/24 15:33 induced thrombosis amlodipine AdvReac Intermediate leg Verified 12/03/24 15:33 swelling lisinopril AdvReac Intermediate Cough Verified 12/03/24 15:33 Home Medications ?Medication ?Instructions ?Recorded ?Confirmed ?Last Taken ?Type ascorbate calcium (vitamin C) 500 500 mg PO QAM 08/10/21 12/27/24 11/16/21 History mg tablet cholecalciferol (vitamin D3) 10 10 mcg PO QAM 09/15/21 12/27/24 Unknown History mcg (400 unit) capsule (Vitamin D3) Exam Height,Weight and Vital Signs: Height 5 ft 10.5 in Weight 97.613 kg Narrative Narrative: EKG 12/2023 Afib @ 61 PVCs NM cardiolite stress test 2022 Impression: 1. Myocardial perfusion imaging study shows no ischemia with nontransmural basal inferior infarct 2. Gated LVEF is 63% 3. Transient ischemic dilatation not present EKG is nondiagnostic for ischemia ECHO 2022 Conclusions: - 1. Normal LV ejection fraction of 65-70% 2. Moderately dilated left atrium 3. No significant abnormalities of cardiac valvular Dopplers with calcific aortic valve and mitral annular calcification noted 4. No gross pericardial effusion US carotid duplex BI 2024 IMPRESSION: Findings consistent with 50-79% stenosis of the right internal carotid artery and 0-49% stenosis of the left internal carotid artery. Assessment and Plan Assessment Anesthesia Assessment: Chart Reviewed Final Anesthetic Review Family History of Problems with Anesthesia: No History of Problems with Anesthesia: No Documented by User: Korina Ya DO 01/01/25 12:56 HPI - Anesthesia Eval Consult details Narrative: 74yo M for Colonoscopy [place] [facility] [place] for CAD/PR s/p CABG 2016, CHF, Afib. Last office visit 12/2023 - started amlodipine Eliquis for afib. 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 CHF (congestive heart failure) High cholesterol 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) Family History Family History Father Heart disease Mother Emphysema of lung Family history of problems with anesthesia: No Surgical History Surgical History (Updated 12/27/24 @ 14:57 by Venita Victoria RN) Hx of right inguinal hernia repair Hx of hernia repair S/P total left hip arthroplasty History of esophagogastroduodenoscopy (EGD) Hx of cardiac catheterization History of amputation of toe History of surgery H/O colonoscopy History of evacuation of hematoma S/P CABG x 3 History of Problems with Anesthesia: No Social History Social History Household Members: None Housing: Apartment Are you a primary career development engineer to a significant other at home: No Do you presently have visiting nurse or other home services: No Alcohol intake: current Alcohol intake frequency: 3 or more drinks per day Alcohol type: beer Comment: counts correct Patient Tobacco Use Status: Never used Tobacco Tobacco use type: Cigarette e-Cigarette/Vaping Use: Never Used Second Hand Smoke Exposure: No Use of substances other than those prescribed or required for medical reasons: Yes Substance Use Type: Marijuana Are you DNR?: No Advance Directives: No Advance Directives Information Provided: Yes Poor oral hygiene: No service: No Current occupational status: retired Current occupational exposures/hazards: No Cognitive needs: Yes (Cane) Hearing needs: No Vision needs: No Meds Allergies Allergy/AdvReac Type Severity Reaction Status Date / Time heparin (HEPARIN) Allergy Intermediate heparin Verified 12/03/24 15:33 induced thrombosis amlodipine AdvReac Intermediate leg Verified 12/03/24 15:33 swelling lisinopril AdvReac Intermediate Cough Verified 12/03/24 15:33 Home Medications ?Medication ?Instructions ?Recorded ?Confirmed ?Last Taken ?Type ascorbate calcium (vitamin C) 500 500 mg PO QAM 08/10/21 12/27/24 11/16/21 History mg tablet cholecalciferol (vitamin D3) 10 10 mcg PO QAM 09/15/21 12/27/24 Unknown History mcg (400 unit) capsule (Vitamin D3) Exam Exam Date and Time: 01/01/25 1255 Airway Mallampati Class: II TM Dist: >3cm Neck ROM: Full Loose/Missing/Broken Teeth: No (patient denies any loose or broken teeth) Heart: S1S2 Lungs: CTAB Assessment and Plan Assessment Anesthesia Assessment: Anesthesia Plan Discussed and Chart Reviewed Final Anesthetic Review Family History of Problems with Anesthesia: No History of Problems with Anesthesia: No NPO: Yes ASA Class: III Final Preanesthetic Review: No Changes in Pt Med Stat, Meds/Allgs Chart Reviewed, Consent Obtained/Reviewed and Anes Risks/Benef Reviewed Patient Risk: Low Procedure Risk: Low Anesthetic Plan Anesthetic Plan: MAC: and Agree w/ Assess. and Plan Disposition: Standard PACU
--- NOTE | 2025-01-01 12:57 | MHC.SHP ---
Pre-Procedural Eval Section A - 24 Hr Update-Section A only Date of Service: 01/01/25 The patient is an INPATIENT: No Changes since office visit: No Cold of Flu in the past 2 weeks, No New Medical Problems, No Changes in Medication and No Patient answered all questions The patient has been examined within 24 hours of the surgical procedure. The History & Physical has been completed within 30 days and I have reviewed it.: Yes Section B - Complete if H&P > 30 days Chief Complaint: hx colon polyps,screening Allergies: Allergies Allergy/AdvReac Type Severity Reaction Status Date / Time heparin (HEPARIN) Allergy Intermediate heparin Verified 12/03/24 15:33 induced thrombosis amlodipine AdvReac Intermediate leg Verified 12/03/24 15:33 swelling lisinopril AdvReac Intermediate Cough Verified 12/03/24 15:33 Plan I have reviewed the history and physical and performed a pertinent physical examination on my patient. No changes have occurred unless specified. Time Spent With Patient Time: Total time managing care of this patient today ____ minutes.
[2025-01-01] MEDS: Lactated Ringers 1,000 ML 50 ML IVCONT (13:04)
[2025-01-01 13:45] VITALS: BP 101/51; PULSE 67; RESP 16; TEMP 36.6; O2SAT 96
[2025-01-01 14:00] VITALS: BP 121/58; PULSE 72; RESP 16; O2SAT 97
[2025-01-01 14:15] VITALS: BP 130/53; PULSE 63; RESP 16; TEMP 36.8; O2SAT 97
--- NOTE | 2025-01-01 14:23 | OP_ITS ---
DATE OF SERVICE: 01/01/2025 SURGEON: Cameron Arroyo MD INDICATIONS: Colon cancer screening and prior history of adenomatous colon polyps. PREOPERATIVE DIAGNOSIS: POSTOPERATIVE DIAGNOSIS: PROCEDURE PERFORMED: Colonoscopy to the terminal ileum. ESTIMATED BLOOD LOSS: COMPLICATIONS: ANESTHESIA: ASSISTANTS: SPECIMENS: MEDICATIONS: Monitored anesthesia care. DESCRIPTION OF PROCEDURE: A history and physical was performed. The risks and benefits of the procedure were explained to the patient. Informed consent was obtained. The patient was placed in the left lateral decubitus position. A digital rectal exam was performed and was found to be normal. The Olympus pediatric video colonoscope was introduced into the rectum and advanced to the cecum. The cecum was identified by transillumination, palpation, and identification of ileocecal valve. Examination was performed. The scope was removed. He tolerated the procedure well and was returned to the recovery area in stable condition. FINDINGS: The terminal ileum was normal. The visualized colonic mucosa was normal. The quality of the prep was good. No polyps were identified. Retroflexed examination showed large-sized internal hemorrhoids. IMPRESSION: Normal colonoscopy. RECOMMENDATION: 1. Follow up as needed. 2. Repeat colonoscopy is optional based on age and could be done in 5 years. MD DARIN Le/LAUREN / [id number]
== END 2025-01-01 15:10 | disposition home or self-care (01) ==
PROVIDERS: PCP Internal Medicine; Visit Provider Internal Medicine Gastroenterology
PROC: 0DJD8ZZ Inspection of Lower Intestinal Tract, Via Natural or Artificial Opening Endoscopic (ICD-10-PCS; CPT 45378; principal; 2025-01-01 13:50)
DX: Z12.11 Encounter for screening for malignant neoplasm of colon (principal); Z86.0101 Personal history of adenomatous and serrated colon polyps; K64.8 Other hemorrhoids
CPT/HCPCS: 45378; J2250; J2704

== ENCOUNTER → 2025-01-21 12:37 | Outpatient (REF) | payer MEDICARE, OTHER, SELFPAY ==
--- OUTSIDE RECORDS SUMMARY | 2024-09-10 08:35 | XMS_ITS ---
Author Organization [facility] Address [address] [place] [address] Care Team Providers Care Bill Sorter Name Role Phone Valentina Bhandari MD Primary Care Provider Cameron Topete Jr REASON FOR VISIT colon screening Encounters Encounter Location Date Provider Diagnosis [facility] 10 [facility] [address] [place] [address] 09/10/2024 Cameron Arroyo Jr Plan Of Treatment No Information Progress Notes * VICTORINO GOINSOB:1950 (74 yo M)Acc No.[id number]:09/10/2024 Progress Notes Patient: BORA KIDD Provider: Pat Arroyo MD :1950 A ge:73 Y S ex:Male Date:09/10/2024 Address:[address] [place], [place] [phone] Pcp:Valentina Bhandari MD Subjective: * Chief Complaints: * 1 . Colon screening. * Medical History: Objective: * Vitals: Assessment: Plan: * Treatment: * * The named appointment provid er may or may not be the originator of this progress note, and it is not deemed complete until electronically signed by the appointment provider. Sign off status: Pending * Provider: Pat Arroyo MD Date: 0 09/10/2024 Generated for Bogdani ng/Fanyasiag/eTransmitting on: 03/23/2024 03:58 PM EST
--- OUTSIDE RECORDS SUMMARY | 2025-01-01 08:50 | XMS_ITS ---
Author Organization [facility] Address [address] [place] [phone] Care Team Providers Care Sample Builder Name Role Phone Thony RESENDIZ, Valentina Primary Care Provider Cameron Topete Jr REASON FOR VISIT screening,hx polyps Encounters Encounter Location Date Provider Diagnosis [facility] [place] [place] Outpatient [address] [place] [phone] 01/01/2025 Cameron Arroyo Jr Plan Of Treatment No Information Progress Notes * VICTORINO GOINSOB:1950 (74 yo M)Acc No.[id number]:01/01/2025 COLON WITH MAC Patient: BORA KIDD Provider: Pat Arroyo MD :1950 A ge:74 Y S ex:Male Date:01/01/2025 Address:[address] [place], [place] [phone] Pcp:Valentina Bhandari MD Subjective: * Chief Complaints: * 1 . Screening,hx polyps. * Medical History: Objective: * Vitals: Assessment: Plan: * Treatment: * * The named appointment provid er may or may not be the originator of this progress note, and it is not deemed complete until electronically signed by the appointment provider. Sign off status: Pending * Provider: Pat Arroyo MD Date: Generated for Bogdani ng/Fanyasiag/eTransmitting on: 03/23/2024 03:59 PM EST
--- NOTE | 2025-01-21 12:40 | CA_ITS ---
Transthoracic Echocardiogram Patient (Last, First, Middle): Cj Barbour T Gender: M Date of : 1950 Age: 74 Procedure Date: 01/21/2025 Procedure Type: Transthoracic Echocardiogram Location: OP Height: 172.72 cm Weight: 97.07 kg BSA: 2.10 m2 Heart Rate: 93 bpm BP: 132 / 70 mmHg Bible Worker: SB Referring MD: Valentina Bhandari MD Symptoms: I50.32 - Chronic diastolic (congestive) heart failure Study Quality: Adequate w contrast ECG Rhythm: Atrial Fibrillation Conclusions: - The left ventricular systolic function is normal. The calculated ejection fraction is 63% by biplane method. - There is moderate calcification of the aortic valve. - There is mild mitral annular calcification. Findings Procedure Information Contrast agent, definity, is being given per protocol without apparent complications. The quality of the study was technically difficult. The study quality is limited by patients body habitus and lung artifact. Left Ventricle Normal left ventricular cavity size. The left ventricular systolic function is normal. The calculated ejection fraction is 63% by biplane method. There is no evidence of regional wall motion abnormalities. Diastolic function is indeterminate on the basis of available data. There is moderate septal asymmetric hypertrophy. Right Ventricle The right ventricle was not well visualized. Atria The left atrium is moderately dilated. The right atrium is normal in size. Aortic Valve There is moderate calcification of the aortic valve. There is no aortic valve stenosis. There is no aortic valve regurgitation. Mitral Valve There is mild mitral annular calcification. There is trace mitral valve regurgitation. There is no mitral valve stenosis. Pulmonic Valve The pulmonic valve is likely normal. Tricuspid Valve There is trace tricuspid valve regurgitation. There is no evidence of pulmonary hypertension. Great Vessels The aorta was not well visualized. Venous The inferior vena cava is normal in size and collapses less than 50% with inspiration. Pericardium/Pleural There is no evidence of pericardial effusion. Prior Study Comparison No significant change compared to prior study dated: 02/16/2023. Measurements 2D Linear Measurements IVSd: 0.74 0.6-0.9/0.6-1.0 cm LVIDd: 5.00 3.9-5.3/4.2-5.9 cm LVIDd Index: 2.38 2.4-3.2/2.2-3.1 cm/m2 LVIDs: 3.09 2.0-3.6 cm LVPWd: 0.84 0.7-1.1 cm LA Diam: 4.90 2.7-3.8/3.0-4.0 cm LAIDs Index: 2.33 1.5-2.3 cm/m2 LV Mass: 165.21 67-162/88-224 g LV Mass Index: 78.67 43-95/49-115 g/m2 LVOT Diam: 2.40 3.0+(-)1.3 cm 2D Systolic Function EF 4C: 62.80 >55% EF 2C: 64.10 >55% EF BiP: 63.30 >55% Mitral Valve MV Pk E: 1.16 MV Decel Time: 186.00 E'Lateral: 11.10 E'Medial: 7.14 E/E' Med: 16.20 E/E' Lat: 10.50 Aortic Valve AoV Pk Josesito: 1.58 AoV Mn Josesito: 1.09 AoV VTI: 0.29 AoV Pk Grad: 10.00 Aov Mn Grad: 5.00 KISHAN Cont.VTI: 3.42 LVOT LVOT Pk Josesito: 1.08 LVOT Mn Josesito: 0.76 LVOT VTI: 0.22 LVOT Pk Grad: 5.00 LVOT Mn Grad: 3.00 LVOT Diam: 2.40 LVOT Area: 4.52 Diastolic Function MV Pk E: 1.16 E'Medial: 7.14 E/E' Med: 16.20 E' Laterial: 11.10 E/E' Lat: 10.50 Tricuspid Valve TR Pk Josesito: 2.20 TR Pk Grad: 19.00 RA Press: 8.00 RVSP: 27.00 Great Vessels Aorta Sinus of Valsalva: 3.50 2.0-3.5 cm Pulmonary Valve PV Pk Josesito: 0.96 Peak PV Grad: 4.00 Updated in Other Vendor System with Status of Final Kt Chávez MD electronically signed on 01/22/2025 1:21:43 PM with status of Final
--- OUTSIDE RECORDS SUMMARY | 2025-01-21 15:58 | XMS_ITS | Encounter Summary ---
Author Organization [facility] Address [address] [place] [address] Care Team Providers Care Sampler And Test Preparer Name Role Phone Either, Ying Primary Care Provider [phone] Encounter Details Date Type Department Care Team (Late st Contact Info) Description 07/14/2020 Scanned Document [facility] [address] [address] Samia Baugh MD [address] [place] [phone] Social History Tobacco Use Types Packs/Day [...] documented as of this encounter Care Teams Sampler And Test Preparer Relationship Specialty Start Date End Date EitherYing [address] [place] [address] PCP - General 07/23/21 documented as of this encounter
--- OUTSIDE RECORDS SUMMARY | 2025-01-21 15:58 | XMS_ITS | Encounter Summary ---
Author Organization [facility] Address [address] [place] [address] Care Team Providers Care Underground Miner Name Role Phone Either, Ying Primary Care Provider [phone] Encounter Details Date Type Department Care Team (Late st Contact Info) Description 03/31/2020 Scanned Document [facility] [address] [address] Samia Baugh MD [address] [place] [phone] Social History Tobacco Use Types Packs/Day [...] documented as of this encounter Care Teams Underground Miner Relationship Specialty Start Date End Date Either, [address] [address] PCP - General 07/23/21 documented as of this encounter
--- OUTSIDE RECORDS SUMMARY | 2025-01-21 15:58 | XMS_ITS | Encounter Summary ---
Author Organization [facility] and [facility] Address [address] [place] [address] Care Team Providers Care Hog Operator Name Role Phone EitherYing Primary Care Provider [phone] Encounter Details Date Type Department Care Team (Late st Contact Info) Description 06/01/2020 EpicOnHand Encounter [facility] [address] [address] Magdi Dos Santos, [address] [place] [address] Social History Tobacco Use Types [...] documented as of this encounter Care Teams Hog Operator Relationship Specialty Start Date End Date Ying Darden [address] [place] [address] PCP - General 07/23/21 documented as of this encounter
--- OUTSIDE RECORDS SUMMARY | 2025-01-21 15:58 | XMS_ITS | Clinical Summary ---
Author Organization [facility] Address [address] [place] [address] Care Team Providers Care Chief Ultrasound Technologist Name Role Phone Samia Baugh MD Primary Care Provider [phone] Allergies Active Allergy Reactions Criticality Noted Date [...] Treatment Not on file Insurance Care Teams Chief Ultrasound Technologist Relationship Specialty Start Date End Date Samia Baugh MD PCP - General Internal Medicine 12/25/19
--- OUTSIDE RECORDS SUMMARY | 2025-01-21 15:58 | XMS_ITS | Encounter Summary ---
Author Organization [facility] and Home Health Address [address] [place] [address] Care Team Providers Care Business Objects Name Role Phone Either, Ying Primary Care Provider [phone] Encounter Details Date Type Department Care Team ([facility] st Contact Info) Description 03/28/2020 Scanned Document [facility] [place] [address] External, Provider Social History Tobacco Use Types [...] documented as of this encounter Care Teams Business Objects Relationship Specialty Start Date End Date Either, [address] [address] PCP - General 07/23/21 documented as of this encounter
--- OUTSIDE RECORDS SUMMARY | 2025-01-21 15:58 | XMS_ITS | Encounter Summary ---
Author Organization [facility] and [facility] Address [address] [place] [address] Care Team Providers Care Chemical Etch Operator Name Role Phone Either, Ying Primary Care Provider [phone] Encounter Details Date Type Department Care Team (Late st Contact Info) Description 03/31/2020 Scanned Document [facility] [address] [address] Samia Baugh MD [address] [place] [phone] Social History Tobacco Use Types Packs/Day [...] documented as of this encounter Care Teams Chemical Etch Operator Relationship Specialty Start Date End Date Either, [address] [address] PCP - General 07/23/21 documented as of this encounter
--- OUTSIDE RECORDS SUMMARY | 2025-01-21 15:58 | XMS_ITS | Encounter Summary ---
Author Organization [facility] Address [address] [place] [address] Care Team Providers Care Planning Division Superintendent Name Role Phone Samia Baugh MD Primary Care Provider [phone] Encounter Details Date Type Department Care Team (Late st Contact Info) Description 10/02/2018 Scanned Document [facility] [address] [place] [address] Froylan Loyola MD Social History Tobacco Use [...] on filedocumented in this encounter Care Teams Planning Division Superintendent Relationship Specialty Start Date End Date Samia Baugh MD PCP - General Internal Medicine 08/30/18 documented as of this encounter
--- OUTSIDE RECORDS SUMMARY | 2025-01-21 15:58 | XMS_ITS | Clinical Summary ---
Author Organization [facility] Address [address] [place] [address] Care Team Providers Care Freight Loading Supervisor Name Role Phone Samia Baugh MD Primary Care Provider [phone] Social History Tobacco Use Types Packs/Day Years [...] - 2023-2 5 season) 2024 RSV Vaccine 50 years and old er and Patients (1 - 1-dose 75+ series) 11/07/2027 Colonoscopy 10/02/2028 10/02/2018 Hepatitis B Vaccines Aged Out No long er eligible based on patient's age to complete this topic Insurance [facility] MEDICARE Care Teams Freight Loading Supervisor Relationship Specialty Start Date End Date Samia Baugh MD PCP - General Internal Medicine 08/30/18
--- OUTSIDE RECORDS SUMMARY | 2025-01-21 15:59 | XMS_ITS | Encounter Summary ---
Author Organization [facility] and [facility] Health Address [address] [place] [address] Care Team Providers Care Communications Specialist Name Role Phone Ying Darden Primary Care Provider [phone] Encounter Details Date Type Department Care Team ([facility] st Contact Info) Description 10/02/2018 Scanned Document [facility] [address] [address] Froylan Loyola MD [address] [place] [phone] Social History Tobacco Use Types Packs/Day [...] documented as of this encounter Care Teams Communications Specialist Relationship Specialty Start Date End Date Either, [address] [address] PCP - General 07/23/21 documented as of this encounter
--- OUTSIDE RECORDS SUMMARY | 2025-01-21 15:59 | XMS_ITS | Encounter Summary ---
Author Organization [facility] and Home Health Address [address] [place] [address] Care Team Providers Care Finance Professor Name Role Phone EitherYing Primary Care Provider [phone] Encounter Details Date Type Department Care Team (Late st Contact Info) Description 07/13/2018 Scanned Document [facility] [address] [address] External, Provider Social History Tobacco Use Types [...] documented as of this encounter Care Teams Finance Professor Relationship Specialty Start Date End Date EitherYing [address] [place] [address] PCP - General 07/23/21 documented as of this encounter
--- OUTSIDE RECORDS SUMMARY | 2025-01-21 15:59 | XMS_ITS | Encounter Summary ---
Author Organization [facility] and [facility] Address [address] [place] [address] Care Team Providers Care Flour Blender Name Role Phone EitherYing Primary Care Provider [phone] Encounter Details Date Type Department Care Team (Late st Contact Info) Description 08/18/2021 Scanned Document [facility] [address] [place] [address] Meghann Rodriguez MD [address] [place] [address] [address] [place] [address] Social History Tobacco Use Types Packs/Day Years [...] documented as of this encounter Care Teams Flour Blender Relationship Specialty Start Date End Date Ying Darden [address] [place] [phone] PCP - General 07/23/21 documented as of this encounter
--- OUTSIDE RECORDS SUMMARY | 2025-01-21 15:59 | XMS_ITS | Encounter Summary ---
Author Organization [facility] oup and Home Health Address [address] [place] [address] Care Team Providers Care Kosher Dietary Service Supervisor Name Role Phone Either, Ying Primary Care Provider [phone] Encounter Details Date Type Department Care Team (Late st Contact Info) Description 10/02/2018 Documentation [facility] [address] [place] [address] Meghann Rodriguez MD [address] [place] [address] [address] [place] [phone] Social History Tobacco Use Types Packs/Day Years [...] documented as of this encounter Care Teams Kosher Dietary Service Supervisor Relationship Specialty Start Date End Date Either, [address] [address] PCP - General 07/23/21 documented as of this encounter
--- OUTSIDE RECORDS SUMMARY | 2025-01-21 15:59 | XMS_ITS | Encounter Summary ---
Author Organization [facility]up and Home Health Address [address] [place] [address] Care Team Providers Care Service Consultant Name Role Phone EitherYing Primary Care Provider [phone] Encounter Details Date Type Department Care Team (Late st Contact Info) Description 08/13/2021 Scanned Document [facility] [address] [place] [address] Meghann Rodriguez MD [address] [place] [address] [address] [place] [address] Social History Tobacco Use Types Packs/Day Years [...] documented as of this encounter Care Teams Service Consultant Relationship Specialty Start Date End Date Ying Darden [address] [place] [phone] PCP - General 07/23/21 documented as of this encounter
--- OUTSIDE RECORDS SUMMARY | 2025-01-21 15:59 | XMS_ITS | Encounter Summary ---
Author Organization [facility]up and Home Health Address [address] [place] [address] Care Team Providers Care Yarn Bleaching Machine Operator Name Role Phone Either, Ying Primary Care Provider Encounter Details Date Type Department Care Team (Late st Contact Info) Description 10/12/2019 Scanned Document [facility] [address] [address] Samia Baugh MD [address] [place] [phone] Social History Tobacco Use Types Packs/Day [...] documented as of this encounter Care Teams Yarn Bleaching Machine Operator Relationship Specialty Start Date End Date EitherYing [address] [place] [address] PCP - General 07/23/21 documented as of this encounter
--- OUTSIDE RECORDS SUMMARY | 2025-01-21 15:59 | XMS_ITS | Clinical Summary ---
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 12/29/2017 Essential hypertension 12/29/2017 [...] Lipid disorder screening 03/03/2023 03/03/2018 Influenza vaccine 10/19/2024 04/16/2020, 03/03/2018 Covid-19 vaccine series ( - season) 2024 06/02/2020, 05/12/2020 RSV Immunization (1 - 1-dose 75+ series) 11/07/2027 Colon cancer screening, Colonoscopy 10/02/2028 10/02/2018 HIV screening Completed 03/03/2018 Hepatitis C screening Completed 03/03/2018 Aortic Aneurysm screening Completed 06/16/2018 Meningococcal B Vaccine Aged Out No l onger eligible based on patient's age to complete this topic Meningococcal Vaccine Aged Out No susanne jennifer eligible based on patient's age to complete this topic Procedures Procedure Name Priority Date/Time Associated Diagnosis Comments COMPREHENSIVE METABOLIC PANEL Routine 01/01/2020 5:25 PM EDT 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 Potassium 4.7 3.5 - 5.1 mmol/L 01/01/2020 9:05 PM EDT [facility] Chloride 100 98 - 107 mmol/L 01/01/2020 9:05 PM EDT [facility] Comment:Test repeated and re sults verified. CO2 28 21 - 32 mmol/L 01/01/2020 9:05 PM T [facility] Comment:Test repeated and re sults verified. Anion Gap 5 5 - 15 mmol/L 01/01/2020 9:05 PM EDT [facility] Glucose 85 65 - 110 mg/dL 01/01/2020 9:05 PM EDT [facility] Comment: Non-fastin-110 mg/dL Fasting (minimum 6 hrs): 65-99 mg/dL BUN 19(H) 7 - 18 mg/dL 01/01/2020 9:05 PM EDT [facility] Creatinine 1.09 0.70 - 1.30 mg/dL 01/01/2020 9:05 PM T [facility] eGFR (-MONTENEGRIN) >60 >60 mL/min/1. 73m2 01/01/2020 9:05 PM EDT [facility] eGFR (NON -Faroese) >60 >60 mL/min/1. 73m2 01/01/2020 9:05 PM EDT [facility] Comment: (NOTE) These are estimated GFR [...] - 10.1 mg/dL 01/01/2020 9:05 PM EDT [facility] Total Protein 7.9 6.4 - 8.2 g/dL 01/01/2020 9:05 PM T [facility] Albumin 4.2 3.4 - 5.0 g/dL 01/01/2020 9:05 PM T [facility] Globulin 3.7 2.5 - 5.0 g/dL 01/01/2020 9:05 PM T [facility] Total Bilirubin 0.5 <1.0 mg/dL 01/01/2020 9:05 PM T [facility] Comment:Use of this assay is not recommended for patients undergoing treatment with Eltrombopag due to the potential for falsely elevated results. Alkaline Phosphatase 79 45 - 117 U/L 01/01/2020 9:05 PM T [facility] Alanine Aminotransferase (ALT) 35 16 - 61 U/L 01/01/2020 9:05 PM EDT [facility] Aspartate Aminotransferase (AST) 27 15 - 37 U/L 01/01/2020 9:05 PM T [facility] Blood Venipuncture / Unknown 01/01/2020 5:25 PM EDT 01/01/2020 8:01 PM EDT Meghann Rodriguez MD LAB BLOOD ORDERABLES Final R esult [facility] [address] [place] [address] * HM COLONOSCOPY (10/02/2018) Froylan Loyola MD HEALTH MAINTENANCE Final R esult * US Abdominal Aorta Limited ([facility]) (06/16/2018 9:13 AM EDT) [facility] IP [phone] .[id number] [facility] MAC ADDRESS [id number] a:89:d5 [facility] ZIP [address] [facility] Anatomical Region Laterality Modality Abdomen Ultrasound 06/16/2018 9:37 AM EDT Narrative 06/16/2018 9:37 AM EDT [place] [phone] US ABDOMINAL AORTA LIMITED ([facility]) BORA GOINS Sex: M : [id number] Service Date: 2018-06-16 08:30:54 US ABDOMINAL AORTA LIMITED ([facility]) CLINICAL INDICATION: SCREEN. HISTORY OF HEAVY [...] dimensions as reported. No significant plaque. Location: [place], [place] Signed By: Stone Clark MD, 09:37:09 Procedure Note Stone Clark MD - 06/16/[address] [address] US ABDOMINAL AORTA LIMITED ([facility]) BORA BRISEIDA Sex: M : [id number] Service Date: 2018-06-16 08:30:54 US ABDOMINAL AORTA [...] dimensions as reported. No significant plaque. Location: [place], [place] Signed By: Stone Clark MD, 09:37:09 Samia Baugh MD G US ORDERABLES Final Resul t * HIV-1/HIV-2 antibody/antigen screen w/reflex ([facility]) (03/03/2018 11:23 AM EST) HIV 1 and 2 Antibody/Antige n Screen Negative Negative 03/03/2018 4:10 PM EST [facility] Comment: If clinical concern for HIV infection remains, then re-screen at an appropriate interval. Patients may be non-reactive if p24 antigen or HIV antibodies have not yet developed. Blood specimen (specimen) Venipuncture / Unknown 03/03/2018 11:23 AM EST 03/03/2018 11:25 AM EST Samia Baugh MD LAB BLOOD ORDERABLES Final Re sult [facility] [address] [place] [address] * Hepatitis C Ab with reflex to HCV PCR (03/03/2018 11:23 AM EST) Hepatitis C Antibody Negative Negative 03/03/2018 4:10 PM [facility] Blood specimen (specimen) Venipuncture / Unknown 03/03/2018 11:23 AM EST 03/03/2018 11:25 AM EST Samia Baugh MD LAB BLOOD ORDERABLES Final Re sult Performing Organization Address City/[facility]/ZIP Co de Phone Number [facility] [address] [place] [address] * Lipid panel (03/03/2018 11:23 AM EST) Cholesterol 137 <200 mg/dL 03/03/2018 11:53 AM [facility] Comment: Cholesterol Reference Range: Desirable: <200 mg/dL Borderline: 200-240 mg/dL High Risk: >240 mg/dL HDL 50 40-<60 mg/dL 03/03/2018 11:53 AM [facility] Comment: HDL Reference Range: Low: <40 High: > or = 60 Triglycerides 61 <150 mg/dL 03/03/2018 11:53 AM [facility] Comment: Triglyceride Reference Range: Normal: <150 mg/dL Borderline High: 150-199 mg/dL High: 200-499 mg/dL Very High: >or= 500 mg/dL LDL Calculated 75 mg/dL 03/03/2018 11:53 AM [facility] Comment: LDL Reference Range: Optimal: <100 mg/dL Near/Above Optimal: 100-129 mg/dL Borderline High: 130-159 mg/dL High: 160-189 mg/dL Very High: >or= 190 mg/dL Blood specimen (specimen) Venipuncture / Unknown 03/03/2018 11:23 AM EST 03/03/2018 11:25 AM EST Samia Baugh MD LAB BLOOD ORDERABLES Final Re sult [facility] [address] [place] [address], [facility] [phone] from Last 3 Months or Most Recently Relevant to Health Maintenance Insurance [employer] [facility] [employer] [facility] [address] [place], [place] [address] Advance Directives * Full ACLS (Latest Code Status on File) Date Activated Date Inactivated Comments 12/27/2017 2:02 PM 12/30/2017 3:53 PM Care Teams Intranet Support Relationship Specialty Start Date End Date Either, [address] [address] PCP - General 07/23/21
--- OUTSIDE RECORDS SUMMARY | 2025-01-21 15:59 | XMS_ITS | Encounter Summary ---
Author Organization [facility]up and Home Health Address [address] [place] [address] Care Team Providers Care Leather Heel Breaster Name Role Phone EitherYing Primary Care Provider [phone] Encounter Details Date Type Department Care Team (Late st Contact Info) Description 08/18/2021 Scanned Document [facility] [address] [place] [address] Meghann Rodriguez MD [address] [place] [address] [address] [place] [address] Social History Tobacco Use Types Packs/Day Years [...] documented as of this encounter Care Teams Leather Heel Breaster Relationship Specialty Start Date End Date Ying Darden [address] [place] [phone] PCP - General 07/23/21 documented as of this encounter
--- OUTSIDE RECORDS SUMMARY | 2025-01-21 15:59 | XMS_ITS | Encounter Summary ---
Author Organization [facility] and Home Health Address [address] [place] [address] Care Team Providers Care Manager Search Engine Name Role Phone EitherYing Primary Care Provider [phone] Encounter Details Date Type Department Care Team (Late st Contact Info) Description 07/18/2018 Scanned Document [facility] [address] [address] External, Provider Social History Tobacco Use Types [...] as of this encounter Care Teams Manager Search Engine Relationship Specialty Start Date End Date EitherYing [address] [place] [id number] PCP - General 07/23/21 documented as of this encounter
--- OUTSIDE RECORDS SUMMARY | 2025-01-21 15:59 | XMS_ITS | Patient Health Record ---
Author Organization [facility] Address [address] [place] [address] Care Team Providers Care Inside Sales Specialist Name Role Phone Po Valentina RESENDIZ Primary Care Provider Cameron Topete Jr Unavailable Allergies Allergen (clinical drug ingredient) Drug/Non Drug Allergy documented on EMR Reaction Allergy Type Onset Date Status heparin Heparin Unknown Drug Allergy Active Reason For Referral No Information Medications Medication SIG (Take, Route, Frequency, Duration) Notes Start Date End Date Status Lovastatin Active Lovastatin Not-Takin g Metoprolol Succinate ER 200 MG 1 tablet Orally Once a day; Duration: 30 day(s) Active Warfarin Sodium 2 MG Oral; Duration: 90 Not-Taking Nadolol Active Nadolol Not-Taking hydroCHLOROthiazide Active hydroCHLOROthiazide Not-Taking Atorvastatin Calcium 80 MG 1 tablet Oral ly Once a day; Duration: 30 day(s) Active MiraLax (colon prep) 17 GM/SCOOP mixed with Gatorade or Crystal Light Orally begin at 5:00 p.m. the day before the procedure; Duration: 1 day 09/29/2022 Not-Taking Cyclobenzaprine HCl 10 MG Oral; Duration: 20 Active Allopurinol 100 MG Oral; Duration: 90 Active Colyte with Flavor Packs 240 GM As directed Orally Over the specified time.; Duration: 1 day(s) 07/13/2012 Not-Taking Losartan Potassium 10 MG/ML as directed Orally Active Lisinopril 10 MG 1 tablet Orally Once a day; Duration: 30 day(s) Not-Taking Furosemide 40 MG Oral; Duration: 60 Active Eliquis 5 MG as directed Orally 12/20/2024 Active Immunizations Vaccine Route Administration Date Status [...] Problem Status W/U Status Risk Notes Problem Colon cancer screening (399927485) Colon cancer screening (Z12.11) Active confirmed Problem Long-term current use of anticoagulant (614940968) [facility] (current) use of anticoagulants (Z79.01) Active confirmed Problem History of polyp of colon (situation) (913924851) Personal history of colonic polyps (Z86.010) Active confirmed Problem Long-term current use of drug therapy (707413713) 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) Active confirmed Vital Signs Temperature 97.8 degrees Fahrenheit 12/20/2024 Blood pressure diastolic 01 mm Hg 12/20/2024 Height 70.50 in 12/20/2024 Blood pressure systolic 001 mm Hg 12/20/2024 Weight 215.2 lbs 12/20/2024 BMI 30.44 kg/m2 12/20/2024 Encounters Encounter Location Date Provider Diagnosis [facility] [address] [place] [id number] 01/01/2025 Cameron Arroyo Jr [facility] [address] [place] [address] 12/20/2024 Cameron Arroyo Jr Personal history of colonic polyps Z86.010 ; [facility]FP (current) use of anticoagulants Z79.01 ; Colon cancer screening Z12.11 and termite control technician current use of diuretic Z79.899 [facility] [address] [place] [phone] 09/10/2024 Cameron Arroyo Jr [facility] [address] [place] [phone] 12/20/2024 Cameron Arroyo Jr [facility] [address] [place] [phone] 12/25/2024 Cameron Arroyo Jr Assessments Encounter Date Diagnosis (ICD Code) Assessment Notes Treatment Notes Treatment Clinical Notes Section Notes 12/20/2024 [facility] (current) use of anticoagulants (ICD-10 - Z79.01) We discussed colonoscopy today. We discussed risks and benefits of the procedure today. He understands these and agrees to proceed. This will be scheduled at his convenience. He is advised to stop Eliquis 3 days before the procedure. 12/20/2024 Personal history of colonic polyps (ICD-10 - Z86.010) We discussed colonoscopy today. We discussed risks and benefits of the procedure today. He understands these and agrees to proceed. This will be scheduled at his convenience. He is advised to stop Eliquis 3 days before the procedure. 12/20/2024 Colon cancer screening (ICD-10 - Z12.11) We discussed colonoscopy today. We discussed risks and benefits of the procedure today. He understands these and agrees to proceed. This will be scheduled at his convenience. He is advised to stop Eliquis 3 days before the procedure. 12/20/2024 [facility]FP current use of diuretic (ICD-10 - Z79.899) We discussed colonoscopy today. We discussed risks and benefits of the procedure today. He understands these and agrees to proceed. This will be scheduled at his convenience. He is advised to stop Eliquis 3 days before the procedure. Plan Of Treatment Future Test Test Name Order Date COLONOSCOPY 07/13/2012 COLONOSCOPY 09/29/2022 COLONOSCOPY 12/20/2024 Insurance Providers Payer Name Payer Address Payer Phone Subscriber Number Group Number Insured Name Patient Relationship to Insured Coverage Start Date Coverage End Date [facility] Medicare Advantage Plan [address] [address] [place] [address] [id number] RADHACHRISTINA GARCIAOME Self - patient is the insured [place] OF [place] [employer] [address] [place] [address] [id number] BORA GOINS Self - patient is the [...]
== END ==
LOC: HO.CARD 12:37
PROVIDERS: PCP Internal Medicine; Visit Provider Internal Medicine
DX: I50.32 Chronic diastolic (congestive) heart failure (principal)
CPT/HCPCS: 93306; Q9957

== ENCOUNTER → 2025-01-21 12:40 | Outpatient (BNV) | payer MEDICARE, MEDICAID, SELFPAY | PROVIDERS: PCP Internal Medicine; Visit Provider Internal Medicine | DX: I42.2 Other hypertrophic cardiomyopathy (principal); I34.81 Nonrheumatic mitral (valve) annulus calcification; I35.8 Other nonrheumatic aortic valve disorders | CPT/HCPCS: 93306 ==

== ENCOUNTER 2025-03-08 14:07 | Outpatient (AMB) | payer MEDICARE, MEDICAID, SELFPAY ==
--- OUTSIDE RECORDS SUMMARY | 2024-09-10 08:35 | XMS_ITS ---
Author Organization [facility] Address [address] [place] [address] Care Team Providers Care Cutter Apprentice Hand Name Role Phone Valentina Bhandari MD Primary Care Provider Cameron Topete Jr REASON FOR VISIT colon screening Encounters Encounter Location Date Provider Diagnosis [facility] [address] [facility] [address] [place] [address] 09/10/2024 Cameron Arroyo Jr Plan Of Treatment No Information Progress Notes * VICTORINO GOINSOB:1950 (74 yo M)Acc No.[id number]:09/10/2024 Progress Notes Patient: BORA KIDD Provider: Pat Arroyo MD :1950 A ge:73 Y S ex:Male Date:09/10/2024 Address:[address] [place], [place] [address] Pcp:Valentina Bhandari MD Subjective: * Chief Complaints: * C olon screening Billing Information: * Procedure Codes: * The named appointment provid er may or may not be the originator of this progress note, and it is not deemed complete until electronically signed by the appointment provider. Sign off status: Pending * Provider: Pat Arroyo MD Date: 0 09/10/2024 Generated for Printi ng/Faxing/eTransmitting on: 1 05/09/2024 03:40 PM EST
--- OUTSIDE RECORDS SUMMARY | 2025-01-01 08:50 | XMS_ITS ---
Author Organization [facility] Address [address] [place] [phone] Care Team Providers Care Shirt Bander Name Role Phone Valentina Bhandari MD Primary Care Provider Cameron Topete Jr REASON FOR VISIT screening,hx polyps Encounters Encounter Location Date Provider Diagnosis [facility] Outpatient [address] [place] [phone] 01/01/2025 Cameron Arroyo Jr Plan Of Treatment No Information Progress Notes * VICTORINO GOINSOB:1950 (74 yo M)Acc No.[id number]:01/01/2025 COLON WITH MAC Patient: BORA KIDD Provider: Pat Arroyo MD :1950 A ge:74 Y S ex:Male Date:01/01/2025 Address:[address] [place], [place] [phone] Pcp:Valentina Bhandari MD Subjective: * Chief Complaints: * S creening,hx polyps Billing Information: * Procedure Codes: * The named appointment provid er may or may not be the originator of this progress note, and it is not deemed complete until electronically signed by the appointment provider. Sign off status: Pending * Provider: Pat Arroyo MD Date: Generated for Bogdani ng/Fanyasiag/eTransmitting on: 05/09/2024 03:40 PM EST
--- NOTE | 2025-03-08 14:29 | A.OFFPC_ITS ---
Vital Signs 03/08/25 14:30 Height 5 ft 9 in Weight 218 lb 4 oz BMI 32.2 BP 134/80 Pulse 81 Pulse Source Pulse Oximeter Temp 98.2 F Temp Source Temporal Artery Scan Pulse Oximetry (%) 96 Oxygen Delivery Method Room Air Intake Visit Reasons: Eye infection Associate Financial Advisor Required: No Accompanied by: Self / Same As Patient Allergies heparin (HEPARIN) Allergy (Intermediate, Verified 03/08/25 14:29) heparin induced thrombosis amlodipine Adverse Reaction (Intermediate, Verified 03/08/25 14:29) leg swelling lisinopril Adverse Reaction (Intermediate, Verified 03/08/25 14:29) Cough Medication List - Last Reconciled 03/08/25 by Valentina Bhandari MD acetaminophen (Tylenol Extra Strength) 1,000 mg (2 x 500 mg) PO QID PRN allopurinol 100 mg PO QAM amlodipine 5 mg PO DAILY apixaban (Eliquis) 5 mg PO BID ascorbate calcium (vitamin C) 500 mg PO QAM aspirin 81 mg PO DAILY atorvastatin 80 mg PO QAM cholecalciferol (vitamin D3) (Vitamin D3) 10 mcg PO QAM furosemide 20 mg PO QPM furosemide 40 mg PO QAM gabapentin 600 mg PO DAILY PRN [left shoulder sling As directed] losartan 100 mg PO QAM 90 days metoprolol succinate ER 150 mg (3 x 50 mg) PO QAM polymyxin B sulf-trimethoprim 10,000 unit- 1 mg/mL 1 drp ophthalmic-Right QID 7 days sildenafil 100 mg PO DAILY PRN tizanidine 8 mg (2 x 4 mg) PO Q8H PRN 30 days Tobacco use date assessed: 06/13/24 Dental Screening Dental Screen Date: 06/13/24 HPI Eye infection HPI Details R eye red 2 days HPI Comments History of Present Illness Details History of Present Illness The patient is a 74 year old male presenting with an acute eye problem. The eye symptoms began 2 days ago upon waking, with difficulty opening the eye, which was sore and sticking together slightly. He describes the sensation as a headache in his eyeball. His vision has remained normal. The patient has a history of a prior aggressive bacterial eye infection years ago which required antibiotic treatment. He is an obese male with a past medical history significant for hypertension, coronary artery disease, congestive heart failure, hypercholesterolemia, atrial fibrillation, and atherosclerotic cardiovascular disease. He also has a history of bilateral carotid artery stenosis, alcohol abuse, and is allergic to heparin. A prior colonoscopy in 2012 found a tubular adenoma. An echocardiogram in January 2025 showed an ejection fraction of 63%, moderate aortic valve calcification, and mild annular calcification. A recent colonoscopy in December 2024 was normal. Health Maintenance The patient is due for routine blood work, which has been ordered. He has a follow-up appointment scheduled for the day after Cici. Social History - The patient has a history of alcohol a buse. - He lives alone. - He recently moved to [place] and repor ts difficulty with transportation as he does not have a car. Results - Echocardiogram (January 2025): Showed an ejection fraction of 63%, moderate aortic valve calcification, and mild annular calcification. - Colonoscopy (December 2024): Normal. 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 CHF (congestive heart failure) High cholesterol 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) Surgical History (Updated 12/27/24 @ 14:57 by Venita Victoria RN) Hx of right inguinal hernia repair Hx of hernia repair S/P total left hip arthroplasty History of esophagogastroduodenoscopy (EGD) Hx of cardiac catheterization History of amputation of toe History of surgery H/O colonoscopy History of evacuation of hematoma S/P CABG x 3 Family History Father Heart disease Mother Emphysema of lung Social History Household Members: None Housing: Apartment Are you a primary child adolescent care to a significant other at home: No Do you presently have visiting nurse or other home services: No Alcohol intake: current Alcohol intake frequency: 3 or more drinks per day Alcohol type: beer Comment: counts correct Patient Tobacco Use Status: Never used Tobacco Tobacco use type: Cigarette e-Cigarette/Vaping Use: Never Used Second Hand Smoke Exposure: No Substance Use Type: Marijuana service: No Current occupational status: retired Current occupational exposures/hazards: No Cognitive needs: Yes (Cane) Hearing needs: No Vision needs: No Questionnaire Thrive Questionnaire Date Thrive assessed: 12/03/24 What is your living situation today?: I have a steady place to live Within the past 12 months, did the food you bought not last and you didn't have the money to get more?: Never true Within the past 12 months, did you worry whether your food would run out before you got money to buy more?: Never true Do you have trouble paying for medicines?: No Do you have trouble getting transportation to medical appointments?: Yes Do you have trouble paying your heating and electricity bill?: No Do you have trouble taking care of your child, family member or friend?: No Do you have trouble with day-to-day activities such as bathing, preparing meals, shopping, managing finances, etc.?: No Are you currently unemployed and looking for a job?: No Are you interested in more education?: No Currently or been in a relationship where the following occur: No concerns reported THRIVE Score: 1 BHARTI-7 AMB Questionnaire BHARTI-7 Date BHARTI - 7 assessed: 06/13/24 Source: Developed by Drs. Greg Gutierrez, Cami Jones, Noe Covington and colleagues, with an educational dima from [employer]. Review of Systems Narrative Review of Systems - Eyes: Reports eye soreness, difficulty opening the eye, and eye discharge for the past 2 days. He reports vision is alright. Physical exam (Primary Care) Vital Signs: Last Vital Signs Temp 98.2 F 03/08/25 14:30 Pulse 81 03/08/25 14:30 BP 134/80 03/08/25 14:30 Pulse Ox 96 03/08/25 14:30 Oxygen Delivery Method Room Air 03/08/25 14:30 BMI result Body Mass Index 32.2 Tobacco/Smoking Status: Tobacco use Status Tobacco use date assessed 06/13/24 03/08/25 14:36 Patient Tobacco Use Status Never used Tobacco 03/08/25 14:36 Tobacco use type Cigarette 03/08/25 14:36 e-Cigarette/Vaping Use Never Used 03/08/25 14:36 Thrive Assessment: Date of Thrive Assessment Date Thrive assessed 12/03/24 03/08/25 14:36 Currently or been in a relationship where the following occur: No concerns reported Narrative Physical Exam - Eyes: Visual inspection performed. Const Other: Normal vision but with erythematous swelling of the conjunctiva of the right eye General: alert; No acute distress Eyes Conjunctivae: conjunctivae normal Resp Auscultation: clear to auscultation bilaterally Cardio Rate: regular rate Rhythm: regular rhythm GI Inspection: Yes normal to inspection Extrem General: Yes normal to inspection and No edema Coding Level of Care Code Est Pt Level 3 (41647) Diagnoses Coronary artery disease involving coronary bypass graft of [place] heart without angina pectoris I25.810 Associated angina: without angina Coronary Disease-Associated Artery/Lesion type: bypass graft [place] vs. transplanted heart: [place] heart Persistent atrial fibrillation I48.19 Atrial fibrillation type: persistent (not longstanding) Tubular adenoma of colon D12.6 Acute conjunctivitis of right eye H10.31 Assessment & Plan Assessment & Plan (1) CAD (coronary artery disease): Comment: follows w/[facility]-prior director of teaching and learning was Dr.Pradnya Rodriguez ([place], [place] [phone]) Code(s): I25.10 - Atherosclerotic heart disease of [place] coronary artery without angina pectoris Category: Medical Qualifiers: Associated angina: without angina Coronary Disease-Associated [place] ry/Lesion type: bypass graft [place] vs. transplanted heart: [place] heart Qualified Code(s): I25.810 - Atherosclerosis of coronary artery bypass graft(s) without angina pectoris Plan: Control the cholesterol, weight, blood pressure, continue with anticoagulation and is on aspirin (2) Atrial fibrillation: Comment: January 2023 echocardiogram-normal LV ejection fraction of 65-70% 2. Moderately dilated left atrium 3. No significant abnormalities of cardiac valvular Dopplers with calcific aortic valve and mitral annular calcification noted 4. No gross pericardial effusion Code(s): I48.91 - Unspecified atrial fibrillation Category: Medical Qualifiers: Atrial fibrillation type: persistent (not longstanding) Qualified Code(s): I48.19 - Other persistent atrial fibrillation Plan: Continue with anticoagulation and continue with metoprolol 150 mg once a day (3) Tubular adenoma of colon: Comment: Dr. Arroyo July Code(s): D12.6 - Benign neoplasm of colon, unspecified Category: Medical Plan: Colonoscopy done December 2024 normal 5 years (4) Acute conjunctivitis of right eye: Code(s): H10.31 - Unspecified acute conjunctivitis, right eye Category: Medical Plan: Antibiotic eye drop sent. Plan Plan Patient was informed and verbally consented to the use of an ambient scribe for clinic note documentation during this visit. 1. Conjunctivitis The patient is diagnosed with conjunctivitis. A prescription for antibiotic eye drops has been sent to [facility], to be used four times a day for 5-7 days. An alternative of an ointment was discussed, but the patient preferred drops. Instructions were provided on the proper administration of eye drops, emphasizing pulling down the lower lid, and on the contagious nature of the condition, stressing the need for hand hygiene. 2. Screening For Malignant Neoplasm Of Colon The patient's recent colonoscopy in December 2024 was normal. He can follow up for his next colonoscopy in 5 years. 3. Chronic Medical Conditions The patient's chronic conditions, including hypertension, coronary artery disease, congestive heart failure, hypercholesterolemia, atrial fibrillation, and bilateral carotid artery stenosis, appear stable. He will follow up for management after completing his blood work. Discussion Notes I informed the patient that he has conjunctivitis. I prescribed antibiotic eye drops and instructed him to use them four times daily for 5-7 days. We discussed the proper technique for instilling eye drops to maximize effectiveness by applying them to the lower eyelid. An ointment was offered as an alternative, but the patient preferred the drops. I emphasized the highly transmissible nature of conjunctivitis and advised frequent hand washing and caution around his family to prevent spread. We reviewed that his recent colonoscopy was normal and he does not need another for 5 years. I reminded him that he needs to have blood work done before his next follow-up appointment. Patient Instructions - Use the prescribed antibiotic eye drops four times per day for the next 5 to 7 days. - To put the drops in, pull down your lower eyelid and place one drop in the pocket created, instead of directly onto your eyeball. - Your eye infection is very contagious. Wash your hands frequently and avoid close contact with others to prevent spreading it. - Please get your blood work done before your next appointment. - Your recent colonoscopy was normal. You will need another one in 5 years. - Please let us know if your eye condition does not improve or gets worse. Medications: New polymyxin B sulf-trimethoprim 10,000 unit- 1 mg/mL 1 drp ophthalmic-Right QID 10 mL 0RF 7 days H10.31 - Unspecified acute conjunctivitis, right eye
[2025-03-08 14:30] VITALS: BP 134/80; PULSE 81; TEMP 36.8; O2SAT 96; BMI 32.2
--- OUTSIDE RECORDS SUMMARY | 2025-03-08 15:40 | XMS_ITS | Encounter Summary ---
Author Organization [facility] Address [address] [place] [address] Care Team Providers Care Medium Cycle Salesperson Name Role Phone EitherYing Primary Care Provider [phone] Encounter Details Date Type Department Care Team (Late st Contact Info) Description 07/13/2018 Scanned Document [facility] Internal Medicine [address] [address] External, Provider Social History Tobacco Use Types [...] documented as of this encounter Care Teams Medium Cycle Salesperson Relationship Specialty Start Date End Date EitherYing [address] [place] [address] PCP - General 07/23/21 documented as of this encounter
--- OUTSIDE RECORDS SUMMARY | 2025-03-08 15:40 | XMS_ITS | Clinical Summary ---
Author Organization [facility] Address [address] [place] [address] Care Team Providers Care Denture Technician Name Role Phone Samia Baugh MD Primary Care Provider [phone] Social History Tobacco Use Types Packs/Day Years [...] Influenza Vaccine 10/19/2024 COVID-19 Vaccine (1 - 2024-2 6 season) 2024 RSV Vaccine 50 years and old er and Patients (1 - 1-dose 75+ series) 11/07/2027 Colonoscopy 10/02/2028 10/02/2018 Hepatitis B Vaccines Aged Out No long er eligible based on patient's age to complete this topic Insurance [facility] MEDICARE Care Teams Denture Technician Relationship Specialty Start Date End Date Samia Baugh MD PCP - General Internal Medicine 08/30/18
--- OUTSIDE RECORDS SUMMARY | 2025-03-08 15:40 | XMS_ITS | Encounter Summary ---
Author Organization [facility] Address [address] [place] [address] Care Team Providers Care Broadcast Program Director Name Role Phone Either, Ying Primary Care Provider [phone] Encounter Details Date Type Department Care Team (Late st Contact Info) Description 10/02/2018 Documentation [facility] [address] [place] [address] Meghann Rodriguez MD [address] [place] [address] [address] [place] [phone] Social History Tobacco Use Types Packs/Day Years [...] documented as of this encounter Care Teams Broadcast Program Director Relationship Specialty Start Date End Date Either, [address] [address] PCP - General 07/23/21 documented as of this encounter
--- OUTSIDE RECORDS SUMMARY | 2025-03-08 15:40 | XMS_ITS | Encounter Summary ---
Author Organization [facility] Address [address] [place] [address] Care Team Providers Care Recreation Facility Attendant Name Role Phone EitherYing Primary Care Provider [phone] Encounter Details Date Type Department Care Team (Late st Contact Info) Description 08/18/2021 Scanned Document [facility] [address] [place] [address] Mgehann Rodriguez MD [address] [place] [address] [address] [place] [address] Social History Tobacco Use Types Packs/Day Years [...] documented as of this encounter Care Teams Recreation Facility Attendant Relationship Specialty Start Date End Date Ying Darden [address] [place] [phone] PCP - General 07/23/21 documented as of this encounter
--- OUTSIDE RECORDS SUMMARY | 2025-03-08 15:40 | XMS_ITS | Encounter Summary ---
Author Organization [facility] Address [address] [place] [address] Care Team Providers Care Supervisor [employer]ing Name Role Phone Either, Ying Primary Care Provider [phone] Encounter Details Date Type Department Care Team (Late st Contact Info) Description 03/31/2020 Scanned Document [facility] [address] [address] Samia Baugh MD [address] [place] [phone] Social History Tobacco Use Types Packs/Day [...] documented as of this encounter Care Teams Supervisor [employer] Relationship Specialty Start Date End Date Either, [address] [address] PCP - General 07/23/21 documented as of this encounter
--- OUTSIDE RECORDS SUMMARY | 2025-03-08 15:40 | XMS_ITS | Encounter Summary ---
Author Organization [facility] Address [address] [place] [address] Care Team Providers Care Motor Vehicle Salesperson Name Role Phone Either, Ying Primary Care Provider [phone] Encounter Details Date Type Department Care Team (Late st Contact Info) Description 07/14/2020 Scanned Document [facility] [address] [address] Samia Baugh MD [address] [place] [phone] Social History Tobacco Use Types Packs/Day [...] documented as of this encounter Care Teams Motor Vehicle Salesperson Relationship Specialty Start Date End Date EitherYing [address] [place] [address] PCP - General 07/23/21 documented as of this encounter
--- OUTSIDE RECORDS SUMMARY | 2025-03-08 15:40 | XMS_ITS | Encounter Summary ---
Author Organization [facility] Address [address] [place] [address] Care Team Providers Care Chief Of Staff Name Role Phone EitherYing Primary Care Provider [phone] Encounter Details Date Type Department Care Team (Late st Contact Info) Description 06/01/2020 [employer] Encounter [facility] [address] [address] Magdi Dos Santos, [address] [place] [address] Social History Tobacco Use Types [...] documented as of this encounter Care Teams Chief Of Staff Relationship Specialty Start Date End Date Ying Darden [address] [place] [address] PCP - General 07/23/21 documented as of this encounter
--- OUTSIDE RECORDS SUMMARY | 2025-03-08 15:40 | XMS_ITS | Encounter Summary ---
Author Organization [facility] Address [address] [place] [address] Care Team Providers Care Grinding Operator Name Role Phone Samia Baugh MD Primary Care Provider [phone] Encounter Details Date Type Department Care Team (Late st Contact Info) Description 10/02/2018 Scanned Document [facility] [address] [place] [address] Froylan Loyola MD Social History Tobacco Use [...] on filedocumented in this encounter Care Teams Grinding Operator Relationship Specialty Start Date End Date Samia Baugh MD PCP - General Internal Medicine 08/30/18 documented as of this encounter
--- OUTSIDE RECORDS SUMMARY | 2025-03-08 15:40 | XMS_ITS | Encounter Summary ---
Author Organization [facility] Address [address] [place] [address] Care Team Providers Care Senior Software Quality Engineer Name Role Phone Ying Darden Primary Care Provider [phone] Encounter Details Date Type Department Care Team ([facility] st Contact Info) Description 10/02/2018 Scanned Document [facility] [address] [address] Froylan Loyola MD [address] [place] [phone] Social History Tobacco Use Types Packs/Day [...] as of this encounter Care Teams Senior Software Quality Engineer Relationship Specialty Start Date End Date Either, [address] [address] PCP - General 07/23/21 documented as of this encounter
--- OUTSIDE RECORDS SUMMARY | 2025-03-08 15:40 | XMS_ITS | Patient Health Record ---
Author Organization [facility] Address [address] [place] [address] Care Team Providers Care Lead Vulcanizing Operator Name Role Phone Valentina Bhandari MD Primary Care Provider Cameron Topete Jr Unavailable [phone] Allergies Allergen (clinical drug ingredient) Drug/Non Drug Allergy documented on EMR Reaction Allergy Type Onset Date Status heparin Heparin Unknown Drug Allergy Active Reason For Referral No Information Medications Medication SIG (Take, Route, Frequency, Duration) Notes Start Date End Date Status Lovastatin Active Lovastatin Not-Takin g/PRN Metoprolol Succinate ER 200 MG Tablet Extended Release 24 Hour 1 tablet Orally Once a day; Duration: 30 day(s) Active Warfarin Sodium 2 MG Tablet Oral; Duration: 90 Not-Taking/PRN Nadolol Active Nadolol Not-Taking /PRN hydroCHLOROthiazide Active hydroCHLOROthiazide Not-Taking/PRN Atorvastatin Calcium 80 MG Tablet 1 tablet Orally Once a day; Duration: 30 day(s) Active MiraLax (colon prep) 17 GM/SCOOP Powder mixed with Gatorade or Crystal Light Orally begin at 5:00 p.m. the day before the procedure; Duration: 1 day 09/29/2022 Not-Taking/PRN Cyclobenzaprine HCl 10 MG Tablet Oral; Duration: 20 Active Allopurinol 100 MG Tablet Oral; Duration: 90 Active Colyte with Flavor Packs 240 GM Solution Reconstituted As directed Orally Over the specified time.; Duration: 1 day(s) 07/13/2012 Not-Taking/PRN Losartan Potassium 10 MG/ML Suspension as directed Orally Active Lisinopril 10 MG Tablet 1 tablet Orally Once a day; Duration: 30 day(s) Not-Taking/PRN Furosemide 40 MG Tablet Oral; Duration: 60 Active Eliquis 5 MG Tablet as directed Orally 12/20/2024 Active Immunizations Vaccine Route Administration Date Status Comme nts Influenza Unknown 01/05/2022 Administered Influenza Unknown 12/21/2023 Administered Social History Social History Drugs/Alcohol: Social Info Question Answer Notes Alcohol Screen Did you have a drink containing alcohol in the past year? Yes How often did you have a drink containing alcohol in the past year? 4 or more times a week (4 points) How many drinks did you have on a typical day when you were drinking in the past year? 3 or 4 drinks (1 point) How often did you have 6 or more drinks on one occasion in the past year? Never (0 point) Points 5 Interpretation Positive Drug/Alcohol: Social Info Question Answer Notes AUDIT-C (Standard) Did you have a drink containing alcohol in the past year? Yes How often did you have a drink containing alcohol in the past year? 2 to 3 times a week (3 points) How many drinks did you have on a typical day when you were drinking in the past year? 3 or 4 drinks (1 point) How often did you have six or more drinks on one occasion in the past year? 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 Problems Problem Type SNOMED Code ICD Code Onset Dates Problem Status W/U Status Risk Notes Problem Colon cancer screening (293657759) Colon cancer screening (Z12.11) Active confirmed Problem Long-term current use of anticoagulant (396559426) intermediate accountant (current) use of anticoagulants (Z79.01) Active confirmed Problem History of polyp of colon (situation) (640792894) Personal history of colonic polyps (Z86.010) Active confirmed Problem Long-term current use of drug therapy (590209425) residential current use of diuretic (Z79.899) Active confirmed Vital Signs Temperature 97.8 degrees Fahrenheit 12/20/2024 Blood pressure diastolic 01 mm Hg 12/20/2024 Height 70.50 in 12/20/2024 Blood pressure systolic 001 mm Hg 12/20/2024 Weight 215.2 lbs 12/20/2024 BMI 30.44 kg/m2 12/20/2024 Encounters Encounter Location Date Provider Diagnosis [facility] Outpatient [address] [place] [address], [place] [id number] 01/01/2025 Cameron Arroyo Jr [facility] [address] [place] [address] 12/20/2024 Cameron Arroyo Jr Personal history of colonic polyps Z86.010 ; intermediate accountant (current) use of anticoagulants Z79.01 ; Colon cancer screening Z12.11 and residential current use of diuretic Z79.899 [facility] [address] [place] [address] 09/10/2024 Cameron Arroyo Jr [facility] [address] [place] [phone] 12/20/2024 Cameron Arroyo Jr [facility] [address] [address] 12/25/2024 Cameron Arroyo Jr Assessments Encounter Date Diagnosis (ICD Code) Assessment Notes Treatment Notes Treatment Clinical Notes Section Notes 12/20/2024 intermediate accountant (current) use of anticoagulants (ICD-10 - Z79.01) [...] Eliquis 3 days before the procedure. 12/20/2024 residential current use of diuretic (ICD-10 - Z79.899) [...] Insured Coverage Start Date Coverage End Date [facility] Medicare Advantage Plan [address] [address] [place] [phone] [id number] BORA GOINS Self - patient is the insured MEDICAID OF [facility] [address] [place] [address] [id number] BORA GOINS Self - patient is the insured Medical (General) History Medical History History ICD Code Hypertension Hypercholesterolemia Coronary disease/history of [place] Congestive heart failure Atrial fibrillation Osteoarthritis Colonoscopy 07/31, tubular adenoma, five- year followup Surgical History Surgery Date(Month/Year) Knee surgery Finger surgery Hernia repair x2 removal thyroglossal duct cyst CABG x3 2017 Left hip TAB 11/09 Toe amputation
--- OUTSIDE RECORDS SUMMARY | 2025-03-08 15:40 | XMS_ITS | Encounter Summary ---
Author Organization [facility] Address [address] [place] [address] Care Team Providers Care Chemical Treatment Operator Name Role Phone Either, Ying Primary Care Provider [phone] Encounter Details Date Type Department Care Team (Late st Contact Info) Description 03/31/2020 Scanned Document [facility] Internal Medicine [address] [address] Samia Baugh MD [address] [place] [phone] Social History Tobacco Use Types Packs/Day [...] as of this encounter Care Teams Chemical Treatment Operator Relationship Specialty Start Date End Date Either, [address] [address] PCP - General 07/23/21 documented as of this encounter
--- OUTSIDE RECORDS SUMMARY | 2025-03-08 15:40 | XMS_ITS | Clinical Summary ---
Author Organization [facility] [place] [facility] [address] [facility] Address [address] [place] [address] Care Team Providers Care Veterinarian Name Role Phone Either, Ying Primary Care Provider [phone] Allergies Active Allergy Reactions Criticality Noted Date [...] (HC Code) 12/29/2017 Coronary artery disease involving [place] coronar y artery 12/29/2017 Essential hypertension 12/29/2017 [...] Vaccine (50+ years) (2 of 2 - PCV20 or PCV21) 03/03/2019 03/03/2018 Diabetes screening 12/31/2022 01/01/2020, 1 04/27/2017, 12/30/2017, Additional history exists Lipid disorder screening 03/03/2023 03/03/2018 Influenza vaccine 10/19/2024 04/16/2020, 03/03/2018 Covid-19 vaccine series (3 - season) 2024 06/02/2020, 05/12/2020 RSV Immunization [...] 5:25 PM EDT Coronary artery disease involving [place] coronary artery of [place] heart without angina pectoris Pure hypercholesterolemia COLONOSCOPY Routine 10/02/2018 US ABDOMINAL AORTA LIMITED [...] - 145 mmol/L 01/01/2020 9:05 PM EDT [facility] Comment:Test repeated and re sults verified. Potassium 4.7 3.5 - 5.1 mmol/L 01/01/2020 9:05 PM EDT [facility] Chloride 100 98 - 107 mmol/L 01/01/2020 9:05 PM EDT [facility] Comment:Test repeated and re sults verified. CO2 28 21 - 32 mmol/L 01/01/2020 9:05 PM EDT [facility] Comment:Test repeated and re sults verified. Anion Gap 5 5 - 15 mmol/L 01/01/2020 9:05 PM EDT [facility] Glucose 85 65 - 110 mg/dL 01/01/2020 9:05 PM EDT [facility] Comment: Non-fastin-110 mg/dL Fasting (minimum 6 hrs): 65-99 mg/dL BUN 19(H) 7 - 18 mg/dL 01/01/2020 9:05 PM EDT [facility] Creatinine 1.09 0.70 - 1.30 mg/dL 01/01/2020 9:05 PM EDT [facility] eGFR (-LITHUANIAN) >60 >60 mL/min/1. 73m2 01/01/2020 9:05 PM EDT [facility] eGFR (NON -Bulgarian) >60 >60 mL/min/1. 73m2 01/01/2020 9:05 PM EDT [facility] Comment: (NOTE) These are estimated GFR [...] - 10.1 mg/dL 01/01/2020 9:05 PM EDT [facility] Total Protein 7.9 6.4 - 8.2 g/dL 01/01/2020 9:05 PM [facility] Albumin 4.2 3.4 - 5.0 g/dL 01/01/2020 9:05 PM [facility] Globulin 3.7 2.5 - 5.0 g/dL 01/01/2020 9:05 PM T [facility] Total Bilirubin 0.5 <1.0 mg/dL 01/01/2020 9:05 PM T [facility] Comment:Use of this assay is not recommended for patients undergoing treatment with Eltrombopag due to the potential for falsely elevated results. Alkaline Phosphatase 79 45 - 117 U/L 01/01/2020 9:05 PM T [facility] Alanine Aminotransferase (ALT) 35 16 - 61 U/L 01/01/2020 9:05 PM EDT [facility] Aspartate Aminotransferase (AST) 27 15 - 37 U/L 01/01/2020 9:05 PM T [facility] Blood Venipuncture / Unknown 01/01/2020 5:25 PM EDT 01/01/2020 8:01 PM EDT Meghann Rodriguez MD LAB BLOOD ORDERABLES Final R esult [facility] [address] [place] [address] * HM COLONOSCOPY (10/02/2018) Froylan Loyola MD HEALTH MAINTENANCE Final R esult * US Abdominal Aorta Limited ([facility]) (06/16/2018 9:13 AM EDT) [facility] [place] [facility] IP [phone] [facility] MAC ADDRESS 40:[id number] a:89:d5 [facility] READING ZIP [id number] [facility] Anatomical Region Laterality Modality Abdomen Ultrasound 06/16/2018 9:37 AM EDT Narrative 06/16/2018 9:37 AM EDT [place] [phone] US ABDOMINAL AORTA LIMITED ([facility] BORA GOINS Sex: M : [id number] Service Date: 2018-06-16 08:30:54 US ABDOMINAL AORTA LIMITED ([facility]) CLINICAL INDICATION: SCREEN. HISTORY OF HEAVY [...] dimensions as reported. No significant plaque. Location: [place], [place] Signed By: Stone Clark MD, 09:37:09 Procedure Note Stone Clark MD - 06/16/[address] [address] US ABDOMINAL AORTA LIMITED ([facility]) BORA BRISEIDA Sex: M : [id number] Service Date: 2018-06-16 08:30:54 US ABDOMINAL AORTA [...] dimensions as reported. No significant plaque. Location: [place], [place] Signed By: Stone Clakr MD, 09:37:09 Samia Baugh MD G US ORDERABLES Final Resul t * HIV-1/HIV-2 antibody/antigen screen w/reflex ([facility]) (03/03/2018 11:23 AM EST) HIV 1 and 2 Antibody/Antige n Screen Negative Negative 03/03/2018 4:10 PM EST [facility] Comment: If clinical concern for HIV infection remains, then re-screen at an appropriate interval. Patients may be non-reactive if p24 antigen or HIV antibodies have not yet developed. Blood specimen (specimen) Venipuncture / Unknown 03/03/2018 11:23 AM EST 03/03/2018 11:25 AM EST Samia Baugh MD LAB BLOOD ORDERABLES Final Re sult [facility] [address] [place] [address] * Hepatitis C Ab with reflex to HCV PCR (03/03/2018 11:23 AM EST) Hepatitis C Antibody Negative Negative 03/03/2018 4:10 PM [facility] Blood specimen (specimen) Venipuncture / Unknown 03/03/2018 11:23 AM EST 03/03/2018 11:25 AM EST Samia Baugh MD LAB BLOOD ORDERABLES Final Re sult Performing Organization Address City/[facility]/ZIP Co de Phone Number [facility] [address] [place] [address] * Lipid panel (03/03/2018 11:23 AM EST) Cholesterol 137 <200 mg/dL 03/03/2018 11:53 AM [facility] Comment: Cholesterol Reference Range: Desirable: <200 mg/dL Borderline: 200-240 mg/dL High Risk: >240 mg/dL HDL 50 40-<60 mg/dL 03/03/2018 11:53 AM [facility] Comment: HDL Reference Range: Low: <40 High: > or = 60 Triglycerides 61 <150 mg/dL 03/03/2018 11:53 AM [facility] Comment: Triglyceride Reference Range: Normal: <150 mg/dL Borderline High: 150-199 mg/dL High: 200-499 mg/dL Very High: >or= 500 mg/dL LDL Calculated 75 mg/dL 03/03/2018 11:53 AM [facility] Comment: LDL Reference Range: Optimal: <100 mg/dL Near/Above Optimal: 100-129 mg/dL Borderline High: 130-159 mg/dL High: 160-189 mg/dL Very High: >or= 190 mg/dL Blood specimen (specimen) Venipuncture / Unknown 03/03/2018 11:23 AM EST 03/03/2018 11:25 AM EST Samia Baugh MD LAB BLOOD ORDERABLES Final Re sult [facility] [address] [place] [address], [facility] [phone] from Last 3 Months or Most Recently Relevant to Health Maintenance Insurance [employer] [facility] MGD [facility] Advance Directives * Full ACLS (Latest Code Status on File) Date Activated Date Inactivated Comments 12/27/2017 2:02 PM 12/30/2017 3:53 PM Care Teams Veterinarian Relationship Specialty Start Date End Date Either, Y[address] [address] PCP - General 07/23/21
--- OUTSIDE RECORDS SUMMARY | 2025-03-08 15:40 | XMS_ITS | Encounter Summary ---
Author Organization [facility] Address [address] [place] [address] Care Team Providers Care Floorworker Name Role Phone EitherYing Primary Care Provider [phone] Encounter Details Date Type Department Care Team (Late st Contact Info) Description 07/18/2018 Scanned Document [facility] Cardiology [address] [address] External, Provider Social History Tobacco Use Types [...] documented as of this encounter Care Teams Floorworker Relationship Specialty Start Date End Date EitherYing [address] [place] [address] PCP - General 07/23/21 documented as of this encounter
--- OUTSIDE RECORDS SUMMARY | 2025-03-08 15:40 | XMS_ITS | Encounter Summary ---
Author Organization [facility] Address [address] [place] [address] Care Team Providers Care Window Shade Installer Name Role Phone Either, Ying Primary Care Provider [phone] Encounter Details Date Type Department Care Team ([facility] st Contact Info) Description 03/28/2020 Scanned Document [place] [address] External, Provider Social History Tobacco Use Types [...] documented as of this encounter Care Teams Window Shade Installer Relationship Specialty Start Date End Date Either, [address] [address] PCP - General 07/23/21 documented as of this encounter
--- OUTSIDE RECORDS SUMMARY | 2025-03-08 15:40 | XMS_ITS | Encounter Summary ---
Author Organization [facility] Address [address] [place] [address] Care Team Providers Care Filter Operator Name Role Phone EitherYing Primary Care Provider [phone] Encounter Details Date Type Department Care Team (Late st Contact Info) Description 08/18/2021 Scanned Document [facility] [address] [place] [address] Meghann Rodriguez MD [address] [place] [address] [address] [place] [address] Social History Tobacco Use Types Packs/Day Years [...] documented as of this encounter Care Teams Filter Operator Relationship Specialty Start Date End Date Ying Darden [address] [place] [phone] PCP - General 07/23/21 documented as of this encounter
--- OUTSIDE RECORDS SUMMARY | 2025-03-08 15:40 | XMS_ITS | Encounter Summary ---
Author Organization [facility] Address [address] [place] [address] Care Team Providers Care Cost Engineer Name Role Phone Either, Ying Primary Care Provider [phone] Encounter Details Date Type Department Care Team (Late st Contact Info) Description 10/12/2019 Scanned Document [facility] Medicine [address] [address] Samia Baugh MD [address] [place] [address] Social History Tobacco Use Types Packs/Day [...] documented as of this encounter Care Teams Cost Engineer Relationship Specialty Start Date End Date EitherYing [address] [place] [phone] PCP - General 07/23/21 documented as of this encounter
--- OUTSIDE RECORDS SUMMARY | 2025-03-08 15:41 | XMS_ITS | Encounter Summary ---
Author Organization [facility] and Home Health Address [address] [place] [address] Care Team Providers Care Assistant Analyst Name Role Phone EitherYing Primary Care Provider [phone] Encounter Details Date Type Department Care Team (Late st Contact Info) Description 08/13/2021 Scanned Document [facility] [address] [place] [address] Meghann Rodriguez MD [address] [place] [address] [address] [place] [address] Social History Tobacco Use Types Packs/Day Years [...] documented as of this encounter Care Teams Assistant Analyst Relationship Specialty Start Date End Date Ying Darden [address] [place] [phone] PCP - General 07/23/21 documented as of this encounter
== END 2025-03-08 14:51 | disposition home or self-care (01) ==
LOC: HO.HMCH 14:08
PROVIDERS: PCP Internal Medicine; Visit Provider Internal Medicine
DX: I25.810 Atherosclerosis of coronary artery bypass graft(s) without angina pectoris (principal); I48.19 Other persistent atrial fibrillation; D12.6 Benign neoplasm of colon, unspecified; H10.31 Unspecified acute conjunctivitis, right eye

== ENCOUNTER → 2025-03-08 14:07 | Outpatient (BNVA) | payer MEDICARE, MEDICAID, SELFPAY | PROVIDERS: PCP Internal Medicine; Visit Provider Internal Medicine | DX: H10.31 Unspecified acute conjunctivitis, right eye (principal); I25.810 Atherosclerosis of coronary artery bypass graft(s) without angina pectoris; I48.19 Other persistent atrial fibrillation; D12.6 Benign neoplasm of colon, unspecified; Z79.899 Other long term (current) drug therapy | CPT/HCPCS: 99212 ==